=== PATIENT | female | born 1985 | race Caucasian/White ===

== ENCOUNTER 2020-02-20 11:34 | Emergency (ER) | payer MEDICAID, SELFPAY ==
[2020-02-20 11:45] VITALS: BP 140/62; PULSE 83; RESP 16; TEMP 36.7; O2SAT 99; BMI 41.3
--- NOTE | 2020-02-20 11:52 | PC.NURSE ---
DR LEMONS AT BEDSIDE FOR INITIAL EVALUATION
--- NOTE | 2020-02-20 11:52 | PC.NURSE ---
PT INFORMED OF THE PLAN OF CARE AND IS AGREEABLE
--- NOTE | 2020-02-20 12:16 | CT_ITS ---
EXAMINATION: CT ABDOMEN AND PELVIS WITHOUT CONTRAST CLINICAL INFORMATION: Right-sided abdominal pain COMPARISON: Report from CT of the abdomen and pelvis 10/18/2018. TECHNIQUE: Multidetector volumetric imaging was performed from the superior aspect of the liver through the pubic symphysis. Sagittal and coronal reformatted images were obtained on the technologist's workstation. This CT examination was performed using dose optimization techniques as appropriate, variously including the following: *Automated exposure control *Adjustment of mA and/or kV according to patient size (this includes techniques or standardized protocols for targeted exams where dose is matched to indication/reason for exam; i.e. extremities or head) *Use of iterative reconstruction technique DLP: 1079 mGy-cm FINDINGS: LUNG BASES: The visualized lung bases are unremarkable. LIVER, GALLBLADDER, AND BILIARY TREE: The liver is normal in size, shape, and attenuation. No focal hepatic lesion or biliary ductal dilatation is present. The gallbladder is surgically absent. PANCREAS: Unremarkable. SPLEEN: Unremarkable. ADRENAL GLANDS: Unremarkable. KIDNEYS AND URETERS: The kidneys are normal in size, shape, and attenuation. No hydronephrosis or hydroureter. There are smaller stones in the inferior pole of the left kidney. The larger measures up to 1.1 cm there are at least 2 additional adjacent smaller stones that measure up to 0.4 cm. No perinephric stranding. BLADDER: Unremarkable. GASTROINTESTINAL TRACT: No evidence of small or large bowel obstruction. The appendix is not clearly identified, but there are no pericecal inflammatory changes. Again demonstrated are scattered diverticula of the sigmoid colon without evidence of diverticulitis. ABDOMINAL WALL: Small, fat-containing supraumbilical hernia is stable since the prior study LYMPH NODES: Again demonstrated is mesenteric haziness and associated subcentimeter lymph nodes, stable since the prior study. VASCULAR: Normal caliber of the aorta. The IVC demonstrates a normal noncontrast appearance. PELVIC VISCERA: The uterus and adnexa are unremarkable. OSSEOUS STRUCTURES: No suspicious osseous lesion. IMPRESSION: No acute intra-abdominal pathology. Decreased degree of stone burden of the left kidney, now with smaller residual stones in the inferior pole measuring up to 1.1 cm. No hydronephrosis or hydroureter. No right-sided hydronephrosis, hydroureter, or nephrolithiasis. No evidence of bowel obstruction. Diverticulosis of the sigmoid colon without evidence of diverticulitis. Stable small fat-containing supraumbilical hernia.
--- NOTE | 2020-02-20 12:17 | ED.ABDPAIN ---
HPI - Abdominal Pain General Chief Complaint: Abdominal Pain Stated Complaint: abd pain Time Seen by Provider: 02/20/20 12:08 Source: patient Mode of arrival: ambulatory History of Present Illness HPI narrative: right-sided abdominal pain for a long time (couple months ) been worsening since yesterday. MD elicited complaint: abdominal pain Pertinent past history: none Onset (ago): month(s) (2) Pain Consistency: constant Location: RUQ Quality: aching Radiation: none Migration to: no migration Exacerbating factors: nothing Relieving factors: nothing Context: foreign travel Related Data Patient : No Previous Rx's Medication Instructions Recorded omeprazole magnesium [Prilosec OTC] 20 mg PO BID #60 tab 02/20/20 Allergies Allergy/AdvReac Type Severity Reaction Status Date / Time No Known Allergies Allergy Unverified 01/21/20 19:29 [No Known Allergies*] Review of Systems Review of Systems Yes all other systems are reviewed and are negative Constitutional: Reports no additional constitutional complaints Eyes: Reports no additional eye complaints Reports system reviewed and no additional complaints, except as documented Cardiovascular: Reports no additional cardiovascular complaints Respiratory: Reports no additional respiratory complaints Gastrointestinal: Denies nausea and Denies vomiting Genitourinary: Reports no additional female genitourinary complaints Musculoskeletal: Reports no additional musculoskeletal complaints Reports system reviewed and no additional complaints, except as documented Psychiatric: Reports no additional psychiatric complaints Physical Exam Vital Signs: Vital Signs: Vital Signs Temp Pulse Resp BP Pulse Ox 02/20/20 15:12 98.1 F 79 18 142/85 H 99 02/20/20 11:45 98.1 F 83 16 140/62 H 99 Body Mass Index 41.3 Const: General: cooperative Orientation/consciousness: oriented to person HENMT: Head: Yes normal to inspection Ears: hearing grossly normal bilaterally Eyes: General: appearance normal, both eyes and all related structures Neck: Neck: Yes normal visual inspection Chest: Chest palpation & inspection: normal inspection of the chest Resp: Effort & Inspection: normal respiratory effort Cardio: Jugular venous distension: no JVD Palpation: normal PMI GI: Inspection: Yes normal to inspection Palpation (GI): Soft to palpation and Tenderness to palpation present (GI) in the RLQ and in the RUQ Skin: General skin exam: no rashes or lesions noted Trauma: no lacerations or abrasions Neuro: General: oriented to person Cranial nerves: Yes CN's II-XII intact bilaterally Extrem: General: Yes normal to inspection and Yes full ROM Course Course Course Narrative: Acute on chronic abdominal pain, patient status post cholecystectomy, patient will have a CT abdomen pelvis, labs, UA. MDM - Abdominal Pain MDM Narrative Medical decision making narrative: Assessment and plan. Acute on chronic abdominal pain clinical presentation is more consistent with acute gastritis. Will start the patient on Prilosec and follow up with GI. Lab Data Result diagrams: 02/20/20 12:32 02/20/20 12:32 Labs: Lab Results 02/20/20 02/20/20 02/20/20 Range/Units 12:32 12:32 12:32 WBC 8.9 (4.8-10.8) X10*3/uL RBC 4.68 (4.20-5.50) X10*6/uL Hgb 14.3 (12.0-16.0) g/dl Hct 43.8 (37-47) % MCV 93.6 (80-98) fL MCH 30.6 (27.0-33.0) pg MCHC 32.6 (31.0-35.0) g/dl RDW 13.2 (11.0-16.0) % Plt Count 226 (160-400) X10*3/uL MPV 11.0 (9.4-12.3) fL Absolute Nucleated RBC 0.000 (0.0-0.012) X10*3/uL Nucleated RBC % (auto) 0.0 (0.0-0.2) /100WBC Sodium 139 (135-145) mmol/L Potassium 4.1 (3.3-5.1) mmol/l Chloride 105 (96-108) mmol/L Carbon Dioxide 28 (22-29) mmol/L Anion Gap 10 L (12-20) BUN 12 (9-16) mg/dL Creatinine 0.70 (0.5-1.4) mg/dL Estim Creat Clear Calc 146.7 Estimated GFR > 60 Random Glucose 106 (60-115) mg/dL Calcium 9.1 (8.4-10.2) mg/dL Total Bilirubin 0.4 (0.0-1.0) mg/dL Direct Bilirubin < 0.2 (0.0-0.5) mg/dL AST 18 (5-31) U/L ALT 36 H (0-31) U/L Alkaline Phosphatase 103 (39-117) U/L Total Protein 7.0 (6.5-8.0) g/dL Albumin 4.1 (3.5-5.0) g/dL Lipase 63 (8-78) U/L Urine Color Urine Appearance Urine pH (5.0-8.0) Ur Specific [place] (1.005-1.025) Urine Protein (NEG-TRACE) MG/DL Urine Glucose (UA) (NEG) MG/DL Urine Ketones (NEG) MG/DL Urine Blood (NEG) Urine Nitrite (NEG) Ur Leukocyte Esterase (NEG) Urine RBC (0) /HPF Urine WBC (0-4) /HPF Ur Squamous Epith Cells /LPF Amorphous Sediment /LPF Urine Bacteria /LPF Urine Test (NEGATIVE) 02/20/20 Range/Units 13:28 WBC (4.8-10.8) X10*3/uL RBC (4.20-5.50) X10*6/uL Hgb (12.0-16.0) g/dl Hct (37-47) % MCV (80-98) fL MCH (27.0-33.0) pg MCHC (31.0-35.0) g/dl RDW (11.0-16.0) % Plt Count (160-400) X10*3/uL MPV (9.4-12.3) fL Absolute Nucleated RBC (0.0-0.012) X10*3/uL Nucleated RBC % (auto) (0.0-0.2) /100WBC Sodium (135-145) mmol/L Potassium (3.3-5.1) mmol/l Chloride (96-108) mmol/L Carbon Dioxide (22-29) mmol/L Anion Gap (12-20) BUN (9-16) mg/dL Creatinine (0.5-1.4) mg/dL Estim Creat Clear Calc Estimated GFR Random Glucose (60-115) mg/dL Calcium (8.4-10.2) mg/dL Total Bilirubin (0.0-1.0) mg/dL Direct Bilirubin (0.0-0.5) mg/dL AST (5-31) U/L ALT (0-31) U/L Alkaline Phosphatase (39-117) U/L Total Protein (6.5-8.0) g/dL Albumin (3.5-5.0) g/dL Lipase (8-78) U/L Urine Color YELLOW Urine Appearance CLEAR Urine pH 6.0 (5.0-8.0) Ur Specific [place] 1.020 (1.005-1.025) Urine Protein NEG (NEG-TRACE) MG/DL Urine Glucose (UA) NEG (NEG) MG/DL Urine Ketones NEG (NEG) MG/DL Urine Blood TRACE (NEG) Urine Nitrite NEG (NEG) Ur Leukocyte Esterase NEG (NEG) Urine RBC 0-2 (0) /HPF Urine WBC 0-2 (0-4) /HPF Ur Squamous Epith Cells 3+ /LPF Amorphous Sediment 1+ /LPF Urine Bacteria NONE /LPF Urine Test NEGATIVE (NEGATIVE) Discharge Plan Discharge Clinical Impression: Gastritis, Abdominal pain in female Patient Disposition: Home, Self-Care Instructions: Gastritis (ED) Prescriptions: New omeprazole magnesium [Prilosec OTC] 20 mg tablet,delayed release (DR/EC) 20 mg PO BID Qty: 60 RF: 0 Referrals: Janny Patel MD [Physician] - 2 days PMF Past Medical History Medical History Kidney stones Social History Social History Advance Directives: No Advance Directives Information Provided: Yes
[2020-02-20] MEDS: 0.9 % Sodium Chloride 1,000 ML 999 ML IVCONT (12:34)
[2020-02-20 12:45] LABS: Hematocrit 43.8 % (37-47); Hemoglobin 14.3 g/dl (12.0-16.0); Mean Corpuscular HGB Conc 32.6 g/dl (31.0-35.0); Mean Corpuscular Hemoglobin 30.6 pg (27.0-33.0); Mean Corpuscular Volume 93.6 fL (80-98); Platelet Count 226 X10*3/uL (160-400); Red Blood Count 4.68 X10*6/uL (4.20-5.50); Red Cell Distribution Width 13.2 % (11.0-16.0); White Blood Count 8.9 X10*3/uL (4.8-10.8)
[2020-02-20 13:03] LABS: Anion Gap 10 (12-20); Blood Urea Nitrogen 12 mg/dL (9-16); Calcium 9.1 mg/dL (8.4-10.2); Carbon Dioxide 28 mmol/L (22-29); Chloride 105 mmol/L (96-108); Creatinine Clr Calc Pharmacy 146.7; Estimated Glomerular Filt Rate > 60; Glucose Random 106 mg/dL (60-115); Potassium 4.1 mmol/l (3.3-5.1); Sodium 139 mmol/L (135-145)
[2020-02-20 13:04] LABS: Alanine Aminotransferase 36 U/L (0-31); Albumin Level 4.1 g/dL (3.5-5.0); Alkaline Phosphatase 103 U/L (39-117); Aspartate Amino Transferase 18 U/L (5-31); Bilirubin Direct < 0.2 mg/dL (0.0-0.5); Bilirubin Total 0.4 mg/dL (0.0-1.0); Lipase 63 U/L (8-78)
[2020-02-20 13:40] LABS: Glucose Urine UA NEG (NEG); Leukocyte Esterase Urine NEG (NEG); Nitrite Urine NEG (NEG); Urine Blood TRACE (NEG); Urine Ketones NEG (NEG); Urine Protein NEG (NEG-TRACE)
[2020-02-20 13:42] LABS: Appearance Urine CLEAR; Color Urine YELLOW
[2020-02-20 13:43] LABS: UPreg QC Valid YES; Urine Pregnancy NEGATIVE (NEGATIVE)
[2020-02-20 13:50] LABS: Amorphous Sediment Urine 1+ /LPF; RBC Urine 0-2 /HPF (0); Squamous Epithelial Cell Urine 3+ /LPF
[2020-02-20 13:51] LABS: WBC Urine 0-2 /HPF (0-4)
[2020-02-20 15:12] VITALS: BP 142/85; PULSE 79; RESP 18; TEMP 36.7; O2SAT 99
== END 2020-02-20 16:28 | disposition home or self-care (01) ==
PROVIDERS: Emergency Provider Emergency Medicine
DX: K29.70 Gastritis, unspecified, without bleeding (principal)
CPT/HCPCS: 36415; 74176; 80048; 80076; 81001; 81025; 83690; 85027; 96360; 99283; 99284

== ENCOUNTER 2022-08-22 11:12 | Emergency (ER) | payer MEDICAID, SELFPAY ==
--- NOTE | ~2022-08-22 | CT_ITS ---
EXAMINATION: CT ABDOMEN AND PELVIS WITHOUT CONTRAST CLINICAL INFORMATION: Left-sided pain and diarrhea. COMPARISON: None available. TECHNIQUE: Multidetector volumetric imaging was performed from the superior aspect of the liver through the pubic symphysis. Sagittal and coronal reformatted images were obtained on the technologist's workstation. This CT examination was performed using dose optimization techniques as appropriate, variously including the following: *Automated exposure control *Adjustment of mA and/or kV according to patient size (this includes techniques or standardized protocols for targeted exams where dose is matched to indication/reason for exam; i.e. extremities or head) *Use of iterative reconstruction technique DLP: 854 mGy-cm FINDINGS: LUNG BASES: Normal. No pulmonary consolidation or pleural effusion. LIVER: Obese body habitus, hepatomegaly and diffuse hepatic steatosis. The liver parenchyma has attenuation of approximately 35 Hounsfield units on these noncontrast images. GALLBLADDER AND BILIARY TREE: Gallbladder is surgically absent. No dilated bile ducts. PANCREAS: Normal. No edema, pancreatic ductal dilatation or mass. SPLEEN: Normal. ADRENAL GLANDS: Normal. KIDNEYS AND URETERS: Kidneys are normal in size. A calyceal stone of the lower pole of the left kidney measures up to 0.7 cm maximum dimension and has density of approximately 800 Hounsfield units. The stone is slightly smaller compared to 02/20/2020. Is located approximately 15 cm deep from the skin surface at the posterior axillary line. No new calyceal stones. No ureteral stone, hydroureteronephrosis or perinephric edema. BLADDER: Normal. No calculi or wall thickening. BOWEL AND PERITONEUM: The gastrointestinal tract is not optimally evaluated on this noncontrast examination. No dilated bowel loops. The appendix is normal. There is chronic haziness of central mesenteric fat from mesenteric panniculitis. No abdominal free fluid or free air. ABDOMINAL WALL: Small fat-containing periumbilical hernia is unchanged. VASCULATURE: Unremarkable. LYMPH NODES: No pathologic sized lymph nodes in the abdomen or pelvis. No inguinal lymphadenopathy. PELVIC VISCERA: No evidence of uterine or adnexal mass. No pelvic free fluid. MUSCULOSKELETAL: Unremarkable. CT/CT abdomen pelvis wo IV con IMPRESSION: * No acute imaging abnormalities in the abdomen or pelvis compared to 02/20/2020. * A single stone is present in the lower pole of the left kidney. No ureteral stones, hydroureteronephrosis or perinephric edema. * Mesenteric panniculitis. * Obese body habitus, hepatomegaly and diffuse hepatic steatosis. * Small fat-containing periumbilical hernia.
--- NOTE | ~2022-08-22 | XR_ITS ---
EXAMINATION: XR CHEST CLINICAL INFORMATION: Chest pain COMPARISON: Previous chest x-ray May 2019 TECHNIQUE: 2 views of the chest were obtained. FINDINGS: No significant abnormality is noted involving the heart, lungs, mediastinum, bony thorax or soft tissues. XR/XR chest 2V IMPRESSION: Unremarkable examination.
--- NOTE | 2022-08-22 11:15 | ECG_ITS ---
Test Reason : CHEST PAIN Blood Pressure : / mmHG Vent. Rate : 093 BPM Atrial Rate : 093 BPM P-R Int : 164 ms QRS Dur : 078 ms QT Int : 366 ms P-R-T Axes : 046 021 004 degrees QTc Int : 455 ms Normal sinus rhythm Possible Left atrial enlargement Borderline ECG When compared with ECG of 15-JAN-2018 12:08, No significant change was found Referred By: Yanna Daley Electronically Signed By:VENTURA SINGER
[2022-08-22 11:16] VITALS: BP 131/69; PULSE 92; RESP 18; TEMP 36.3; O2SAT 98; BMI 41.2
--- NOTE | 2022-08-22 11:17 | ED.CHESTPAIN ---
HPI - Chest Pain General Chief Complaint: Chest Pain <Yanna Daley NP - Last Filed: 08/22/22 11:25> Stated Complaint: chest pain/ abd pain <Yanna Daley NP - Last Filed: 08/22/22 11:25> Time Seen by Provider: 08/22/22 12:06 <Yanna Daley NP - Last Filed: 08/22/22 11:25> Source: patient and medical interpreter <JORGE Reilly Last Filed: 08/22/22 15:00> Mode of arrival: ambulatory <JORGE Reilly Last Filed: 08/22/22 15:00> Limitations: no limitations <JORGE Reilly Last Filed: 08/22/22 15:00> History of Present Illness HPI narrative: 36-year-old female presents to the ER for evaluation of 4 days of left-sided abdominal pain and diarrhea as well as nonradiating left sided chest pain and headaches. Patient states she has had pain in her left upper quadrant for the last 4 days, she also has loose stools which is acute on chronic. She is status post cholecystectomy. She denies any nausea or vomiting. She states she also has had a pounding headache and had chest pains. She reports a history of kidney stones but states this pain in the abdomen is different. She reports some difficulty emptying her bladder completely. She denies any dysuria or hematuria. No fever or chills. No shortness of breath or cough. No URI symptoms. <JORGE Reilly Last Filed: 08/22/22 15:00> MD complaint: chest pain and other (Headache, abdominal pain, diarrhea) <JORGE Reilly Last Filed: 08/22/22 15:00> Onset (ago): day(s) (4) <JORGE Reilly Last Filed: 08/22/22 15:00> Timing of current episode: constant <JORGE Reilly Last Filed: 08/22/22 15:00> Prior episodes: Yes <JORGE Reilly Last Filed: 08/22/22 15:00> Onset: during rest <JORGE Reilly Last Filed: 08/22/22 15:00> Pain location: left chest and other (Left upper abdomen) <JORGE Reilly - Last Filed: 08/22/22 15:00> Pain radiation: abdomen <JORGE Reilly - Last Filed: 08/22/22 15:00> Severity: moderate <JORGE Reilly - Last Filed: 08/22/22 15:00> Quality: aching <JORGE Reilly - Last Filed: 08/22/22 15:00> Relieving factors: nothing <JORGE Reilly - Last Filed: 08/22/22 15:00> Exacerbating factors: nothing <JORGE Reilly - Last Filed: 08/22/22 15:00> Associated symptoms: other (Headache and abdominal pain) <JORGE Reilly - Last Filed: 08/22/22 15:00> Risk Factors Pulmonary embolism risk factors: morbid obesity <JORGE Reilly - Last Filed: 08/22/22 15:00> Related Data Home Medications: Previous Rx's Medication Instructions Recorded omeprazole magnesium 20 mg 20 mg PO BID #60 tabs 02/20/20 tablet,delayed release (Prilosec OTC) loperamide 2 mg capsule (Imodium 2 mg PO Q6H PRN loose stool #14 08/22/22 A-D) caps naproxen 500 mg tablet 500 mg PO BID PRN pain #20 tabs 08/22/22 <Yanna Daley NP - Last Filed: 08/22/22 11:25> Allergies/Adverse Reactions: Allergies Allergy/AdvReac Type Severity Reaction Status Date / Time No Known Allergies Allergy Verified 08/22/22 11:25 [No Known Allergies*] <Yanna Daley NP - Last Filed: 08/22/22 11:25> Review of Systems Review of Systems: Yes all other systems are reviewed and are negative <JORGE Reilly - Last Filed: 08/22/22 15:00> PMFSH Past Medical History Medical History: Medical History Kidney stones <Yanna Daley NP - Last Filed: 08/22/22 11:25> Social History Social History: Social History Alcohol intake: never Smoked in Last 30 Days: Yes Use of substances other than those prescribed or required for medical reasons: No Advance Directives: No Advance Directives Information Provided: No <Yanna Daley NP - Last Filed: 08/22/22 11:25> Physical Exam Vital Signs: Vital Signs: Last Vital Signs Temp 97.3 F 08/22/22 11:16 Pulse 81 08/22/22 14:14 Resp 21 H 08/22/22 14:14 BP 111/59 L 08/22/22 14:14 Pulse Ox 95 08/22/22 14:14 O2 Del Method Room Air 08/22/22 14:14 BMI result Body Mass Index 41.2 <Yanna Daley NP - Last Filed: 08/22/22 11:25> Vital Signs: Last Vital Signs Temp 97.3 F 08/22/22 11:16 Pulse 81 08/22/22 14:14 Resp 21 H 08/22/22 14:14 BP 111/59 L 08/22/22 14:14 Pulse Ox 95 08/22/22 14:14 O2 Del Method Room Air 08/22/22 14:14 BMI result Body Mass Index 41.2 <JORGE Reilly - Last Filed: 08/22/22 15:00> Course Course Course Narrative: This is a rapid medical exam. Deferred additional HPI, ROS, PE to primary provider. 36 yo female with no medical history here with 4 days of LUQ abdominal pain/left lower chest wall pain, headache, dizziness. No nausea, vomiting, diarrhea, fever, cough, urinary symptoms. WIll obtain labs, EKG, CXR, UA, viral testing. VSS <Yanna Daley NP - Last Filed: 08/22/22 11:25> Medical Decision Making Medical Decision Making MDM Narrative: 36-year-old female presents to the ER for evaluation of 4 days of left upper quadrant pain, chest pain, headaches. Her physical exam is benign. She does have a history of kidney stones and states the pain kind of felt similar to his and his own. Urine does not show any evidence of blood, infection or . CT scan did not show any evidence of kidney stones. 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 Patient most likely has a viral syndrome. Her EKG was negative for any ischemic changes. Troponin was negative. Chest x-ray was clear. At this time she is stable for d/c home with NSAIDS for pain control. medical staff services manager used to discuss results and plan. all questions were answered <JORGE Reilly - Last Filed: 08/22/22 15:00> Differential Diagnosis Differential Diagnoses: The differential diagnosis associated with the presentation includes <JORGE Reilly - Last Filed: 08/22/22 15:00> Gastroenteritis, kidney stone, pyelonephritis, UTI, pneumonia, acute viral syndrome, most likely PE or ACS. Perc negative. <JORGE Reilly - Last Filed: 08/22/22 15:00> Lab Data MDM Lab Attestation statement: I reviewed the patient's lab results. <JORGE Reilly - Last Filed: 08/22/22 15:00> Result Diagrams: 08/22/22 11:56 08/22/22 11:56 <Yanna Daley NP - Last Filed: 08/22/22 11:25> Labs: Lab Results 08/22/22 08/22/22 08/22/22 Range/Units 11:56 11:56 12:29 WBC 10.9 H (4.8-10.8) X10*3/uL RBC 4.85 (4.20-5.50) X10*6/uL Hgb 14.6 (12.0-16.0) g/dl Hct 44.2 (37.0-47.0) % MCV 91.1 (80.0-98.0) fL MCH 30.1 (27.0-33.0) pg MCHC 33.0 (31.0-35.0) g/dl RDW 12.4 (11.0-16.0) % Plt Count 222 (160-400) X10*3/uL MPV 10.6 (9.4-12.3) fL Immature Gran % (Auto) 0.6 H (0.0-0.4) % Neut % (Auto) 67.1 (45-73) % Lymph % (Auto) 26.2 (20-40) % [place] % (Auto) 5.0 (2-11) % Eos % (Auto) 0.8 (0-4) % Baso % (Auto) 0.3 (0-2) % Lymph # (Auto) 2.8 (1.2-4.9) X10*3/uL [place] # (Auto) 0.5 (0.1-1.2) X10*3/uL Eos # (Auto) 0.1 (0.0-0.4) X10*3/uL Baso # (Auto) 0.0 (0.0-0.2) X10*3/uL Abs Immat Gran (auto) 0.06 H (0.00-0.03) X10*3/uL Absolute Neuts (auto) 7.3 (2.0-8.3) x10*3/uL Absolute Nucleated RBC 0.000 (0.0-0.012) X10*3/uL Nucleated RBC % (auto) 0.0 (0.0-0.2) /100WBC Sodium (135-145) mmol/L Potassium (3.3-5.1) mmol/L Chloride (96-108) mmol/L Carbon Dioxide (22-29) mmol/L Anion Gap (12-20) BUN (9-16) mg/dL Creatinine (0.5-1.4) mg/dL Estim Creat Clear Calc Estimated GFR Random Glucose (60-115) mg/dL Calcium (8.4-10.2) mg/dL Total Bilirubin (0.0-1.0) mg/dL Direct Bilirubin (0.0-0.5) mg/dL AST (5-31) U/L ALT (0-31) U/L Alkaline Phosphatase (39-117) U/L Troponin I High Sens < 2.7 (<3.5-17.0) ng/L Total Protein (6.5-8.0) g/dL Albumin (3.5-5.0) g/dL Lipase (8-78) U/L Urine Color Urine Appearance Urine pH (5.0-9.0) Ur Specific [place] (1.005-1.025) Urine Protein (Neg-Trace) mg/dL Urine Glucose (UA) (Negative) mg/dL Urine Ketones (Negative) mg/dL Urine Blood (Negative) Urine Nitrite (Negative) Ur Leukocyte Esterase (Negative) Urine RBC (0-2) /HPF Urine WBC (0-5) /HPF Ur Squamous Epith Cells (0-2) /HPF Urine Bacteria (None Seen) Hyaline Casts (0-2) /LPF Urine Test (NEGATIVE) Influenza Type A (PCR) NEGATIVE (Negative) Influenza Type B (PCR) NEGATIVE (Negative) RSV RNA Qual (PCR) NEGATIVE (Negative) SARS-CoV-2 RNA (RT-PCR) NEGATIVE (Negative) 08/22/22 08/22/22 08/22/22 Range/Units 12:33 13:13 13:13 WBC (4.8-10.8) X10*3/uL RBC (4.20-5.50) X10*6/uL Hgb (12.0-16.0) g/dl Hct (37.0-47.0) % MCV (80.0-98.0) fL MCH (27.0-33.0) pg MCHC (31.0-35.0) g/dl RDW (11.0-16.0) % Plt Count (160-400) X10*3/uL MPV (9.4-12.3) fL Immature Gran % (Auto) (0.0-0.4) % Neut % (Auto) (45-73) % Lymph % (Auto) (20-40) % [place] % (Auto) (2-11) % Eos % (Auto) (0-4) % Baso % (Auto) (0-2) % Lymph # (Auto) (1.2-4.9) X10*3/uL [place] # (Auto) (0.1-1.2) X10*3/uL Eos # (Auto) (0.0-0.4) X10*3/uL Baso # (Auto) (0.0-0.2) X10*3/uL Abs Immat Gran (auto) (0.00-0.03) X10*3/uL Absolute Neuts (auto) (2.0-8.3) x10*3/uL Absolute Nucleated RBC (0.0-0.012) X10*3/uL Nucleated RBC % (auto) (0.0-0.2) /100WBC Sodium 138 (135-145) mmol/L Potassium 4.0 (3.3-5.1) mmol/L Chloride 104 (96-108) mmol/L Carbon Dioxide 28 (22-29) mmol/L Anion Gap 10 L (12-20) BUN 8 L (9-16) mg/dL Creatinine 0.75 (0.5-1.4) mg/dL Estim Creat Clear Calc 129.5 Estimated GFR > 60 Random Glucose 239 H (60-115) mg/dL Calcium 8.9 (8.4-10.2) mg/dL Total Bilirubin 0.5 (0.0-1.0) mg/dL Direct Bilirubin 0.1 (0.0-0.5) mg/dL AST 19 (5-31) U/L ALT 28 (0-31) U/L Alkaline Phosphatase 119 H (39-117) U/L Troponin I High Sens (<3.5-17.0) ng/L Total Protein 6.5 (6.5-8.0) g/dL Albumin 3.8 (3.5-5.0) g/dL Lipase 17 (8-78) U/L Urine Color Yellow Urine Appearance Clear Urine pH 5.5 (5.0-9.0) Ur Specific [place] 1.025 (1.005-1.025) Urine Protein 30 (1+) H (Neg-Trace) mg/dL Urine Glucose (UA) Negative (Negative) mg/dL Urine Ketones Negative (Negative) mg/dL Urine Blood Negative (Negative) Urine Nitrite Negative (Negative) Ur Leukocyte Esterase Negative (Negative) Urine RBC 0-2 (0-2) /HPF Urine WBC 0-5 (0-5) /HPF Ur Squamous Epith Cells 3-5 (0-2) /HPF Urine Bacteria None Seen (None Seen) Hyaline Casts 0-2 (0-2) /LPF Urine Test NEGATIVE (NEGATIVE) Influenza Type A (PCR) (Negative) Influenza Type B (PCR) (Negative) RSV RNA Qual (PCR) (Negative) SARS-CoV-2 RNA (RT-PCR) (Negative) <Yanna Daley, NUMERICAL CONTROL TOOL PROGRAMMER - Last Filed: 08/22/22 11:25> Lab Results 08/22/22 08/22/22 08/22/22 Range/Units 11:56 11:56 12:29 WBC 10.9 H (4.8-10.8) X10*3/uL RBC 4.85 (4.20-5.50) X10*6/uL Hgb 14.6 (12.0-16.0) g/dl Hct 44.2 (37.0-47.0) % MCV 91.1 (80.0-98.0) fL MCH 30.1 (27.0-33.0) pg MCHC 33.0 (31.0-35.0) g/dl RDW 12.4 (11.0-16.0) % Plt Count 222 (160-400) X10*3/uL MPV 10.6 (9.4-12.3) fL Immature Gran % (Auto) 0.6 H (0.0-0.4) % Neut % (Auto) 67.1 (45-73) % Lymph % (Auto) 26.2 (20-40) % [place] % (Auto) 5.0 (2-11) % Eos % (Auto) 0.8 (0-4) % Baso % (Auto) 0.3 (0-2) % Lymph # (Auto) 2.8 (1.2-4.9) X10*3/uL [place] # (Auto) 0.5 (0.1-1.2) X10*3/uL Eos # (Auto) 0.1 (0.0-0.4) X10*3/uL Baso # (Auto) 0.0 (0.0-0.2) X10*3/uL Abs Immat Gran (auto) 0.06 H (0.00-0.03) X10*3/uL Absolute Neuts (auto) 7.3 (2.0-8.3) x10*3/uL Absolute Nucleated RBC 0.000 (0.0-0.012) X10*3/uL Nucleated RBC % (auto) 0.0 (0.0-0.2) /100WBC Sodium (135-145) mmol/L Potassium (3.3-5.1) mmol/L Chloride (96-108) mmol/L Carbon Dioxide (22-29) mmol/L Anion Gap (12-20) BUN (9-16) mg/dL Creatinine (0.5-1.4) mg/dL Estim Creat Clear Calc Estimated GFR Random Glucose (60-115) mg/dL Calcium (8.4-10.2) mg/dL Total Bilirubin (0.0-1.0) mg/dL Direct Bilirubin (0.0-0.5) mg/dL AST (5-31) U/L ALT (0-31) U/L Alkaline Phosphatase (39-117) U/L Troponin I High Sens < 2.7 (<3.5-17.0) ng/L Total Protein (6.5-8.0) g/dL Albumin (3.5-5.0) g/dL Lipase (8-78) U/L Urine Color Urine Appearance Urine pH (5.0-9.0) Ur Specific [place] (1.005-1.025) Urine Protein (Neg-Trace) mg/dL Urine Glucose (UA) (Negative) mg/dL Urine Ketones (Negative) mg/dL Urine Blood (Negative) Urine Nitrite (Negative) Ur Leukocyte Esterase (Negative) Urine RBC (0-2) /HPF Urine WBC (0-5) /HPF Ur Squamous Epith Cells (0-2) /HPF Urine Bacteria (None Seen) Hyaline Casts (0-2) /LPF Urine Test (NEGATIVE) Influenza Type A (PCR) NEGATIVE (Negative) Influenza Type B (PCR) NEGATIVE (Negative) RSV RNA Qual (PCR) NEGATIVE (Negative) SARS-CoV-2 RNA (RT-PCR) NEGATIVE (Negative) 08/22/22 08/22/22 08/22/22 Range/Units 12:33 13:13 13:13 WBC (4.8-10.8) X10*3/uL RBC (4.20-5.50) X10*6/uL Hgb (12.0-16.0) g/dl Hct (37.0-47.0) % MCV (80.0-98.0) fL MCH (27.0-33.0) pg MCHC (31.0-35.0) g/dl RDW (11.0-16.0) % Plt Count (160-400) X10*3/uL MPV (9.4-12.3) fL Immature Gran % (Auto) (0.0-0.4) % Neut % (Auto) (45-73) % Lymph % (Auto) (20-40) % [place] % (Auto) (2-11) % Eos % (Auto) (0-4) % Baso % (Auto) (0-2) % Lymph # (Auto) (1.2-4.9) X10*3/uL [place] # (Auto) (0.1-1.2) X10*3/uL Eos # (Auto) (0.0-0.4) X10*3/uL Baso # (Auto) (0.0-0.2) X10*3/uL Abs Immat Gran (auto) (0.00-0.03) X10*3/uL Absolute Neuts (auto) (2.0-8.3) x10*3/uL Absolute Nucleated RBC (0.0-0.012) X10*3/uL Nucleated RBC % (auto) (0.0-0.2) /100WBC Sodium 138 (135-145) mmol/L Potassium 4.0 (3.3-5.1) mmol/L Chloride 104 (96-108) mmol/L Carbon Dioxide 28 (22-29) mmol/L Anion Gap 10 L (12-20) BUN 8 L (9-16) mg/dL Creatinine 0.75 (0.5-1.4) mg/dL Estim Creat Clear Calc 129.5 Estimated GFR > 60 Random Glucose 239 H (60-115) mg/dL Calcium 8.9 (8.4-10.2) mg/dL Total Bilirubin 0.5 (0.0-1.0) mg/dL Direct Bilirubin 0.1 (0.0-0.5) mg/dL AST 19 (5-31) U/L ALT 28 (0-31) U/L Alkaline Phosphatase 119 H (39-117) U/L Troponin I High Sens (<3.5-17.0) ng/L Total Protein 6.5 (6.5-8.0) g/dL Albumin 3.8 (3.5-5.0) g/dL Lipase 17 (8-78) U/L Urine Color Yellow Urine Appearance Clear Urine pH 5.5 (5.0-9.0) Ur Specific [place] 1.025 (1.005-1.025) Urine Protein 30 (1+) H (Neg-Trace) mg/dL Urine Glucose (UA) Negative (Negative) mg/dL Urine Ketones Negative (Negative) mg/dL Urine Blood Negative (Negative) Urine Nitrite Negative (Negative) Ur Leukocyte Esterase Negative (Negative) Urine RBC 0-2 (0-2) /HPF Urine WBC 0-5 (0-5) /HPF Ur Squamous Epith Cells 3-5 (0-2) /HPF Urine Bacteria None Seen (None Seen) Hyaline Casts 0-2 (0-2) /LPF Urine Test NEGATIVE (NEGATIVE) Influenza Type A (PCR) (Negative) Influenza Type B (PCR) (Negative) RSV RNA Qual (PCR) (Negative) SARS-CoV-2 RNA (RT-PCR) (Negative) <JORGE Reilly - Last Filed: 08/22/22 15:00> Independent Interpretation I performed an independent interpretation of an: EKG, Plain X-Ray and CT Scan <JORGE Reilly - Last Filed: 08/22/22 15:00> Interpretation: Chest x-ray without pneumonia. CT scan without any acute abnormalities. Agree with radiologist's read. EKG with normal sinus rhythm, ventricular rate 93 beats per minute, normal UT interval, normal QTC, no ST segment elevation depressions. No change from prior 01/2018 <JORGE Reilly - Last Filed: 08/22/22 15:00> Radiology Impression Discussion of test interpretation with radiology: I have reviewed the radiologist's reading. <JORGE Reilly - Last Filed: 08/22/22 15:00> Radiologist Impression: XR/XR chest 2V IMPRESSION: Unremarkable examination. ?CT/CT abdomen pelvis wo IV con IMPRESSION: *? No acute imaging abnormalities in the abdomen or pelvis compared to 02/20/2020. *? A single stone is present in the lower pole of the left kidney. No ureteral stones, hydroureteronephrosis or perinephric edema. *? Mesenteric panniculitis. *? Obese body habitus, hepatomegaly and diffuse hepatic steatosis. *? Small fat-containing periumbilical hernia. ? <JORGE Reilly Last Filed: 08/22/22 15:00> External Record Review External record reviewed: Outpatient record, Prior outpatient labs and Prior outpatient radiology <JORGE Reilly Last Filed: 08/22/22 15:00> Prescription Management I considered prescription management with: Pain Medication and Antibiotic <JORGE Reilly - Last Filed: 08/22/22 15:00> Critical Care Time Critical Care Time Critical Care Time: No <JORGE Reilly - Last Filed: 08/22/22 15:00> Discharge Plan Discharge Clinical Impression: Acute viral syndrome <Yanna Daley NP - Last Filed: 08/22/22 11:25> Patient Disposition: Home, Self-Care <Yanna Daley NP - Last Filed: 08/22/22 11:25> Instructions: Viral Syndrome (ED) <Yanna Daley NP - Last Filed: 08/22/22 11:25> Additional Instructions: Your lab workup today was unremarkable. Your urine test was negative for infection and . Your chest pain does not appear to be cardiac. Your CT scan did not show any evidence of kidney stones or acute causes of your pain. It did show some swollen lymph nodes which can be seen with a viral illness. Recommend taking the prescribed medication as directed. Rest and stay hydrated. Follow-up with your doctor. If you develop new or worsening symptoms call 911 or come back to the ER for further evaluation. Tu an?lisis de laboratorio de hoy no tuvo nada especial. Sims an?lisis de orina kathy negativo para infecci?n y embarazo. Sims dolor de pecho no parece ser card?aco. Sims tomograf?a computarizada no mostr? ninguna evidencia de c?lculos renales o causas agudas de sims dolor. Mostr? algunos ganglios linf?ticos inflamados que se pueden ibrahima con nicole enfermedad viral. Recomendar raulito la medicaci?n prescrita seg?n las indicaciones. Descansa y mantente hidratado. Seguimiento con sims m?dico. Si desarrolla s?ntomas nuevos o que empeoran, llame al 911 o regrese a la hansa de emergencias para nicole evaluaci?n adicional. <Yanna Daley NP - Last Filed: 08/22/22 11:25> Prescriptions: New loperamide [Imodium A-D] 2 mg capsule 2 mg PO Q6H PRN (Reason: loose stool) Qty: 14 0RF naproxen 500 mg tablet 500 mg PO BID PRN (Reason: pain) Qty: 20 0RF No Action omeprazole magnesium [Prilosec OTC] 20 mg tablet,delayed release (DR/EC) 20 mg PO BID Qty: 60 0RF <Yanna Daley NP - Last Filed: 08/22/22 11:25> Referrals: [facility] [Primary Care Provider] - <Yanna Daley NP - Last Filed: 08/22/22 11:25> Print Language: Amharic <Yanna Daley NP - Last Filed: 08/22/22 11:25>
[2022-08-22 12:04] LABS: MANUAL DIFF FLAG NO
[2022-08-22 12:05] LABS: Basophils Percent Auto 0.3 % (0-2); Eosinophils Absolute Auto 0.1 X10*3/uL (0.0-0.4); Eosinophils Percent Auto 0.8 % (0-4); Hematocrit 44.2 % (37.0-47.0); Hemoglobin 14.6 g/dl (12.0-16.0); Imm Gran Abs Auto 0.06 X10*3/uL (0.00-0.03); Imm Gran Pct Auto 0.6 % (0.0-0.4); Lymphocytes Absolute Auto 2.8 X10*3/uL (1.2-4.9); Lymphocytes Percent Auto 26.2 % (20-40); Mean Corpuscular Hemoglobin 30.1 pg (27.0-33.0); Mean Corpuscular Volume 91.1 fL (80.0-98.0); Mean Platelet Volume 10.6 fL (9.4-12.3); Monocytes Absolute Auto 0.5 X10*3/uL (0.1-1.2); Neutrophils Absolute Auto 7.3 x10*3/uL (2.0-8.3); Neutrophils Percent Auto 67.1 % (45-73); Platelet Count 222 X10*3/uL (160-400); Red Blood Count 4.85 X10*6/uL (4.20-5.50); Red Cell Distribution Width 12.4 % (11.0-16.0); White Blood Count 10.9 X10*3/uL (4.8-10.8)
[2022-08-22 12:28] LABS: Troponin-I High Sensitivity < 2.7 ng/L (<3.5-17.0)
--- OUTSIDE RECORDS SUMMARY | 2022-08-22 12:47 | XMS_ITS | Continuity of Care Document ---
Author Name Unknown Organization [facility] Address Adult Weight Managem ent [address] [place] [address]- Care Team Providers Care Slot Machine Mechanic Name Role Phone Not on Staff, PCP Primary Care Physician Unavail able Encounter [facility] Date(s): 04/21/19 - 05/01/19 [facility] Adult Weight Management [address] [place] [address]- [facility] Attending Physician: Rupal Abarca Admitting Physician: Rupal Abarca Referring Physician: Rupal Abarca
--- OUTSIDE RECORDS SUMMARY | 2022-08-22 12:47 | XMS_ITS | Continuity of Care Document ---
Author Name Unknown Organization [facility] Address Adult Weight Managem ent [address] [place] [address]- Care Team Providers Care Cobol Application Developer Name Role Phone Not on Staff, PCP Primary Care Physician Unavail able Encounter [facility] Date(s): 04/21/19 - 04/28/19 [facility] Adult Weight Management [address] [place] [address]- [facility] Attending Physician: Not on Staff, Attending
[2022-08-22 13:01] LABS: Alanine Aminotransferase 28 U/L (0-31); Albumin Level 3.8 g/dL (3.5-5.0); Alkaline Phosphatase 119 U/L (39-117); Anion Gap 10 (12-20); Aspartate Amino Transferase 19 U/L (5-31); Bilirubin Direct 0.1 mg/dL (0.0-0.5); Bilirubin Total 0.5 mg/dL (0.0-1.0); Blood Urea Nitrogen 8 mg/dL (9-16); Calcium 8.9 mg/dL (8.4-10.2); Carbon Dioxide 28 mmol/L (22-29); Chloride 104 mmol/L (96-108); Creatinine Clr Calc Pharmacy 129.5; Estimated Glomerular Filt Rate > 60; Glucose Random 239 mg/dL (60-115); Lipase 17 U/L (8-78); Sodium 138 mmol/L (135-145); Total Protein 6.5 g/dL (6.5-8.0)
[2022-08-22 13:17] VITALS: PULSE 70
[2022-08-22 13:20] LABS: Appearance Urine Clear; Color Urine Yellow; Glucose Urine UA Negative (Negative); Leukocyte Esterase Urine Negative (Negative); Nitrite Urine Negative (Negative); PH 5.5 (5.0-9.0); Specific Gravity - Urine 1.025 (1.005-1.025); UMIC TRIGGER UACC YES; Urine Blood Negative (Negative); Urine Ketones Negative (Negative); Urine Protein 30 (1+) mg/dL (Neg-Trace)
--- NOTE | 2022-08-22 13:21 | PC.NURSE ---
Patient complaining of chest and upper abdominal pain. Patient generally well appearing, sinus rhythm on monitor. Patient LS clear and is breathing independently without issue.
[2022-08-22 13:22] LABS: Influenza A PCR NEGATIVE (Negative); Influenza B PCR NEGATIVE (Negative); Resp Syncy Virus RNA Qual PCR NEGATIVE (Negative); SARS COV2 PCR INHOUSE NEGATIVE (Negative)
[2022-08-22 13:24] LABS: UPreg QC Valid YES; Urine Pregnancy NEGATIVE (NEGATIVE)
[2022-08-22 13:25] LABS: Bacteria Urine None Seen (None Seen); Hyaline Casts Urine 0-2 /LPF (0-2); RBC Urine 0-2 /HPF (0-2); WBC Urine 0-5 /HPF (0-5)
[2022-08-22 14:14] VITALS: BP 111/59; PULSE 81; RESP 21; O2SAT 95
[2022-08-22] MEDS: Ketorolac Tromethamine 30 MG/ML VIAL IVPUSH (14:55)
== END 2022-08-22 15:14 | disposition home or self-care (01) ==
PROVIDERS: Nurse Practitioner Family; Emergency Provider Emergency Medicine Emergency Medical Services
DX: B34.9 Viral infection, unspecified (principal); R07.89 Other chest pain; R19.7 Diarrhea, unspecified; R51.9 Headache, unspecified; Z20.822 Contact with and (suspected) exposure to COVID-19; Z20.828 Contact with and (suspected) exposure to other viral communicable diseases; Z79.899 Other long term (current) drug therapy
CPT/HCPCS: 0241U; 71046; 74176; 80048; 80076; 81001; 81025; 83690; 84484; 85025; 93005; 96374; 99284; 99285; J1885

== ENCOUNTER 2022-10-08 15:06 | Emergency (ER) | payer MEDICAID, SELFPAY ==
--- NOTE | ~2022-10-08 | XR_ITS ---
EXAMINATION: XR CHEST 2 VIEWS CLINICAL INFORMATION: Cough. COMPARISON: Chest radiograph dated 08/22/2022. TECHNIQUE: Frontal and lateral views of the chest were obtained. FINDINGS: The heart, great vessels, pulmonary vasculature and mediastinum are normal. The lungs show no focal infiltrate, effusion or pneumothorax. There is no acute osseous abnormality. XR/XR chest 2V IMPRESSION: No active cardiopulmonary disease.
[2022-10-08 15:30] VITALS: BP 115/64; PULSE 96; RESP 17; TEMP 36.2; O2SAT 96; BMI 41.7
--- NOTE | 2022-10-08 15:38 | ED_ITS ---
HPI - Asthma General Chief Complaint: Asthma Stated Complaint: asthma Related Data Previous Rx's Medication Instructions Recorded omeprazole magnesium 20 mg 20 mg PO BID #60 tabs 02/20/20 tablet,delayed release (Prilosec OTC) loperamide 2 mg capsule (Imodium 2 mg PO Q6H PRN loose stool #14 08/22/22 A-D) caps naproxen 500 mg tablet 500 mg PO BID PRN pain #20 tabs 08/22/22 Allergies Allergy/AdvReac Type Severity Reaction Status Date / Time No Known Allergies Allergy Verified 08/22/22 11:25 [No Known Allergies*] [facility] Past Medical History Medical History Kidney stones Social History Social History Alcohol intake: never Physical Exam Vital Signs: Vital Signs: Last Vital Signs Temp 97.2 F 10/08/22 15:30 Pulse 96 10/08/22 15:30 Resp 17 10/08/22 15:30 BP 115/64 10/08/22 15:30 Pulse Ox 96 10/08/22 15:30 O2 Del Method Room Air 10/08/22 15:30 BMI result Body Mass Index 41.7 Course Course Course Narrative: Patient complains of chest tightness back pain and cough,the back pain started after frequent coughing spells over the last week Chest was tight so treatment is ordered, chest x-ray and COVID/flu testing is ordered This is rapid medical exam in triage prior to full evaluation in the department for full evaluation and dispo Discharge Plan Discharge Prescriptions: No Action omeprazole magnesium [Prilosec OTC] 20 mg tablet,delayed release (DR/EC) 20 mg PO BID Qty: 60 0RF loperamide [Imodium A-D] 2 mg capsule 2 mg PO Q6H PRN (Reason: loose stool) Qty: 14 0RF naproxen 500 mg tablet 500 mg PO BID PRN (Reason: pain) Qty: 20 0RF
--- NOTE | 2022-10-08 15:38 | PC.NURSE ---
LUNGS - TIGHT WITH INSP WHEEZING.
[2022-10-08] MEDS: Albuterol Sulfate 90 MCG 8 GM INHALER 4 PUFF INHALE (16:29)
[2022-10-08 16:30] VITALS: PULSE 77; RESP 20; O2SAT 98
[2022-10-08 18:35] VITALS: BP 115/54; PULSE 110; RESP 15; TEMP 38; O2SAT 97
[2022-10-08 18:37] VITALS: BP 117/54; PULSE 112; RESP 15; TEMP 38; O2SAT 97
--- NOTE | 2022-10-08 18:38 | MHC.EDTECH ---
PT RSV /COVID SWAB COLLECTED AND SENT TO LAB ,[facility] IS AWARE OF PT HIGH HR .
[2022-10-08 19:25] LABS: Influenza A PCR NEGATIVE (Negative); Influenza B PCR NEGATIVE (Negative); Resp Syncy Virus RNA Qual PCR NEGATIVE (Negative); SARS COV2 PCR INHOUSE NEGATIVE (Negative)
== END 2022-10-08 23:05 | disposition left against medical advice (07) ==
PROVIDERS: Physician Assistant Medical; Emergency Provider Emergency Medicine
DX: J45.909 Unspecified asthma, uncomplicated (principal); Z20.822 Contact with and (suspected) exposure to COVID-19; Z20.828 Contact with and (suspected) exposure to other viral communicable diseases
CPT/HCPCS: 0241U; 71046; 94640; 99283; 99284

== ENCOUNTER 2023-04-11 13:53 | Outpatient (REF) | payer MEDICAID, SELFPAY ==
[2023-04-12 15:42] LABS: Influenza A PCR NEGATIVE (Negative); Influenza B PCR NEGATIVE (Negative); Resp Syncy Virus RNA Qual PCR NEGATIVE (Negative); SARS COV2 PCR INHOUSE NEGATIVE (Negative)
== END 2023-04-11 13:54 | disposition home or self-care (01) ==
LOC: HO.HHCLNP 13:53
PROVIDERS: Visit Provider Emergency Medicine
DX: J06.9 Acute upper respiratory infection, unspecified (principal); Z11.52 Encounter for screening for COVID-19
CPT/HCPCS: 0241U

== ENCOUNTER 2023-08-15 09:14 | Emergency (ER) | payer MEDICAID, SELFPAY ==
--- NOTE | ~2023-08-15 | XR_ITS ---
EXAMINATION: XR CHEST CLINICAL INFORMATION: Chest pain COMPARISON: 10/08/2022 TECHNIQUE: 2 views of the chest were obtained. FINDINGS: No significant abnormality is noted involving the heart, lungs, mediastinum, bony thorax or soft tissues. XR/XR chest 2V IMPRESSION: Unremarkable examination.
[2023-08-15 09:48] VITALS: BP 131/69; PULSE 90; RESP 19; TEMP 36.6; O2SAT 99; BMI 40.6
--- NOTE | 2023-08-15 09:52 | ECG_ITS ---
Test Reason : cheat pain Blood Pressure : / mmHG Vent. Rate : 076 BPM Atrial Rate : 076 BPM P-R Int : 172 ms QRS Dur : 078 ms QT Int : 378 ms P-R-T Axes : 052 028 005 degrees QTc Int : 425 ms Normal sinus rhythm Normal ECG When compared with ECG of 22-AUG-2022 11:28, No significant change was found Referred By: Generic ED Physician Electronically Signed By:Anthony Montejo
[2023-08-15 10:39] LABS: MANUAL DIFF FLAG NO
[2023-08-15 10:42] LABS: Appearance Urine Clear; Color Urine Yellow; Glucose Urine UA Negative (Negative); Leukocyte Esterase Urine Negative (Negative); Nitrite Urine Negative (Negative); PH 5.5 (5.0-9.0); Specific Gravity - Urine >= 1.030 (1.005-1.025); UMIC TRIGGER UACC YES; Urine Blood Negative (Negative); Urine Ketones Negative (Negative); Urine Protein 30 (1+) mg/dL (Neg-Trace)
[2023-08-15 10:42] LABS: Basophils Percent Auto 0.4 % (0-2); Eosinophils Absolute Auto 0.1 X10*3/uL (0.0-0.4); Eosinophils Percent Auto 0.7 % (0-4); Hematocrit 44.3 % (37.0-47.0); Hemoglobin 14.9 g/dl (12.0-16.0); Imm Gran Abs Auto 0.05 X10*3/uL (0.00-0.03); Imm Gran Pct Auto 0.5 % (0.0-0.4); Lymphocytes Percent Auto 28.6 % (20-40); Mean Corpuscular HGB Conc 33.6 g/dl (31.0-35.0); Mean Corpuscular Hemoglobin 30.7 pg (27.0-33.0); Mean Corpuscular Volume 91.2 fL (80.0-98.0); Mean Platelet Volume 10.5 fL (9.4-12.3); Monocytes Absolute Auto 0.5 X10*3/uL (0.1-1.2); Monocytes Percent Auto 5.1 % (2-11); Neutrophils Absolute Auto 6.9 x10*3/uL (2.0-8.3); Neutrophils Percent Auto 64.7 % (45-73); Platelet Count 234 X10*3/uL (160-400); Red Blood Count 4.86 X10*6/uL (4.20-5.50); Red Cell Distribution Width 11.9 % (11.0-16.0); White Blood Count 10.6 X10*3/uL (4.8-10.8)
[2023-08-15 10:44] LABS: UPreg QC Valid YES; Urine Pregnancy NEGATIVE (NEGATIVE)
[2023-08-15 10:45] LABS: Bacteria Urine None Seen (None Seen); Hyaline Casts Urine 0-2 /LPF (0-2); RBC Urine 0-2 /HPF (0-2); WBC Urine 0-5 /HPF (0-5)
[2023-08-15 10:58] LABS: Anion Gap 11 (12-20); Blood Urea Nitrogen 9 mg/dL (9-16); Calcium 9.3 mg/dL (8.4-10.2); Carbon Dioxide 26 mmol/L (22-29); Chloride 103 mmol/L (96-108); Creatinine Clr Calc Pharmacy 138.2; Estimated Glomerular Filt Rate > 60; Glucose Random 264 mg/dL (60-115); Sodium 136 mmol/L (135-145)
[2023-08-15 11:08] LABS: Troponin-I High Sensitivity < 2.7 ng/L (<3.5-17.0)
[2023-08-15 11:16] LABS: Influenza A PCR NEGATIVE (Negative); Influenza B PCR NEGATIVE (Negative); Resp Syncy Virus RNA Qual PCR NEGATIVE (Negative); SARS COV2 PCR INHOUSE NEGATIVE (Negative)
--- NOTE | 2023-08-15 11:49 | ED.GENADULT ---
HPI - General Adult General Chief complaint: General Medical Stated complaint: Not feeling well Time Seen by Provider: 08/15/23 11:48 Source: patient and RN notes reviewed Mode of arrival: ambulatory Limitations: no limitations History of Present Illness HPI narrative: This is a 37-year-old Kyrgyz-speaking female, with no known medical problems, who presents emergency department multiple complaints. Patient states that over the last 2 months she has had intermittent dizziness, headaches, abdominal pain, and diarrhea. Patient states that she has had diarrhea for the last 2 months. Denies any bloody or black stool. She also endorses a burning sensation in her chest. Patient denies any fevers, chills, chest pain, shortness breath, palpitations, congestion. She denies any urinary symptoms. Denies any abnormal vaginal bleeding or discharge. She states that she was seen at [facility] yesterday however left prior to being fully evaluated. No recent abx use, recent travel or surgeries. Pt had a cholescystectomy, no other abdominal surgeries. No other complaints or concerns at this time. MD complaint: Multiple complaints Onset (ago): day(s) Radiation: non-radiation Quality: aching Pain Consistency: constant Relieving factors: none Exacerbating factors: none Associated symptoms: denies other symptoms Treatments prior to arrival: none Related Data Previous Rx's ?Medication ?Instructions ?Recorded omeprazole magnesium 20 mg 20 mg PO BID #60 tabs 02/20/20 tablet,delayed release (Prilosec OTC) loperamide 2 mg capsule (Imodium 2 mg PO Q6H PRN loose stool #14 08/22/22 A-D) caps naproxen 500 mg tablet 500 mg PO BID PRN pain #20 tabs 08/22/22 Allergies Allergy/AdvReac Type Severity Reaction Status Date / Time No Known Allergies Allergy Verified 08/15/23 09:51 [No Known Allergies*] Review of Systems Review of Systems: Yes all other systems are reviewed and are negative Constitutional: Constitutional: Reports as per [facility] Past Medical History Attestation statement: The following information was validated with the patient. Medical History Kidney stones Social History Social History Alcohol intake: never Smoked in Last 30 Days: No Advance Directives: No Physical Exam ED Vital Signs: Vital Signs - 24 hr 08/15/23 09:48 08/15/23 12:17 08/15/23 12:17 Temperature 98 F Pulse Rate 90 85 85 Respiratory Rate 19 16 Blood Pressure 131/69 109/58 L 109/58 L Pulse Oximetry 99 99 Oxygen Delivery Method Room Air Room Air 08/15/23 14:09 08/15/23 14:10 08/15/23 14:32 Temperature 98.2 F Pulse Rate 88 98 85 Respiratory Rate 18 Blood Pressure 117/61 115/56 L 121/56 L Pulse Oximetry 96 Oxygen Delivery Method Room Air 08/15/23 15:39 Temperature 98.2 F Pulse Rate 85 Respiratory Rate 18 Blood Pressure 121/56 L Pulse Oximetry 96 Oxygen Delivery Method Room Air BMI result Body Mass Index 40.6 Const General: cooperative, comfortable and no acute distress Orientation/consciousness: patient oriented x3 Limitations: no limitations HENMT Head: Yes normal to inspection, Yes normocephalic and Yes atraumatic Ears: hearing grossly normal bilaterally General nose exam: Normal external nose present Face and sinus: Yes normal facial exam Mouth: Normal oral and palatal mucosa present, oropharynx normal and moist mucous membranes Throat: Yes posterior oropharynx normal Eyes General: appearance normal, both eyes and all related structures Eyelids: Yes eyelids normal Conjunctivae: conjunctivae normal Sclerae: sclerae normal Pupils: Equal, round and reactive pupils present EOM: EOMs intact bilaterally Neck Neck: Yes normal visual inspection, Yes full ROM and Yes no lymphadenopathy Lymphatic: no lymphadenopathy noted Chest Chest palpation & inspection: normal inspection of the chest Resp Effort & Inspection: normal respiratory effort and able to speak in complete sentences Auscultation: clear to auscultation bilaterally, no crackles, no rales, no rhonchi and no wheezes Cardio Rate: regular rate Rhythm: regular rhythm Heart sounds: S1 normal heart sound present and S2 normal heart sound present GI Other: Abdomen is soft, with tenderness palpation in the epigastrium, no rebound or guarding. Inspection: Yes normal to inspection Skin General skin exam: no rashes or lesions noted Trauma: no lacerations or abrasions Wounds: no wounds Neuro General: patient oriented x3 and moves all extremities Cranial nerves: Yes CN's II-XII intact bilaterally and Yes Equal, round and reactive pupils present Cognition (Neuro): normal cognition Gait exam (Neuro): Normal gait present Motor exam (neuro): 5/5 motor strength present throughout Extrem General: Yes normal to inspection Right upper extremity: normal to inspection Left upper extremity: normal to inspection Right lower extremity: normal to inspection Left lower extremity: normal to inspection Course Reevaluation(s) Reevaluation #1: Pt not orthostatic. Labs reassuring. Hyperglycemic at 264. Pt has no hx of diabetes. I discussed this finding with pt. Discussed that we do not have a hemoglobin a1c, and she has follow up with PCP in september. Discussed that she may be pre-diabetic and counseled on lifestyle modifications she can make in order to reverse diabetic progression. No glucosuria. Negative viral swabs. Discussed that given pt has had change in stool, the importance of following up with GI. She understands and agrees with plan. Pt feeling better after GI cocktail. Given return precautions. Stable for d/c. Medications Administered Discontinued Medications Generic Name Dose Route Start Last Admin Trade Name Freq PRN Reason Stop Dose Admin Al Hydroxide/Mg Hydroxide 30 ml 08/15/23 12:38 08/15/23 12:54 Magnesium Hydrox/Alum Hydrox 30 Ml Oral.Susp PO 08/15/23 12:39 30 ml ONCE ONE Administration Belladonna Alkaloids/Phenobarbital 10 ml 08/15/23 12:38 08/15/23 12:54 Phenobarb/Hyoscy/Atropine/Scop 10 Ml Elixir PO 08/15/23 12:39 10 ml ONCE ONE Administration Lidocaine HCl 15 ml 08/15/23 12:38 08/15/23 12:54 Lidocaine Hcl Viscous 2 % 15 Ml Solution MUCOUS MEM 08/15/23 12:39 15 ml ONCE ONE Administration Medical Decision Making Medical Decision Making [facility] Narrative: This is a 37-year-old female, with no known medical problems, who presents emergency department with multiple complaints. Patient endorsing intermittent dizziness, headaches, abdominal pain, and diarrhea last 2 months. She also endorses burning sensation into her chest. As well as epigastric pain. She had a cholecystectomy multiple years ago. Her triage note, patient describe pleuritic chest pain which patient reports that she is only having pain in her abdomen. Patient is not hypoxic, not tachycardic, she is PERC negative therefore unlikely PE, D-dimer or CT not indicated at this time. Plan: Labs, EKG, orthostatics, UA, chest x-ray Differential Diagnosis Differential Diagnoses: The differential diagnosis associated with the presentation includes ACS-unlikely, viral syndrome, electrolyte derangement, gastritis, gastroenteritis, acute kidney injury Admission/Observation Consideration of admission/observation: Escalation of care including admission/observation considered Escalation of care including admission/observation considered however given workup today not warranted at this time. Lab Data MDM Lab Attestation statement: I reviewed the patient's lab results. No leukocytosis, stable H&H, chemistry revealing hyperglycemia to 64, troponin less than 2.7. Require repeat as patient has had chest pain/burning ongoing for several months. 08/15/23 10:34 08/15/23 10:34 Labs: Lab Results 08/15/23 08/15/23 08/15/23 Range/Units 10:27 10:28 10:34 WBC 10.6 (4.8-10.8) X10*3/uL RBC 4.86 (4.20-5.50) X10*6/uL Hgb 14.9 (12.0-16.0) g/dl Hct 44.3 (37.0-47.0) % MCV 91.2 (80.0-98.0) fL MCH 30.7 (27.0-33.0) pg MCHC 33.6 (31.0-35.0) g/dl RDW 11.9 (11.0-16.0) % Plt Count 234 (160-400) X10*3/uL MPV 10.5 (9.4-12.3) fL Immature Gran % (Auto) 0.5 H (0.0-0.4) % Neut % (Auto) 64.7 (45-73) % Lymph % (Auto) 28.6 (20-40) % [place] % (Auto) 5.1 (2-11) % Eos % (Auto) 0.7 (0-4) % Baso % (Auto) 0.4 (0-2) % Lymph # (Auto) 3.0 (1.2-4.9) X10*3/uL [place] # (Auto) 0.5 (0.1-1.2) X10*3/uL Eos # (Auto) 0.1 (0.0-0.4) X10*3/uL Baso # (Auto) 0.0 (0.0-0.2) X10*3/uL Abs Immat Gran (auto) 0.05 H (0.00-0.03) X10*3/uL Absolute Neuts (auto) 6.9 (2.0-8.3) x10*3/uL Absolute Nucleated RBC 0.000 (0.0-0.012) X10*3/uL Nucleated RBC % (auto) 0.0 (0.0-0.2) /100WBC Sodium 136 (135-145) mmol/L Potassium 4.0 (3.3-5.1) mmol/L Chloride 103 (96-108) mmol/L Carbon Dioxide 26 (22-29) mmol/L Anion Gap 11 L (12-20) BUN 9 (9-16) mg/dL Creatinine 0.69 (0.5-1.4) mg/dL Estim Creat Clear Calc 138.2 Estimated GFR > 60 Random Glucose 264 H (60-115) mg/dL Calcium 9.3 (8.4-10.2) mg/dL Troponin I High Sens < 2.7 (<3.5-17.0) ng/L Urine Color Yellow Urine Appearance Clear Urine pH 5.5 (5.0-9.0) Ur Specific [place] >= 1.030 H (1.005-1.025) Urine Protein 30 (1+) H (Neg-Trace) mg/dL Urine Glucose (UA) Negative (Negative) mg/dL Urine Ketones Negative (Negative) mg/dL Urine Blood Negative (Negative) Urine Nitrite Negative (Negative) Ur Leukocyte Esterase Negative (Negative) Urine RBC 0-2 (0-2) /HPF Urine WBC 0-5 (0-5) /HPF Ur Squamous Epith Cells 6-10 (0-2) /HPF Urine Bacteria None Seen (None Seen) Hyaline Casts 0-2 (0-2) /LPF Urine Test NEGATIVE (NEGATIVE) Influenza Type A (PCR) NEGATIVE (Negative) Influenza Type B (PCR) NEGATIVE (Negative) RSV RNA Qual (PCR) NEGATIVE (Negative) SARS-CoV-2 RNA (RT-PCR) NEGATIVE (Negative) Independent Interpretation I performed an independent interpretation of an: EKG Interpretation: Normal sinus rhythm at a ventricular rate of 76 beats per minute, KS interval 172, QRS 78, QT QTC 378/425; no ST elevation or depression. Radiology Impression Discussion of test interpretation with radiology: I have reviewed the radiologist's reading. Radiologist Impression: EXAMINATION: XR CHEST CLINICAL INFORMATION: Chest pain COMPARISON: 10/08/2022 TECHNIQUE: 2 views of the chest were obtained. FINDINGS: No significant abnormality is noted involving the heart, lungs, mediastinum, bony thorax or soft tissues. XR/XR chest 2V IMPRESSION: Unremarkable examination. Dictated By: Lon Pineda MD Discharge Plan Discharge Clinical Impression: Viral illness, Diarrhea, Hyperglycemia Patient Disposition: Home, Self-Care Instructions: Viral Syndrome (ED), Diabetes and Nutrition (ED), Diabetes and Exercise (ED) Additional Instructions: You were seen in the emergency department for dizziness and diarrhea for the last several months. Please drink plenty of fluids and get plenty of rest. Your lab workup today was reassuring. Please follow-up with the GI specialist, call tomorrow to make an appointment. You do have evidence of prediabetes. You follow-up with your primary care physician for further testing, we are unable to diagnose you formally with diabetes today. Making dietary and lifestyle modifications can be very critical for you to prevent progression into diabetes. Please follow-up with your primary care physician regarding this visit. If any new or worsening symptoms occur including but not limited to chest pain, shortness of breath please return for re-evaluation. Prescriptions: No Action omeprazole magnesium [Prilosec OTC] 20 mg tablet,delayed release (DR/EC) 20 mg PO BID Qty: 60 0RF loperamide [Imodium A-D] 2 mg capsule 2 mg PO Q6H PRN (Reason: loose stool) Qty: 14 0RF naproxen 500 mg tablet 500 mg PO BID PRN (Reason: pain) Qty: 20 0RF Referrals: [facility] [Provider Group] Interventions: ED Discharge Assessment Last Done: 08/15/23 15:39 Discharge Date/Time: 08/15/23 15:48 Print Language: Kyrgyz
[2023-08-15 12:17] VITALS: BP 109/58; PULSE 85; RESP 16; O2SAT 99
[2023-08-15] MEDS: PHENobarb/Hyoscy/Atropine/Scop 10 ML ELIXIR PO (12:54)
[2023-08-15] MEDS: Magnesium Hydrox/Alum Hydrox 30 ML ORAL.SUSP PO (12:54)
[2023-08-15] MEDS: Lidocaine HCl Viscous 2 % 15 ML SOLUTION MUCOUS MEM (12:54)
[2023-08-15 14:09] VITALS: BP 117/61; PULSE 88
[2023-08-15 14:10] VITALS: BP 115/56; PULSE 98
[2023-08-15 14:32] VITALS: BP 121/56; PULSE 85; RESP 18; TEMP 36.8; O2SAT 96
[2023-08-15 15:39] VITALS: BP 121/56; PULSE 85; RESP 18; TEMP 36.8; O2SAT 96
== END 2023-08-15 15:48 | disposition home or self-care (01) ==
PROVIDERS: Emergency Provider Emergency Medicine
DX: R42 Dizziness and giddiness (principal); R07.89 Other chest pain; R51.9 Headache, unspecified; Z11.52 Encounter for screening for COVID-19; Z20.822 Contact with and (suspected) exposure to COVID-19; Z79.899 Other long term (current) drug therapy
CPT/HCPCS: 0241U; 36415; 71046; 80048; 81001; 81025; 84484; 85025; 93005; 99283; 99285

== ENCOUNTER → 2023-08-15 09:52 | Outpatient (BNV) | payer MEDICAID, SELFPAY | PROVIDERS: Visit Provider Internal Medicine Cardiovascular Disease | DX: R07.9 Chest pain, unspecified (principal) | CPT/HCPCS: 93010 ==

== ENCOUNTER 2023-09-30 10:32 | Emergency (ER) | payer MEDICAID, SELFPAY ==
[2023-09-30 10:43] VITALS: BP 117/61; PULSE 97; RESP 18; TEMP 36.2; O2SAT 93; BMI 40.6
[2023-09-30 11:42] LABS: MANUAL DIFF FLAG NO
[2023-09-30 11:44] LABS: Appearance Urine Clear; Color Urine Yellow; Glucose Urine UA Negative (Negative); Leukocyte Esterase Urine Negative (Negative); Nitrite Urine Negative (Negative); Specific Gravity - Urine >= 1.030 (1.005-1.025); UMIC TRIGGER UACC YES; Urine Blood Moderate (2+) (Negative); Urine Ketones 15 mg/dL (Negative); Urine Protein 100 (2+) mg/dL (Neg-Trace)
[2023-09-30 11:48] LABS: Basophils Percent Auto 0.2 % (0-2); Eosinophils Absolute Auto 0.1 X10*3/uL (0.0-0.4); Eosinophils Percent Auto 1.1 % (0-4); Hematocrit 42.7 % (37.0-47.0); Hemoglobin 14.4 g/dl (12.0-16.0); Imm Gran Abs Auto 0.01 X10*3/uL (0.00-0.03); Imm Gran Pct Auto 0.2 % (0.0-0.4); Lymphocytes Absolute Auto 1.3 X10*3/uL (1.2-4.9); Lymphocytes Percent Auto 27.2 % (20-40); Mean Corpuscular HGB Conc 33.7 g/dl (31.0-35.0); Mean Corpuscular Hemoglobin 30.7 pg (27.0-33.0); Monocytes Absolute Auto 0.6 X10*3/uL (0.1-1.2); Monocytes Percent Auto 13.5 % (2-11); Neutrophils Absolute Auto 2.8 x10*3/uL (2.0-8.3); Neutrophils Percent Auto 57.8 % (45-73); Platelet Count 170 X10*3/uL (160-400); Red Blood Count 4.69 X10*6/uL (4.20-5.50); Red Cell Distribution Width 12.3 % (11.0-16.0); White Blood Count 4.8 X10*3/uL (4.8-10.8)
[2023-09-30 11:56] LABS: Bacteria Urine None Seen (None Seen); Hyaline Casts Urine 0-2 /LPF (0-2); WBC Urine 0-5 /HPF (0-5)
--- NOTE | 2023-09-30 12:01 | PC.NURSE ---
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
[2023-09-30 12:06] LABS: Anion Gap 11 (12-20); Blood Urea Nitrogen 11 mg/dL (9-16); Calcium 8.6 mg/dL (8.4-10.2); Carbon Dioxide 25 mmol/L (22-29); Chloride 106 mmol/L (96-108); Creatinine Clr Calc Pharmacy 142.4; Estimated Glomerular Filt Rate > 60; Glucose Random 130 mg/dL (60-115); Potassium 3.6 mmol/L (3.3-5.1); Sodium 138 mmol/L (135-145)
--- NOTE | 2023-09-30 12:15 | ED.ABDPAIN ---
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 Patient reports being status post cholecystectomy. Related Data Previous Rx's ?Medication ?Instructions ?Recorded omeprazole magnesium 20 mg 20 mg PO BID #60 tabs 02/20/20 tablet,delayed release (Prilosec OTC) loperamide 2 mg capsule (Imodium 2 mg PO Q6H PRN loose stool #14 08/22/22 A-D) caps naproxen 500 mg tablet 500 mg PO BID PRN pain #20 tabs 08/22/22 Allergies Allergy/AdvReac Type Severity Reaction Status Date / Time No Known Allergies Allergy Verified 09/30/23 10:43 [No Known Allergies*] Review of Systems Review of Systems Pertinent positives and negatives as stated in HPI PMFSH Past Medical History Source: nursing notes reviewed Medical History Type 2 diabetes mellitus Kidney stones Social History Social History Alcohol intake: never Smoked in Last 30 Days: Yes Use of substances other than those prescribed or required for medical reasons: Yes Advance Directives: No Advance Directives Information Provided: No Do you have a plan to hurt others: No Plan Patient : No Physical Exam ED Vital Signs: Vital Signs - 24 hr 09/30/23 10:43 Temperature 97.1 F Pulse Rate 97 Respiratory Rate 18 Blood Pressure 117/61 Pulse Oximetry 93 Oxygen Delivery Method Room Air BMI result Body Mass Index 40.6 VITAL SIGNS: Reviewed. GENERAL: Elevated BMI, Well developed, well nourished, in no acute distress. HEAD: Normocephalic/atraumatic EYES: PERRLA, EOMI EARS: Ext canals without abnormality NOSE: Nares patent bilateral OROPHARYNX: no oral lesions noted, posterior pharynx clear NECK: Supple, no adenopathy LUNGS: Normal breath sounds. No adventitious sounds or accessory muscle use. SpO2<93> CARDIOVASCULAR: Regular rate and rhythm without noted murmurs ABDOMEN: Soft, mild epigastric tenderness to palpation without rebound, no right upper quadrant pain, non-distended with bowel sounds. MUSCULOSKELETAL: No tenderness, deformities, or effusions noted on gross inspection. EXTREMITIES: No cyanosis, clubbing or edema. SKIN: Inspection of the skin reveals no rashes NEUROLOGIC: Alert and oriented x 4. Strength and sensation to light touch were grossly intact x 4. Medical Decision Making Medical Decision Making [facility] Narrative: 37-year-old female with history and clinical presentation, DDX: Suspect medication related diarrhea and GI upset as patient is on metformin as well as 3 different antibiotics, likely gastritis, patient is status post cholecystectomy and no clinical suspicion for pancreatitis/obstruction, possible UTI. I reviewed all investigations and hematologic indices are negative for leukocytosis/anemia/thrombocytopenia. Chemistry indices negative for DIMITRI/electrolyte derangements. Patient urine noted to be positive for blood and she reports currently menstruating. My interpretation is that patient is likely experiencing a combination of gastritis and side effects related to current medications, all results and findings discussed with the patient at bedside. Differential Diagnosis Differential Diagnoses: The differential diagnosis associated with the presentation includes Please see the discussion Admission/Observation Consideration of admission/observation: Escalation of care including admission/observation considered Please see the discussion above Lab Data [facility] Lab Attestation statement: I reviewed the patient's lab results. Please see the discussion above 09/30/23 11:37 09/30/23 11:37 Labs: Lab Results 09/30/23 Range/Units 11:37 WBC 4.8 (4.8-10.8) X10*3/uL RBC 4.69 (4.20-5.50) X10*6/uL Hgb 14.4 (12.0-16.0) g/dl Hct 42.7 (37.0-47.0) % MCV 91.0 (80.0-98.0) fL MCH 30.7 (27.0-33.0) pg MCHC 33.7 (31.0-35.0) g/dl RDW 12.3 (11.0-16.0) % Plt Count 170 D (160-400) X10*3/uL MPV 10.0 (9.4-12.3) fL Immature Gran % (Auto) 0.2 (0.0-0.4) % Neut % (Auto) 57.8 (45-73) % Lymph % (Auto) 27.2 (20-40) % [place] % (Auto) 13.5 H (2-11) % Eos % (Auto) 1.1 (0-4) % Baso % (Auto) 0.2 (0-2) % Lymph # (Auto) 1.3 (1.2-4.9) X10*3/uL [place] # (Auto) 0.6 (0.1-1.2) X10*3/uL Eos # (Auto) 0.1 (0.0-0.4) X10*3/uL Baso # (Auto) 0.0 (0.0-0.2) X10*3/uL Abs Immat Gran (auto) 0.01 (0.00-0.03) X10*3/uL Absolute Neuts (auto) 2.8 (2.0-8.3) x10*3/uL Absolute Nucleated RBC 0.000 (0.0-0.012) X10*3/uL Nucleated RBC % (auto) 0.0 (0.0-0.2) /100WBC Sodium 138 (135-145) mmol/L Potassium 3.6 (3.3-5.1) mmol/L Chloride 106 (96-108) mmol/L Carbon Dioxide 25 (22-29) mmol/L Anion Gap 11 L (12-20) BUN 11 (9-16) mg/dL Creatinine 0.67 (0.5-1.4) mg/dL Estim Creat Clear Calc 142.4 Estimated GFR > 60 Random Glucose 130 H (60-115) mg/dL Calcium 8.6 D (8.4-10.2) mg/dL Urine Color Yellow Urine Appearance Clear Urine pH 6.0 (5.0-9.0) Ur Specific [place] >= 1.030 H (1.005-1.025) Urine Protein 100 (2+) H (Neg-Trace) mg/dL Urine Glucose (UA) Negative (Negative) mg/dL Urine Ketones 15 (Negative) mg/dL Urine Blood Moderate (2+) H (Negative) Urine Nitrite Negative (Negative) Ur Leukocyte Esterase Negative (Negative) Urine RBC 3-5 H (0-2) /HPF Urine WBC 0-5 (0-5) /HPF Ur Squamous Epith Cells 3-5 (0-2) /HPF Urine Bacteria None Seen (None Seen) Hyaline Casts 0-2 (0-2) /LPF External Record Review External record reviewed: Outpatient record, Prior outpatient labs and Prior outpatient radiology Chronic Conditions Patient?s care impacted by: Diabetes Critical Care Time Critical Care Time Critical Care Time: Yes Total Critical Care Time: 45 Attestation: I personally attest to this time spent taking care of the patient. Discharge Plan Discharge Clinical Impression: Gastritis, Medication side effect Patient Disposition: Home, Self-Care Instructions: Gastritis (ED), Diet for Stomach Ulcers and Gastritis (ED) Additional Instructions: 1. Recommend the use of [id number] Mylanta as well as beginning a probiotic as this will help significantly with the antibiotic related GI symptoms that you are experiencing. Your workup today was negative. Return to the ER for any worsening symptoms. Prescriptions: No Action omeprazole magnesium [Prilosec OTC] 20 mg tablet,delayed release (DR/EC) 20 mg PO BID Qty: 60 0RF loperamide [Imodium A-D] 2 mg capsule 2 mg PO Q6H PRN (Reason: loose stool) Qty: 14 0RF naproxen 500 mg tablet 500 mg PO BID PRN (Reason: pain) Qty: 20 0RF Print Language: Portuguese
--- NOTE | 2023-09-30 13:36 | PC.NURSE ---
called lab to add on urpreg to urine already collected and sent
[2023-09-30] MEDS: Acetaminophen 325 MG TABLET 975 MG PO (13:44)
[2023-09-30] MEDS: Magnesium Hydrox/Alum Hydrox 30 ML ORAL.SUSP PO (13:45)
[2023-09-30] MEDS: Lidocaine HCl Viscous 2 % 15 ML SOLUTION 10 ML MUCOUS MEM (13:45)
--- NOTE | 2023-09-30 13:47 | PC.NURSE ---
pt medicated per order
[2023-09-30 13:53] LABS: UPreg QC Valid YES; Urine Pregnancy NEGATIVE (NEGATIVE)
[2023-09-30 14:19] VITALS: BP 118/63; PULSE 89; RESP 18; TEMP 36.7; O2SAT 94
== END 2023-09-30 14:19 | disposition home or self-care (01) ==
PROVIDERS: Emergency Provider Student in an Organized Health Care Education/Training Program
DX: K29.70 Gastritis, unspecified, without bleeding (principal); T50.905A Adverse effect of unspecified drugs, medicaments and biological substances, initial encounter; Y92.9 Unspecified place or not applicable; E11.9 Type 2 diabetes mellitus without complications; Z79.84 Long term (current) use of oral hypoglycemic drugs; Z90.49 Acquired absence of other specified parts of digestive tract
CPT/HCPCS: 36415; 80048; 81001; 81025; 85025; 99283; 99284

== ENCOUNTER 2023-10-09 10:25 | Emergency (ER) | payer MEDICAID, SELFPAY ==
[2023-10-09 10:39] VITALS: BP 108/88; PULSE 102; RESP 18; TEMP 36.3; O2SAT 98; BMI 40.0
--- NOTE | 2023-10-09 11:16 | ED.ALLEREA ---
HPI - Allergic Reaction General Chief complaint: Allergic Reaction Stated complaint: allergic reaction ? Time Seen by Provider: 10/09/23 10:48 Source: patient Mode of arrival: ambulatory Limitations: no limitations History of Present Illness ED Provider: Lynsey ELLISON HPI narrative: This is a 37-year-old female that presents with rash to entire body for the past few days worsening, patient reports the rash is red, itchy, she states it is worst her lower extremities and her back. No new detergents, creams, lotions. She does however report that there are a few new pets at home she has 2 Guinea pigs and a cat she states they are her friends and she is watching them. She tells me that she has never really been around pets so she has not sure if she is reacting to the past. Has taken Benadryl which helps a little bit but then she becomes itchy again in the rash is not getting better going way. Denies shortness of breath changes in voice, drooling, chest pain, nausea, vomiting, abdominal pain, diarrhea Related Data Previous Rx's ?Medication ?Instructions ?Recorded omeprazole magnesium 20 mg 20 mg PO BID #60 tabs 02/20/20 tablet,delayed release (Prilosec OTC) loperamide 2 mg capsule (Imodium 2 mg PO Q6H PRN loose stool #14 08/22/22 A-D) caps naproxen 500 mg tablet 500 mg PO BID PRN pain #20 tabs 08/22/22 ciprofloxacin 0.3 %-dexamethasone 4 drp otic (ears) BID 7 days #7.5 10/09/23 0.1 % ear drops,suspension mL (Ciprodex) diphenhydramine HCl 25 mg capsule 25 mg PO TID PRN allergic reaction 10/09/23 (Benadryl) #20 caps epinephrine 0.3 mg/0.3 mL 0.3 mg (0.3 mL) IM Q4H PRN 10/09/23 injection, auto-injector (EpiPen anaphylaxis #2 ea 2-Daniele) prednisone 20 mg tablet 40 mg (2 x 20 mg) PO DAILY 5 days 10/09/23 #10 tabs Allergies Allergy/AdvReac Type Severity Reaction Status Date / Time No Known Allergies Allergy Verified 10/09/23 10:48 [No Known Allergies*] Review of Systems Review of Systems: Yes all other systems are reviewed and are negative [facility] Past Medical History Attestation statement: The following information was validated with the patient. Source: old records reviewed and nursing notes reviewed Medical History Type 2 diabetes mellitus Kidney stones Social History Social History Alcohol intake: never Advance Directives: No Advance Directives Information Provided: No Physical Exam ED Vital Signs: Vital Signs - 24 hr 10/09/23 10:39 Temperature 97.3 F Pulse Rate 102 H Respiratory Rate 18 Blood Pressure 108/88 Pulse Oximetry 98 Oxygen Delivery Method Room Air BMI result Body Mass Index 40.0 vss Appearance: Alert.? Oriented X3.? No acute distress.? Head: Normocephalic, atraumatic, no step-offs or deformities Eyes: Pupils equal, round and reactive to light.? ENT: Pharynx normal.??External ears normal, TMs normal bilaterally and EAC's normal. + pain w/ manipulation of left ear. No pain w/ manipulation of R ear. No mastoid tenderness. Neck: Normal inspection.? Neck supple.? CVS: Normal heart rate and rhythm.? Pulses normal.? Respiratory: No respiratory distress.? Breath sounds normal.? Abdomen: Soft and nontender.? Skin: Skin warm and dry.? Normal skin color.? Normal skin turgor.? + urticaria & rash flat, pink w/overlying excorations to UE, LE, trunk, chest, back spares palms and soles and mucus membranes. Extremities: No lower extremity edema.? No calf ttp. 5/5 strength to bilateral upper and lower extremities Back: No midline tenderness, no C-spine tenderness, full range of motion, no CVA tenderness bilaterally Neuro: Oriented X 3.? No motor deficit.? No sensory deficit. CN 2-12 intact Course Reevaluation(s) Reevaluation #1: also reports she started metformin two weeks ago but hasnt had issues since then and atorvastatin 4 days ago but also seemed to have no issue with this medication. Time: 11:21 Reevaluation #2: Nurse note patient reported L ear pain but no signs of infection to left ear normal EC, TM and mastoids b/l. + pain w/ manipulation of left ear. Educated patient on diagnosis and treatment plan, answered all question, patient verbalizes understanding. At this time patient will be discharged home, advised to return with new or worsening symptoms. Educated on worrisome signs and symptoms and when to return. At this time I feel comfortable discharge home. Time: 11:22 Medical Decision Making Medical Decision Making MDM Narrative: 37 yo f presents w/ itchy rash +new pets at home PE urticaria & rash flat, pink w/overlying excorations to UE, LE, trunk, chest, back spares palms and soles and mucus membranes. Hx and pe concerning for allergic reaction vs contact dermatitis. Unlikley TEN, SJS, necrotizing infection, cellulitis. Plan- dc w/ po meds Differential Diagnosis Differential Diagnoses: The differential diagnosis associated with the presentation includes Hx and pe concerning for allergic reaction vs contact dermatitis. Unlikley TEN, SJS, necrotizing infection, cellulitis. Admission/Observation Consideration of admission/observation: Escalation of care including admission/observation considered External Record Review External record reviewed: Office record, Outpatient record and Prior outpatient labs Prescription Management I considered prescription management with: Other (benadryl, epipen, prednisione ) educated on epipen use Chronic Conditions Patient?s care impacted by: Other obesity Critical Care Time Critical Care Time Critical Care Time: No Discharge Plan Discharge Clinical Impression: Allergic reaction, Pain in left ear, Otitis externa Patient Disposition: Home, Self-Care Instructions: Allergies (ED), Allergy Testing (ED) Additional Instructions: Take your medications as prescribed. If you were prescribed antibiotics today, it is important that you take your medication to their entirety, do not skip any doses, do not finish them early. Follow-up with your primary care provider this week. Return to the emergency department with new or worsening symptoms. Such as fevers, chills, chest pain, shortness of breath, nausea, vomiting, dizziness, headache, vision changes, lethargy In case of emergency call 911 How to use an EpiPen: ? Place the orange tip against the middle of the outer thigh. ? Swing and push the auto-injector firmly into the thigh until it ?clicks? ? Hold firmly in place for three seconds?count slowly, ?1, 2, 3? An EpiPen has been sent to your pharmacy this should only be used in severe emergency such as inability to breathe trouble speaking, shortness breath or any signs of anaphylaxis as discussed. If he use an EpiPen it is crucial you come in to an emergency department to be evaluated as you can have a rebound effect. Please follow-up with an allergy doctor. Prescriptions: New prednisone 20 mg tablet 40 mg PO DAILY 5 Days Qty: 10 0RF diphenhydramine HCl [Benadryl] 25 mg capsule 25 mg PO TID PRN (Reason: allergic reaction) Qty: 20 0RF epinephrine [EpiPen 2-Daniele] 0.3 mg/0.3 mL auto-injector 0.3 mg IM Q4H PRN (Reason: anaphylaxis) Qty: 2 0RF ciprofloxacin-dexamethasone [Ciprodex] 0.3-0.1 % drops,suspension 4 drp otic (ears) BID 7 Days Qty: 7.5 0RF No Action omeprazole magnesium [Prilosec OTC] 20 mg tablet,delayed release (DR/EC) 20 mg PO BID Qty: 60 0RF loperamide [Imodium A-D] 2 mg capsule 2 mg PO Q6H PRN (Reason: loose stool) Qty: 14 0RF naproxen 500 mg tablet 500 mg PO BID PRN (Reason: pain) Qty: 20 0RF Referrals: [facility]] - 1 week Stand Alone Forms: Work/School Release Print Language: Moroccan
[2023-10-09 11:39] VITALS: BP 108/88; PULSE 102; RESP 18; TEMP 36.3; O2SAT 98
== END 2023-10-09 11:40 | disposition home or self-care (01) ==
PROVIDERS: Emergency Provider Emergency Medicine
DX: L50.9 Urticaria, unspecified (principal); T78.40XA Allergy, unspecified, initial encounter; X58.XXXA Exposure to other specified factors, initial encounter; H60.92 Unspecified otitis externa, left ear; H92.02 Otalgia, left ear; E11.9 Type 2 diabetes mellitus without complications
CPT/HCPCS: 99283

== ENCOUNTER 2023-11-23 13:10 | Emergency (ER) | payer MEDICAID, SELFPAY ==
--- NOTE | ~2023-11-23 | XR_ITS ---
EXAMINATION: XR CHEST CLINICAL INFORMATION: Left-sided chest pain. COMPARISON: Chest radiograph 08/15/2023. TECHNIQUE: 2 views of the chest were obtained. FINDINGS: Normal appearance of the cardiomediastinal silhouette. No focal airspace opacities, pleural effusion or pneumothorax. No acute osseous findings. Right upper quadrant surgical clips. XR/XR chest 2V IMPRESSION: No acute cardiopulmonary findings.
--- NOTE | 2023-11-23 13:12 | ECG_ITS ---
Test Reason : CHEST PAIN Blood Pressure : / mmHG Vent. Rate : 097 BPM Atrial Rate : 097 BPM P-R Int : 156 ms QRS Dur : 076 ms QT Int : 364 ms P-R-T Axes : 048 027 -04 degrees QTc Int : 462 ms Normal sinus rhythm Nonspecific T wave abnormality Prolonged QT Abnormal ECG When compared with ECG of 15-AUG-2023 10:18, Nonspecific T wave abnormality now evident in Anterior leads Referred By: Generic ED Physician Electronically Signed By:MANUELA CURRY MD
[2023-11-23 13:25] VITALS: BP 137/49; PULSE 116; RESP 16; TEMP 36.8; O2SAT 97; BMI 39.5
--- NOTE | 2023-11-23 13:27 | ED_ITS ---
HPI - General Adult General Chief complaint: Abdominal Pain Stated complaint: Chest & Stomach Pain Time Seen by Provider: 11/23/23 13:46 Source: patient Mode of arrival: ambulatory Limitations: no limitations History of Present Illness ED Provider: Roxanna Blake PA-C HPI narrative: 38 yo female with history of gallbladder removal in the past, history of kidney stones who presents to the ER for evaluation of 2 days of bilateral chest pain and upper abdominal pain below her ribs for the last 2 days. She states it is worse with coughing, movement and palpation. She has been sick for the last 2 days and not feeling well. She reports feeling full and having reflux. No nausea or vomiting. She has felt dizzy with decreased p.o. intake. She has chronic yellow diarrhea for the last several months for which she was seen here in the past. She was also see GI but never got a referral. She reports a history of H pylori in the past as well. She states she was on antibiotics but did not get a follow-up test to confirm eradication. She is here with her 9-year-old son who also has a cough and is not feeling well. MD complaint: Chest pain, abdominal pain Onset (ago): day(s) (2) Location: chest and abdomen Radiation: non-radiation Severity: moderate Quality: stabbing Pain Consistency: constant Relieving factors: rest Exacerbating factors: movement Associated symptoms: chest pain, cough and other (dizzy) Treatments prior to arrival: none Related Data Previous Rx's ?Medication ?Instructions ?Recorded omeprazole magnesium 20 mg 20 mg PO BID #60 tabs 02/20/20 tablet,delayed release (Prilosec OTC) loperamide 2 mg capsule (Imodium 2 mg PO Q6H PRN loose stool #14 08/22/22 A-D) caps naproxen 500 mg tablet 500 mg PO BID PRN pain #20 tabs 08/22/22 ciprofloxacin 0.3 %-dexamethasone 4 drp otic (ears) BID 7 days #7.5 10/09/23 0.1 % ear drops,suspension mL (Ciprodex) diphenhydramine HCl 25 mg capsule 25 mg PO TID PRN allergic reaction 10/09/23 (Benadryl) #20 caps epinephrine 0.3 mg/0.3 mL 0.3 mg (0.3 mL) IM Q4H PRN 10/09/23 injection, auto-injector (EpiPen anaphylaxis #2 ea 2-Daniele) prednisone 20 mg tablet 40 mg (2 x 20 mg) PO DAILY 5 days 10/09/23 #10 tabs Allergies Allergy/AdvReac Type Severity Reaction Status Date / Time No Known Allergies Allergy Verified 11/23/23 13:27 [No Known Allergies*] Review of Systems 2 Review of Systems: Yes all other systems are reviewed and are negative [facility] Past Medical History Medical History Type 2 diabetes mellitus Kidney stones Social History Social History Alcohol intake: never Advance Directives: No Advance Directives Information Provided: No Physical Exam ED Vital Signs: Vital Signs - 24 hr 11/23/23 13:25 11/23/23 16:03 11/23/23 16:10 Temperature 98.3 F 98.3 F 98.3 F Pulse Rate 116 H 94 94 Respiratory Rate 16 16 16 Blood Pressure 137/49 L 120/68 120/68 Pulse Oximetry 97 97 97 Oxygen Delivery Method Room Air Room Air Room Air BMI result Body Mass Index 39.5 Appearance: Alert. Oriented X3. No acute distress. Head: normocephalic, atraumatic. Eyes: Pupils equal, round and reactive to light. ENT: Pharynx normal. No tonsillar swelling or exudate. Neck: Normal inspection. Neck supple. CVS: Normal heart rate and rhythm. Pulses normal. Respiratory: No respiratory distress. Breath sounds normal. Abdomen: Obese, well-healed surgical scar in the epigastric area, Soft and nontender. +BS x4 Skin: Skin warm and dry. Normal skin color. Normal skin turgor. No rashes. Extremities: No lower extremity edema. No joint swelling. Neuro/psych: Oriented X 3. No motor deficit. No sensory deficit. CN II-XII intact. Normal speech and cognition. Course Course Course Narrative: RME performed by Chyna Ham PA-C. Patient is a 38 year old assigned female at presenting to the emergency department with left under breast pain, dizziness, and concerns her sugars are too high. Detailed physical exam and review of systems are deferred to the engineering model maker. EKG, labs, imaging, and swabs ordered. Patient placed back in the waiting room pending room availability and results. Medical Decision Making Medical Decision Making [facility] Narrative: 30-year-old female with history of gallbladder removal, kidney stones, possible H pylori in the past who presents to the ER for evaluation of stabbing chest pains, upper abdominal pains and pain under her bilateral ribs. It is worse with coughing, movement and palpation. She has no pain at rest. EKG without any ischemic changes. Lab workup was unremarkable including a negative troponin. Chest x-ray was normal. Viral studies are negative. Lab workup is also unremarkable including normal LFTs. She is slightly hyperglycemic with a glucose of 200s.. Beta quant is negative. Given patient's presentation with URI symptoms and coughing for the last 2 days her pain is most likely due to costochondritis and is muscular in nature. Her physical exam is reassuring. She has no cardiac risk factors. Doubt PE. We discussed the most likely diagnosis and treatment for this, supportive care, return precautions. language interpreter used to discuss diagnosis and plan. All questions were answered. Stable for discharge home. Differential Diagnosis Differential Diagnoses: The differential diagnosis associated with the presentation includes ACS, PE, costochondritis, pancreatitis, retained bile duct stone, acute viral syndrome, dehydration, orthostatic hypotension, GERD Admission/Observation Consideration of admission/observation: Escalation of care including admission/observation considered Lab Data [facility] Lab Attestation statement: I reviewed the patient's lab results. No leukocytosis, no anemia, hyperglycemia without anion gap 11/23/23 14:20 11/23/23 14:20 Labs: Lab Results 11/23/23 11/23/23 Range/Units 14:20 16:06 WBC 9.7 (4.8-10.8) X10*3/uL RBC 4.78 (4.20-5.50) X10*6/uL Hgb 14.5 (12.0-16.0) g/dl Hct 43.5 (37.0-47.0) % MCV 91.0 (80.0-98.0) fL MCH 30.3 (27.0-33.0) pg MCHC 33.3 (31.0-35.0) g/dl RDW 12.6 (11.0-16.0) % Plt Count 234 D (160-400) X10*3/uL MPV 10.5 (9.4-12.3) fL Immature Gran % (Auto) 0.7 H (0.0-0.4) % Neut % (Auto) 62.7 (45-73) % Lymph % (Auto) 29.4 (20-40) % Blanco % (Auto) 5.7 (2-11) % Eos % (Auto) 1.1 (0-4) % Baso % (Auto) 0.4 (0-2) % Lymph # (Auto) 2.9 (1.2-4.9) X10*3/uL Blanco # (Auto) 0.6 (0.1-1.2) X10*3/uL Eos # (Auto) 0.1 (0.0-0.4) X10*3/uL Baso # (Auto) 0.0 (0.0-0.2) X10*3/uL Abs Immat Gran (auto) 0.07 H (0.00-0.03) X10*3/uL Absolute Neuts (auto) 6.1 (2.0-8.3) x10*3/uL Absolute Nucleated RBC 0.000 (0.0-0.012) X10*3/uL Nucleated RBC % (auto) 0.0 (0.0-0.2) /100WBC Sodium 137 (135-145) mmol/L Potassium 4.4 D (3.3-5.1) mmol/L Chloride 104 (96-108) mmol/L Carbon Dioxide 23 (22-29) mmol/L Anion Gap 14 (12-20) BUN 18 H (9-16) mg/dL Creatinine 0.79 (0.5-1.4) mg/dL Estim Creat Clear Calc 117.7 Estimated GFR > 60 Random Glucose 223 H (60-115) mg/dL Calcium 9.7 D (8.4-10.2) mg/dL Magnesium 1.6 (1.6-2.6) mg/dL Total Bilirubin 0.5 (0.0-1.0) mg/dL AST 20 (5-31) U/L ALT 28 (0-31) U/L Alkaline Phosphatase 103 (39-117) U/L Troponin I High Sens < 2.7 (<3.5-17.0) ng/L Total Protein 7.5 (6.5-8.0) g/dL Albumin 4.0 (3.5-5.0) g/dL Beta HCG, Quant < 2 mIU/mL Urine Color Yellow Urine Appearance Clear Urine pH 5.5 (5.0-9.0) Ur Specific Nancy >= 1.030 H (1.005-1.025) Urine Protein 30 (1+) H (Neg-Trace) mg/dL Urine Glucose (UA) Negative (Negative) mg/dL Urine Ketones Negative (Negative) mg/dL Urine Blood Negative (Negative) Urine Nitrite Negative (Negative) Ur Leukocyte Esterase Negative (Negative) Influenza Type A (PCR) NEGATIVE (Negative) Influenza Type B (PCR) NEGATIVE (Negative) RSV RNA Qual (PCR) NEGATIVE (Negative) SARS-CoV-2 RNA (RT-PCR) NEGATIVE (Negative) Independent Interpretation I performed an independent interpretation of an: EKG and Plain X-Ray Interpretation: Chest x-ray without focal infiltrate, effusion or pneumothorax. Agree with radiology read EKG with Normal sinus rhythm ventricular rate 97 beats per minute, no significant ST depressions, no ST elevations. Normal MO interval Radiology Impression Discussion of test interpretation with radiology: I have reviewed the radiologist's reading. Radiologist Impression: EXAMINATION: XR CHEST CLINICAL INFORMATION: Left-sided chest pain. COMPARISON: Chest radiograph 08/15/2023. TECHNIQUE: 2 views of the chest were obtained. FINDINGS: Normal appearance of the cardiomediastinal silhouette. No focal airspace opacities, pleural effusion or pneumothorax. No acute osseous findings. Right upper quadrant surgical clips. XR/XR chest 2V IMPRESSION: No acute cardiopulmonary findings. External Record Review External record reviewed: Outpatient record, Prior outpatient labs and Prior outpatient radiology Tests considered The following testing was considered but not selected: CTA considered. Prescription Management I considered prescription management with: Pain Medication, Antiviral and Antibiotic Critical Care Time Critical Care Time Critical Care Time: No Discharge Plan Discharge Clinical Impression: Acute costochondritis, Viral upper respiratory infection Patient Disposition: Home, Self-Care Instructions: Costochondritis (ED), Viral Syndrome (ED) Additional Instructions: You tested negative for COVID, flu, RSV. Your chest x-ray today was normal. Your lab workup today was unremarkable. Your symptoms most likely due to costochondritis which is muscle pain in the chest wall. Recommend rest, plenty of fluids, no strenuous activity. Take Tylenol and ibuprofen as needed for pain. Stick to a bland diet where not feeling well. Recommend following up with GI for further evaluation of your chronic diarrhea. If you develop new or worsening symptoms call 911 or come back to the ER for further evaluation. Prescriptions: No Action omeprazole magnesium [Prilosec OTC] 20 mg tablet,delayed release (DR/EC) 20 mg PO BID Qty: 60 0RF loperamide [Imodium A-D] 2 mg capsule 2 mg PO Q6H PRN (Reason: loose stool) Qty: 14 0RF naproxen 500 mg tablet 500 mg PO BID PRN (Reason: pain) Qty: 20 0RF prednisone 20 mg tablet 40 mg PO DAILY 5 Days Qty: 10 0RF diphenhydramine HCl [Benadryl] 25 mg capsule 25 mg PO TID PRN (Reason: allergic reaction) Qty: 20 0RF epinephrine [EpiPen 2-Daniele] 0.3 mg/0.3 mL auto-injector 0.3 mg IM Q4H PRN (Reason: anaphylaxis) Qty: 2 0RF ciprofloxacin-dexamethasone [Ciprodex] 0.3-0.1 % drops,suspension 4 drp otic (ears) BID 7 Days Qty: 7.5 0RF Referrals: [facility] [Provider Group] (chronic yellow diarrhea, ?hx h pylori in the past) [facility] [Primary Care Provider] - Interventions: ED Discharge Assessment Last Done: 11/23/23 16:10 Discharge Date/Time: 11/23/23 16:10 Print Language: Malay
[2023-11-23 14:24] LABS: MANUAL DIFF FLAG NO
[2023-11-23 14:27] LABS: Basophils Percent Auto 0.4 % (0-2); Eosinophils Absolute Auto 0.1 X10*3/uL (0.0-0.4); Eosinophils Percent Auto 1.1 % (0-4); Hematocrit 43.5 % (37.0-47.0); Hemoglobin 14.5 g/dl (12.0-16.0); Imm Gran Abs Auto 0.07 X10*3/uL (0.00-0.03); Imm Gran Pct Auto 0.7 % (0.0-0.4); Lymphocytes Absolute Auto 2.9 X10*3/uL (1.2-4.9); Lymphocytes Percent Auto 29.4 % (20-40); Mean Corpuscular HGB Conc 33.3 g/dl (31.0-35.0); Mean Corpuscular Hemoglobin 30.3 pg (27.0-33.0); Mean Platelet Volume 10.5 fL (9.4-12.3); Monocytes Absolute Auto 0.6 X10*3/uL (0.1-1.2); Monocytes Percent Auto 5.7 % (2-11); Neutrophils Absolute Auto 6.1 x10*3/uL (2.0-8.3); Neutrophils Percent Auto 62.7 % (45-73); Platelet Count 234 X10*3/uL (160-400); Red Blood Count 4.78 X10*6/uL (4.20-5.50); Red Cell Distribution Width 12.6 % (11.0-16.0); White Blood Count 9.7 X10*3/uL (4.8-10.8)
[2023-11-23 14:54] LABS: Alanine Aminotransferase 28 U/L (0-31); Alkaline Phosphatase 103 U/L (39-117); Anion Gap 14 (12-20); Aspartate Amino Transferase 20 U/L (5-31); Bilirubin Total 0.5 mg/dL (0.0-1.0); Blood Urea Nitrogen 18 mg/dL (9-16); Calcium 9.7 mg/dL (8.4-10.2); Carbon Dioxide 23 mmol/L (22-29); Chloride 104 mmol/L (96-108); Creatinine Clr Calc Pharmacy 117.7; Estimated Glomerular Filt Rate > 60; Glucose Random 223 mg/dL (60-115); Magnesium 1.6 mg/dL (1.6-2.6); Potassium 4.4 mmol/L (3.3-5.1); Sodium 137 mmol/L (135-145); Total Protein 7.5 g/dL (6.5-8.0)
[2023-11-23 15:01] LABS: HCG Quantitative < 2 mIU/mL
[2023-11-23 15:02] LABS: Troponin-I High Sensitivity < 2.7 ng/L (<3.5-17.0)
[2023-11-23 15:35] LABS: Influenza A PCR NEGATIVE (Negative); Influenza B PCR NEGATIVE (Negative); Resp Syncy Virus RNA Qual PCR NEGATIVE (Negative); SARS COV2 PCR INHOUSE NEGATIVE (Negative)
[2023-11-23 16:03] VITALS: BP 120/68; PULSE 94; RESP 16; TEMP 36.8; O2SAT 97
[2023-11-23 16:10] VITALS: BP 120/68; PULSE 94; RESP 16; TEMP 36.8; O2SAT 97
[2023-11-23 16:15] LABS: Appearance Urine Clear; Color Urine Yellow; Glucose Urine UA Negative (Negative); Leukocyte Esterase Urine Negative (Negative); Nitrite Urine Negative (Negative); PH 5.5 (5.0-9.0); Specific Gravity - Urine >= 1.030 (1.005-1.025); UMIC TRIGGER UACC YES; Urine Blood Negative (Negative); Urine Ketones Negative (Negative); Urine Protein 30 (1+) mg/dL (Neg-Trace)
[2023-11-23 16:20] LABS: Bacteria Urine Trace (None Seen); Hyaline Casts Urine 0-2 /LPF (0-2); RBC Urine 0-2 /HPF (0-2); WBC Urine 0-5 /HPF (0-5)
== END 2023-11-23 16:10 | disposition home or self-care (01) ==
PROVIDERS: Physician Assistant Medical; Emergency Provider Emergency Medicine
DX: M94.0 Chondrocostal junction syndrome [Tietze] (principal); B34.9 Viral infection, unspecified; R05.9 Cough, unspecified; Z03.818 Encounter for observation for suspected exposure to other biological agents ruled out; R10.10 Upper abdominal pain, unspecified; E11.9 Type 2 diabetes mellitus without complications; Z87.442 Personal history of urinary calculi; Z79.899 Other long term (current) drug therapy
CPT/HCPCS: 0241U; 71046; 80053; 81001; 83735; 84484; 84702; 85025; 93005; 99283; 99284

== ENCOUNTER → 2023-11-23 13:12 | Outpatient (BNV) | payer MEDICAID, SELFPAY | PROVIDERS: Emergency Provider Emergency Medicine; Visit Provider Internal Medicine Cardiovascular Disease | DX: R94.31 Abnormal electrocardiogram [ECG] [EKG] (principal) | CPT/HCPCS: 93010 ==

== ENCOUNTER 2023-12-05 09:54 | Emergency (ER) | payer MEDICAID, SELFPAY ==
--- NOTE | ~2023-12-05 | CT_ITS ---
EXAMINATION: CT ABDOMEN AND PELVIS WITHOUT CONTRAST CLINICAL INFORMATION: Right-sided abdominal pain. COMPARISON: 08/22/2022 TECHNIQUE: Multidetector volumetric imaging was performed from the superior aspect of the liver through the pubic symphysis. Sagittal and coronal reformatted images were obtained on the technologist's workstation. This CT examination was performed using dose optimization techniques as appropriate, variously including the following: *Automated exposure control *Adjustment of mA and/or kV according to patient size (this includes techniques or standardized protocols for targeted exams where dose is matched to indication/reason for exam; i.e. extremities or head) *Use of iterative reconstruction technique DLP: 866 mGy-cm FINDINGS: LUNG BASES: The visualized lung bases are unremarkable. LIVER, GALLBLADDER, AND BILIARY TREE: The noncontrast liver is enlarged and decreased in attenuation. No biliary ductal dilatation is present. The gallbladder is surgically absent. PANCREAS: Unremarkable. SPLEEN: Unremarkable. ADRENAL GLANDS: Unremarkable. KIDNEYS AND URETERS: The kidneys are symmetric in size. 8 mm nonobstructing calculus lower pole left kidney. There is a punctate nonobstructing lower pole left renal calculus. No hydronephrosis or perinephric fluid collection. BLADDER: Decompressed therefore limiting evaluation. GASTROINTESTINAL TRACT: Small and large bowel loops are of normal caliber. No small bowel obstruction. ABDOMINAL WALL: Fat-containing supraumbilical hernia. LYMPH NODES: Stranding at the root of the mesentery with numerous subcentimeter mesenteric and retroperitoneal lymph nodes. VASCULAR: Normal caliber abdominal aorta. PELVIC VISCERA: Unremarkable. OSSEOUS STRUCTURES: No destructive bone lesions. CT/CT abdomen pelvis wo IV con IMPRESSION: Mesenteric panniculitis. 8 mm nonobstructing lower pole left renal calculus. No hydronephrosis. Hepatomegaly and hepatic steatosis.
[2023-12-05 09:59] VITALS: BP 136/73; PULSE 95; RESP 18; TEMP 36.7; O2SAT 98; BMI 39.4
--- NOTE | 2023-12-05 10:11 | ECG_ITS ---
Test Reason : CP Blood Pressure : / mmHG Vent. Rate : 088 BPM Atrial Rate : 088 BPM P-R Int : 188 ms QRS Dur : 082 ms QT Int : 364 ms P-R-T Axes : 054 029 010 degrees QTc Int : 440 ms Normal sinus rhythm Normal ECG When compared with ECG of 23-NOV-2023 13:10, No significant change was found Referred By: Tammy Corado Electronically Signed By:Anthony Montejo
--- NOTE | 2023-12-05 10:13 | ED_ITS ---
HPI - Abdominal Pain General Chief Complaint: Abdominal Pain Stated Complaint: Abd pain Time Seen by Provider: 12/05/23 10:01 Source: patient and foreign language interpreter Mode of arrival: ambulatory Limitations: no limitations History of Present Illness ED Provider: DR. Corado HPI narrative: 38-year-old female came in for evaluation of abdominal pain, nonbloody watery diarrhea for few months, dysuria with frequency urination for several months. For the past 4 days patient been having right upper quadrant and right flank pain that has been constant for the past 4 days, no associated nausea or vomiting. Last bowel movement was last night as patient described nonbloody watery diarrhea greenish color, , passing flatus. No fever, chills. Intra-abdominal surgery is significant for cholecystectomy few years ago. Patient also is complaining of intermittent sharp pain into her chest for the past few weeks. Related Data Previous Rx's ?Medication ?Instructions ?Recorded omeprazole magnesium 20 mg 20 mg PO BID #60 tabs 02/20/20 tablet,delayed release (Prilosec OTC) loperamide 2 mg capsule (Imodium 2 mg PO Q6H PRN loose stool #14 08/22/22 A-D) caps naproxen 500 mg tablet 500 mg PO BID PRN pain #20 tabs 08/22/22 ciprofloxacin 0.3 %-dexamethasone 4 drp otic (ears) BID 7 days #7.5 10/09/23 0.1 % ear drops,suspension mL (Ciprodex) diphenhydramine HCl 25 mg capsule 25 mg PO TID PRN allergic reaction 10/09/23 (Benadryl) #20 caps epinephrine 0.3 mg/0.3 mL 0.3 mg (0.3 mL) IM Q4H PRN 10/09/23 injection, auto-injector (EpiPen anaphylaxis #2 ea 2-Daniele) prednisone 20 mg tablet 40 mg (2 x 20 mg) PO DAILY 5 days 10/09/23 #10 tabs Allergies Allergy/AdvReac Type Severity Reaction Status Date / Time No Known Allergies Allergy Verified 12/05/23 10:02 [No Known Allergies*] Review of Systems Review of Systems All other systems are reviewed and are negative Constitutional: Reports as per HPI and Reports no additional constitutional complaints Eyes: Reports as per HPI and Reports no additional eye complaints Reports system reviewed and no additional complaints, except as documented Cardiovascular: Reports as per HPI and Reports no additional cardiovascular complaints Respiratory: Reports as per HPI and Reports no additional respiratory complaints Gastrointestinal: Reports as per HPI and Reports no additional gastrointestinal complaints Genitourinary: Reports no additional female genitourinary complaints Musculoskeletal: Reports no additional musculoskeletal complaints Skin/Breast: Reports system reviewed and no additional complaints, except as docu Psychiatric: Reports no additional psychiatric complaints Endocrine: Reports no additional endocrine complaints Hematologic/Lymphatic: Reports no additional hematologic/lymphatic complaints Allergic/Immunologic: Reports no additional allergic/immunologic complaints Reports system reviewed and no additional complaints, except as documented and Reports Abnormal speech present [facility] Past Medical History Medical History Type 2 diabetes mellitus Kidney stones Social History Social History Alcohol intake: never Advance Directives: No Advance Directives Information Provided: Yes Do you have a plan to hurt others: No Plan Physical Exam ED Vital Signs: Vital Signs - 24 hr 12/05/23 09:59 Temperature 98.1 F Pulse Rate 95 Respiratory Rate 18 Blood Pressure 136/73 Pulse Oximetry 98 Oxygen Delivery Method Room Air BMI result Body Mass Index 39.4 Vital signs have been reviewed and appear to be correct. Blood pressure elevated. Heart rate normal. Respiratory rate normal. Temperature normal. Oxygen saturation normal. Appearance: Alert. Oriented X3. No acute distress. Head: Normal external exam. Normocephalic. Atraumatic. No Rose signs noted. No raccoon eyes noted Eyes: PERRLA. EOMI. Conjunctiva and sclera normal. Eyelids normal. ENT: TM's Normal. Pharynx normal. Uvula midline. Moist mucous membranes. No trismus noted. No drooling noted. No muffled voice noted. Neck: Normal inspection. Neck supple. FROM. No adenopathy. Thyroid Normal. No meningeal signs. No neck mass noted. CVS: Normal heart rate and rhythm. Heart sound normal. No murmurs noted. Pulses normal throughout. Respiratory: No respiratory distress. Painless inspiration. Breath sounds normal. No wheezes/rales/rhonchi noted. Chest nontender. No accessory muscle usage noted or decreased air movement noted. Abdomen: Right upper quadrant tenderness, no guarding, no rebound tenderness. Bowel sounds normal in all 4 quadrants. No distention noted. No organomegaly noted. No visible injury noted. Back: No CVA tenderness. Full range of motion noted. Skin: Skin warm and dry. Normal skin color. Normal skin turgor. No rashes/lesions/lacerations noted. Extremities: No lower extremity edema. Extremities exhibit normal range of motion. Extremities nontender. Neuro: Oriented X 3. Cranial nerve exam: II-XII are grossly intact No motor deficit. No sensory deficit. Reflexes normal. Course Reevaluation(s) Reevaluation #1: Chronic abdominal pain, chronic urinary symptoms, diarrhea for few months, stool sample was obtained for further testing for C diff/blood, CT of the abdomen and pelvis reveals mesenteric adenitis, labs are unremarkable to explain patient's symptoms. Patient was instructed to follow-up with GI for further evaluation Time: 12:14 Medical Decision Making Differential Diagnosis Differential Diagnoses: The differential diagnosis associated with the presentation includes (Colitis, diverticulitis, pancreatitis, acute appendicitis, UTI, , ACS.) Admission/Observation Consideration of admission/observation: Escalation of care including admission/observation considered Lab Data MDM Lab Attestation statement: I reviewed the patient's lab results. 12/05/23 11:08 12/05/23 11:08 Labs: Lab Results 12/05/23 12/05/23 Range/Units 11:08 11:18 WBC 9.4 (4.8-10.8) X10*3/uL RBC 4.51 (4.20-5.50) X10*6/uL Hgb 13.9 (12.0-16.0) g/dl Hct 41.7 (37.0-47.0) % MCV 92.5 (80.0-98.0) fL MCH 30.8 (27.0-33.0) pg MCHC 33.3 (31.0-35.0) g/dl RDW 12.7 (11.0-16.0) % Plt Count 245 (160-400) X10*3/uL MPV 10.6 (9.4-12.3) fL Immature Gran % (Auto) 0.4 (0.0-0.4) % Neut % (Auto) 64.1 (45-73) % Lymph % (Auto) 27.8 (20-40) % [place] % (Auto) 6.8 (2-11) % Eos % (Auto) 0.7 (0-4) % Baso % (Auto) 0.2 (0-2) % Lymph # (Auto) 2.6 (1.2-4.9) X10*3/uL [place] # (Auto) 0.6 (0.1-1.2) X10*3/uL Eos # (Auto) 0.1 (0.0-0.4) X10*3/uL Baso # (Auto) 0.0 (0.0-0.2) X10*3/uL Abs Immat Gran (auto) 0.04 H (0.00-0.03) X10*3/uL Absolute Neuts (auto) 6.0 (2.0-8.3) x10*3/uL Absolute Nucleated RBC 0.000 (0.0-0.012) X10*3/uL Nucleated RBC % (auto) 0.0 (0.0-0.2) /100WBC Sodium 138 (135-145) mmol/L Potassium 3.9 (3.3-5.1) mmol/L Chloride 104 (96-108) mmol/L Carbon Dioxide 28 (22-29) mmol/L Anion Gap 10 L (12-20) BUN 10 (9-16) mg/dL Creatinine 0.73 (0.5-1.4) mg/dL Estim Creat Clear Calc 127.3 Estimated GFR > 60 Random Glucose 170 H (60-115) mg/dL Calcium 9.0 D (8.4-10.2) mg/dL Total Bilirubin 0.3 (0.0-1.0) mg/dL Direct Bilirubin 0.1 (0.0-0.5) mg/dL AST 23 (5-31) U/L ALT 22 (0-31) U/L Alkaline Phosphatase 101 (39-117) U/L Troponin I High Sens < 2.7 (<3.5-17.0) ng/L Total Protein 7.4 (6.5-8.0) g/dL Albumin 4.0 (3.5-5.0) g/dL Lipase 42 (8-78) U/L Urine Color Yellow Urine Appearance Clear Urine pH 5.5 (5.0-9.0) Ur Specific [place] >= 1.030 H (1.005-1.025) Urine Protein 100 (2+) H (Neg-Trace) mg/dL Urine Glucose (UA) Negative (Negative) mg/dL Urine Ketones Trace (Negative) mg/dL Urine Blood Negative (Negative) Urine Nitrite Negative (Negative) Ur Leukocyte Esterase Negative (Negative) Urine RBC 0-2 (0-2) /HPF Urine WBC 0-5 (0-5) /HPF Ur Squamous Epith Cells 6-10 (0-2) /HPF Urine Bacteria None Seen (None Seen) Hyaline Casts 0-2 (0-2) /LPF Independent Interpretation I performed an independent interpretation of an: EKG (Normal sinus rhythm at 88 beats per minutes, normal intervals, normal axis deviation, no ST-T changes.) and CT Scan (Abdomen pelvis: Mesenteric panniculitis. 8 mm nonobstructing lower pole left renal calculus. No hydronephrosis. ) Radiology Impression Discussion of test interpretation with radiology: I have reviewed the radiologist's reading. Discharge Plan Discharge Clinical Impression: Abdominal pain, Mesenteric adenitis Patient Disposition: Home, Self-Care Instructions: Abdominal Pain (ED) Prescriptions: No Action omeprazole magnesium [Prilosec OTC] 20 mg tablet,delayed release (DR/EC) 20 mg PO BID Qty: 60 0RF loperamide [Imodium A-D] 2 mg capsule 2 mg PO Q6H PRN (Reason: loose stool) Qty: 14 0RF naproxen 500 mg tablet 500 mg PO BID PRN (Reason: pain) Qty: 20 0RF prednisone 20 mg tablet 40 mg PO DAILY 5 Days Qty: 10 0RF diphenhydramine HCl [Benadryl] 25 mg capsule 25 mg PO TID PRN (Reason: allergic reaction) Qty: 20 0RF epinephrine [EpiPen 2-Daniele] 0.3 mg/0.3 mL auto-injector 0.3 mg IM Q4H PRN (Reason: anaphylaxis) Qty: 2 0RF ciprofloxacin-dexamethasone [Ciprodex] 0.3-0.1 % drops,suspension 4 drp otic (ears) BID 7 Days Qty: 7.5 0RF Referrals: Janny Patel MD [Physician] - Print Language: Estonian
[2023-12-05 11:46] LABS: MANUAL DIFF FLAG NO
[2023-12-05 11:49] LABS: Appearance Urine Clear; Color Urine Yellow; Glucose Urine UA Negative (Negative); Leukocyte Esterase Urine Negative (Negative); Nitrite Urine Negative (Negative); PH 5.5 (5.0-9.0); Specific Gravity - Urine >= 1.030 (1.005-1.025); UMIC TRIGGER UACC YES; Urine Blood Negative (Negative); Urine Ketones Trace mg/dL (Negative); Urine Protein 100 (2+) mg/dL (Neg-Trace)
[2023-12-05 11:50] LABS: Basophils Percent Auto 0.2 % (0-2); Eosinophils Absolute Auto 0.1 X10*3/uL (0.0-0.4); Eosinophils Percent Auto 0.7 % (0-4); Hematocrit 41.7 % (37.0-47.0); Hemoglobin 13.9 g/dl (12.0-16.0); Imm Gran Abs Auto 0.04 X10*3/uL (0.00-0.03); Imm Gran Pct Auto 0.4 % (0.0-0.4); Lymphocytes Absolute Auto 2.6 X10*3/uL (1.2-4.9); Lymphocytes Percent Auto 27.8 % (20-40); Mean Corpuscular HGB Conc 33.3 g/dl (31.0-35.0); Mean Corpuscular Hemoglobin 30.8 pg (27.0-33.0); Mean Corpuscular Volume 92.5 fL (80.0-98.0); Mean Platelet Volume 10.6 fL (9.4-12.3); Monocytes Absolute Auto 0.6 X10*3/uL (0.1-1.2); Monocytes Percent Auto 6.8 % (2-11); Neutrophils Percent Auto 64.1 % (45-73); Platelet Count 245 X10*3/uL (160-400); Red Blood Count 4.51 X10*6/uL (4.20-5.50); Red Cell Distribution Width 12.7 % (11.0-16.0); White Blood Count 9.4 X10*3/uL (4.8-10.8)
[2023-12-05 11:54] LABS: Bacteria Urine None Seen (None Seen); Hyaline Casts Urine 0-2 /LPF (0-2); RBC Urine 0-2 /HPF (0-2); WBC Urine 0-5 /HPF (0-5)
[2023-12-05 12:03] LABS: Alanine Aminotransferase 22 U/L (0-31); Alkaline Phosphatase 101 U/L (39-117); Anion Gap 10 (12-20); Aspartate Amino Transferase 23 U/L (5-31); Bilirubin Direct 0.1 mg/dL (0.0-0.5); Bilirubin Total 0.3 mg/dL (0.0-1.0); Blood Urea Nitrogen 10 mg/dL (9-16); Carbon Dioxide 28 mmol/L (22-29); Chloride 104 mmol/L (96-108); Creatinine Clr Calc Pharmacy 127.3; Estimated Glomerular Filt Rate > 60; Glucose Random 170 mg/dL (60-115); Lipase 42 U/L (8-78); Potassium 3.9 mmol/L (3.3-5.1); Sodium 138 mmol/L (135-145); Total Protein 7.4 g/dL (6.5-8.0)
[2023-12-05 12:08] LABS: Troponin-I High Sensitivity < 2.7 ng/L (<3.5-17.0)
[2023-12-05 14:29] VITALS: BP 111/60; PULSE 81; RESP 16; TEMP 36.6; O2SAT 96
== END 2023-12-05 14:31 | disposition home or self-care (01) ==
PROVIDERS: Emergency Provider Emergency Medicine
DX: R10.9 Unspecified abdominal pain (principal); R59.0 Localized enlarged lymph nodes; R07.9 Chest pain, unspecified; E11.9 Type 2 diabetes mellitus without complications; Z87.442 Personal history of urinary calculi; Z79.899 Other long term (current) drug therapy
CPT/HCPCS: 36415; 74176; 80048; 80076; 81001; 83690; 84484; 85025; 93005; 99283; 99284

== ENCOUNTER → 2023-12-05 10:11 | Outpatient (BNV) | payer MEDICAID, SELFPAY | PROVIDERS: Emergency Provider Emergency Medicine; Visit Provider Internal Medicine Cardiovascular Disease | DX: R07.9 Chest pain, unspecified (principal) | CPT/HCPCS: 93010 ==

== ENCOUNTER 2024-01-20 23:46 | Emergency (ER) | payer MEDICAID, SELFPAY ==
--- NOTE | ~2024-01-20 | XR_ITS ---
EXAMINATION: XR CHEST CLINICAL INFORMATION: Palpitations. Dyspnea. COMPARISON: November 23, 2023 TECHNIQUE: 2 views of the chest were obtained. FINDINGS: No significant abnormality is noted involving the heart, lungs, mediastinum, bony thorax or soft tissues. XR/XR chest 2V IMPRESSION: Unremarkable examination. Electronically signed by: Wayne Bains MD 01/21/2024 12:33 AM EDT
[2024-01-20 23:54] VITALS: BP 121/77; PULSE 98; RESP 20; TEMP 36; O2SAT 98; BMI 39.4
--- NOTE | 2024-01-21 | ECG_ITS ---
Test Reason : SOB Blood Pressure : / mmHG Vent. Rate : 096 BPM Atrial Rate : 096 BPM P-R Int : 272 ms QRS Dur : 076 ms QT Int : 340 ms P-R-T Axes : 023 027 -29 degrees QTc Int : 429 ms Sinus rhythm with 1st degree A-V block Low voltage QRS Nonspecific T wave abnormality Abnormal ECG When compared with ECG of 05-DEC-2023 11:31, [place] interval has increased Referred By: Generic ED Physician Electronically Signed By:LJ FLOWERS
[2024-01-21 00:27] LABS: MANUAL DIFF FLAG NO
[2024-01-21 00:30] LABS: Basophils Percent Auto 0.3 % (0-2); Eosinophils Absolute Auto 0.2 X10*3/uL (0.0-0.4); Eosinophils Percent Auto 1.9 % (0-4); Hematocrit 41.2 % (37.0-47.0); Hemoglobin 13.9 g/dl (12.0-16.0); Imm Gran Abs Auto 0.03 X10*3/uL (0.00-0.03); Imm Gran Pct Auto 0.3 % (0.0-0.4); Lymphocytes Absolute Auto 3.5 X10*3/uL (1.2-4.9); Lymphocytes Percent Auto 37.7 % (20-40); Mean Corpuscular HGB Conc 33.7 g/dl (31.0-35.0); Mean Corpuscular Hemoglobin 30.9 pg (27.0-33.0); Mean Corpuscular Volume 91.6 fL (80.0-98.0); Mean Platelet Volume 9.9 fL (9.4-12.3); Monocytes Absolute Auto 0.6 X10*3/uL (0.1-1.2); Monocytes Percent Auto 6.5 % (2-11); Neutrophils Absolute Auto 4.9 x10*3/uL (2.0-8.3); Neutrophils Percent Auto 53.3 % (45-73); Platelet Count 251 X10*3/uL (160-400); Red Cell Distribution Width 12.7 % (11.0-16.0); White Blood Count 9.2 X10*3/uL (4.8-10.8)
[2024-01-21 00:36] LABS: INTERNATIONAL NORM RATIO 0.9 (0.9-1.1); Prothrombin Time 11.1 SEC (11.1-13.3)
[2024-01-21 00:46] LABS: Alanine Aminotransferase 35 U/L (0-31); Albumin Level 4.1 g/dL (3.5-5.0); Alkaline Phosphatase 93 U/L (39-117); Anion Gap 12 (12-20); Aspartate Amino Transferase 24 U/L (5-31); Bilirubin Direct 0.1 mg/dL (0.0-0.5); Bilirubin Total 0.3 mg/dL (0.0-1.0); Blood Urea Nitrogen 14 mg/dL (9-16); Calcium 9.7 mg/dL (8.4-10.2); Carbon Dioxide 28 mmol/L (22-29); Chloride 105 mmol/L (96-108); Creatinine Clr Calc Pharmacy 110.5; Estimated Glomerular Filt Rate > 60; Glucose Random 97 mg/dL (60-115); Lipase 34 U/L (8-78); Potassium 3.8 mmol/L (3.3-5.1); Sodium 141 mmol/L (135-145); Total Protein 7.4 g/dL (6.5-8.0)
--- NOTE | 2024-01-21 00:49 | ED_ITS ---
HPI - General Adult General Chief complaint: General Medical Stated complaint: low blood sugar, dizziness Time Seen by Provider: 01/21/24 00:20 Source: patient and family Mode of arrival: ambulatory Limitations: language barrier History of Present Illness ED Provider: Dr. Richey HPI narrative: Patient has been on ozempic for the past 7 weeks. Today she took her metformin and ozempic at the same time and did not check her sugar. In fact she is not checking her sugar at home. After taking her medication she felt weak, lightheaded and racing heart beat. She did not check her pulse or take he glucose. Onset (ago): hour(s) Related Data Previous Rx's ?Medication ?Instructions ?Recorded omeprazole magnesium 20 mg 20 mg PO BID #60 tabs 02/20/20 tablet,delayed release (Prilosec OTC) loperamide 2 mg capsule (Imodium 2 mg PO Q6H PRN loose stool #14 08/22/22 A-D) caps naproxen 500 mg tablet 500 mg PO BID PRN pain #20 tabs 08/22/22 ciprofloxacin 0.3 %-dexamethasone 4 drp otic (ears) BID 7 days #7.5 10/09/23 0.1 % ear drops,suspension mL (Ciprodex) diphenhydramine HCl 25 mg capsule 25 mg PO TID PRN allergic reaction 10/09/23 (Benadryl) #20 caps epinephrine 0.3 mg/0.3 mL 0.3 mg (0.3 mL) IM Q4H PRN 10/09/23 injection, auto-injector (EpiPen anaphylaxis #2 ea 2-Daniele) prednisone 20 mg tablet 40 mg (2 x 20 mg) PO DAILY 5 days 10/09/23 #10 tabs Allergies Allergy/AdvReac Type Severity Reaction Status Date / Time No Known Allergies Allergy Verified 01/20/24 23:57 [No Known Allergies*] Review of Systems 2 Review of Systems: Yes all other systems are reviewed and are negative Neurologic: Denies Sensory deficit (Neuro) [facility] Past Medical History Medical History Type 2 diabetes mellitus Kidney stones Social History Social History Alcohol intake: never Advance Directives: No Advance Directives Information Provided: Yes Physical Exam ED Vital Signs: Vital Signs - 24 hr 01/20/24 23:54 01/21/24 01:04 Temperature 96.8 F 98.0 F Pulse Rate 98 96 Respiratory Rate 20 16 Blood Pressure 121/77 104/65 Pulse Oximetry 98 95 Oxygen Delivery Method Room Air Room Air BMI result Body Mass Index 39.4 Const General: healthy appearing Nutritional Appearance: average body habitus Orientation/consciousness: oriented to person and patient oriented x3 Limitations: no limitations HENMT Head: Yes normal to inspection Ears: external ears normal General nose exam: Normal external nose present Mouth: Normal oral and palatal mucosa present and oropharynx normal Throat: Yes posterior oropharynx normal Eyes General: appearance normal, both eyes and all related structures Neck Neck: Yes normal visual inspection Chest Chest palpation & inspection: normal inspection of the chest Resp Auscultation: clear to auscultation bilaterally Cardio Jugular venous distension: no JVD Rate: regular rate Rhythm: regular rhythm Heart sounds: S1 normal heart sound present and S2 normal heart sound present GI Inspection: Yes normal to inspection Palpation (GI): Soft to palpation, nontender and No hepatosplenomegaly present Auscultation: normal bowel sounds General: Yes no CVA tenderness Back/Spine/Pelvis Back: no CVA tenderness Skin General skin exam: no rashes or lesions noted Neuro General: oriented to person and patient oriented x3 Cranial nerves: Yes CN's II-XII intact bilaterally Motor exam (neuro): 5/5 motor strength present throughout Sensory Exam: No Sensory deficit (Neuro) Extrem General: Yes normal to inspection Psych Appearance: grossly normal Course Reevaluation(s) Reevaluation #1: no evidence of arrhythmia, no hypoglycemia or electrolyte abnormalities. Abdominal discomfort could be secondary to ozempic. Time: 02:11 Medical Decision Making Differential Diagnosis Differential Diagnoses: The differential diagnosis associated with the presentation includes (arrhythmia, medication side effect, hypoglycemia) Admission/Observation Consideration of admission/observation: Escalation of care including admission/observation considered (upon arrival admission was considered) Lab Data 01/21/24 00:20 01/21/24 00:20 Labs: Lab Results 01/20/24 01/21/24 01/21/24 Range/Units 23:59 00:20 01:12 WBC 9.2 (4.8-10.8) X10*3/uL RBC 4.50 (4.20-5.50) X10*6/uL Hgb 13.9 (12.0-16.0) g/dl Hct 41.2 (37.0-47.0) % MCV 91.6 (80.0-98.0) fL MCH 30.9 (27.0-33.0) pg MCHC 33.7 (31.0-35.0) g/dl RDW 12.7 (11.0-16.0) % Plt Count 251 (160-400) X10*3/uL MPV 9.9 (9.4-12.3) fL Immature Gran % (Auto) 0.3 (0.0-0.4) % Neut % (Auto) 53.3 (45-73) % Lymph % (Auto) 37.7 (20-40) % [place] % (Auto) 6.5 (2-11) % Eos % (Auto) 1.9 (0-4) % Baso % (Auto) 0.3 (0-2) % Lymph # (Auto) 3.5 (1.2-4.9) X10*3/uL [place] # (Auto) 0.6 (0.1-1.2) X10*3/uL Eos # (Auto) 0.2 (0.0-0.4) X10*3/uL Baso # (Auto) 0.0 (0.0-0.2) X10*3/uL Abs Immat Gran (auto) 0.03 (0.00-0.03) X10*3/uL Absolute Neuts (auto) 4.9 (2.0-8.3) x10*3/uL Absolute Nucleated RBC 0.000 (0.0-0.012) X10*3/uL Nucleated RBC % (auto) 0.0 (0.0-0.2) /100WBC PT 11.1 (11.1-13.3) SEC INR 0.9 (0.9-1.1) Sodium 141 (135-145) mmol/L Potassium 3.8 (3.3-5.1) mmol/L Chloride 105 (96-108) mmol/L Carbon Dioxide 28 (22-29) mmol/L Anion Gap 12 (12-20) BUN 14 (9-16) mg/dL Creatinine 0.84 (0.5-1.4) mg/dL Estim Creat Clear Calc 110.5 Estimated GFR > 60 POC Glucose 104 (60-115) mg/dL Random Glucose 97 (60-115) mg/dL Calcium 9.7 D (8.4-10.2) mg/dL Total Bilirubin 0.3 (0.0-1.0) mg/dL Direct Bilirubin 0.1 (0.0-0.5) mg/dL AST 24 (5-31) U/L ALT 35 H (0-31) U/L Alkaline Phosphatase 93 (39-117) U/L Troponin I High Sens < 2.7 (<3.5-17.0) ng/L Total Protein 7.4 (6.5-8.0) g/dL Albumin 4.1 (3.5-5.0) g/dL Lipase 34 (8-78) U/L Urine Color Urine Appearance Urine pH (5.0-9.0) Ur Specific [place] (1.005-1.025) Urine Protein (Neg-Trace) mg/dL Urine Glucose (UA) (Negative) mg/dL Urine Ketones (Negative) mg/dL Urine Blood (Negative) Urine Nitrite (Negative) Ur Leukocyte Esterase (Negative) Urine Test (NEGATIVE) COVID-19 (LIZETTE) Negative (Negative) COVID-19 Clin Com See Note 01/21/24 Range/Units 01:14 WBC (4.8-10.8) X10*3/uL RBC (4.20-5.50) X10*6/uL Hgb (12.0-16.0) g/dl Hct (37.0-47.0) % MCV (80.0-98.0) fL MCH (27.0-33.0) pg MCHC (31.0-35.0) g/dl RDW (11.0-16.0) % Plt Count (160-400) X10*3/uL MPV (9.4-12.3) fL Immature Gran % (Auto) (0.0-0.4) % Neut % (Auto) (45-73) % Lymph % (Auto) (20-40) % [place] % (Auto) (2-11) % Eos % (Auto) (0-4) % Baso % (Auto) (0-2) % Lymph # (Auto) (1.2-4.9) X10*3/uL [place] # (Auto) (0.1-1.2) X10*3/uL Eos # (Auto) (0.0-0.4) X10*3/uL Baso # (Auto) (0.0-0.2) X10*3/uL Abs Immat Gran (auto) (0.00-0.03) X10*3/uL Absolute Neuts (auto) (2.0-8.3) x10*3/uL Absolute Nucleated RBC (0.0-0.012) X10*3/uL Nucleated RBC % (auto) (0.0-0.2) /100WBC PT (11.1-13.3) SEC INR (0.9-1.1) Sodium (135-145) mmol/L Potassium (3.3-5.1) mmol/L Chloride (96-108) mmol/L Carbon Dioxide (22-29) mmol/L Anion Gap (12-20) BUN (9-16) mg/dL Creatinine (0.5-1.4) mg/dL Estim Creat Clear Calc Estimated GFR POC Glucose (60-115) mg/dL Random Glucose (60-115) mg/dL Calcium (8.4-10.2) mg/dL Total Bilirubin (0.0-1.0) mg/dL Direct Bilirubin (0.0-0.5) mg/dL AST (5-31) U/L ALT (0-31) U/L Alkaline Phosphatase (39-117) U/L Troponin I High Sens (<3.5-17.0) ng/L Total Protein (6.5-8.0) g/dL Albumin (3.5-5.0) g/dL Lipase (8-78) U/L Urine Color Yellow Urine Appearance Clear Urine pH 8.0 (5.0-9.0) Ur Specific [place] 1.020 (1.005-1.025) Urine Protein Trace (Neg-Trace) mg/dL Urine Glucose (UA) Negative (Negative) mg/dL Urine Ketones Negative (Negative) mg/dL Urine Blood Negative (Negative) Urine Nitrite Negative (Negative) Ur Leukocyte Esterase Negative (Negative) Urine Test NEGATIVE (NEGATIVE) COVID-19 (LIZETTE) (Negative) COVID-19 Clin Com Independent Interpretation I performed an independent interpretation of an: EKG (sinus 96, first degree AV block, no st or twave changes) and Plain X-Ray (CXR: no infiltrate) Independent Historian Clinical information obtained from an independent historian. History obtained from or confirmed by: Spouse Prescription Management I considered prescription management with: Antibiotic (no evidence of bacterial infection or UTI) Chronic Conditions Patient?s care impacted by: Diabetes and Hypertension Discharge Plan Discharge Clinical Impression: Heart palpitations, Abdominal pain Patient Disposition: Home, Self-Care Instructions: Heart Palpitations (ED), Abdominal Pain (ED) Prescriptions: No Action omeprazole magnesium [Prilosec OTC] 20 mg tablet,delayed release (DR/EC) 20 mg PO BID Qty: 60 0RF loperamide [Imodium A-D] 2 mg capsule 2 mg PO Q6H PRN (Reason: loose stool) Qty: 14 0RF naproxen 500 mg tablet 500 mg PO BID PRN (Reason: pain) Qty: 20 0RF prednisone 20 mg tablet 40 mg PO DAILY 5 Days Qty: 10 0RF diphenhydramine HCl [Benadryl] 25 mg capsule 25 mg PO TID PRN (Reason: allergic reaction) Qty: 20 0RF epinephrine [EpiPen 2-Daniele] 0.3 mg/0.3 mL auto-injector 0.3 mg IM Q4H PRN (Reason: anaphylaxis) Qty: 2 0RF ciprofloxacin-dexamethasone [Ciprodex] 0.3-0.1 % drops,suspension 4 drp otic (ears) BID 7 Days Qty: 7.5 0RF Referrals: Physician,Unknown J [Primary Care Provider] - 3 days Print Language: Turkmen
[2024-01-21 00:54] LABS: Troponin-I High Sensitivity < 2.7 ng/L (<3.5-17.0)
[2024-01-21 01:02] LABS: COVID-19 Test Negative (Negative); IDNOW Serial# 152EDE1D
[2024-01-21 01:04] VITALS: BP 104/65; PULSE 96; RESP 16; TEMP 36.7; O2SAT 95
--- NOTE | 2024-01-21 01:16 | MHC.EDTECH ---
This pct assumed care of Patient around 0015,Vitals taken ,blood sugar check and urine sample collected and sent to lab ,Patient watching television ,call duncan within Pt reach .
[2024-01-21 01:25] LABS: Glucose, Whole Blood 104 mg/dL (60-115)
[2024-01-21 01:43] LABS: Appearance Urine Clear; Color Urine Yellow; Glucose Urine UA Negative (Negative); Leukocyte Esterase Urine Negative (Negative); Nitrite Urine Negative (Negative); Urine Blood Negative (Negative); Urine Ketones Negative (Negative); Urine Protein Trace mg/dL (Neg-Trace)
[2024-01-21 01:44] LABS: UPreg QC Valid YES; Urine Pregnancy NEGATIVE (NEGATIVE)
--- NOTE | 2024-01-21 02:10 | PC.NURSE ---
Pt is a 38 y/o female who presents from home for evaluation of mulitple concerns including tachycardia, dizziness, and nausea. Pt also reports significant fluctuation in blood sugar levels. Symptoms all started yesterday at approximately 2100 hrs with no similar occurrences in the past. Pt reports not doing anything specific or strenuous at onset. Denies any trauma, recent travel, and any recent illness/fever. Has been experienced ongoing abd pain X 2-3 days and ongoing diarrhea X 4-5 months. Pt reports being compliant with all home medications, and food/fluid intake has been WNL. Is on ozempic for diabetes and wt loss.
[2024-01-21 02:35] VITALS: BP 104/65; PULSE 90; RESP 16; TEMP 37.1; O2SAT 98
== END 2024-01-21 02:40 | disposition home or self-care (01) ==
PROVIDERS: Emergency Provider Emergency Medicine
DX: R00.2 Palpitations (principal); R42 Dizziness and giddiness; R06.02 Shortness of breath; R94.31 Abnormal electrocardiogram [ECG] [EKG]; E11.9 Type 2 diabetes mellitus without complications; Z11.52 Encounter for screening for COVID-19; Z79.899 Other long term (current) drug therapy; Z79.84 Long term (current) use of oral hypoglycemic drugs; Z79.85 Long-term (current) use of injectable non-insulin antidiabetic drugs
CPT/HCPCS: 36415; 71046; 80053; 81003; 81025; 82248; 82947; 83690; 84484; 85025; 85610; 87635; 93005; 99283; 99284

== ENCOUNTER 2024-06-25 10:39 | Emergency (ER) | payer MEDICAID, SELFPAY ==
--- NOTE | ~2024-06-25 | XR_ITS ---
EXAMINATION: XR CHEST CLINICAL INFORMATION: CP COMPARISON: 01/21/2024. TECHNIQUE: 2 views of the chest were obtained. FINDINGS: The cardiac, hilar, and mediastinal contours are normal. The lungs are clear bilaterally. There is no pneumothorax or pleural effusion. There is no focal osseous or soft tissue abnormality. Cholecystectomy clips noted. XR/XR chest 2V IMPRESSION: Normal chest. Electronically signed by: Jelani Sanchez MD 06/25/2024 02:03 PM REBEK[facility]
--- NOTE | 2024-06-25 10:49 | ECG_ITS ---
Test Reason : CHEST PAIN Blood Pressure : */* mmHG Vent. Rate : 97 BPM Atrial Rate : 97 BPM P-R Int : 178 ms QRS Dur : 76 ms QT Int : 356 ms P-R-T Axes : 47 20 -14 degrees QTcB Int : 452 ms Normal sinus rhythm Nonspecific T wave abnormality Abnormal ECG When compared with ECG of 21-Jan-2024 00:05, [place] interval has decreased Referred By: Tammy Corado Electronically Signed By: VENTURA SINGER
[2024-06-25 10:52] VITALS: BP 129/60; PULSE 101; RESP 16; TEMP 37; O2SAT 98; BMI 38.2
[2024-06-25 12:09] VITALS: BP 113/54; PULSE 96; RESP 18; TEMP 36.6; O2SAT 97
[2024-06-25 14:12] LABS: MANUAL DIFF FLAG NO
[2024-06-25 14:15] LABS: Basophils Percent Auto 0.4 % (0-2); Eosinophils Absolute Auto 0.1 X10*3/uL (0.0-0.4); Eosinophils Percent Auto 1.1 % (0-4); Hematocrit 44.4 % (37.0-47.0); Hemoglobin 14.6 g/dl (12.0-16.0); Imm Gran Abs Auto 0.05 X10*3/uL (0.00-0.03); Imm Gran Pct Auto 0.5 % (0.0-0.4); Mean Corpuscular HGB Conc 32.9 g/dl (31.0-35.0); Mean Corpuscular Hemoglobin 30.4 pg (27.0-33.0); Mean Corpuscular Volume 92.3 fL (80.0-98.0); Monocytes Absolute Auto 0.6 X10*3/uL (0.1-1.2); Neutrophils Absolute Auto 5.7 x10*3/uL (2.0-8.3); Platelet Count 242 X10*3/uL (160-400); Red Blood Count 4.81 X10*6/uL (4.20-5.50); Red Cell Distribution Width 12.9 % (11.0-16.0); White Blood Count 10.5 X10*3/uL (4.8-10.8)
[2024-06-25 14:29] LABS: Alanine Aminotransferase 24 U/L (0-31); Alkaline Phosphatase 80 U/L (39-117); Anion Gap 9 (12-20); Aspartate Amino Transferase 21 U/L (5-31); Bilirubin Direct 0.2 mg/dL (0.0-0.5); Bilirubin Total 0.3 mg/dL (0.0-1.0); Blood Urea Nitrogen 11 mg/dL (9-16); Calcium 9.3 mg/dL (8.4-10.2); Carbon Dioxide 29 mmol/L (22-29); Chloride 106 mmol/L (96-108); Creatinine Clr Calc Pharmacy 146.4; Estimated Glomerular Filt Rate > 60; Glucose Random 105 mg/dL (60-115); Magnesium 1.7 mg/dL (1.6-2.6); Potassium 3.7 mmol/L (3.3-5.1); Sodium 140 mmol/L (135-145)
[2024-06-25 14:37] LABS: Troponin-I High Sensitivity < 2.7 ng/L (<3.5-17.0)
[2024-06-25 15:20] LABS: Influenza A PCR NEGATIVE (Negative); Influenza B PCR NEGATIVE (Negative); Resp Syncy Virus RNA Qual PCR NEGATIVE (Negative); SARS COV2 PCR INHOUSE NEGATIVE (Negative)
--- OUTSIDE RECORDS SUMMARY | 2024-06-25 20:24 | XMS_ITS | Clinical Summary ---
Author Organization [facility] Address [address] [place] [address] [address] [place] [address] Care Team Providers Care Street Light Servicer Supervisor Name Role Phone Unavailable Primary Care Provider Unavailabl e Allergies No known active allergies Medications sodium chloride (Marshall Nasal Nerstrand) 0.65 % nasal sprayIndications :Viral URI 1-2 sprays on each nostril every 2-3 hours as needed for nasal congestion 30 mL 1 3 Active famotidine (Pepcid) 20 MG tabletIndication s:Heartburn Take 1 tablet twice daily for 1 week, then as needed for acid reflux 40 tablet 3 Active nicotine (Nicoderm CQ) 7 MG/24HR patch Place 1 patch on the skin 1 (one) time each day at the same time. 14 patch 3 Active ibuprofen 400 MG tablet Take 1 tablet (400 mg) by mouth every 6 (six) hours if needed for moderate pain or fever for up to 30 doses. 30 tablet 3 Active acetaminophen (Tylenol) 500 MG tablet Take 2 tablets (1,000 mg) by mouth every 6 (six) hours if needed for moderate pain, fever or headaches for up to 25 doses. 30 tablet 4 Active Ventolin HFA 108 (90 Base) MCG/ACT inhalerIndicatio ns:Mild persistent asthma with acute exacerbation,Mil d intermittent reactive airway disease without complication INHALE 2 PUFFS BY MOUTH EVERY 6 HOURS NEEDED FOR WHEEZING 18 g 1 4 Active nicotine polacrilex (Nicorette) 4 MG gumIndications:T obacco dependence CHEW 1 PIECE OF GUM NEEDED FOR SMOKING CESSATION, DO NOT EXCEED 24 / DAY 100 each 4 Active albuterol (2.5 MG/3ML) 0.083% nebulizer solutionIndicati ons:Mild persistent asthma with acute exacerbation,Mil d intermittent reactive airway disease without complication INHALE 1 AMPULE USING A NEBULIZER EVERY 6 HOURS NEEDED FOR WHEEZING 90 mL 1 4 Active nicotine (Nicoderm, Step 2) 14 MG/24HR patchIndications :Tobacco dependence APPLY 1 PATCH TOPICALLY TO THE SKIN IN THE MORNING. DO NOT SMOKE WHILE USING PATCH 42 patch 4 Active cromolyn (NasalCrom) 5.2 MG/ACT nasal sprayIndications :Influenza A Administer 1 spray into each nostril if needed in the morning, at noon, and at bedtime for rhinitis for up to 5 days. 26 mL 5 Active oseltamivir (Tamiflu) 75 MG capsuleIndicatio ns:Influenza A Infection Take 1 capsule (75 mg) by mouth 2 times daily for 5 days. 10 capsule 5 06/07/19 25 Active Problems Problem Noted Date Diagnosed Date Influenza A 06/02/2024 Assessment & Plan (06/02/2024 10:26 AM EST): -rapid influenza A positive -oseltamivir (Tamiflu) 75 MG, take 1 capsule (75 mg) by mouth 2 times daily for 5 days -cromolyn (NasalCrom) 5.2 MG/ACT, 1 spray into each nostril if needed in the morning, at noon, and at bedtime for up to 5 days -droplet precautions discussed -supportive care discussed Type 2 diabetes mellitus 06/02/2024 Tobacco dependence 04/11/2023 Mild persistent asthma without complication 02/05 Xanthelasma 03/04/2023 Overview (03/04/2023): f/u for new pt visit, new pt labs Morbid obesity 12/18/2017 Encounters Date Type Department Care Team Description 06/02/2024 10:00 AM EST Office Visit [facility] [address] [place] [phone] Addie Brar MD Influenza A from Last 3 Months Immunizations Name Administration Dates Next Due Influenza injectable quadrivalent preservative f ree 02/20/2022 Social History Tobacco Use Types Packs/Day Years Used Date Smoking Tobacco: Every Day Cigarettes Passive Smoke Exposure: Never Smokeless Tobacco: Never Tobacco Cessation:Ready to Q uit: Not Asked; Counseling Given: Not Answered Housing Stability Answer Date Recorded What is your housing situation today? I have major roman 09/12/[address] you li ve. Do you have problems with any of the following? Pests such as bugs, ants, or mice 09/12/2023 Food Insecurity Answer Date Recorded Within the past 12 months, y ou worried that your food would run out before you got money to buy more: Sometimes True 2023 Within the past 12 months,th e food you bought just didn't last and you didn't have enough money to get more: Sometimes True 09/12/2023 Transportation Answer Date Recorded In the past 12 months, has l ack of transportation kept you from medical appts, meetings, work or from getting things needed for daily living? No 09/12/2023 Utilities Answer Date Recorded In the past 12 months, has t he electric, gas, oil or water company threatened to shut off services in your home? Yes 09/12/2023 Comments Unknown Sex and Gender Information Value Date Recorded Sex Assigned at Female 03/05/2022 10:33 AM EDT Legal Sex Female 10:33 AM EDT Gender Identity Choose not to disclose 10:33 AM EDT Sexual Orientation Choose not to disclose 2021 10:33 AM EDT Last Filed Vital Signs Vital Sign Reading Time Taken Comments Blood Pressure 132/73 06/02/2024 10:07 AM EST Pulse 100 06/02/2024 10:07 AM EST Temperature 37.1 ??C (98.7 ??F) 06/02/2024 10:[address] Respiratory Rate 20 06/02/2024 10:07 AM EST Oxygen Saturation 96% 06/02/2024 10:07 AM EST Inhaled Oxygen Concentration - - Weight 100 kg (221 lb 3.2 oz) 06/02/2024 10:07 A M EST Height 160 cm (5' 3 ) 06/02/2024 10:07 AM EST Body Mass Index 39.18 06/02/2024 10:07 AM EST Plan of Treatment Health Maintenance Due Date Last Done Comments Depression Screening 1985 Diabetes: Hemoglobin A1C 1985 Lipid Panel 1985 Diabetes: Foot Exam 10/12/1995 Eye Exam 10/12/1995 Alcohol/Substance Use Screening 1997 Family Planning (PISQ) 2000 Hepatitis C Screening 10/12/2003 Diabetes: Urine Protein Screening 2004 Hepatitis A Vaccines (1 of 2 - Risk 2-dose series) 2004 Hepatitis B Vaccines (1 of 3 - 19+ 3-dose series) 2004 Pap Smear 2006 Cervical Cancer Screening 10/12/2015 HPV/Cotest 10/12/2015 COVID-19 Vaccine ( - 2023-2 5 season) 2024 HPV Vaccines (2 - 3-dose SCD M series) 02/25/2024 01/28/2024 SDOH Screening 09/11/2024 09/12/2023 Tobacco Screening 06/02/2025 06/02/2024 DTaP/Tdap/Td Vaccines (2 - T d or Tdap) 10/03/2033 10/04/2023 Zoster Vaccines (1 of 2) 10/12/2035 RSV Patients and Patients Aged 60 years or older (1 - 1-dose 75+ series) 2060 HIV Screening Completed 09/07/2023 Pneumococcal Vaccine: Pediatrics (0 to 5 Years) and At-Risk Patients (6 to 49) Years) Completed 10/04/2023 Influenza Vaccine Completed 01/28/2024, 02/20/2022 HIB Vaccines Aged Out No longer eligi ble based on patient's age to complete this topic IPV Vaccines Aged Out No longer eligi ble based on patient's age to complete this topic Meningococcal Vaccine Aged Out No marisol brittni eligible based on patient's age to complete this topic RSV under 20 months Aged Out No longe r eligible based on patient's age to complete this topic Rotavirus Vaccines Aged Out No longer eligible based on patient's age to complete this topic Procedures Procedure Name Priority Date/Time Associated Diagnosis Comments POCT INFLUENZA B (ID NOW RAPID MOLECULAR) Routine 06/02/2024 10:30 AM EST Influenza A POCT INFLUENZA A (ID NOW RAPID MOLECULAR) Routine 06/02/2024 10:29 AM EST Influenza A POCT RAPID COVID ANTIGEN Routine 06/02/2024 10:29 AM EST Influenza A from Last 3 Months Results * POCT Rapid Influenza B SANTACRUZ ID NOW (06/02/2024 10:30 AM EST) Influenza B Negative Negative, Indeterminate [facility] QC Media Lot # [id number] [facility] Lot# Expiration Date 86, [facility] Swab 06/02/2024 10:3 0 AM EST Addie Brar MD POINT OF CARE TEST ENTER/E DIT ORDERABLES Final Result Performing Organization Address City/[facility]/ZIP Co de Phone Number [facility] [address] [place] [phone] * (ABNORMAL) POCT Rapid Influenza A SANTACRUZ ID NOW (06/02/2024 10:29 AM EST) Influenza A Positive( A) Negative, Indeterminate [facility] QC Media Lot # [id number] [facility] Lot# Expiration Date , [facility] Swab 06/02/2024 10:2 9 AM EST Addie Brar MD POINT OF CARE TEST ENTER/E DIT ORDERABLES Final Result Performing Organization Address City/[facility]/ZIP Co de Phone Number [facility] [address] [place] [phone] * POCT Rapid Covid-19 BinaxNOW (06/02/2024 10:29 AM EST) Rapid COVID Ag Negative [facility] QC Media Lot # [id number] [facility] Lot# Expiration Date , [facility] Swab 06/02/2024 10:2 9 AM EST Addie Brar MD POINT OF CARE TEST ENTER/E DIT ORDERABLES Final Result [facility] [address] [place] [address] [phone] from Last [address] [place] [address] [place] [address] C3
--- OUTSIDE RECORDS SUMMARY | 2024-06-25 20:24 | XMS_ITS | Encounter Summary ---
Author Organization [facility] Address [address] [place] [address] [address] [place] [address] Care Team Providers Care Case Packer And Sealer Name Role Phone Unavailable Primary Care Provider Unavailabl e Reason for Visit * Reason Comments Med Refill Encounter Details Date Type Department Care Team (Late st Contact Info) Description 11/13/2023 Refill [facility] [address], [place] [phone] Addie Brar MD [address] [place], [place] [phone] Mild persistent asthma with acute exacerbation; Mild intermittent reactive airway disease without complication Social History Tobacco Use Types Packs/Day Years Used Date Smoking Tobacco: Every Day Cigarettes Passive Smoke Exposure: Never Smokeless Tobacco: Never Housing Stability Answer Date Recorded What is [...] not to disclose 2021 10:33 AM EDT documented as of this encounter Plan of Treatment Not on file documented as of this encounter Visit Diagnoses Diagnosis Mild persistent asthma with acute exacerbation Mild intermittent reactive airway disease without complication documented in this encounter
--- OUTSIDE RECORDS SUMMARY | 2024-06-25 20:24 | XMS_ITS | Encounter Summary ---
Author Organization [facility] Address [address] [place] [address] [address] [place] [address] Care Team Providers Care Perfume And Toilet Water Maker Name Role Phone Unavailable Primary Care Provider Unavailabl e Reason for Visit * Reason Comments Med Refill Encounter Details Date Type Department Care Team (Late st Contact Info) Description 11/13/2023 Refill [facility] [address] [place] [address] [phone] Henrik Le MD [address] [place], [place] [phone] Social History Tobacco Use Types Packs/Day Years [...] EDT Gender Identity Choose not to disclose 2 10:33 AM EDT Sexual Orientation Choose not to disclose 2021 10:33 AM EDT documented as of this encounter Plan of Treatment Not on file documented as of this encounter Visit Diagnoses Not on filedocumented in this encounter
--- OUTSIDE RECORDS SUMMARY | 2024-06-25 20:24 | XMS_ITS | Encounter Summary ---
Author Organization [facility] Address [address] [place] [address] Care Team Providers Care Manager Telemarketing Name Role Phone Minor Laird MD Primary Care Provider Reason for Visit * Reason Comments Diabetes Mellitus Encounter Details Date Type Department Care Team (Late st Contact Info) Description 05/27/2024 1:40 PM EST Office Visit [facility] [address] [place] [phone] Mary Summers RN [address] [place] [address] Erica Melchor [address] [place] [phone] Type 2 diabetes mellitus without complication, without long-term current use of insulin ([facility]) (Primary Dx) Social History Tobacco Use Types Packs/Day Years Used Date Smoking Tobacco: Every Day Cigarettes Passive Smoke Exposure: Never Smokeless Tobacco: Never Alcohol Use Standard Drinks/Week Comments Never 0 (1 standard drink = 0.6 oz pur e alcohol) Social Connections Answer Date Recorded Connectedness 0 01/07/2024 Financial Resource Strain Answer Date R ecorded Financial Resource Strain 0 2023 Stress Answer Date Recorded Stress 0 06/28/2023 Physical Activity Answer Date Recorded Physical Activity 0 06/28/2023 Food Insecurity Answer Date Recorded Food 0 01/30/2024 Transportation Needs Answer Date Record ed Transportation 0 06/28/2023 Housing Stability Answer Date Recorded Housing 0 06/28/2023 Safety and Environment Answer Date Devin rded Safety 1 10/04/2023 Utilities Answer Date Recorded Utilities 0 06/28/2023 Employment Answer Date Recorded Stress 0 10/04/2023 Comments No Sex and Gender Information Value Date Recorded Sex Assigned at Female 05/17/2023 12:53 PM PST Legal Sex Female 12:52 PM PST Gender Identity Female 05/17/2023 12:53 PM PST Sexual Orientation Straight 05/17/2023 12 :53 PM PST COVID-19 Exposure Response Date Recorded In the last 10 days, have yo u been in contact with someone who was confirmed or suspected to have Coronavirus/COVID-19? No / Unsure 05/27/2024 1:49 PM EST documented as of this encounter Last Filed Vital Signs Vital Sign Reading Time Taken Comments Blood Pressure 102/70 05/27/2024 2:25 PM EST Pulse 100 05/27/2024 2:25 PM EST Temperature - - Respiratory Rate - - Oxygen Saturation - - Inhaled Oxygen Concentration - - Weight 101.4 kg (223 lb 9.6 oz) 05/27/2024 2:25 PM EST Height - - Body Mass Index 40.77 05/21/2024 1:27 PM EST documented in this encounter Progress Notes * Mary Summers RN - 05/27/2024 1:59 PM EST Visit START TIME: 1:50 pm END TIME: 2:20 pm Finger Lift Operator used during visit? Yes Erica Melchor Referred By: PCP Accompanied By: Alone Language: Malagasy Umair Radford is here for Diabetes care. She is taking Trulicity weekly and Metformin 1000 mg BID for diabetes. She is using Nicorette patches and gum for smoke cessation, she has reduce smoking to 1-2 cigarettes/day. She forgot her meter but reports monitoring BG 2 x day, fasting, range 80-90 and after evening meal, 140-160. Measurements: bust - 49 inches;waist- 45 inches;hips - 49.5 inches Screening Questions: Adherence with therapy? Yes SMBG 2 x/d BG Freestyle Signs/Sx Hypo / Hyperglycemia? Yes,dizzy Diet / Exercise, eating smaller portions, skips meals Objective Last 3 Vitals Flowsheet Row Office Visit from 05/27/2024 in [facility] Office Visit from 05/21/2024 in [facility] Office Visit from 03/25/2024 in [facility] Temp -- 98.7 ??F (37.1 ??C) -- Pulse 100 94 84 BP 102/70 120/70 116/72 Resp -- 16 -- Weight 223 lb 9.6 oz (101.4 kg) 219 lb (99.3 kg) -- Lab Results Component Value Date CREATININE 0.64 12/02/2023 EGFR 116 12/02/2023 Lab Results Component Value Date URCREATININE 212 10/04/2023 Lab Results Component Value Date HGBA1C 6.4 05/21/2024 HGBA1C 8.2 (A) 01/07/2024 HGBA1C 11.1 (H) 10/04/2023 Lab Results Component Value Date TRIGLYC 220 (H) 10/04/2023 CHOL 196 10/04/2023 HDL 35 (L) 10/04/2023 LDL 124 (H) 10/04/2023 CHOLHDL 5.6 (H) 10/04/2023 NONHDL 161 (H) 10/04/2023 Current Outpatient Medications on File Prior to Visit Medication Sig Dispense Refill dulaglutide (TRULICITY) 3 mg/0.5 mL pen injector Inject 3 mg into the skin once a week 2 mL 2 nicotine (NICODERM, STEP 2) 14 mg/[address] 1 Patch onto the skin once daily (every 24 hours) 28 Patch 1 nicotine, polacrilex, (NICORETTE) 4 mg gum Take 1 Each by mouth as needed for smoking cessation 100Each 0 cyclobenzaprine (FLEXERIL) 10 mg tablet TAKE ONE TABLET BY MOUTH THREE TIMES DAILY NEEDED FOR MUSCLE SPASM 30 Tablet 1 dicyclomine (BENTYL) 10 mg capsule TAKE ONE CAPSULE BY MOUTH FOUR TIMES DAILY NEEDED DOLOR ABDOMINAL / CALAMBRES 30 Capsule 1 VENTOLIN HFA 90 mcg/actuation inhaler Inhale 2 Puffs into the lungs every 6 (six) hours as needed for wheezing or shortness of breath INHALE 2 PUFFS BY MOUTH EVERY 6 HOURS NEEDED FOR WHEEZING Unitstrength: 90 mcgAuthorized by: BREANA LEMUS 18 g 1 traZODone (DESYREL) 100 mg tablet Take 1 Tablet by mouth nightly at bedtime for 21 days 21 Tablet 0 metFORMIN (GLUCOPHAGE) 1,000 mg tablet Take 1 Tablet by mouth 2 (two) times daily with a meal Indications: type 2 diabetes mellitus 180 Tablet 1 omeprazole (PRILOSEC) [address] capsule TAKE ONE CAPSULE BY MOUTH EVERY MORNING BEFORE BREAKFAST FOR14 DAYS 14 Capsule 1 atorvastatin (LIPITOR) 40 mg tablet Take 1 Tablet by mouth once daily Indications: high cholesteroland high triglycerides 90 Tablet 3 loperamide 2 mg tablet Take 1 Tablet by mouth 4 (four) times daily as needed for diarrhea 60 Tablet1 bismuth subsalicylate (PEPTO BISMOL) 262 mg/15 mL suspension Take 15 mL by mouth every 6 (six) hours as needed for indigestion 354 mL 0 Lactobac comb [id number] (PROBIOTIC AND ACIDOPHILUS) 300-250 million cell- mg capsule Take 1 Capsule by mouth once daily 90 Capsule 0 alcohol swabs Check blood sugar once daily. 100 Each 3 blood sugar diagnostic (FREESTYLE LITE STRIPS) strips Check blood sugar once daily. 100 Each 3 blood-glucose meter monitoring kit Check blood sugar once daily. Three days per week check blood sugar in the morning before eating. Four days per week check blood sugar 2 hours after eating. 1 Each 0 lancets 28 gauge Check blood sugar once daily. 100 Each 3 albuterol (PROVENTIL) 2.5 mg /3 mL (0.083 %) nebulizer solution INHALE 1 AMPULE USING A NEBULIZER EVERY 6 HOURS NEEDED FOR WHEEZING Unit strength: 2.5 mg/3 mL (0.083 %)Authorized by: RONY BENITEZ EPINEPHrine (EPIPEN) 0.3 mg/0.3 mL pen injector INJECT 0.3 MG (1 PEN) INTRAMUSCULARLY NEEDED FORANAPHYLAXIS Authorized by: AMAN MCNEILL acetaminophen (TYLENOL) 500 mg tablet Take 1 Tablet by mouth every 6 (six) hours as needed for pain90 Tablet 0 alum-mag hydroxide-simeth (MAALOX MAX) 400-400-40 mg/5 mL suspension Take 5 mL by mouth every 6 (six) hours as needed for indigestion 100 mL 0 No current facility-administered medications on file prior to visit. Assessment and Plan E11.9 Type 2 diabetes mellitus without complication, without long-term current use of insulin ([facility]) (primary encounter diagnosis) Counseled for lifestyle modifications for self-care behaviors for managing diabetes effectively. Encouraged 3 small, healthy balanced meals daily, alternate exercises, healthy snacks, between meals. Return in about 14 weeks (around 09/02/2024). documented in this encounter Miscellaneous Notes * Caden AVDayton - Mary Summers RN - 05/27/2024 2:27 PM EST Images from the original note were not included. Medicinas para la Diabetes y P??rdida de Peso - Video Con mohsen video aprender??s sobre las medicinas que ayudan a controlar el nivel de az??car y el peso. Para ibrahima el video ir a esta direccion web: [email or web address], escanear mohsen codigo QR con el telefono inteligente ?? [facility] * Patient Instructions - Mary Summers RN - 05/27/2024 2:25 PM EST If you are not able to keep your appointment please call 24-48 hours before your appointment to cancel or reschedule. documented in this encounter Plan of Treatment Upcoming Encounters Date Type Department Care Team (Late st Contact Info) Description 08/04/2024 10:00 AM EDT Office Visit [address] [phone] Ravin Rodriguez PharmD [address] [place] [address] Bernardino Miller [address] [place] [address] 09/02/2024 10:20 AM EDT Office Visit [address] [phone] Mary Summers RN [address] [place] [address] [place] [address] documented as of this encounter Visit Diagnoses Diagnosis Type 2 diabetes mellitus without complication, without long-term current use of insulin ([facility])- Primary documented in this encounter Additional Health Concerns Assessment Noted Time PHQ-9 Depression Total Score: 19 024 2:37 PM PDT documented as of this encounter Care Teams Manager Telemarketing Relationship Specialty Start Date End Date Minor Laird MD [address] [place] [address] PCP - General Family Medicine, Physician 06/28/23 documented as of this encounter
--- OUTSIDE RECORDS SUMMARY | 2024-06-25 20:24 | XMS_ITS | Encounter Summary ---
Author Organization [facility] Address [address] [place] [address] Care Team Providers Care High Voltage Electrician Name Role Phone Minor Laird MD Primary Care Provider [phone] Encounter Details Date Type Department Care Team (Latest Contact Info) Description 05/27/2024 Travel Social History Tobacco Use Types Packs/Day Years [...] PM EST documented as of this encounter Plan of Treatment Upcoming Encounters Date Type Department Care Team (Late st Contact Info) Description 08/04/2024 10:00 AM EDT Office Visit [address] [phone] Ravin Rodriguez PharmD [address] [place] [address] Bernardino Miller [address] [place] [address] 09/02/2024 10:20 AM EDT Office Visit [facility] [address] [place] [phone] Mary Summers RN [address] [place] [address] [place] [address] documented as of this encounter Visit Diagnoses Not on filedocumented in this encounter Additional Health Concerns Assessment Noted Time PHQ-9 Depression Total Score: 19 024 2:37 PM PDT documented as of this encounter Care Teams High Voltage Electrician Relationship Specialty Start Date End Date Minor Laird MD [address] [place] [phone] PCP - General Family Medicine, Physician 06/28/23 documented as of this encounter
--- OUTSIDE RECORDS SUMMARY | 2024-06-25 20:24 | XMS_ITS | Encounter Summary ---
Author Organization [employer] Address [address] [place] [address] 7t [place] [address] Care Team Providers Care Drapery Sewer Hand Name Role Phone Unavailable Primary Care Provider Unavailabl e Encounter Details Date Type Department Care Team (Late st Contact Info) Description 06/02/2024 10:00 AM EST Office Visit [facility] [address] [place], [place] [phone] Addie Brar MD [address] [place], [place] [phone] Influenza A Social History Tobacco Use Types Packs/Day Years [...] AM EDT documented as of this encounter Last Filed [...] Mass Index 39.18 06/02/2024 10:07 AM EST documented in this encounter Progress Notes * Jacy Stern - 06/02/2024 10:00 AM EST Subjective History was provided by the patient. Prabhakar Raza is a 38 y.o. choose not to disclose with past medical history of asthma, type 2 diabetes, and tobacco dependence who presents for evaluation of symptoms of a URI. Symptoms include cough, myalgia, congestion, ear pain, and sick contacts. Onset of symptoms was 3 days ago, gradually worsening since that time. Associated negative symptoms include nausea, vomiting, and diarrhea. Evaluation to date: none. Treatment to date: none. Pt reports all 3 of her kids tested positive for Flu B. Objective Vitals: 06/02/24 1007 BP: 132/73 BP Location: Left arm Patient Position: Sitting BP Cuff Size: Large adult Pulse: 100 Resp: 20 Temp: 98.7 ??F (37.1 ??C) TempSrc: Temporal SpO2: 96% Weight: 221 lb 3.2 oz (100 kg) Height: 5' 3 (1.6 m) Physical Exam Constitutional: Appearance: Normal appearance. HENT: Right Ear: Tympanic membrane normal. Left Ear: Tympanic membrane normal. There is impacted cerumen. Nose: Congestion and rhinorrhea present. Mouth/Throat: Mouth: Mucous membranes are moist. Pharynx: Oropharynx is clear. No oropharyngeal exudate or posterior oropharyngeal erythema. Eyes: Conjunctiva/sclera: Conjunctivae normal. Cardiovascular: Rate and Rhythm: Normal rate and regular rhythm. Heart sounds: Normal heart sounds. Pulmonary: Effort: Pulmonary effort is normal. No prolonged expiration. Breath sounds: Normal breath sounds. No decreased breath sounds or wheezing. Comments: Dry hacking cough Musculoskeletal: Cervical back: Normal range of motion. No rigidity or tenderness. Lymphadenopathy: Cervical: No cervical adenopathy. Skin: General: Skin is warm. Neurological: Mental Status: Prabhakar is alert. Psychiatric: Behavior: Behavior normal. No visits with results within 2 Day(s) from this visit. Latest known visit with results is: Orders Only on 11/23/2023 Component Date Value Ref Range Status White Blood Count 11/23/2023 9.7 4.8 - 10.8 X10*3/uL Final Red Blood Count 11/23/2023 4.78 4.20 - 5.50 X10*6/uL Final Hemoglobin 11/23/2023 14.5 12.0 - 16.0 g/dl Final Hematocrit 11/23/2023 43.5 37.0 - 47.0 % Final Mean Corpuscular Volume 11/23/2023 91.0 80.0 - 98.0 fL Final Mean Corpuscular Hemoglobin 11/23/2023 30.3 27.0 - 33.0 pg Final Mean Corpuscular HGB Conc 11/23/2023 33.3 31.0 - 35.0 g/dl Final Red Cell Distribution Width 11/23/2023 12.6 11.0 - 16.0 % Final Platelet Count 11/23/2023 234 160 - 400 X10*3/uL Final Mean Platelet Volume 11/23/2023 10.5 9.4 - 12.3 fL Final Neutrophils Percent Auto 11/23/2023 62.7 45 - 73 % Final Imm Gran Pct Auto 11/23/2023 0.7 (H) 0.0 - 0.4 % Final Lymphocytes Percent Auto 11/23/2023 29.4 20 - 40 % Final Monocytes Percent Auto 11/23/2023 5.7 2 - 11 % Final Eosinophils Percent Auto 11/23/2023 1.1 0 - 4 % Final Basophils Percent Auto 11/23/2023 0.4 0 - 2 % Final NRBC Pct Auto 11/23/2023 0.0 0.0 - 0.2 /100WBC Final Neutrophils Absolute Auto 11/23/2023 6.1 2.0 - 8.3 x10*3/uL Final Imm Gran Abs Auto 11/23/2023 0.07 (H) 0.00 - 0.03 X10*3/uL Final Lymphocytes Absolute Auto 11/23/2023 2.9 1.2 - 4.9 X10*3/uL Final Monocytes Absolute Auto 11/23/2023 0.6 0.1 - 1.2 X10*3/uL Final Eosinophils Absolute Auto 11/23/2023 0.1 0.0 - 0.4 X10*3/uL Final Basophils Absolute Auto 11/23/2023 0.0 0.0 - 0.2 X10*3/uL Final NRBC Abs Auto 11/23/2023 0.000 0.0 - 0.012 X10*3/uL Final Sodium 11/23/2023 137 135 - 145 mmol/L Final Potassium 11/23/2023 4.4 3.3 - 5.1 mmol/L Final Chloride 11/23/2023 104 96 - 108 mmol/L Final Carbon Dioxide 11/23/2023 23 22 - 29 mmol/L Final Anion Gap 11/23/2023 14 12 - 20 Final Urea Nitrogen (BUN) 11/23/2023 18 (H) 9 - 16 mg/dL Final Creatinine, Serum 11/23/2023 0.79 0.5 - 1.4 mg/dL Final Creatinine Clr Calc Pharmacy 11/23/2023 117.7 Final Provided height and weight: 165.1 cm,107.6 kg.eGFR (calculated from the MDRD study equation) and eCrCl(calculated from the Cockcroft-Gault equation) are based ondifferent parameters and may not yieldcomparable results.If eCrCl result is absurd, please check patient'sheight/weight. Estimated Glomerular Filt Rate 11/23/2023 >60 Final NOTE: For -Namibian individuals, multiply the result by 1.210.Chronic Kidney Disease: Estimated GFR < 60 mL/min/1.97k5Dkigmf Kidney Disease: Estimated GFR < 15 mL/min/1.73m2 Glucose 11/23/2023 223 (H) 60 - 115 mg/dL Final Calcium 11/23/2023 9.7 8.4 - 10.2 mg/dL Final Bilirubin, Total 11/23/2023 0.5 0.0 - 1.0 mg/dL Final Aspartate Amino Transferase 11/23/2023 20 5 - 31 U/L Final Alanine Aminotransferase 11/23/2023 28 0 - 31 U/L Final Total Protein 11/23/2023 7.5 6.5 - 8.0 g/dL Final Albumin Level 11/23/2023 4.0 3.5 - 5.0 g/dL Final Alkaline Phosphatase 11/23/2023 103 39 - 117 U/L Final Magnesium 11/23/2023 1.6 1.6 - 2.6 mg/dL Final HCG Quantitative 11/23/2023 <2 mIU/mL Final Weeks post LMP Approximate hCG(Last Menstrual Period) Range (mIU/ml)3 - 4 weeks 9 - 1304 - 5 weeks 75 - 2,6005 - 6 weeks 850 - 20,8006 - 7 weeks 4000 - 100,2007 - 12 weeks 11,500 - 289,53877 - 16 weeks 18,300 - 137,33668 - 29 weeks (2nd trimester) 1,400 - 53,53799 - 41 weeks (3rd trimester) 940 - 60,000The Santacruz B- hCG assay is used for the early detection ofpregnancy; it cannot be used to diagnose any conditionunrelated to . If a B-hCG level is not supportedby the clinical evidence, results should be confirmed by analternative method (qualitative urine hCG, for example). TROPONIN I HIGH SENSITIVITY 11/23/2023 <2.7 <3.5 - 17.0 ng/L Final The Santacruz high sensitivity Troponin-I results should beused in conjunction with other diagnostic information suchas ECG, clinical observations and information, and patientsymptoms to aid in the diagnosis of KS. Influenza A PCR 11/23/2023 NEGATIVE Negative Final Influenza B PCR 11/23/2023 NEGATIVE Negative Final Resp Syncy Virus RNA Qual PCR 11/23/2023 NEGATIVE Negative Final SARS COV2 PCR 11/23/2023 NEGATIVE Negative Final All test results must be correlated with clinical findings.Negative results do not preclude SARS-CoV2, influenza Avirus, influenza B virus and/or RSV infectionand should not be used as the sole basisfor treatment orother patient management decisions. Negative results must becombined with clinical o bservations, patient history, andepidemiological information.This test has not been evaluated for monitoring treatment ofinfection.This test has been authorized by the FDA under an EmergencyUse Authorization (EUA) for use by authorized laboratories.Testing performed on the [employer] GeneXpert utilizin greal-time RT-PCR.All SARS CoV2 and positive influenza A/B results arereported to [facility]. Color Urine 11/23/2023 Yellow Final Appearance Urine 11/23/2023 Clear Final PH 11/23/2023 5.5 5.0 - 9.0 Final Glucose Urine UA 11/23/2023 Negative Negative mg/dL Final Urine Blood 11/23/2023 Negative Negative Final Specific Dwight - Urine 11/23/2023 >=1.030 (H) 1.005 - 1.025 Final Urine Protein 11/23/2023 30 (1+) (A) Neg-Trace mg/dL Final Urine Ketones 11/23/2023 Negative Negative mg/dL Final Nitrite Urine 11/23/2023 Negative Negative Final Leukocyte Esterase Urine 11/23/2023 Negative Negative Final RBC Urine 11/23/2023 0-2 0 - 2 /HPF Final Urine WBC 11/23/2023 0-5 0 - 5 /HPF Final Urine Squamous Epithelial Cell 11/23/2023 3-5 0 - 2 /HPF Final Urine Bacteria 11/23/2023 Trace None Seen Final Hyaline Casts, Urine 11/23/2023 0-2 0 - 2 /LPF Final Problem List Items Addressed This Visit Influenza A -rapid influenza A positive -oseltamivir (Tamiflu) 75 MG, take 1 capsule (75 mg) by mouth 2 times daily for 5 days -cromolyn (NasalCrom) 5.2 MG/ACT, 1 spray into each nostril if needed in the morning, at noon, and at bedtime for up to 5 days -droplet precautions discussed -supportive care discussed Relevant Medications oseltamivir (Tamiflu) 75 MG capsule cromolyn (NasalCrom) 5.2 MG/ACT nasal spray Other Relevant Orders POCT Rapid Covid-19 BinaxNOW POCT Rapid Influenza A SANTACRUZ ID NOW POCT Rapid Influenza B SANTACRUZ ID NOW -No evidence of acute disease process. All pt's kids who live in her house was Flu B positive. Pt tested positive for flu A. Symptoms mild. -Will treat with Tamaflu and nasal spray. -ER precautions discussed. -Seek medical attention for worsening symptoms. I, Jacy Stern, am serving as a scribe to document services personally performed by Dr. Steinberg, based on the patient's response to questions by provider and providers statements to me. documented in this encounter Miscellaneous Notes * Assessment & Plan Note - Jacy Stern - 06/02/2024 10:15 AM ESTAssociated Problem(s): Influenza A -rapid influenza A positive -oseltamivir (Tamiflu) 75 MG, take 1 capsule (75 mg) by mouth 2 times daily for 5 days -cromolyn (NasalCrom) 5.2 MG/ACT, 1 spray into each nostril if needed in the morning, at noon, and at bedtime for up to 5 days -droplet precautions discussed -supportive care discussed documented in this encounter Plan of Treatment Not on file documented as of this encounter Procedures Procedure Name Priority Date/Time Associated Diagnosis Comments POCT INFLUENZA B (ID NOW RAPID MOLECULAR) Routine 06/02/2024 10:30 AM EST Influenza A POCT INFLUENZA A (ID NOW RAPID MOLECULAR) Routine 06/02/2024 10:29 AM EST Influenza A POCT RAPID COVID ANTIGEN Routine 06/02/2024 10:29 AM EST Influenza A documented in this encounter Results * POCT Rapid Influenza B SANTACRUZ ID NOW (06/02/2024 10:30 AM EST) Pathologist [facility] Influenza B Negative Negative, Indeterminate [facility] QC Media Lot # [id number] [facility] Lot# Expiration Date 86, [facility] Swab 06/02/2024 10:3 0 AM EST Addie Brar MD POINT OF CARE TEST ENTER/E DIT ORDERABLES Final Result Performing Organization Address City/[facility]/ZIP Co de Phone Number [facility] [address] [place] [phone] * (ABNORMAL) POCT Rapid Influenza A SANTACRUZ ID NOW (06/02/2024 10:29 AM EST) Pathologist [facility] Influenza A Positive( A) Negative, Indeterminate [facility] QC Media Lot # [id number] [facility] Lot# Expiration Date , [facility] Swab 06/02/2024 10:2 9 AM EST Addie Brar MD POINT OF CARE TEST ENTER/E DIT ORDERABLES Final Result Performing Organization Address [facility] Co de Phone Number [facility] [address] [place] [phone] * POCT Rapid Covid-19 BinaxNOW (06/02/2024 10:29 AM EST) Pathologist [facility] Rapid COVID Ag Negative [facility] QC Media Lot # [id number] [facility] Lot# Expiration Date , [facility] Swab 06/02/2024 10:2 9 AM EST Addie Brar MD POINT OF CARE TEST ENTER/E DIT ORDERABLES Final Result Performing Organization Address [facility]/ZIP Co de Phone Number [facility] [address] [place] [phone] documented in this encounter Visit Diagnoses Diagnosis Influenza A Influenza with other respiratory manifestations documented in this encounter
--- OUTSIDE RECORDS SUMMARY | 2024-06-25 20:24 | XMS_ITS | Clinical Summary ---
Author Organization [address] [facility] Address [address] [place] [address] Phone Care Team Providers Care Computer Aide Name Role Phone Andrea Lorenzana MD Primary Care Provider [phone] Allergies No known active allergies Medications albuterol HFA (PROAIR HFA ; PROVENTIL HFA ; VENTOLIN HFA) 90 mcg/actuation inhaler Inhale 2 Puffs into the lungs every 4 hours as needed. Active albuterol-budeson sly (Airsupra) 90-80 mcg/actuation HFA aerosol inhaler Inhale into the lungs. Active calcium carbonate/simethi cone (MAALOX ADVANCED ORAL) Take by mouth. Active bismuth subsalicylate (PEPTO-BISMOL ORAL) Take by mouth. Activ e ciprofloxacin-dex AMETHasone (CIPRODEX) otic suspension 4 Drops 2 times daily. Tilt head so ear to be treated points towards the ceiling. Active dicyclomine (BENTYL) 10 mg capsule Take 1 Capsule by mouth 4 times daily (before meals and nightly). Active dulaglutide (Trulicity) 0.75 mg/0.5 mL pen injector injection Inject into the skin. Active EPINEPHrine (EpiPen 2-Daniele) 0.3 mg/0.3 mL injection Inject as directed. Active UNABLE TO FIND LACTOBACILLUS OR Sig - Route: Take ??by mouth. - Oral Active freestyle 28 gauge lancets Active loperamide (IMODIUM A-D) 2 mg tablet Take 1 Tablet by mouth 4 times daily as needed. Active metFORMIN (GLUCOPHAGE) 1,000 mg tablet Take 1 Tablet by mouth 2 times daily (with meals). Active nicotine polacrilex (NICORETTE) 4 mg gum Take 4 mg by mouth as needed. Active pantoprazole (PROTONIX) 40 mg EC tablet Take 1 tablet (40 mg total) by mouth 1 (one) time each day before breakfast. Do not crush, chew, or split. 90 each 03/31/20 24 025 Active cholestyramine (QUESTRAN) 4 gram powder Take 1 packet (4 g total) by mouth 1 (one) time each day. Dissolve in 8 oz of liquid and drink before a meal 90 packet 03/31/20 24 025 Active sucralfate (CARAFATE) 1 gram tablet TAKE 1 TABLET(1 GRAM) BY MOUTH FOUR TIMES DAILY BEFORE MEALS AND AT NIGHT. TAKE 1 HOUR BEFORE MEALS AND AT BEDTIME 120 tablet 05/13/19 25 Active Encounters Date Type Department Care Team Description 03/31/2024 9:40 AM EST Consult Gastroenterology - [place] [address] [place] [phone] Sherin Barahona NP Gastroesophageal reflux disease without esophagitis (Primary Dx); Epigastric discomfort; Bile salt-induced diarrhea from Last 3 Months Social History Tobacco Use Types Packs/Day Years Used Date Smoking Tobacco: Never Assessed Comments Unknown Sex and Gender Information Value Date Recorded Sex Assigned at Not on file Legal Sex Female 8:50 PM EST Gender Identity Not on file Sexual Orientation Not on file Last Filed Vital Signs Vital Sign Reading Time Taken Comments Blood Pressure 98/80 03/31/2024 9:47 AM EST Pulse 90 03/31/2024 9:47 AM EST Temperature - - Respiratory Rate - - Oxygen Saturation 99% 03/31/2024 9:47 AM EST Inhaled Oxygen Concentration - - Weight 102 kg (224 lb) 03/31/2024 9:47 AM EST Height 162.6 cm (5' 4 ) 03/31/2024 9:47 AM EST Body Mass Index 38.45 03/31/2024 9:47 AM EST Plan of Treatment Upcoming Encounters Date Type Department Care Team (Late st Contact Info) Description 07/02/2024 10:40 AM EST Office Visit Gastroenterology - [place] [address] [place] [phone] Sherin Barahona NP [address] [place] [address] Health Maintenance Due Date Last Done Comments Diabetes: Annual Foot Exam 10/12/1995 Diabetes: Annual Retina Eye Exam 10/12/1995 Hepatitis A Vaccines (1 of 2 - Risk 2-dose series) 2004 Hepatitis B Vaccines (1 of 3 - 19+ 3-dose series) 2004 Cervical Cancer Screening: P ap Smear 2006 HIV Screening 05/31/2023 Social Influencers of Health Screening 05/31/2023 COVID-19 Vaccine (1 - 2023-2 5 season) 2024 HPV Vaccines (2 - 3-dose SCD M series) 02/25/2024 01/28/2024 Diabetes: Blood Sugar Contro l Test (HGBA1C) 03/31/2024 Depression Screening 10/03/2024 10/04/2023 Diabetes: Annual Urine Albumin-Creatinine Ratio (uACR) 10/03/2024 10/04/2023 Diabetes: Annual GFR (Glomerular Filtration Rate) 12/01/2024 12/02/2023, 11/23/2023 Cholesterol Screening (Lipid Panel) 10/03/2028 10/04/2023, 10/04/2023 DTaP,Tdap,and Td Vaccines (2 - Td or Tdap) 10/03/2033 10/04/2023 Hepatitis C Screening Completed 09/07/2023 Pneumococcal Vaccine: Pediatrics (0 to 5 Years) and At-Risk Patients (6 to 64 Years) Completed 10/04/2023 Influenza Vaccine Completed 01/28/2024, 02/20/2022 HIB Vaccines Aged Out No longer eligi ble based on patient's age to complete this topic IPV Vaccines Aged Out No longer eligi ble based on patient's age to complete this topic MMR Vaccines Aged Out No longer eligi ble based on patient's age to complete this topic Meningococcal ACWY Vaccine Aged Out N o longer eligible based on patient's age to complete this topic Meningococcal B Vacine Aged Out No lo nger eligible based on patient's age to complete this topic RSV Immunization Patients Under 20 months Aged Out No longer eligible b ased on patient's age to complete this topic Varicella Vaccines Aged Out No longer eligible based on patient's age to complete this topic Insurance MEDICAID - [place] Care Teams Computer Aide Relationship Specialty Start Date End Date Andrea Lorenzana MD [address] [place] [address] PCP - General 12/23/23
--- OUTSIDE RECORDS SUMMARY | 2024-06-25 20:24 | XMS_ITS | Encounter Summary ---
Author Organization [facility] Address [address] [place] [address] 7 [place] [address] Care Team Providers Care Android Architect Name Role Phone Unavailable Primary Care Provider Unavailabl e Reason for Visit * Reason Comments Med Refill Encounter Details Date Type Department Care Team (Late st Contact Info) Description 08/26/2023 Refill [facility] [address] [place] [address] [phone] Henrik Le MD [address] [place], [place] [phone] Social History Tobacco Use Types Packs/Day Years Used Date Smoking Tobacco: Every Day Cigarettes Passive Smoke Exposure: Never Smokeless Tobacco: Never Comments Unknown Sex and Gender Information Value [...]
--- OUTSIDE RECORDS SUMMARY | 2024-06-25 20:24 | XMS_ITS | Encounter Summary ---
Author Organization [employer] [facility] Address [address] [place] [address] [address] [place] [address] Care Team Providers Care Ribbon Tier Name Role Phone Unavailable Primary Care Provider Unavailabl e Reason for Visit * Reason Comments Med Refill Encounter Details Date Type Department Care Team ([facility] st Contact Info) Description 11/13/2023 Refill [facility] [address] [place] [address] [phone] Name, MD [facility] [address] [place], [place] [phone] Mild persistent asthma with acute exacerbation; Mild [...]
--- OUTSIDE RECORDS SUMMARY | 2024-06-25 20:24 | XMS_ITS | Encounter Summary ---
Author Organization [employer] [facility] Address [address] [place] [address] [address] [place] [address] Care Team Providers Care Medical Scientist Name Role Phone Unavailable Primary Care Provider Unavailabl e Reason for Visit * Reason Comments Med Refill Encounter Details Date Type Department Care Team ([facility] st Contact Info) Description 10/23/2023 Refill [facility] [address] [place] [address] [phone] Name, MD [facility] [address] [place], [place] [phone] Mild persistent asthma with acute exacerbation; Mild [...]
--- OUTSIDE RECORDS SUMMARY | 2024-06-25 20:24 | XMS_ITS | Encounter Summary ---
Author Organization [facility] [facility] Address [address] [place] [address] 7t [place] [address] Care Team Providers Care Courtesy Car Driver Name Role Phone Unavailable Primary Care Provider Unavailabl e Reason for Visit * Reason Comments Med Refill Encounter Details Date Type Department Care Team (Late st Contact Info) Description 10/05/2023 Refill [facility] [address] [place], [place] [phone] Addie Brar MD [address] [place], [place] [phone] Mild persistent asthma with acute exacerbation; Mild [...]
--- OUTSIDE RECORDS SUMMARY | 2024-06-25 20:24 | XMS_ITS | Clinical Summary ---
Author Organization [facility] Address [address] [place] [address] Care Team Providers Care Web Production Manager Name Role Phone Minor Laird MD Primary Care Provider [phone] Source Comments PLEASE NOTE, if this patient is a minor, it may be UNLAWFUL to discuss sensitive information that is contained in these records (such as FAMILY PLANNING, MENTAL HEALTH or SUBSTANCE ABUSE) with the minor patient's parent or other person without the patient's specific authorization.[facility] Allergies No known active allergies Medications alum-mag hydroxide-simeth (MAALOX MAX) 400-400-40 mg/5 mL suspensionIndica tions:Gastroesop hageal reflux disease without esophagitis Take 5 mL by mouth every 6 (six) hours as needed for indigestion 100 mL 024 Active acetaminophen (TYLENOL) 500 mg tabletIndication s:Body aches,Arthralgia , unspecified joint Take 1 Tablet by mouth every 6 (six) hours as needed for pain 90 Tablet Active albuterol (PROVENTIL) 2.5 mg /3 mL (0.083 %) nebulizer solution INHALE 1 AMPULE USING A NEBULIZER EVERY 6 HOURS NEEDED FOR WHEEZING Unit strength: 2.5 mg/3 mL (0.083 %)Authorized by: RONY BENITEZ Active EPINEPHrine (EPIPEN) 0.3 mg/0.3 mL pen injector INJECT 0.3 MG (1 PEN) INTRAMUSCULARLY NEEDED FOR ANAPHYLAXIS Authorized by: AMAN MCNEILL Active blood-glucose meter monitoring kitIndications:T ype 2 diabetes mellitus without complication, without long-term current use of insulin ([facility]) Check blood sugar once daily. Three days per week check blood sugar in the morning before eating. Four days per week check blood sugar 2 hours after eating. 1 Each 024 Active blood sugar diagnostic (FREESTYLE LITE STRIPS) stripsIndication s:Type 2 diabetes mellitus without complication, without long-term current use of insulin ([facility]) Check blood sugar once daily. 100 Each 3 024 Active lancets 28 gaugeIndications :Type 2 diabetes mellitus without complication, without long-term current use of insulin ([facility]) Check blood sugar once daily. 100 Each 024 Active alcohol swabsIndications :Type 2 diabetes mellitus without complication, without long-term current use of insulin ([facility]) Check blood sugar once daily. 100 Each 3 024 Active Lactobac comb 0-[id number]-[id number] (PROBIOTIC AND ACIDOPHILUS) 300-250 million cell-mg capsuleIndicatio ns:Diarrhea, unspecified type Take 1 Capsule by mouth once daily 90 Capsule 024 Active bismuth subsalicylate (PEPTO BISMOL) 262 mg/15 mL suspensionIndica tions:Diarrhea, unspecified type Take 15 mL by mouth every 6 (six) hours as needed for indigestion 354 mL 024 Active loperamide 2 mg tablet Take 1 Tablet by mouth 4 (four) times daily as needed for diarrhea 60 Tablet 1 024 Active atorvastatin (LIPITOR) 40 mg tabletIndication s:mixed hyperlipidemia Take 1 Tablet by mouth once daily Indications: high cholesterol and high triglycerides 90 Tablet 3 024 Active omeprazole (PRILOSEC) [address] capsule TAKE ONE CAPSULE BY MOUTH EVERY MORNING BEFORE BREAKFAST FOR 14 DAYS 14 Capsule 1 024 Active metFORMIN (GLUCOPHAGE) 1,000 mg tabletIndication s:type 2 diabetes mellitus Take 1 Tablet by mouth 2 (two) times daily with a meal Indications: type 2 diabetes mellitus 180 Tablet 1 024 Active traZODone (DESYREL) 100 mg tabletIndication s:Insomnia, unspecified type Take 1 Tablet by mouth nightly at bedtime for 21 days 21 Tablet 024 Active cyclobenzaprine (FLEXERIL) 10 mg tabletIndication s:Muscle spasm TAKE ONE TABLET BY MOUTH THREE TIMES DAILY NEEDED FOR MUSCLE SPASM 30 Tablet 1 024 Active dicyclomine (BENTYL) 10 mg capsule TAKE ONE CAPSULE BY MOUTH FOUR TIMES DAILY NEEDED DOLOR ABDOMINAL / CALAMBRES 30 Capsule 1 024 Active nicotine, polacrilex, (NICORETTE) 4 mg gum Take 1 Each by mouth as needed for smoking cessation 100 Each 025 Active nicotine (NICODERM, STEP 2) 14 mg/[address] 1 Patch onto the skin once daily (every 24 hours) 28 Patch 1 025 Active dulaglutide (TRULICITY) 3 mg/0.5 mL pen injectorIndicati ons:Type 2 diabetes mellitus without complication, without long-term current use of insulin ([facility]),Medica tion management,Class 2 severe obesity due to excess calories with serious comorbidity and body mass index (BMI) of 39.0 to 39.9 in adult ([facility]) Inject 3 mg into the skin once a week 2 mL 2 025 Active VENTOLIN HFA 90 mcg/actuation inhalerIndicatio ns:Mild intermittent asthma without complication INHALE TWO PUFFS into the lungs EVERY SIX HOURS NEEDED FOR WHEEZING OR SHORTNESS OF BREATH 18 g 1 025 Active VENTOLIN HFA 90 mcg/actuation inhalerIndicatio ns:Mild intermittent asthma without complication Inhale 2 Puffs into the lungs every 6 (six) hours as needed for wheezing or shortness of breath INHALE 2 PUFFS BY MOUTH EVERY 6 HOURS NEEDED FOR WHEEZING Unit strength: 90 mcgAuthorized by: CORA LEMUS 18 g 1 024 2024 Discontinued Active Problems Problem Noted Date Diagnosed Date Class 2 severe obesity due t o excess calories with serious comorbidity and body mass index (BMI) of 39.0 to 39.9 in adult ([facility]) 10/17/2023 Xanthelasma of eyelid, bilateral 10/04/2023 Mixed hyperlipidemia 09/17/2023 Type 2 diabetes mellitus wit hout complication, without long-term current use of insulin ([facility]) 09/17/2023 Overview (01/28/2024): Starting with DM clinic Pt had episode of hypoglycemia with BG on 01/21 that required an ER visit. Pt preferred Metformin discontinued and continued Trulicity 1.5mg subq Atorvastatin 40mg PCV 20 09/2023 Microalbum/Cr ratio elevated at 110 Eye exam: 10/24/23 no diabetic retinopathy Body aches 09/07/2023 Arthralgia 09/07/2023 Gastroesophageal reflux disease without esophagi tis 09/07/2023 Overview (04/07/2024): 03/2024: [facility], GERD/diarrhea possibly s/e of Trulicity or Metformin. Pt prescribed Pantoprazole and cholestyramine for hx of cholecystectomy. Kidney stone 09/07/2023 Tobacco use disorder 09/07/2023 Overview (10/04/2023): 1 ppd for 15 years Resolved Problems Problem Noted Date Diagnosed Date Resolved Date H. pylori infection 09/17/2023 01/28/20 24 Diarrhea 09/07/2023 10/07/2023 Encounters Date Type Department Care Team Description 05/27/2024 1:40 PM EST Office Visit [address] [address] Mary Summers RN Hernandez, Maria C Type 2 diabetes mellitus without complication, without long-term current use of insulin ([facility]) (Primary Dx) 05/27/2024 Travel 05/21/2024 1:20 PM EST Office Visit [address] [phone] Ravin Rodriguez, PharmD Erica Melchor Type 2 diabetes mellitus without complication, without long-term current use of insulin ([facility]) (Primary Dx); Medication management; Class 2 severe obesity due to excess calories with serious comorbidity and body mass index (BMI) of 39.0 to 39.9 in adult ([facility]) 05/21/2024 Travel 04/21/2024 2:00 PM EST Telemedicine Visit [address] [phone] Immanuel Nunes PA-C Martinez, Celestia Mild intermittent asthma without complication (Primary Dx); Acute cough; Non-Telugu speaking patient 04/21/2024 Travel 03/25/2024 1:40 PM EST Office Visit [facility] [address] [place] [address] Mary Summers, Aisha Adhikari Controlled type 2 diabetes mellitus without complication, with long-term current use of insulin (HCC-CMS) (Primary Dx) 03/25/2024 Travel from Last 3 Months Immunizations Name Administration Dates Next Due Flu, Preservative Free 02/20/2022 HPV 9 (Gardasil) 01/28/2024 Influenza (FLUBLOK),recombin ant,injectable,preservative Free 01/28/2024 PNEUMOCOCCAL CONJUGATE PCV 20 (Prevnar) 10/04/19 TDAP 10/04/2023 Social History Tobacco Use Types Packs/Day Years Used Date Smoking Tobacco: Every Day Cigarettes Passive Smoke Exposure: Never Smokeless Tobacco: Never Tobacco Cessation:Ready to Q uit: Not Asked; Counseling Given: Not Answered Alcohol Use Standard Drinks/Week Comments Never 0 [...] No / Unsure 05/27/2024 1:49 PM EST Last Filed Vital Signs Vital Sign Reading Time Taken Comments Blood Pressure 102/70 05/27/2024 2:25 PM EST Pulse 100 05/27/2024 2:25 PM EST Temperature 37.1 ??C (98.7 ??F) 05/21/2024 1:27 PM ES T Respiratory Rate 16 05/21/2024 1:27 PM EST Oxygen Saturation 100% 05/21/2024 1:27 PM EST Inhaled Oxygen Concentration - - Weight 101.4 kg (223 lb 9.6 oz) 05/27/2024 2:25 PM EST Height 157.7 cm (5' 2.1 ) 05/21/2024 1:27 PM EST Body Mass Index 40.77 05/21/2024 1:27 PM EST Plan of Treatment Upcoming Encounters Date Type Department Care Team (Late st Contact Info) Description 08/04/2024 10:00 AM EDT Office Visit [address] [phone] Ravin Rodriguez PharmD [address] [place] [address] Bernardino Miller [address] [place] [phone] 09/02/2024 10:20 AM EDT Office Visit [address] [phone] Mary Summers RN [phone] [place] [address] [place] [address] Health Maintenance Due Date Last Done Comments Dental Examination 1985 Diabetes Foot Exam 1985 HPV Screening 1985 Imm-Hepatitis B (1 of 3 - 19 + 3-dose series) 2004 Depression Monitoring 01/04/2024 10/04/2023 [id number] ( season) 2024 Diabetes Microalbumin (w/Creatinine) 10/03/2024 10/04/2023 Lipid Screening 10/03/2024 10/04/2023, 09/07/2023 Relationship Safety Screening/Counseling 10/03/2024 10/04/2023 Retinopathy Screening 10/23/2024 10/24/2023 Diabetes HbA1c 11/18/2024 05/21/2024, 09/0 07/2023, 10/04/2023, Additional history exists Serum Creatinine 12/01/2024 12/02/2023, , 10/04/2023, Additional history exists Annual Preventive Care Visit 01/27/2025 01/28/2024, 10/04/2023 Tobacco Cessation Counseling (#1) 05/22/2025 024, 10/04/2023 Hypertension Screening (#1) 05/27/2025 Pap Smear 01/27/2027 01/28/2024 Cervical Cancer Screening 01/27/2029 Pap + HPV 01/27/2029 01/28/2024 Imm-DTaP/Tdap/Td (2 - Td or Tdap) 10/03/2033 024 HIV Screening Completed 09/07/2023, 09/07/2023 Hepatitis C Screening Completed 09/07/2023 Imm-Pneumococcal Completed 10/04/2023 Imm-Influenza Completed 01/28/2024, 02/20/2022 Alcohol and Drug Screen Completed 05/21/2024, 10/03 Cervical Ablation/Cold-Knife Conization Discontinued Cervical Cryotherapy Discontinued Colposcopy Discontinued Endometrial Biopsy Discontinued Excision/Leep Discontinued HPV Genotyping Discontinued Vaginal Pap Discontinued Vulvoscopy Discontinued Procedures Procedure Name Priority Date/Time Associated Diagnosis Comments GLUCOSE, BLOOD BY GLUCOSE MONITORING DEVICE (CLIA WAIVED)POCT Routine 05/21/2024 1:58 PM EST Type 2 diabetes mellitus without complication, without long-term current use of insulin ([facility]) GLYCOSYLATED (A1C) DEVICE (CLIA WAIVED) POCT Routine 05/21/2024 1:58 PM EST Type 2 diabetes mellitus without complication, without long-term current use of insulin ([facility]) REFERRAL TO GASTROENTEROLOGY Routine 03/31/2024 3:00 AM EST RUQ abdominal pain THINPREP IMAGING PAP, HPV MRNA E6/E7 RFLEX HPV 16,18/45 CT/NG Routine 01/28/2024 2:19 PM EDT Encounter for Papanicolaou smear of vagina as part of routine gynecological examination Encounter for screening for human papillomavirus (HPV) COMPREHENSIVE METABOLIC PANEL Routine 12/02/2023 5:10 PM EDT Diarrhea, unspecified type REFERRAL TO DIABETIC RETINAL EXAM Routine 10/24/2023 3:00 AM EDT Type 2 diabetes mellitus without complication, without long-term current use of insulin ([facility]) LIPID PANEL Routine 10/04/2023 2:49 PM EDT MICROALBUMIN/CREATININE RATIO, URINE, RANDOM Routine 10/04/2023 2:49 PM EDT Type 2 diabetes mellitus without complication, without long-term current use of insulin ([facility]) HIV 1/2 AG & AB W/RFLX (4TH GEN) Routine 09/07/2023 9:32 AM EDT Body aches Arthralgia, unspecified joint ACUTE HEPATITIS PANEL W/RFLX Routine 09/07/2023 9:32 AM EDT Body aches Arthralgia, unspecified joint from Last 3 Months or Most Recently Relevant to Health Maintenance Results * GLUCOSE, BLOOD BY GLUCOSE MONITORING DEVICE (CLIA WAIVED)POCT (05/21/2024 1:58 PM EST) GLUCOSE 97 70 - 100 mg/dL [facility]- BACK OFFICE POCT Capillary Blood Blood / Unknown 1:58 PM EST us Ravin Rodriguez PharmD LAB - BLOOD DRAW Final Resu lt [facility] BACK OFFICE POCT * GLYCOSYLATED (A1C) DEVICE (CLIA WAIVED) POCT (05/21/2024 1:58 PM EST) HGB A1C 6.4 4.2 - 6.5 % [facility]- BACK OFFICE POCT Capillary Blood Blood / Unknown 1:58 PM EST Result [facility] Ravin Jennifer YeagerD LAB - BLOOD DRAW Final Resu lt [facility]- BACK OFFICE POCT * REFERRAL TO GASTROENTEROLOGY (03/31/2024 3:00 AM EST) 03/31/2024 3:00 AM EST Result [facility] Andrea Lorenzana MD REFERRAL Final Result * THINPREP IMAGING PAP, HPV MRNA E6/E7 RFLEX HPV 16,18/45 CT/NG (01/28/2024 2:19 PM EDT) CHLAMYDIA TRACHOMATIS RNA, TMA NOT DETECTED NOT DETECTED [facility] NEISSERIA GONORRHOEAE RNA, TMA NOT DETECTED NOT DETECTED [facility] COMMENT [facility] CLINICAL INFORMATION See Note [facility] Comment:None given LMP See Note [facility] Comment:11/28/23 PREV. PAP See Note [facility] Comment:NONE GIVEN PREV. BX See Note [facility] Comment:NONE GIVEN SOURCE See Note [facility] Comment:None given STATEMENT OF ADEQUACY See Note [facility] Comment: Satisfactory for evaluation. Endocervical/transformation zone component present. INTERPRETATION/RESU LT See Note [facility] Comment: Cytology Results: Negative for intraepithelial lesion or malignancy. INFECTION See Note [facility] Comment: Shift in vaginal maureen suggestive of bacterial vaginosis. COMMENT See Note [facility] Comment: This Pap test has been evaluated with computer assisted technology. SHOT DROPPER See Note [facility] Comment: MRC, CT(ASCP) CT screening location: [address] [address] REVIEW SHOT DROPPER See Note [facility] Comment: ALS, CT(ASCP) CT screening location: [address] ??[address] COMMENT [facility] HPV MRNA E6/E7 Not Detected Not Detected [facility] Comment: Methodology: It Analyst-Mediated Amplification This assay detects E6/E7 viral messenger RNA (mRNA) from 14 high-risk HPV types (16,18,31,33,35,39,45,51,52,56,58,59,66,68). Cervical sources are required for HPV testing. If a vaginal source from a patient who has had a total hysterectomy with removal of cervix was submitted, please contact the testing laboratory for alternative testing options. For additional information, please refer to http://Eco [employer].LendPro/faq/JQA991l0 (This link if provided for information/ educational purposes only.) Swab Cervix uteri structure / Unknown 01/28/2024 2:19 PM EDT 01/29/2024 7:24 AM EDT Narrative [facility] - 01/31/2024 4:24 PM EDT EXPLANATORY NOTE: The Pap is a screening test for cervical cancer. It is not a diagnostic test and is subject to false negative and false positive results. It is most reliable when a satisfactory sample, regularly obtained, is submitted with relevant clinical findings and history, and when the Pap result is evaluated along with historic and current clinical information. The analytical performance characteristics of this assay, when used to test SurePath(TM) specimens have been determined by [employer]. The modifications have not been cleared or approved by the FDA. This assay has been validated pursuant to the CLIA regulations and is used for clinical purposes. For additional information, please refer to https://Eco Market.LendPro/faq/YFD667 (This link is being provided for information/ educational purposes only.) Minor Laird MD LAB - NO BLOOD DRAW Final Result [facility] [address] [address], [facility] [address] [address] * (ABNORMAL) COMPREHENSIVE METABOLIC PANEL (12/02/2023 5:10 PM EDT) GLUCOSE 153(H) 65 - 99 mg/dL [facility] Comment: ?Fasting reference interval For someone without known diabetes, a glucose value >125 mg/dL indicates that they may have diabetes and this should be confirmed with a follow-up test. UREA NITROGEN (BUN) 11 7 - 25 mg/dL [facility] CREATININE (blood) 0.64 0.50 - 0.97 mg/dL [facility] EGFR 116 > OR = 60 mL/min/1. 73m2 [facility] BUN/CREATININE RATIO SEE NOTE: [facility] Comment: ?? Not Reported: BUN and Creatinine are within ?? reference range. ? SODIUM 136 135 - 146 mmol/L [facility] POTASSIUM 4.1 3.5 - 5.3 mmol/L [facility] CHLORIDE 100 98 - 110 mmol/L [facility] CARBON DIOXIDE 29 20 - 32 mmol/L [facility] CALCIUM 9.6 8.6 - 10.2 mg/dL [facility] PROTEIN, TOTAL 7.4 6.1 - 8.1 g/dL [facility] ALBUMIN 4.1 3.6 - 5.1 g/dL [facility] GLOBULIN 3.3 1.9 - 3.7 g/dL (calc) [facility] ALBUMIN/GLOBULI N RATIO 1.2 1.0 - 2.5 (calc) [facility] BILIRUBIN, TOTAL 0.4 0.2 - 1.2 mg/dL [facility] ALKALINE PHOSPHATASE 91 31 - 125 U/L [facility] AST 16 10 - 30 U/L [facility] ALT 21 6 - 29 U/L [facility] Blood Blood / Unknown 12/02/2023 5 :10 PM EDT 12/02/2023 5:11 PM EDT Immanuel Nunes PA-C LAB - BLOOD DRAW Edited Resul t - Final [facility] [address] [address], [facility] [address] [place] [address] * REFERRAL TO DIABETIC RETINAL EXAM (10/24/2023 3:00 AM EDT) 10/24/2023 3:00 AM EDT us Minor Laird MD REFERRAL Final Result * (ABNORMAL) MICROALBUMIN/CREATININE RATIO, URINE, RANDOM (10/04/2023 2:49 PM EDT) CREATININE, RANDOM URINE 212 20 - 275 mg/dL [facility] MICROALBUMIN 30.5 mg/dL [facility] Comment: Verified by repeat analysis. Reference Range Not established MICROALBUMIN/CREA TININE RATIO, RANDOM URINE 144(H) <30 mg/g creat [facility] Comment: The ADA defines abnormalities in albumin excretion as follows: Albuminuria Category ?Result (mg/g creatinine) Normal to Mildly increased ?? <30 Moderately increased ? 30-299 Severely increased ? > OR = 300 The ADA recommends that at least two of three specimens collected within a 3-6 month period be abnormal before considering a patient to be within a diagnostic category. Urine Urine specimen / Unknown 10/04/2023 2:49 PM EDT 10/04/2023 2:51 PM EDT us Minor Laird MD LAB - NO BLOOD DRAW Final Result [facility] [address] [place] [address], [facility] [address] [place] [phone] * (ABNORMAL) LIPID PANEL (10/04/2023 2:49 PM EDT) Pathologist [facility] CHOLESTEROL, TOTAL 196 <200 mg/dL [facility] HDL CHOLESTEROL 35(L) > OR = 50 mg/dL [facility] TRIGLYCERIDES 220(H) <150 mg/dL [facility] Comment: If a non-fasting specimen was collected, consider repeat triglyceride testing on a fasting specimen if clinically indicated. Alec et al. J. of Clin. Lipidol. 2015;9:129-169. LDL-CHOLESTEROL 124(H) 99 mg/dL (calc) [facility] Comment: Reference range: <100 Desirable range <100 mg/dL for primary prevention; ?? <70 mg/dL for patients with CHD or diabetic patients with > or = 2 CHD risk factors. LDL-C is now calculated using the Varsha calculation, which is a validated novel method providing better accuracy than the Friedewald equation in the estimation of LDL-C. Brock LIN et al. NORMAN. 2013;310(19): 5969-1483 (http://Eco Market.[employer]/faq/HVU970) CHOL/HDLC RATIO 5.6(H) <5.0 (calc) [facility] NON-HDL CHOLESTEROL 161(H) <130 mg/dL (calc) [facility] Comment: For patients with diabetes plus 1 major ASCVD risk factor, treating to a non-HDL-C goal of <100 mg/dL (LDL-C of <70 mg/dL) is considered a therapeutic option. 10/04/2023 2:49 PM EDT 10/04/2023 2:51 PM EDT Minor Laird MD LAB - BLOOD DRAW Final Result [facility] [address] [place] [address], [facility] [address] [place] [phone] * HIV 1/2 AG & AB W/RFLX (4TH GEN) (09/07/2023 9:32 AM EDT) Pathologist [facility] HIV AG/AB, 4TH GEN NON-REAC TIVE NON-REAC TIVE [facility] Comment: HIV-1 antigen and HIV-1/HIV-2 antibodies were not detected. There is no laboratory evidence of HIV infection. PLEASE NOTE: This information has been disclosed to you from records whose confidentiality may be protected by state law. ??If your state requires such protection, then the state law prohibits you from making any further disclosure of the information without the specific written consent of the person to whom it pertains, or as otherwise permitted by law. A general authorization for the release of medical or other information is NOT sufficient for this purpose. ?? For additional information please refer to http://Eco Market.LendPro/faq/TAH482 (This link is being provided for informational/ educational purposes only.) The performance of this assay has not been clinically validated in patients less than 2 years old. Blood Blood / Unknown 09/07/2023 9 :32 AM EDT 09/07/2023 9:34 AM EDT Narrative [facility] - 09/09/2023 3:39 PM EDT FASTING:YES Yanira Bennett PA-C LAB - BLOOD DRAW Final Resul t [facility] [address] [address], [facility] [address] [address] * ACUTE HEPATITIS PANEL W/RFLX (09/07/2023 9:32 AM EDT) HEPATITIS A IGM ANTIBODY NON-REACT TAMIR NON-REACT TAMIR [facility] COMMENT Fab [facility] HEPATITIS B SURFACE ANTIGEN NON-REACT TAMIR NON-REACT TAMIR [facility] COMMENT Fab [facility] HEPATITIS B CORE IGM ANTIBODY NON-REACT TAMIR NON-REACT TAMIR [facility] COMMENT Fab [facility] HEPATITIS C ANTIBODY NON-REACT TAMIR NON-REACT TAMIR [facility] Comment: HCV antibody was non-reactive. There is no laboratory evidence of HCV infection. In most cases, no further action is required. However, if recent HCV exposure is suspected, a test for HCV RNA (test code 56727) is suggested. For additional information please refer to http://[employer]/faq/SHF27m8 (This link is being provided for informational/ educational purposes only.) Blood Blood / Unknown 09/07/2023 9 :32 AM EDT 09/07/2023 9:34 AM EDT Narrative [email or web address] - 09/09/2023 3:39 PM EDT FASTING:YES For additional information, please refer to http://E[employer].LendPro/faq/GSD051 (This link is being provided for informational/ educational purposes only.) For additional information, please refer to http://Eco [employer].LendPro/faq/MGG653 (This link is being provided for informational/ educational purposes only.) For additional information, please refer to http://education.EffiCity.NewsFixed/faq/HTB136 (This link is being provided for informational/ educational purposes only.) Yanira Bennett PA-C LAB - BLOOD DRAW Final Resul t [facility] [address] [address], [facility] [address] [place] [address] from Last 3 Months or Most Recently Relevant to Health Maintenance Insurance [employer] Care Teams Web Production Manager Relationship Specialty Start Date End Date Minor Laird MD [address] [place] [address] PCP - General Family Medicine, Physician 06/28/23
--- OUTSIDE RECORDS SUMMARY | 2024-06-25 20:24 | XMS_ITS | Encounter Summary ---
Author Organization [employer] [facility] Address [address] [place] [address] [address] [place] [address] Care Team Providers Care Rn Hemo Dialysis Name Role Phone Unavailable Primary Care Provider Unavailabl e Reason for Visit * Reason Comments Med Refill Encounter Details Date Type Department Care Team (Late st Contact Info) Description 11/13/2023 Refill [facility] [address] [place], [place] [phone] [facility] [address] [place], [place] [phone] Right acute otitis media Social History Tobacco Use Types Packs/Day Years Used Date Smoking Tobacco: Every Day Cigarettes Passive Smoke Exposure: Never Smokeless Tobacco: Never Housing Stability Answer Date Recorded What is your housing situation today? I have majormary roman 09/12/[address] you [...] as of this encounter Visit Diagnoses Diagnosis Right acute otitis media Unspecified otitis media documented in this encounter
--- OUTSIDE RECORDS SUMMARY | 2024-06-25 20:24 | XMS_ITS | Encounter Summary ---
Author Organization [employer] [facility] Address [address] [place] [address] [address] [place] [address] Care Team Providers Care Laundry Bag Punch Operator Name Role Phone Unavailable Primary Care Provider Unavailabl e Reason for Visit * Reason Comments Med Refill Encounter Details Date Type Department Care Team (Late st Contact Info) Description 02/22/2023 Refill [facility] [address] [address] Kahlil Mondragon FNP Mild intermittent reactive airway disease without complication Social History Tobacco Use Types Packs/Day Years Used Date Smoking Tobacco: Never Passive Smoke Exposure: Never Smokeless Tobacco: Never Comments Unknown Sex and Gender Information Value Date Recorded Sex Assigned at Female 03/05/2022 10:33 AM EDT Legal Sex Female 10:33 AM EDT Gender Identity Choose not to disclose 10:33 AM EDT Sexual Orientation Choose not to disclose 2021 10:33 AM EDT documented as of this encounter Miscellaneous Notes * Telephone Encounter - JORGE Padilla - 02/22/2023 2:26 PM EDT Approving, but needs appt for additional refills. documented in this encounter Plan of Treatment Not on file documented as of this encounter Visit Diagnoses Diagnosis Mild intermittent reactive airway disease without complication documented in this encounter
== END 2024-06-25 20:29 | disposition left against medical advice (07) ==
LOC: HO.ED 20:22
PROVIDERS: Physician Assistant Medical; Emergency Provider Emergency Medicine
DX: R51.9 Headache, unspecified (principal); R07.89 Other chest pain; Z03.818 Encounter for observation for suspected exposure to other biological agents ruled out; Z79.899 Other long term (current) drug therapy
CPT/HCPCS: 0241U; 71046; 80048; 80076; 83735; 84484; 85025; 93005; 99281; 99283

== ENCOUNTER → 2024-06-25 10:49 | Outpatient (BNV) | payer MEDICAID, SELFPAY | PROVIDERS: Emergency Provider Emergency Medicine; Visit Provider Internal Medicine | DX: R94.31 Abnormal electrocardiogram [ECG] [EKG] (principal); R07.9 Chest pain, unspecified | CPT/HCPCS: 93010 ==

== ENCOUNTER → 2024-06-25 13:44 | Outpatient (BNV) | payer MEDICAID, SELFPAY | PROVIDERS: Visit Provider Radiology Diagnostic Radiology | DX: R07.9 Chest pain, unspecified (principal) | CPT/HCPCS: 71046 ==

== ENCOUNTER 2024-11-02 08:20 | Outpatient (AMB) | payer MEDICAID, SELFPAY ==
--- OUTSIDE RECORDS SUMMARY | 2024-11-02 08:26 | XMS_ITS | Encounter Summary ---
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 EFFECTIVE SINCE 12/25/2022 documented in this encounter Plan of Treatment Not on file documented as of this encounter Visit Diagnoses Not on filedocumented in this encounter
--- NOTE | 2024-11-02 10:02 | MHC.OFFVISWM ---
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 Payer Required: Yes Manager Payer Services: Manager Payer Present Information Interpreted: clinical only Allergies No Known Allergies (No Known Allergies*) Allergy (Verified 11/02/24 10:03) Medication List - Last Reconciled 11/02/24 by Melo Carrington MD albuterol sulfate 90 mcg/actuation (Ventolin HFA) 2 puffs inhalation Q6H PRN dulaglutide (Trulicity) 3 mg subcut QWEEK epinephrine (EpiPen 2-Daniele) 0.3 mg (0.3 mL) IM Q4H PRN metformin 500 mg PO BID omeprazole magnesium (Prilosec OTC) 20 mg PO BID prednisone 40 mg (2 x 20 mg) PO DAILY 5 days HPI 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*: Details: Start time: 10am, End time: 10.51am ?I spent 46 minutes speaking with the patient on the phone plus an additional 5 minutes reviewing and updating records for a total of 51 minutes HPI Comments Details: Previous weight loss efforts: Self diets and exercise Wakes up: 7am, Sleeps: 10pm Breakfast: skips Lunch: 2pm (rice, pasta, meat, fish) Dinner: 5pm (same as lunch) Snacks: none Exercise: has home treadmill and bike Beverages: Coffee: none, tea: none, soda: none, juice: Crystal light, ETOH: none PFSH Medical History (Updated 11/02/24 @ 10:30 by Melo Carrington MD) Non-insulin dependent type 2 diabetes mellitus DJD (degenerative joint disease) GERD (gastroesophageal reflux disease) Asthma Morbid obesity Type 2 diabetes mellitus Kidney stones Surgical History (Updated 11/02/24 @ 10:15 by Melo Carrington MD) History of lithotripsy History of laparoscopic cholecystectomy History of delivery Family History (Updated 10/08/24 @ 11:15 by Angeline Cline CMA) Mother Hypertension Father Hypertension Social History (Updated 10/08/24 @ 11:15 by Angeline Cline CMA) Alcohol intake: never Patient Tobacco Use Status: Never used Tobacco Telehealth Telehealth Telehealth Platform: Telephone Location of provider rendering services: practice address Location of patient: address on file Patient Identification confirmed using: Name, : Yes Telehealth method: voice only Patient verbally consented to treatment: Yes Patient verbally consented to billing insurance company: Yes Patient informed of any privacy concerns related to visit: Yes Minutes spent on Phone/Video with Pt.: 51 Assessment & Plan Assessment & Plan (1) Morbid obesity: Code(s): E66.01 - Morbid (severe) obesity due to excess calories Category: Medical Plan: 1.? Plan for lap sleeve gastrectomy. If diaphragmatic or ventral hernias are present at time of surgery, these will be repaired laparoscopically as well. I emphasized the importance of close follow-up, adherence to instructions and good communication. The surgery does not replace the need to change your lifestlyle which is the cause of the obesity problem. The surgery provides the motivation to try again to change your lifestyle, it reduces the appetite and make the transition to a better lifestyle easier and doubles the amount of weight you would lose compared to doing the lifestyle change without the surgery. You will need to be on a liquid diet with protein shakes for 2 weeks before surgery to maximize weight loss and boost your nutritional status to recover better from surgery and also for the first two weeks after surgery to let the stomach heal before we introduce other foods. After the first 2 weeks we will introduce protein bars and soft foods like scrambled eggs, cottage cheese and yogurt and after the 6th week will introduce meat, fish and cooked vegetables in small amounts. Over time you should be able to eat everything in small amounts. Side effects like nausea, vomiting, heartburn or abdominal pain are not common in the practice unless you are not following in the practice. This operation requires lifetime commitment to following in our practice and communication with me. You will much less weight and experience side effects if you don?t communicate or not following in the practice. Complications are rare and in our practice is about 1/10 of the national average. However, you can develop bleeding that may require transfusion (hasn?t happened for year in the practice), you may from complications (we did not have any deaths in the practice) and infections. Infections are usually a result of breakdown in communication or not understanding or following directions correctly. They are difficult to treat, they can happen during the first 6 weeks, they may require to be in the hospital for weeks or even months, not being able to eat by mouth and you may have drains and surgeries to try and correct the issue. Other risks and complications include possible conversion to an open procedure, leaks, small bowel obstruction, blood clots, cardiac, or pulmonary complications, as chcf complications such as ulcers, insufficient weight loss and vitamin deficiencies. 1.?Nutritional counseling. Start with one premade PREMIER protein (buy at [employer] or [employer]) shake (mix 4oz of Premier mixed with 4oz low fat unsweetened almond milk each) at 8am-10am, one protein bar (Fit Crunch protein bar, buy at [employer], or [employer]) at 11am-1pm, another premade PREMIER protein shake (mix 4oz of Premier mixed with 4oz low fat unsweetened almond milk each) at 2pm-4pm, dinner at 5pm (8 forks of protein and 8 forks of salad/vegetables) and another another [employer] protein bar at 7pm-9pm. So you do 2 protein shakes, 2 protein bars and one meal per day. Meal to include lean meat (beef, fish, pork, turkey, chicken), or swedish yogurt, or egg whites, or beans with a salad with olive oil and fruits (berries, pears, apples, kiwi). Avoid salt, breads, potatoes, rice, pasta, desserts. 3. Each shake would be drunk slowly, like coffee in a period of 2 hours. 4. Cut each bar in 4 pieces and eat each piece in 30min ?to make each bar last 2 hours. 5. I emphasized the importance of measuring accurately the food portion and measure it when serving the food in plate 6. The meal portions include 8 full-size forks of meat and 8 full-size forks of salad. You always eat the meat portion but you can replace up to 4 forks for salad/vegetables with rice, potatoes or pasta, or a fruit ?if you like. The less you do it the better weight loss will be. 7. One full-size fork is what it can be scooped on the fork without falling aside and not what can be bit with the fork. Use regular forks like those you find in a typical restaurant. 8.? Please buy the body composition scale we discussed and send me weight measurements as soon as possible and then once a week. Always include your diet and exercise plan. Alternatively come weekly at the office for weight checks and send me the measurements. 9. Start treadmill with an incline of 2.0 and speed of 3.0. Increase incline by 1 every 3 min to a max incline of 8.0, stay 3min at 8.0 and then return to 2.0 and repeat same steps until calorie goal is met. Goal is to burn 2000 calories per week on exercise, which means either 300 calories daily 10. Alternatively start stationary bike at a resistance level of 4.0 Increase level by 1.0 every 3 min to a max level of 10.0. Stay at this level for 3 min and then return to level 4.0 and repeat same steps until 300 calories are burned. Goal is to burn 2000 calories per week on exercise 11.?It is important of avoiding and for at least 18 months postoperatively and has been discussed at the infosession. 12. Goal is to lose at least 1.5-2lbs per week 13. Goal to lose 10% of your weight before surgery, which is about 25lbs. Ultimate weight goal: 200lbs before surgery 14. Please follow the diet plan exactly without any change. If you don't like something about the plan or you feel hungry you need to communicate with me so I can help you revise the plan. You should not change the plan yourself 15. To be scheduled for EGD to assess the stomach's anatomy. The possibility of biopsies was discussed. Patient needs to avoid use of NSAIDs and aspirin for 1 week prior to EGD. You must be on liquids only the day before your endoscopy. Risks of perforation and bleeding was discussed with the patient. This will be an outpatient procedure with IV sedation. 16. I ordered a medication to help you with the weight loss which is called Mounjaro. My office will try to authorize it. Please let me know when you receive it so I can give you a meal and exercise plan. Common side effects include nausea, vomiting, constipation, diarrhea, abdominal pain. Please let me know if you develop any of these symptoms. You can start it one week after the last injection of Trulicity. Once you start the Mounjaro, please stop the Trulicity. You can use both together. Orders: Orders Hemoglobin A1c Today E11.9 - Type 2 diabetes mellitus without complications, E66.01 - Morbid (severe) obesity due to excess calories, J45.909 - Unspecified asthma, uncomplicated, K21.9 - Gastro-esophageal reflux disease without esophagitis Lipid Panel Today E11.9 - Type 2 diabetes mellitus without complications, E66.01 - Morbid (severe) obesity due to excess calories, J45.909 - Unspecified asthma, uncomplicated, K21.9 - Gastro-esophageal reflux disease without esophagitis IRON PROFILE Today E11.9 - Type 2 diabetes mellitus without complications, E66.01 - Morbid (severe) obesity due to excess calories, J45.909 - Unspecified asthma, uncomplicated, K21.9 - Gastro-esophageal reflux disease without esophagitis Zinc Today E11.9 - Type 2 diabetes mellitus without complications, E66.01 - Morbid (severe) obesity due to excess calories, J45.909 - Unspecified asthma, uncomplicated, K21.9 - Gastro-esophageal reflux disease without esophagitis C Reactive Protein Today E11.9 - Type 2 diabetes mellitus without complications, E66.01 - Morbid (severe) obesity due to excess calories, J45.909 - Unspecified asthma, uncomplicated, K21.9 - Gastro-esophageal reflux disease without esophagitis Vitamin B1 Today E11.9 - Type 2 diabetes mellitus without complications, E66.01 - Morbid (severe) obesity due to excess calories, J45.909 - Unspecified asthma, uncomplicated, K21.9 - Gastro-esophageal reflux disease without esophagitis TSH reflex Free T4 Today E11.9 - Type 2 diabetes mellitus without complications, E66.01 - Morbid (severe) obesity due to excess calories, J45.909 - Unspecified asthma, uncomplicated, K21.9 - Gastro-esophageal reflux disease without esophagitis Ferritin Today E11.9 - Type 2 diabetes mellitus without complications, E66.01 - Morbid (severe) obesity due to excess calories, J45.909 - Unspecified asthma, uncomplicated, K21.9 - Gastro-esophageal reflux disease without esophagitis XR chest 2V Today E11.9 - Type 2 diabetes mellitus without complications, E66.01 - Morbid (severe) obesity due to excess calories, J45.909 - Unspecified asthma, uncomplicated, K21.9 - Gastro-esophageal reflux disease without esophagitis FL upper GI w air Today E11.9 - Type 2 diabetes mellitus without complications, E66.01 - Morbid (severe) obesity due to excess calories, J45.909 - Unspecified asthma, uncomplicated, K21.9 - Gastro-esophageal reflux disease without esophagitis Insulin Today E11.9 - Type 2 diabetes mellitus without complications, E66.01 - Morbid (severe) obesity due to excess calories, J45.909 - Unspecified asthma, uncomplicated, K21.9 - Gastro-esophageal reflux disease without esophagitis H Pylori Breath Test Today E11.9 - Type 2 diabetes mellitus without complications, E66.01 - Morbid (severe) obesity due to excess calories, J45.909 - Unspecified asthma, uncomplicated, K21.9 - Gastro-esophageal reflux disease without esophagitis Complete Blood Count Auto Diff Today E11.9 - Type 2 diabetes mellitus without complications, E66.01 - Morbid (severe) obesity due to excess calories, J45.909 - Unspecified asthma, uncomplicated, K21.9 - Gastro-esophageal reflux disease without esophagitis Comprehensive Met. Panel Today E11.9 - Type 2 diabetes mellitus without complications, E66.01 - Morbid (severe) obesity due to excess calories, J45.909 - Unspecified asthma, uncomplicated, K21.9 - Gastro-esophageal reflux disease without esophagitis Vitamin B12 and Folate Today E11.9 - Type 2 diabetes mellitus without complications, E66.01 - Morbid (severe) obesity due to excess calories, J45.909 - Unspecified asthma, uncomplicated, K21.9 - Gastro-esophageal reflux disease without esophagitis Vitamin A Today E11.9 - Type 2 diabetes mellitus without complications, E66.01 - Morbid (severe) obesity due to excess calories, J45.909 - Unspecified asthma, uncomplicated, K21.9 - Gastro-esophageal reflux disease without esophagitis Vitamin D 25-OH Total Today E11.9 - Type 2 diabetes mellitus without complications, E66.01 - Morbid (severe) obesity due to excess calories, J45.909 - Unspecified asthma, uncomplicated, K21.9 - Gastro-esophageal reflux disease without esophagitis US abdomen comp w elastography Today E11.9 - Type 2 diabetes mellitus without complications, E66.01 - Morbid (severe) obesity due to excess calories, J45.909 - Unspecified asthma, uncomplicated, K21.9 - Gastro-esophageal reflux disease without esophagitis ECG 12 lead EKG Today E11.9 - Type 2 diabetes mellitus without complications, E66.01 - Morbid (severe) obesity due to excess calories, J45.909 - Unspecified asthma, uncomplicated, K21.9 - Gastro-esophageal reflux disease without esophagitis Referrals Behavioral Health Referral E11.9 - Type 2 diabetes mellitus without complications, E66.01 - Morbid (severe) obesity due to excess calories, J45.909 - Unspecified asthma, uncomplicated, K21.9 - Gastro-esophageal reflux disease without esophagitis Nutrition/Dietitian Referral E11.9 - Type 2 diabetes mellitus without complications, E66.01 - Morbid (severe) obesity due to excess calories, J45.909 - Unspecified asthma, uncomplicated, K21.9 - Gastro-esophageal reflux disease without esophagitis Medications: New tirzepatide (Mounjaro) for 4 weeks 2.5 mg (0.5 mL) subcut QWEEK 2 mL 0RF E11.9 - Type 2 diabetes mellitus without complications, E66.01 - Morbid (severe) obesity due to excess calories Discontinued loperamide (Imodium A-D) Discontinued Reason: Patient Completed Course 2 mg PO Q6H PRN 14 caps 0RF loose stool naproxen Discontinued Reason: Doctor's Order 500 mg PO BID PRN 20 tabs 0RF pain diphenhydramine HCl (Benadryl) Discontinued Reason: Patient Completed Course 25 mg PO TID PRN 20 caps 0RF allergic reaction ciprofloxacin-dexamethasone 0.3-0.1 % (Ciprodex) Discontinued Reason: Patient Completed Course 4 drps otic (ears) BID 7 days 7.5 mL 0RF
== END 2024-11-02 10:52 | disposition home or self-care (01) ==
LOC: HO.HBS 08:20
PROVIDERS: PCP Internal Medicine; Visit Provider Surgery
DX: E66.01 Morbid (severe) obesity due to excess calories (principal)
CPT/HCPCS: 99204

== ENCOUNTER 2024-11-12 09:32 | Outpatient (REF) | payer MEDICAID, SELFPAY ==
--- NOTE | ~2024-11-12 | XR_ITS ---
EXAMINATION: XR CHEST CLINICAL INFORMATION: E11.9 - Type 2 diabetes mellitus without complications COMPARISON: June 25, 2024. TECHNIQUE: 2 views of the chest were obtained. FINDINGS: No hyperinflation. No consolidation pleural effusion or pneumothorax. Cardiomediastinal silhouette size is normal. Osseous structures are intact. Vascular clips right upper quadrant abdomen. Patient's large body habitus/obesity. XR/XR chest 2V IMPRESSION: No acute airspace disease. Stable chest. Electronically signed by: Daryl De La Paz MD 11/12/2024 10:40 AM EDT
--- NOTE | 2024-11-12 09:36 | ECG_ITS ---
Test Reason : E11.9 - Type 2 diabetes mellitus without complications Blood Pressure : */* mmHG Vent. Rate : 86 BPM Atrial Rate : 86 BPM P-R Int : 172 ms QRS Dur : 74 ms QT Int : 370 ms P-R-T Axes : 56 32 0 degrees QTcB Int : 442 ms Normal sinus rhythm Normal ECG When compared with ECG of 25-Jun-2024 10:52, Nonspecific T wave abnormality no longer evident in Anterolateral leads Referred By: Melo Carrington Electronically Signed By: Anthony Montejo
[2024-11-12 10:01] LABS: MANUAL DIFF FLAG NO
--- OUTSIDE RECORDS SUMMARY | 2024-11-12 10:02 | XMS_ITS | Clinical Summary ---
Author Organization [facility] Address [address] [place] [address] Phone Care Team Providers Care Testing Consultant Name Role Phone Andrea Lorenzana MD Primary Care Provider [phone] Allergies No known active allergies Medications albuterol HFA (PROAIR HFA ; PROVENTIL HFA ; VENTOLIN HFA) 90 mcg/actuation inhaler Inhale 2 Puffs into the lungs every 4 hours as needed. Active albuterol-budesoni de (Airsupra) 90-80 mcg/actuation HFA aerosol inhaler Inhale into the lungs. Active calcium carbonate/simethic one (MAALOX ADVANCED ORAL) Take by mouth. Active bismuth subsalicylate (PEPTO-BISMOL ORAL) Take by mouth. Active ciprofloxacin-dexA METHasone (CIPRODEX) otic suspension 4 Drops 2 times daily. Tilt head so ear to be treated points towards the ceiling. Active dicyclomine (BENTYL) 10 mg capsule Take 1 Capsule by mouth 4 times daily (before meals and nightly). Active dulaglutide (Trulicity) 0.75 mg/0.5 mL pen injector injection Inject into the skin. Active EPINEPHrine (EpiPen 2-Daniele) 0.3 mg/0.3 mL injection Inject as directed. Active freestyle 28 gauge lancets Active loperamide (IMODIUM A-D) 2 mg tablet Take 1 Tablet by mouth 4 times daily as needed. Active metFORMIN (GLUCOPHAGE) 1,000 mg tablet Take 1 Tablet by mouth 2 times daily (with meals). Active nicotine polacrilex (NICORETTE) 4 mg gum Take 4 mg by mouth as needed. Active cholestyramine (QUESTRAN) 4 gram powder Take 1 packet (4 g total) by mouth 1 (one) time each day. Dissolve in 8 oz of liquid and drink before a meal 90 packet 3 5 07/02/19 Active pantoprazole (PROTONIX) 40 mg EC tablet Take 1 tablet (40 mg total) by mouth 1 (one) time each day before breakfast. Do not crush, chew, or split. 90 each 3 5 07/02/19 26 Active Surgical History Surgery Date Site/Laterality Comments CHOLECYSTECTOMY Medical History Medical History Date Comments Kidney stones Migraine Asthma Diabetes mellitus ([facility] V24, [facility] V28) GERD (gastroesophageal reflux disease) Social History Tobacco Use Types Packs/Day Years Used Date Smoking Tobacco: Every Day Cigarettes Smokeless Tobacco: Never Tobacco Cessation:Ready to Q uit: Not Asked; Counseling Given: Not Answered Alcohol Use Standard Drinks/Week Comments Not Currently 0 (1 standard drink = 0.6 oz pur e alcohol) Interpersonal Safety Answer Date Record ed Physical Abuse 07/24/2024 Verbal Abuse 07/24/2024 Comments No Sex and Gender Information Value Date Recorded Sex Assigned at Female 07/23/2024 9:13 AM EDT Legal Sex Female 8:50 PM EST Gender Identity Female 07/23/2024 9:13 AM EDT Sexual Orientation Straight 07/23/2024 9: 13 AM EDT Obstetrics History Last Filed Vital Signs Vital Sign Reading Time Taken Comments Blood Pressure 105/76 07/24/2024 12:44 PM EDT Pulse 88 07/24/2024 12:44 PM EDT Temperature 36.8 C (98.3 F) 07/24/2024 12:37 PM EDT Respiratory Rate 18 07/24/2024 12:44 PM EDT Oxygen Saturation 96% 07/24/2024 12:44 PM EDT Inhaled Oxygen Concentration - - Weight 101 kg (223 lb) 07/24/2024 11:39 AM EDT Height 165.1 cm (5' 5 ) 07/24/2024 11:39 AM EDT Body Mass Index 37.11 07/24/2024 11:39 AM EDT Plan of Treatment Health Maintenance Due Date Last Done Comments Diabetes: Annual Foot Exam 10/12/1995 Diabetes: Annual Retina Eye Exam 10/12/1995 Hepatitis B Vaccines (1 of 3 - [...] GFR (Glomerular Filtration Rate) 12/01/2024 12/02/2023, 11/23/2023 Influenza Vaccine (#1) 2025 , 02/20/2022 Cholesterol Screening (Lipid Panel) 10/03/2028 10/04/2023, 10/04/2023 DTaP,Tdap,and Td Vaccines (2 - Td or Tdap) 10/03/2033 10/04/2023 Hepatitis C Screening Completed 09/07/2023 Pneumococcal Vaccine: Pediatrics (0 to 5 Years) and At-Risk Patients (6 to 49 Years) Completed 10/04/2023 HIB Vaccines Aged Out No longer eligi ble based on patient's age to complete this topic Hepatitis A Vaccines Aged Out No long er eligible based on patient's age to complete this topic IPV Vaccines Aged Out No longer eligi ble based on patient's age to complete this topic MMR Vaccines Aged Out No longer eligi ble based on patient's age to complete this topic Meningococcal ACWY Vaccine Aged Out N o longer eligible based on patient's age to complete this topic Meningococcal B Vaccine Aged Out No l onger eligible based on patient's age to complete this topic RSV Immunization Patients Under 20 months Aged Out No longer eligible b ased on patient's age to complete this topic Varicella Vaccines Aged Out No longer eligible based on patient's age to complete this topic Insurance MEDICAID - [place] Care Teams Testing Consultant Relationship Specialty Start Date End Date Andrea Lorenzana MD [address] [place] [address] PCP - General 12/23/23
--- OUTSIDE RECORDS SUMMARY | 2024-11-12 10:02 | XMS_ITS | Clinical Summary ---
Author Organization [facility] Address [address] [place] [address] Care Team Providers Care Tissue Technician Name Role Phone Minor Laird MD Primary Care Provider [phone] Source Comments PLEASE NOTE, if this patient is a minor, it may be UNLAWFUL to discuss sensitive information that is contained in these records (such as FAMILY PLANNING, MENTAL HEALTH or SUBSTANCE ABUSE) with the minor patient's parent or other person without the patient's specific authorization.[facility] Allergies No known active allergies Medications albuterol (PROVENTIL) 2.5 mg /3 mL (0.083 %) nebulizer solution INHALE 1 AMPULE USING A NEBULIZER EVERY 6 HOURS NEEDED FOR WHEEZING Unit strength: 2.5 mg/3 mL (0.083 %)Authorized by: RONY BENITEZ 024 Active EPINEPHrine (EPIPEN) 0.3 mg/0.3 mL pen injector INJECT 0.3 MG (1 PEN) INTRAMUSCULARLY NEEDED FOR ANAPHYLAXIS Authorized by: AMAN MCNEILL 024 Active blood-glucose meter monitoring kitIndications:T ype 2 diabetes mellitus without complication, without long-term current use of insulin ([facility]) Check blood sugar once daily. Three days per week check blood sugar in the morning before eating. Four days per week check blood sugar 2 hours after eating. 1 Each 024 Active loperamide 2 mg tablet Take 1 Tablet by mouth 4 (four) times daily as needed for diarrhea 60 Tablet 1 024 Active atorvastatin (LIPITOR) 40 mg tabletIndication s:mixed hyperlipidemia Take 1 Tablet by mouth once daily Indications: high cholesterol and high triglycerides 90 Tablet 3 024 Active dicyclomine (BENTYL) 10 mg capsule TAKE ONE CAPSULE BY MOUTH FOUR TIMES DAILY NEEDED DOLOR ABDOMINAL / CALAMBRES 30 Capsule 1 024 Active nicotine, polacrilex, (NICORETTE) 4 mg gum Take 1 Each by mouth as needed for smoking cessation 100 Each 025 Active SUMAtriptan succinate (IMITREX) 100 mg tabletIndication s:Other migraine without status migrainosus, intractable Take 1 Tablet by mouth once daily as needed for migraine If symptoms persist or return, may repeat dose (usually same as first dose) after 2 hours. Maximum dose: 100 mg/dose; 200 mg per 24 hours. 15 Tablet 2 025 Active acetaminophen (TYLENOL) 500 mg tabletIndication s:Body aches,Arthralgia , unspecified joint [place] 1 tableta por via oral cada 6 (seis) horas navneet necesario para el dolor 90 Tablet 025 Active traZODone (DESYREL) 100 mg tabletIndication s:Insomnia, unspecified type TAKE ONE TABLET BY MOUTH NIGHTLY AT BEDTIME FOR 21 DAYS 21 Tablet 025 Active dulaglutide (TRULICITY) 4.5 mg/0.5 mL pen injectorIndicati ons:Type 2 diabetes mellitus without complication, without long-term current use of insulin ([facility]),Class 3 severe obesity due to excess calories with serious comorbidity and body mass index (BMI) of 40.0 to 44.9 in adult ([facility]) Inject 4.5 mg into the skin once a week 2 mL 2 025 Active VENTOLIN HFA 90 mcg/actuation inhalerIndicatio ns:Mild intermittent asthma without complication ([facility]) INHALE TWO PUFFS into the lungs EVERY SIX HOURS NEEDED FOR WHEEZING OR SHORTNESS OF BREATH 18 g 1 025 Active cyclobenzaprine (FLEXERIL) 10 mg tabletIndication s:Muscle spasm TAKE ONE TABLET BY MOUTH THREE TIMES DAILY NEEDED FOR MUSCLE SPASM 30 Tablet 1 025 Active omeprazole (PRILOSEC) [address] capsule TAKE ONE CAPSULE BY MOUTH EVERY MORNING BEFORE BREAKFAST FOR 14 DAYS 14 Capsule 1 025 Active metFORMIN (GLUCOPHAGE) 1,000 mg tabletIndication s:Type 2 diabetes mellitus without complication, without long-term current use of insulin ([facility]) TAKE ONE TABLET BY MOUTH TWICE DAILY WITH A MEAL FOR type TWO diabetes 180 Tablet 1 Active nicotine (NICODERM, STEP 2) 14 mg/[address] ONE PATCH onto THE SKIN ONCE DAILY EVERY 24 horas 28 Patch 1 Active alcohol swabs (EASY TOUCH ALCOHOL PREP PADS)Indications :Type 2 diabetes mellitus without complication, without long-term current use of insulin ([facility]) Check blood sugar once daily. 100 Each Active blood sugar diagnostic (FREESTYLE LITE STRIPS) stripsIndication s:Type 2 diabetes mellitus without complication, without long-term current use of insulin ([facility]) Check blood sugar ONCE daily 100 Each Active lancets (FREESTYLE LANCETS) 28 gaugeIndications :Type 2 diabetes mellitus without complication, without long-term current use of insulin ([facility]) Check blood sugar once daily. 100 Each 025 Active blood sugar diagnostic (FREESTYLE LITE STRIPS) stripsIndication s:Type 2 diabetes mellitus without complication, without long-term current use of insulin ([facility]) Check blood sugar once daily. 100 Each 024 2024 Discontinued lancets 28 gaugeIndications :Type 2 diabetes mellitus without complication, without long-term current use of insulin ([facility]) Check blood sugar once daily. 100 Each 024 2024 Discontinued alcohol swabsIndications :Type 2 diabetes mellitus without complication, without long-term current use of insulin ([facility]) Check blood sugar once daily. 100 Each 024 2024 Discontinued nicotine (NICODERM, STEP 2) 14 mg/[address] ONE PATCH onto THE SKIN ONCE DAILY EVERY 24 horas 28 Patch 1 2024 Discontinued Active Problems Problem Noted Date Diagnosed Date Class 3 severe obesity due t o excess calories with serious comorbidity and body mass index (BMI) of 40.0 to 44.9 in adult ([facility]) 10/17/2023 Xanthelasma of eyelid, bilateral 10/04/2023 Mixed hyperlipidemia 09/17/2023 Type 2 diabetes mellitus wit hout complication, without long-term current use of insulin ([facility]) 09/17/2023 Overview (01/28/2024): Starting with DM clinic Pt had episode of hypoglycemia with BG on 01/21 that required an ER visit. Pt preferred Metformin discontinued and continued Trulicity 1.5mg subq Atorvastatin 40mg PCV 20 09/2023 Microalbum/Cr ratio elevated at 110 Eye exam: 10/24/23 no diabetic retinopathy Body aches 09/07/2023 Arthralgia 09/07/2023 Gastroesophageal reflux disease without esophagi tis 09/07/2023 Overview (07/29/2024): 07/2024: Endoscopy with small hiatal hernia 03/2024: [facility], GERD/diarrhea possibly s/e of Trulicity or Metformin. Pt prescribed Pantoprazole and cholestyramine for hx of cholecystectomy. Kidney stone 09/07/2023 Tobacco use disorder 09/07/2023 Overview (10/04/2023): 1 ppd for 15 years Resolved Problems Problem Noted Date Diagnosed Date Resolved Date H. pylori infection 09/17/2023 01/28/20 Diarrhea 09/07/2023 10/07/2023 Encounters Date Type Department Care Team Description 10/05/2024 Results Follow-Up [address] [phone] Erika Beckett NP 10/03/2024 2:20 PM EDT Office Visit [address] [phone] Erika Beckett NP 09/10/2024 Results Follow-Up [address] [phone] Ravin Rodriguez PharmD 09/09/2024 9:40 AM EDT Office Visit [address] [phone] Mary Summers RN Zayas, Juan from Last 3 Months Immunizations Immunization Administration Dates Next Due Flu, Preservative Free 02/20/2022 HPV 9 (Gardasil) 01/28/2024 Influenza (FLUBLOK),recombin ant,injectable,preservative Free 01/28/2024 PNEUMOCOCCAL CONJUGATE PCV 20 (Prevnar 20) 10/03 TDAP 10/04/2023 Social History Tobacco Use Types [...] Orientation Straight 05/17/2023 12 :53 PM PST Last Filed Vital Signs Vital Sign Reading Time Taken Comments Blood Pressure 120/64 10/03/2024 11:19 AM EDT Pulse 82 10/03/2024 11:19 AM EDT Temperature 37 C (98.6 F) 08/04/2024 9:54 AM EDT Respiratory Rate 20 10/03/2024 11:19 AM EDT Oxygen Saturation 98% 10/03/2024 11:19 AM EDT Inhaled Oxygen Concentration - - Weight 104.3 kg (230 lb) 10/03/2024 11:19 AM EDT Height 157 cm (5' 1.81 ) 08/04/2024 9:54 AM EDT Body Mass Index 42.33 08/04/2024 9:54 AM EDT Plan of Treatment Health Maintenance Due Date Last Done Comments Anxiety Screening 1985 Dental Examination 1985 Diabetes Foot Exam 1985 HPV Screening 1985 Imm-Hepatitis B (1 of 3 - 19 + 3-dose series) 2004 Bct-OWVBD-14 ( - 2023- season) 2024 Depression Annual Screen 05/06/2024 10/04/2023 Lipid Screening 10/03/2024 10/04/2023, 09/07/2023 Relationship Safety Screening/Counseling 10/03/2024 10/04/2023 Urine Albumin Creatinine Rat io Screening 10/03/2024 10/04/2023 Retinopathy Screening 10/23/2024 10/24/2023 Imm-Influenza (#1) 2025 01/28/2024, 02/20/2022 Annual Wellness (Adult): Indicated (All Coverage) 01/27/2025 01/28/2024, 10/04/2023 Hemoglobin A1c 03/12/2025 09/09/2024, 05/06, 01/07/2024, Additional history exists Hypertension Screening (#1) 10/03/2025 Serum Creatinine 10/03/2025 10/03/2024, , 11/23/2023, Additional history exists Tobacco Cessation Counseling (#1) 10/22/2025 024, 10/04/2023 Pap Smear 01/27/2027 01/28/2024 Cervical Cancer Screening 01/27/2029 Pap + HPV 01/27/2029 01/28/2024 Imm-DTaP/Tdap/Td (2 - Td or Tdap) 10/03/2033 024 HIV Screening Completed 09/07/2023, 09/07/2023 Hepatitis C Screening Completed 09/07/2023 Imm-Pneumococcal Completed 10/04/2023 Alcohol and Drug Screen Completed 05/21/2024, 10/03 Cervical Ablation/Cold-Knife Conization Discontinued Cervical Cryotherapy Discontinued Colposcopy Discontinued Endometrial Biopsy Discontinued Excision/Leep Discontinued HPV Genotyping Discontinued Vaginal Pap Discontinued Vulvoscopy Discontinued Procedures Procedure Name Priority Date/Time Associated Diagnosis Comments COMPREHENSIVE METABOLIC PANEL Routine 10/03/2024 11:35 AM EDT Other fatigue Palpitation Dizziness IRON, TIBC, FERRITIN PANEL Routine 10/03/2024 11:35 AM EDT Other fatigue Palpitation Dizziness TSH W/RFLX FREE T4 Routine 10/03/2024 11 :35 AM EDT Other fatigue Palpitation Dizziness BLOOD COUNT COMPLETE AUTOMATED Routine 10/03/2024 11:35 AM EDT Other fatigue Palpitation Dizziness HGBA1C W/MPG Routine 09/09/2024 10:50 AM EDT Type 2 diabetes mellitus without complication, without long-term current use of insulin ([facility]) THINPREP IMAGING PAP, HPV MRNA E6/E7 RFLEX HPV 16,18/45 CT/NG Routine 01/28/2024 2:19 PM EDT Encounter for Papanicolaou smear of vagina as part of routine gynecological examination Encounter for screening for human papillomavirus (HPV) REFERRAL TO DIABETIC RETINAL EXAM Routine 10/24/2023 3:00 AM EDT Type 2 diabetes mellitus without complication, without long-term current use of insulin ([facility]) LIPID PANEL Routine 10/04/2023 2:49 PM EDT MICROALBUMIN/CREATINI NE RATIO, URINE, RANDOM Routine 10/04/2023 2:49 PM EDT Type 2 diabetes mellitus without complication, without long-term current use of insulin ([facility]) HIV 1/2 AG & AB W/RFLX (4TH GEN) Routine 09/07/2023 9:32 AM EDT Body aches Arthralgia, unspecified joint ACUTE HEPATITIS PANEL W/RFLX Routine 09/07/2023 9:32 AM EDT Body aches Arthralgia, unspecified joint from Last 3 Months or Most Recently Relevant to Health Maintenance Results * IRON, TIBC, FERRITIN PANEL Routine (10/03/2024 11:35 AM EDT) [facility] FERRITIN 144 16 - 154 ng/mL [facility] IRON, TOTAL 100 40 - 190 mcg/dL [facility] IRON BINDING CAPACITY 301 250 - 450 mcg/dL (calc) [facility] % SATURATION 33 16 - 45 % (calc) [facility] Blood Blood / Unknown 10/03/2024 1 1:35 AM EDT 10/03/2024 11:36 AM EDT Narrative [facility] - 10/04/2024 4:28 AM EDT FASTING:NO Erika Beckett NP LAB - BLOOD DRAW Final Resul t Performing Organization Address [facility] Co de Phone Number [facility] [address] [address], [employer] [address] [address] * TSH W/RFLX FREE T4 Routine (10/03/2024 11:35 AM EDT) [facility] TSH W/REFLEX TO FT4 1.59 0.40 - 4.50 mIU/L [facility] Comment: Reference Range > or = 20 Years 0.40-4.50 Ranges First trimester 0.26-2.66 Second trimester 0.55-2.73 Third trimester 0.43-2.91 Blood Blood / Unknown 10/03/2024 1 1:35 AM EDT 10/03/2024 11:36 AM EDT Narrative [facility] - 10/04/2024 4:28 AM EDT FASTING:NO Erika Beckett [employer]NEL HEADING SUPERVISOR LAB - BLOOD DRAW Edited Resu lt - Final Performing Organization Address City/[facility]/ZIP Co de Phone Number [facility] [address] [address], [employer] [address] [address] * BLOOD COUNT COMPLETE AUTOMATED Routine (10/03/2024 11:35 AM EDT) [facility] WHITE BLOOD CELL COUNT 9.7 3.8 - 10.8 Thousand/ uL [facility] RED BLOOD CELL COUNT 4.71 3.80 - 5.10 Million/u L [facility] HEMOGLOBIN 14.6 11.7 - 15.5 g/dL [facility] HEMATOCRIT 44.8 35.0 - 45.0 % [facility] MCV 95.1 80.0 - 100.0 fL [facility] MCH 31.0 27.0 - 33.0 pg [facility] MCHC 32.6 32.0 - 36.0 g/dL [facility] Comment: For adults, a slight decrease in the calculated MCHC value (in the range of 30 to 32 g/dL) is most likely not clinically significant; however, it should be interpreted with caution in correlation with other red cell parameters and the patient's clinical condition. RDW 12.7 11.0 - 15.0 % [facility] PLATELET COUNT 274 140 - 400 Thousand/ uL [facility] MPV 10.9 7.5 - 12.5 fL [facility] Blood Blood / Unknown 10/03/2024 1 1:35 AM EDT 10/03/2024 11:36 AM EDT Narrative [facility] - 10/04/2024 4:28 AM EDT FASTING:NO us Erika Beckett NP LAB - BLOOD DRAW Edited Resu lt - Final [facility] [address] [place] [address], [employer] [address] [phone] * (ABNORMAL) COMPREHENSIVE METABOLIC PANEL Routine (10/03/2024 11:35 AM EDT) GLUCOSE 111(H) 65 - 99 mg/dL [facility] Comment: Fasting reference interval For someone without known diabetes, a glucose value between 100 and 125 mg/dL is consistent with prediabetes and should be confirmed with a follow-up test. UREA NITROGEN (BUN) 12 7 - 25 mg/dL [facility] CREATININE (blood) 0.55 0.50 - 0.97 mg/dL [facility] EGFR 120 > OR = 60 mL/min/1. 73m2 [facility] BUN/CREATININE RATIO SEE NOTE: [facility] Comment: Not Reported: BUN and Creatinine are within reference range. SODIUM 139 135 - 146 mmol/L [facility] POTASSIUM 4.3 3.5 - 5.3 mmol/L [facility] CHLORIDE 106 98 - 110 mmol/L [facility] CARBON DIOXIDE 28 20 - 32 mmol/L [facility] CALCIUM 8.9 8.6 - 10.2 mg/dL [facility] PROTEIN, TOTAL 7.2 6.1 - 8.1 g/dL [facility] ALBUMIN 4.0 3.6 - 5.1 g/dL [facility] GLOBULIN 3.2 1.9 - 3.7 g/dL (calc) [facility] ALBUMIN/GLOBULI N RATIO 1.3 1.0 - 2.5 (calc) [facility] BILIRUBIN, TOTAL 0.4 0.2 - 1.2 mg/dL [facility] ALKALINE PHOSPHATASE 94 31 - 125 U/L [facility] AST 33(H) 10 - 30 U/L [facility] ALT 61(H) 6 - 29 U/L [facility] Blood Blood / Unknown 10/03/2024 1 1:35 AM EDT 10/03/2024 11:36 AM EDT Narrative [facility] - 10/04/2024 4:28 AM EDT FASTING:NO Erika Beckett NP LAB - BLOOD DRAW Final Resul t [facility] [address] [address], [employer] [address] [address] * (ABNORMAL) HGBA1C W/MPG (09/09/2024 10:50 AM EDT) HEMOGLOBIN A1C 6.2(H) <5.7 % [facility] Comment: For someone without known diabetes, a hemoglobin A1c value between 5.7% and 6.4% is consistent with prediabetes and should be confirmed with a follow-up test. For someone with known diabetes, a value <7% indicates that their diabetes is well controlled. A1c targets should be individualized based on duration of diabetes, age, comorbid conditions, and other considerations. This assay result is consistent with an increased risk of diabetes. Currently, no consensus exists regarding use of hemoglobin A1c for diagnosis of diabetes for children. MEAN PLASMA GLUCOSE 143 mg/dL (calc) [facility] Blood Blood / Unknown 09/09/2024 1 0:50 AM EDT 09/09/2024 10:50 AM EDT Narrative [facility] - 09/10/2024 1:52 PM EDT FASTING:NO us Andrea Lorenzana MD LAB - BLOOD DRAW Final Resul t [facility] [address] [place] [address], [facility] [address] [place] [phone] * THINPREP IMAGING PAP, HPV MRNA E6/E7 RFLEX HPV 16,18/45 CT/NG (01/28/2024 2:19 PM EDT) CHLAMYDIA TRACHOMATIS RNA, TMA NOT DETECTED NOT DETECTED [facility] NEISSERIA GONORRHOEAE RNA, TMA NOT DETECTED NOT DETECTED [facility] COMMENT [facility] CLINICAL INFORMATION See Note [facility] Comment:None given LMP See Note [facility] Comment:11/28/23 PREV. PAP See Note [facility] Comment:NONE GIVEN PREV. BX See Note [facility] Comment:NONE GIVEN SOURCE See Note [facility] Comment:None given STATEMENT OF ADEQUACY See Note [facility] Comment: Satisfactory for evaluation. Endocervical/transformation zone component present. INTERPRETATION/RESU LT See Note [facility] Comment: Cytology Results: Negative for intraepithelial lesion or malignancy. INFECTION See Note [facility] Comment: Shift in vaginal maureen suggestive of bacterial vaginosis. COMMENT See Note [facility] Comment: This Pap test has been evaluated with computer assisted technology. SPECIAL TRACKWORK BLACKSMITH See Note [facility] Comment: MRC, CT(ASCP) CT screening location: [place] [address] REVIEW [employer]SMITH See Note [facility] Comment: ALS, CT(ASCP) CT screening location: [place] [address] COMMENT [facility] HPV MRNA E6/E7 Not Detected Not Detected [facility] Comment: Methodology: Acid Adjuster-Mediated Amplification This assay detects E6/E7 viral messenger RNA (mRNA) from 14 high-risk HPV types (16,18,31,33,35,39,45,51,52,56,58,59,66,68). Cervical sources are required for HPV testing. If a vaginal source from a patient who has had a total hysterectomy with removal of cervix was submitted, please contact the testing laboratory for alternative testing options. For additional information, please refer to http://P[employer]/faq/KZO059w2 (This link if provided for information/ educational purposes only.) Swab Cervix uteri structure / Unknown 01/28/2024 2:19 PM EDT 01/29/2024 7:24 AM EDT Narrative [facility] - 01/31/2024 4:24 PM EDT EXPLANATORY NOTE: [...] test SurePath(TM) specimens have been determined by [facility]. The modifications have not been cleared or approved by the FDA. This assay has been validated pursuant to the CLIA regulations and is used for clinical purposes. For additional information, please refer to https://Pict[employer] App.[employer]/faq/NFF897 (This link is being provided for information/ educational purposes only.) Minor Laird MD LAB - PATHOLOGY AND CYTOLOGY AMB ULATORY Final Result [facility] [address] [address], [facility] [address] [address] * REFERRAL TO DIABETIC RETINAL EXAM (10/24/2023 3:00 AM EDT) 10/24/2023 3:00 AM EDT us Minor Laird MD REFERRAL Final Result * (ABNORMAL) MICROALBUMIN/CREATININE RATIO, URINE, RANDOM (10/04/2023 2:49 PM EDT) CREATININE, RANDOM URINE 212 20 - 275 mg/dL [facility] MICROALBUMIN 30.5 mg/dL [facility] Comment: Verified by repeat analysis. Reference Range Not established MICROALBUMIN/CREA TININE RATIO, RANDOM URINE 144(H) <30 mg/g creat [facility] Comment: The ADA defines abnormalities in albumin excretion as follows: Albuminuria Category Result (mg/g creatinine) Normal to Mildly increased <30 Moderately increased 30-299 Severely increased > OR = 300 The ADA recommends that at least two of three specimens collected within a 3-6 month period be abnormal before considering a patient to be within a diagnostic category. Urine Urine specimen / Unknown 10/04/2023 2:49 PM EDT 10/04/2023 2:51 PM EDT us Minor Laird MD LAB URINE AMBULATORY Final Resul t [facility] [address] [place] [address], [facility] [address] [place] [phone] * (ABNORMAL) LIPID PANEL (10/04/2023 2:49 PM EDT) CHOLESTEROL, TOTAL 196 <200 mg/dL [facility] HDL CHOLESTEROL 35(L) > OR = 50 mg/dL [facility] TRIGLYCERIDES 220(H) <150 mg/dL [facility] Comment: If a non-fasting specimen was collected, consider repeat triglyceride testing on a fasting specimen if clinically indicated. Alec et al. J. of Clin. Lipidol. 2015;9:129-169. LDL-CHOLESTEROL 124(H) 99 mg/dL (calc) [facility] Comment: Reference range: <100 Desirable range <100 mg/dL for primary prevention; <70 mg/dL for patients with CHD or diabetic patients with > or = 2 CHD risk factors. LDL-C is now calculated using the Brock-Le calculation, which is a validated novel method providing better accuracy than the Friedewald equation in the estimation of LDL-C. Brock LIN et al. NORMAN. 2013;310(19): 3930-6481 (http://[employer]/faq/WET177) CHOL/HDLC RATIO 5.6(H) <5.0 (calc) [facility] NON-HDL CHOLESTEROL 161(H) <130 mg/dL (calc) [facility] Comment: For patients with diabetes plus 1 major ASCVD risk factor, treating to a non-HDL-C goal of <100 mg/dL (LDL-C of <70 mg/dL) is considered a therapeutic option. 10/04/2023 2:49 PM EDT 10/04/2023 2:51 PM EDT Minor Laird MD LAB - BLOOD DRAW Final Result [facility] [address] [address], [facility] [address] [place] [address] * HIV 1/2 AG & AB W/RFLX (4TH GEN) (09/07/2023 9:32 AM EDT) HIV AG/AB, 4TH GEN NON-REAC TIVE NON-REAC TIVE [facility] Comment: HIV-1 antigen and HIV-1/HIV-2 antibodies were not detected. There is no laboratory evidence of HIV infection. PLEASE NOTE: This information has been disclosed to you from records whose confidentiality may be protected by state law. If your state requires such protection, then the state law prohibits you from making any further disclosure of the information without the specific written consent of the person to whom it pertains, or as otherwise permitted by law. A general authorization for the release of medical or other information is NOT sufficient for this purpose. For additional information please refer to http://education.[employer]/faq/KAJ605 (This link is being provided for informational/ educational purposes only.) The performance of this assay has not been clinically validated in patients less than 2 years old. Blood Blood / Unknown 09/07/2023 9 :32 AM EDT 09/07/2023 9:34 AM EDT Narrative [facility] - 09/09/2023 3:39 PM EDT FASTING:YES us Yanira Bennett PA-C LAB - BLOOD DRAW Final Resul t [facility] [address] [address], [facility] [address] [address] * HEPATITIS PANEL W/RFLX (09/07/2023 9:32 AM EDT) HEPATITIS A IGM ANTIBODY NON-REACT TAMIR NON-REACT TAMIR [facility] COMMENT [facility] HEPATITIS B SURFACE ANTIGEN NON-REACT TAMIR NON-REACT TAMIR [facility] COMMENT [facility] HEPATITIS B CORE IGM ANTIBODY NON-REACT TAMIR NON-REACT TAMIR [facility] COMMENT [facility] HEPATITIS C ANTIBODY NON-REACT TAMIR NON-REACT TAMIR [facility] Comment: HCV antibody was non-reactive. There is no laboratory evidence of HCV infection. In most cases, no further action is required. However, if recent HCV exposure is suspected, a test for HCV RNA (test code 54429) is suggested. For additional information please refer to http://my[employer]arrister/faq/OAC70y0 (This link is being provided for informational/ educational purposes only.) Blood Blood / Unknown 09/07/2023 9 :32 AM EDT 09/07/2023 9:34 AM EDT Narrative [facility] - 09/09/2023 3:39 PM EDT FASTING:YES For additional information, please refer to http://Pictrition App.Plato Networks/faq/LLT314 (This link is being provided for informational/ educational purposes only.) For additional information, please refer to http://myBarrister/faq/NQL706 (This link is being provided for informational/ educational purposes only.) For additional information, please refer to http://Pictrition App.Nano Pet Products.Toma Biosciences/faq/DHZ431 (This link is being provided for informational/ educational purposes only.) Yanira Bennett PA-C LAB - BLOOD DRAW Final Resul t [facility] [employer] [address] [address], [facility] [address] [place] [address] from Last 3 Months or Most Recently Relevant to Health Maintenance Insurance [facility] [employer] Care Teams Tissue Technician Relationship Specialty Start Date End Date Minor Laird MD [address] [place] [address] PCP - General Family Medicine, Physician 06/28/23
--- OUTSIDE RECORDS SUMMARY | 2024-11-12 10:02 | XMS_ITS | Encounter Summary ---
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
[2024-11-12 10:40] LABS: Hematocrit 42.7 % (37.0-47.0); Hemoglobin 14.1 g/dl (12.0-16.0); Imm Gran Abs Auto 0.08 X10*3/uL (0.00-0.03); Imm Gran Pct Auto 0.7 % (0.0-0.4); Lymphocytes Absolute Auto 3.0 X10*3/uL (1.2-4.9); Mean Corpuscular HGB Conc 33.0 g/dl (31.0-35.0); Mean Corpuscular Hemoglobin 30.1 pg (27.0-33.0); Mean Corpuscular Volume 91.2 fL (80.0-98.0); NRBC Abs Auto 0.000 X10*3/uL (0.0-0.012); NRBC Pct Auto 0.0 /100WBC (0.0-0.2); Platelet Count 262 X10*3/uL (160-400); Red Blood Count 4.68 X10*6/uL (4.20-5.50); White Blood Count 12.1 X10*3/uL (4.8-10.8)
[2024-11-12 10:51] LABS: Hemoglobin A1C 182.7985 umol/L; Total Hemoglobin (HGBA1C) 3834.9407 umol/L
[2024-11-12 11:12] LABS: Alanine Aminotransferase 44 U/L (0-31); Albumin Level 4.1 g/dL (3.5-5.0); Alkaline Phosphatase 92 U/L (39-117); Anion Gap 9 (12-20); Aspartate Amino Transferase 36 U/L (5-31); Blood Urea Nitrogen 16 mg/dL (9-16); Calcium 9.0 mg/dL (8.4-10.2); Carbon Dioxide 26 mmol/L (22-29); Chloride 106 mmol/L (96-108); Cholesterol 228 mg/dL (<200); Estimated Glomerular Filt Rate > 60; HDL Cholesterol 44 mg/dL (>40); Iron 53 mcg/dL (30-160); Percent Iron Saturation 21 % (15-50); Potassium 4.4 mmol/L (3.3-5.1); Sodium 137 mmol/L (135-145); Total Iron Binding Capacity 255 mcg/dL (228-428); Total Protein 7.5 g/dL (6.5-8.0); Triglycerides 135 mg/dL (<150); Unsaturated Iron Binding 202 ug/dL
[2024-11-12 11:38] LABS: Folate 9.7 ng/mL (> or = 4.0); Vitamin B12 707 pg/mL (200-900)
[2024-11-12 11:43] LABS: Ferritin 180 ng/mL (10-122)
== END 2024-11-12 09:33 | disposition home or self-care (01) ==
LOC: HO.XRAY 09:32
PROVIDERS: Visit Provider Surgery
DX: E11.9 Type 2 diabetes mellitus without complications (principal); J45.909 Unspecified asthma, uncomplicated; K21.9 Gastro-esophageal reflux disease without esophagitis; E66.01 Morbid (severe) obesity due to excess calories
CPT/HCPCS: 36415; 71046; 80053; 80061; 82306; 82607; 82728; 82746; 83036; 83525; 83540; 84425; 84443; 84590; 84630; 85025; 86140; 93005

== ENCOUNTER → 2024-11-12 09:36 | Outpatient (BNV) | payer MEDICAID, SELFPAY | PROVIDERS: Visit Provider Internal Medicine Cardiovascular Disease | DX: E11.9 Type 2 diabetes mellitus without complications (principal) | CPT/HCPCS: 93010 ==

== ENCOUNTER → 2024-11-12 10:01 | Outpatient (BNV) | payer MEDICAID, SELFPAY | PROVIDERS: Visit Provider Radiology Diagnostic Radiology | DX: E11.9 Type 2 diabetes mellitus without complications (principal); J45.909 Unspecified asthma, uncomplicated; E66.01 Morbid (severe) obesity due to excess calories; K21.9 Gastro-esophageal reflux disease without esophagitis | CPT/HCPCS: 71046 ==

== ENCOUNTER 2024-12-11 12:51 | Outpatient (AMB) | payer OTHER, SELFPAY ==
--- OUTSIDE RECORDS SUMMARY | 2024-12-11 12:54 | XMS_ITS | Clinical Summary ---
Author Organization [facility] Address [address] [place] [address] Phone Care Team Providers Care Attending Radiologist Name Role Phone Andrea Lorenzana MD Primary Care Provider [phone] Allergies No known active allergies Medications albuterol [...] Comments Kidney stones Migraine Asthma Diabetes mellitus ([facility] V24, [facility] V28) GERD (gastroesophageal reflux disease) Social History [...] Contro l Test (HGBA1C) 03/31/2024 Depression Screening 05/06/2024 Diabetes: Annual Urine Albumin-Creatinine Ratio (uACR) 10/03/2024 [...] topic Insurance MEDICA[place] - [place] Care Teams Attending Radiologist Relationship Specialty Start Date End Date Andrea Lorenzana MD [address] [place] [address] PCP - General 12/23/23
--- OUTSIDE RECORDS SUMMARY | 2024-12-11 12:54 | XMS_ITS | Clinical Summary ---
Author Organization [facility] Address [address] [place] [address] Care Team Providers Care Hop Strainer Name Role Phone Minor Laird MD Primary Care Provider [phone] Source Comments PLEASE NOTE, if this patient [...] complication, without long-term current use of insulin ([facility]) Check blood sugar once daily. Three [...] mg tabletIndication s:Body aches,Arthralgia , unspecified joint [place] 1 tableta por via oral cada 6 (seis) horas navneet necesario para el dolor 90 Tablet 025 Active VENTOLIN HFA 90 mcg/actuation inhalerIndicatio ns:Mild intermittent asthma without complication ([facility]) INHALE TWO PUFFS into the lungs EVERY SIX HOURS NEEDED FOR WHEEZING OR SHORTNESS OF BREATH 18 g 1 025 Active cyclobenzaprine (FLEXERIL) 10 mg tabletIndication s:Muscle spasm TAKE ONE TABLET BY MOUTH THREE TIMES DAILY NEEDED FOR MUSCLE SPASM 30 Tablet 1 025 Active metFORMIN (GLUCOPHAGE) 1,000 mg tabletIndication s:Type 2 diabetes mellitus without complication, without long-term current use of insulin ([facility]) TAKE ONE TABLET BY MOUTH TWICE DAILY WITH A MEAL FOR type TWO diabetes 180 Tablet 1 025 Active nicotine (NICODERM, STEP 2) 14 mg/[address] ONE PATCH onto THE SKIN ONCE DAILY EVERY 24 horas 28 Patch 1 025 Active alcohol swabs (EASY TOUCH ALCOHOL PREP PADS)Indications :Type 2 diabetes mellitus without complication, without long-term current use of insulin ([facility]) Check blood sugar once daily. 100 Each 3 025 Active blood sugar diagnostic (FREESTYLE LITE STRIPS) stripsIndication s:Type 2 diabetes mellitus without complication, without long-term current use of insulin ([facility]) Check blood sugar ONCE daily 100 Each 3 025 Active lancets (FREESTYLE LANCETS) 28 gaugeIndications :Type 2 diabetes mellitus without complication, without long-term current use of insulin ([facility]) Check blood sugar once daily. 100 Each 3 025 Active omeprazole (PRILOSEC) [address] capsule Take 1 Capsule by mouth every morning before breakfast. 90 Capsule 025 Active traZODone (DESYREL) 100 mg tabletIndication s:Insomnia, unspecified type TAKE ONE TABLET BY MOUTH NIGHTLY AT BEDTIME FOR 21 DAYS 21 Tablet 025 Active TRULICITY 4.5 mg/0.5 mL pen injectorIndicati ons:Type 2 diabetes mellitus without complication, without long-term current use of insulin ([facility]),Class 3 severe obesity due to excess calories with serious comorbidity and body mass index (BMI) of 40.0 to 44.9 in adult ([facility]) INJECT 4.5mg into THE SKIN ONCE a WEEK 2 mL 2 025 Active traZODone (DESYREL) 100 mg tabletIndication s:Insomnia, unspecified type TAKE ONE TABLET BY MOUTH NIGHTLY AT BEDTIME FOR 21 DAYS 21 Tablet 025 2024 Discontinued dulaglutide (TRULICITY) 4.5 mg/0.5 mL pen injectorIndicati ons:Type 2 diabetes mellitus without complication, without long-term current use of insulin ([facility]),Class 3 severe obesity due to excess calories with serious comorbidity and body mass index (BMI) of 40.0 to 44.9 in adult ([facility]) Inject 4.5 mg into the skin once a week 2 mL 2 025 2024 Discontinued omeprazole (PRILOSEC) [address] capsule TAKE ONE CAPSULE BY MOUTH EVERY MORNING BEFORE BREAKFAST FOR 14 DAYS 14 Capsule 1 025 2024 Discontinued Active Problems Problem Noted Date Diagnosed Date Class 3 severe obesity due t o excess calories with serious comorbidity and body mass index (BMI) of 40.0 to 44.9 in adult ([facility]) 10/17/2023 Xanthelasma of eyelid, bilateral 10/04/2023 Mixed hyperlipidemia 09/17/2023 Type 2 diabetes mellitus wit hout complication, without long-term current use of insulin ([facility]) 09/17/2023 Overview (01/28/2024): Starting with DM clinic [...] Department Care Team Description 10/05/2024 Results Follow-Up [address] [phone] Erika Beckett NP 10/03/2024 2:20 PM EDT Office Visit [address] [phone] Erika Beckett NP 09/10/2024 Results Follow-Up [address] [phone] Ravin Rodriguez, ToyD from Last 3 Months Immunizations Immunization Administration [...] 3 - 19 + 3-dose series) 2004 [id number] ( season) 2024 Depression Annual Screen 05/06/2024 10/04/2023 [...] complication, without long-term current use of insulin ([facility]) THINPREP IMAGING PAP, HPV MRNA E6/E7 RFLEX HPV 16,18/45 CT/NG Routine 01/28/2024 2:19 PM EDT Encounter for Papanicolaou smear of vagina as part of routine gynecological examination Encounter for screening for human papillomavirus (HPV) REFERRAL TO DIABETIC RETINAL EXAM Routine 10/24/2023 3:00 AM EDT Type 2 diabetes mellitus without complication, without long-term current use of insulin ([facility]) LIPID PANEL Routine 10/04/2023 2:49 PM EDT MICROALBUMIN/CREATINI NE RATIO, URINE, RANDOM Routine 10/04/2023 2:49 PM EDT Type 2 diabetes mellitus without complication, without long-term current use of insulin ([facility]) HIV 1/2 AG & AB W/RFLX (4TH GEN) Routine 09/07/2023 9:32 AM EDT Body aches Arthralgia, unspecified joint ACUTE HEPATITIS PANEL W/RFLX Routine 09/07/2023 9:32 AM EDT Body aches Arthralgia, unspecified joint from Last 3 Months or Most Recently Relevant to Health Maintenance Results * IRON, TIBC, FERRITIN PANEL Routine (10/03/2024 11:35 AM EDT) FERRITIN 144 16 - 154 ng/mL [facility] IRON, TOTAL 100 40 - 190 mcg/dL [facility] IRON BINDING CAPACITY 301 250 - 450 mcg/dL (calc) [facility] % SATURATION 33 16 - 45 % (calc) [facility] Blood Blood / Unknown 10/03/2024 1 1:35 AM EDT 10/03/2024 11:36 AM EDT Narrative [employer] [facility] - 10/04/2024 4:28 AM EDT FASTING:NO Erika Beckett LOG TUMBLER LAB - BLOOD DRAW Final Resul t Performing Organization Address City/[facility] Co de Phone Number [facility] [address] [address], [facility] [address] [address] * TSH W/RFLX FREE T4 Routine (10/03/2024 11:35 AM EDT) TSH W/REFLEX TO FT4 1.59 0.40 - 4.50 mIU/L [facility] Comment: Reference Range > or = 20 Years 0.40-4.50 Ranges First trimester 0.26-2.66 Second trimester 0.55-2.73 Third trimester 0.43-2.91 Blood Blood / Unknown 10/03/2024 1 1:35 AM EDT 10/03/2024 11:36 AM EDT Narrative [employer] [facility] - 10/04/2024 4:28 AM EDT FASTING:NO Erika Beckett NP LAB - BLOOD DRAW Edited Resu lt - Final Performing Organization Address City/[facility] Co de Phone Number [facility] [address] [address], [facility] [address] [address] * BLOOD COUNT COMPLETE AUTOMATED Routine (10/03/2024 11:35 AM EDT) WHITE BLOOD CELL COUNT 9.7 3.8 - 10.8 Thousand/ uL [facility] RED BLOOD CELL COUNT 4.71 3.80 - 5.10 Million/u L [facility] HEMOGLOBIN 14.6 11.7 - 15.5 g/dL [facility] HEMATOCRIT 44.8 35.0 - 45.0 % [facility] MCV 95.1 80.0 - 100.0 fL [facility] MCH 31.0 27.0 - 33.0 pg [facility] MCHC 32.6 32.0 - 36.0 g/dL [facility] Comment: For adults, a slight decrease in the calculated MCHC value (in the range of 30 to 32 g/dL) is most likely not clinically significant; however, it should be interpreted with caution in correlation with other red cell parameters and the patient's clinical condition. RDW 12.7 11.0 - 15.0 % [facility] PLATELET COUNT 274 140 - 400 Thousand/ uL [facility] MPV 10.9 7.5 - 12.5 fL [facility] Blood Blood / Unknown 10/03/2024 1 1:35 AM EDT 10/03/2024 11:36 AM EDT Narrative [facility] - 10/04/2024 4:28 AM EDT FASTING:NO Erika Beckett NP LAB - BLOOD DRAW Edited Resu lt - Final [facility] [address] [address], [facility] [address] [place] [address] * (ABNORMAL) COMPREHENSIVE METABOLIC PANEL Routine (10/03/2024 11:35 AM EDT) [facility] GLUCOSE 111(H) 65 - 99 mg/dL [facility] Comment: Fasting reference interval For someone without known diabetes, a glucose value between 100 and 125 mg/dL is consistent with prediabetes and should be confirmed with a follow-up test. UREA NITROGEN (BUN) 12 7 - 25 mg/dL [facility] CREATININE (blood) 0.55 0.50 - 0.97 mg/dL [facility] EGFR 120 > OR = 60 mL/min/1. 73m2 [facility] BUN/CREATININE RATIO SEE NOTE: [facility] Comment: Not Reported: BUN and Creatinine are within reference range. SODIUM 139 135 - 146 mmol/L [facility] POTASSIUM 4.3 3.5 - 5.3 mmol/L [facility] CHLORIDE 106 98 - 110 mmol/L [facility] CARBON DIOXIDE 28 20 - 32 mmol/L [facility] CALCIUM 8.9 8.6 - 10.2 mg/dL [facility] [place] [employer] PROTEIN, TOTAL 7.2 6.1 - 8.1 g/dL [facility] [place] [employer] ALBUMIN 4.0 3.6 - 5.1 g/dL [facility] [place] [employer] GLOBULIN 3.2 1.9 - 3.7 g/dL (calc) [facility] ALBUMIN/GLOBULI N RATIO 1.3 1.0 - 2.5 (calc) [facility] [place] [employer] BILIRUBIN, TOTAL 0.4 0.2 - 1.2 mg/dL [facility] ALKALINE PHOSPHATASE 94 31 - 125 U/L [facility] AST 33(H) 10 - 30 U/L [facility] ALT 61(H) 6 - 29 U/L [facility] [place] [employer] Blood Blood / Unknown 10/03/2024 1 1:35 AM EDT 10/03/2024 11:36 AM EDT Narrative [employer] [facility] - 10/04/2024 4:28 AM EDT FASTING:NO Erika Beckett NP LAB - BLOOD DRAW Final Resul t [employer] [address] [address], [facility] [address] [address] * (ABNORMAL) HGBA1C W/MPG (09/09/2024 10:50 AM EDT) HEMOGLOBIN A1C 6.2(H) <5.7 % [facility] Comment: For someone without known diabetes, [...] children. MEAN PLASMA GLUCOSE 143 mg/dL (calc) [facility] Blood Blood / Unknown 09/09/2024 1 0:50 AM EDT 09/09/2024 10:50 AM EDT Narrative [facility] - 09/10/2024 1:52 PM EDT FASTING:NO Andrea Lorenzana MD LAB - BLOOD DRAW Final Resul t [facility] [address] [address], [facility] [address] [place] [address] * THINPREP IMAGING PAP, HPV MRNA E6/E7 RFLEX HPV 16,18/45 CT/NG (01/28/2024 2:19 PM EDT) CHLAMYDIA TRACHOMATIS RNA, TMA NOT DETECTED NOT DETECTED [facility] NEISSERIA GONORRHOEAE RNA, TMA NOT DETECTED NOT DETECTED [facility] COMMENT [facility] CLINICAL INFORMATION See Note [facility] Comment:None given LMP See Note [facility] Comment:11/28/23 PREV. PAP See Note [facility] Comment:NONE GIVEN PREV. BX See Note [facility] Comment:NONE GIVEN SOURCE See Note [facility] Comment:None given STATEMENT OF ADEQUACY See Note [facility] Comment: Satisfactory for evaluation. Endocervical/transformation zone component present. INTERPRETATION/RESU LT See Note [facility] Comment: Cytology Results: Negative for intraepithelial lesion or malignancy. INFECTION See Note [facility] Comment: Shift in vaginal maureen suggestive of bacterial vaginosis. COMMENT See Note [facility] Comment: This Pap test has been evaluated with computer assisted technology. BIOMASS PLANT MANAGER See Note [facility] [employer] Comment: MRC, CT(ASCP) CT screening location: [place] [address] REVIEW [employer] MANAGER See Note [facility] Comment: ALS, CT(ASCP) CT screening location: [place] [address] COMMENT [facility] HPV MRNA E6/E7 Not Detected Not Detected [facility] Comment: Methodology: Rooming House Keeper-Mediated Amplification This assay detects E6/E7 viral messenger RNA (mRNA) from 14 high-risk HPV types (16,18,31,33,35,39,45,51,52,56,58,59,66,68). Cervical sources are required for HPV testing. If a vaginal source from a patient who has had a total hysterectomy with removal of cervix was submitted, please contact the testing laboratory for alternative testing options. For additional information, please refer to http://IVFXPERT.[employer] [place]/faq/VFK416z4 (This link if provided for information/ educational purposes only.) Swab Cervix uteri structure / Unknown 01/28/2024 2:19 PM EDT 01/29/2024 7:24 AM EDT Narrative [facility] - 01/31/2024 4:24 PM EDT EXPLANATORY NOTE: [...] test SurePath(TM) specimens have been determined by [employer]. The modifications have not been cleared or approved by the FDA. This assay has been validated pursuant to the CLIA regulations and is used for clinical purposes. For additional information, please refer to https://IVFXPERT.[employer] [place]/faq/VGX930 (This link is being provided for information/ educational purposes only.) us Minor Laird MD LAB - PATHOLOGY AND CYTOLOGY AMB ULATORY Final Result [facility] [address] [address], [facility] [address] [address] * REFERRAL TO DIABETIC RETINAL EXAM (10/24/2023 3:00 AM EDT) 10/24/2023 3:00 AM EDT us Minor Laird MD REFERRAL Final Result * (ABNORMAL) MICROALBUMIN/CREATININE RATIO, URINE, RANDOM (10/04/2023 2:49 PM EDT) CREATININE, RANDOM URINE 212 20 - 275 mg/dL [facility] MICROALBUMIN 30.5 mg/dL [facility] Comment: Verified by repeat analysis. Reference Range Not established MICROALBUMIN/CREA TININE RATIO, RANDOM URINE 144(H) <30 mg/g creat [facility] Comment: The ADA defines abnormalities in albumin [...] MD LAB URINE AMBULATORY Final Resul t [facility] [address] [address], [facility] [address] [address] * (ABNORMAL) LIPID PANEL (10/04/2023 2:49 PM EDT) Pathologist [facility] CHOLESTEROL, TOTAL 196 <200 mg/dL [facility] HDL CHOLESTEROL 35(L) > OR = 50 mg/dL [facility] TRIGLYCERIDES 220(H) <150 mg/dL [facility] Comment: If a non-fasting specimen was collected, consider repeat triglyceride testing on a fasting specimen if clinically indicated. Alec et al. J. of Clin. Lipidol. 2015;9:129-169. LDL-CHOLESTEROL 124(H) 99 mg/dL (calc) [facility] Comment: Reference range: <100 Desirable range <100 mg/dL for primary prevention; <70 mg/dL for patients with CHD or diabetic patients with > or = 2 CHD risk factors. LDL-C is now calculated using the Varsha calculation, which is a validated novel method providing better accuracy than the Friedewald equation in the estimation of LDL-C. Brock LIN et al. NORMAN. 2013;310(19): 4566-1504 (http://education.[employer]/faq/IXL023) CHOL/HDLC RATIO 5.6(H) <5.0 (calc) [facility] NON-HDL CHOLESTEROL 161(H) <130 mg/dL (calc) [facility] Comment: For patients with diabetes plus 1 major ASCVD risk factor, treating to a non-HDL-C goal of <100 mg/dL (LDL-C of <70 mg/dL) is considered a therapeutic option. 10/04/2023 2:49 PM EDT 10/04/2023 2:51 PM EDT Minor Laird MD LAB - BLOOD DRAW Final Result [facility] [address] [place] [address], [facility] [address] [place] [phone] * HIV 1/2 AG & AB W/RFLX (4TH GEN) (09/07/2023 9:32 AM EDT) Pathologist [facility] HIV AG/AB, 4TH GEN NON-REAC TIVE NON-REAC TIVE [facility] Comment: HIV-1 antigen and HIV-1/HIV-2 antibodies were [...] purpose. For additional information please refer to http://education.mediaBunker.[employer]o/faq/IQO040 (This link is being provided for informational/ educational purposes only.) The performance of this assay has not been clinically validated in patients less than 2 years old. Blood Blood / Unknown 09/07/2023 9 :32 AM EDT 09/07/2023 9:34 AM EDT Narrative [facility] - 09/09/2023 3:39 PM EDT FASTING:YES Yanira Bennett PA-C LAB - BLOOD DRAW Final Resul t Performing Organization Address City/[facility]/ZIP Co de Phone Number [facility] [address] [address], [facility] [address] [address] * HEPATITIS PANEL W/RFLX (09/07/2023 9:32 AM EDT) HEPATITIS A IGM ANTIBODY NON-REACT TAMIR NON-REACT TAMIR [facility] COMMENT [facility] HEPATITIS B SURFACE ANTIGEN NON-REACT TAMIR NON-REACT TAMIR [facility] COMMENT [facility] HEPATITIS B CORE IGM ANTIBODY NON-REACT TAMIR NON-REACT TAMIR [facility] COMMENT [facility] HEPATITIS C ANTIBODY NON-REACT TAMIR NON-REACT TAMIR [facility] Comment: HCV antibody was non-reactive. There is no laboratory evidence of HCV infection. In most cases, no further action is required. However, if recent HCV exposure is suspected, a test for HCV RNA (test code 04496) is suggested. For additional information please refer to http://IVFXPERT.[employer] [place]/faq/YLJ95d1 (This link is being provided for informational/ educational purposes only.) Blood Blood / Unknown 09/07/2023 9 :32 AM EDT 09/07/2023 9:34 AM EDT Narrative [facility] - 09/09/2023 3:39 PM EDT FASTING:YES For additional information, please refer to http://IVFXPERT.[employer] [place]/faq/ATR190 (This link is being provided for informational/ educational purposes only.) For additional information, please refer to http://IVFXPERT.[employer] [place]/faq/TUD609 (This link is being provided for informational/ educational purposes only.) For additional information, please refer to http://IVFXPERT.[employer] [place]/faq/GYE359 (This link is being provided for informational/ educational purposes only.) Yanira Bennett PA-C LAB - BLOOD DRAW Final Resul t Performing Organization Address City/[facility]/ZIP Co de Phone Number [facility] [address] [address], [facility] [address] [place] [address] from Last 3 Months or Most Recently Relevant to Health Maintenance Insurance [employer] Care Teams Hop Strainer Relationship Specialty Start Date End Date Minor Laird MD [address] [place] [address] PCP - General Family Medicine, Physician 06/28/23
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
== END 2024-12-11 14:08 | disposition home or self-care (01) ==
LOC: HO.HBST 12:52
PROVIDERS: PCP Internal Medicine; Visit Provider Counselor Mental Health
DX: F43.22 Adjustment disorder with anxiety (principal); Z71.89 Other specified counseling
CPT/HCPCS: 90837

== ENCOUNTER 2024-12-18 09:57 | Day surgery (SDC) | payer MEDICAID, SELFPAY ==
--- OUTSIDE RECORDS SUMMARY | 2024-12-16 10:47 | XMS_ITS | Encounter Summary ---
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 EFFECTIVE SINCE 12/25/2022 documented in this encounter Plan of Treatment Not on file documented as of this encounter Visit Diagnoses Not on filedocumented in this encounter
--- OUTSIDE RECORDS SUMMARY | 2024-12-16 10:47 | XMS_ITS | Clinical Summary ---
Author Organization [facility] Address [address] [place] [address] Care Team Providers Care Yarder Name Role Phone Minor Laird MD Primary Care Provider [phone] Source Comments PLEASE NOTE, if this patient [...] complication, without long-term current use of insulin ([facility]) Check blood sugar once daily. Three days [...] mg tabletIndication s:Body aches,Arthralgia , unspecified joint [place] 1 tableta por via oral cada 6 (seis) horas navneet necesario para el dolor 90 Tablet 025 Active VENTOLIN HFA 90 mcg/actuation inhalerIndicatio ns:Mild intermittent asthma without complication ([facility]) INHALE TWO PUFFS into the lungs EVERY SIX HOURS NEEDED FOR WHEEZING OR SHORTNESS OF BREATH 18 g 1 025 Active cyclobenzaprine (FLEXERIL) 10 mg tabletIndication s:Muscle spasm TAKE ONE TABLET BY MOUTH THREE TIMES DAILY NEEDED FOR MUSCLE SPASM 30 Tablet 1 025 Active metFORMIN (GLUCOPHAGE) 1,000 mg tabletIndication s:Type 2 diabetes mellitus without complication, without long-term current use of insulin ([facility]) TAKE ONE TABLET BY MOUTH TWICE DAILY WITH A MEAL FOR type TWO diabetes 180 Tablet 1 025 Active nicotine (NICODERM, STEP 2) 14 mg/[address] ONE PATCH onto THE SKIN ONCE DAILY EVERY 24 horas 28 Patch 1 025 Active alcohol swabs (EASY TOUCH ALCOHOL PREP PADS)Indications :Type 2 diabetes mellitus without complication, without long-term current use of insulin ([facility]) Check blood sugar once daily. 100 Each 3 025 Active blood sugar diagnostic (FREESTYLE LITE STRIPS) stripsIndication s:Type 2 diabetes mellitus without complication, without long-term current use of insulin ([facility]) Check blood sugar ONCE daily 100 Each 3 025 Active lancets (FREESTYLE LANCETS) 28 gaugeIndications :Type 2 diabetes mellitus without complication, without long-term current use of insulin ([facility]) Check blood sugar once daily. 100 Each [...] complication, without long-term current use of insulin ([facility]),Class 3 severe obesity due to excess calories with serious comorbidity and body mass index (BMI) of 40.0 to 44.9 in adult ([facility]) INJECT 4.5mg into THE SKIN ONCE a WEEK 2 mL 2 025 Active traZODone (DESYREL) 100 mg tabletIndication s:Insomnia, unspecified type TAKE ONE TABLET BY MOUTH NIGHTLY AT BEDTIME FOR 21 DAYS 21 Tablet 025 2024 Discontinued dulaglutide (TRULICITY) 4.5 mg/0.5 mL pen injectorIndicati ons:Type 2 diabetes mellitus without complication, without long-term current use of insulin ([facility]),Class 3 severe obesity due to excess calories with serious comorbidity and body mass index (BMI) of 40.0 to 44.9 in adult ([facility]) Inject 4.5 mg into the skin once [...] (BMI) of 40.0 to 44.9 in adult ([facility]) 10/17/2023 Xanthelasma of eyelid, bilateral 10/04/2023 Mixed hyperlipidemia 09/17/2023 Type 2 diabetes mellitus wit hout complication, without long-term current use of insulin ([facility]) 09/17/2023 Overview (01/28/2024): Starting with DM [...] Department Care Team Description 10/05/2024 Results Follow-Up [address] [address] Erika Beckett NP 10/03/2024 2:20 PM EDT Office Visit [address] [address] Erika Beckett NP from Last 3 Months Immunizations Immunization Administration [...] 3 - 19 + 3-dose series) 2004 [id number] ( season) 2024 Depression Annual Screen 05/06/2024 [...] complication, without long-term current use of insulin ([facility]) THINPREP IMAGING PAP, HPV MRNA E6/E7 RFLEX HPV 16,18/45 CT/NG Routine 01/28/2024 2:19 PM EDT Encounter for Papanicolaou smear of vagina as part of routine gynecological examination Encounter for screening for human papillomavirus (HPV) REFERRAL TO DIABETIC RETINAL EXAM Routine 10/24/2023 3:00 AM EDT Type 2 diabetes mellitus without complication, without long-term current use of insulin ([facility]) LIPID PANEL Routine 10/04/2023 2:49 PM EDT MICROALBUMIN/CREATINI NE RATIO, URINE, RANDOM Routine 10/04/2023 2:49 PM EDT Type 2 diabetes mellitus without complication, without long-term current use of insulin ([facility]) HIV 1/2 AG & AB W/RFLX (4TH GEN) Routine 09/07/2023 9:32 AM EDT Body aches Arthralgia, unspecified joint ACUTE HEPATITIS PANEL W/RFLX Routine 09/07/2023 9:32 AM EDT Body aches Arthralgia, unspecified joint from Last 3 Months or Most Recently Relevant to Health Maintenance Results * IRON, TIBC, FERRITIN PANEL Routine (10/03/2024 11:35 AM EDT) FERRITIN 144 16 - 154 ng/mL [employer] [facility] IRON, TOTAL 100 40 - 190 mcg/dL [employer] [facility] IRON BINDING CAPACITY 301 250 - 450 mcg/dL (calc) [employer] [facility] % SATURATION 33 16 - 45 % (calc) [employer] [facility] Blood Blood / Unknown 10/03/2024 1 1:35 AM EDT 10/03/2024 11:36 AM EDT Narrative Hall [facility] - 10/04/2024 4:28 AM EDT FASTING:NO us Erika Beckett NP LAB - BLOOD DRAW Final Resul t Performing Organization Address City/[facility]/ZIP Co de Phone Number [employer] [address] [address], [employer] [address] [address] * TSH W/RFLX FREE T4 Routine (10/03/2024 11:35 AM EDT) Pathologist [facility] TSH W/REFLEX TO FT4 1.59 0.40 - 4.50 mIU/L [employer] [facility] Comment: Reference Range > or = 20 Years 0.40-4.50 Ranges First trimester 0.26-2.66 Second trimester 0.55-2.73 Third trimester 0.43-2.91 Blood Blood / Unknown 10/03/2024 1 1:35 AM EDT 10/03/2024 11:36 AM EDT Narrative Hall [facility] - 10/04/2024 4:28 AM EDT FASTING:NO us Erika Beckett NP LAB - BLOOD DRAW Edited Resu lt - Final Performing Organization Address City/[facility]/ZIP Co de Phone Number [employer] [address] [address], [employer] [address] [address] * BLOOD COUNT COMPLETE AUTOMATED Routine (10/03/2024 11:35 AM EDT) Pathologist [facility] WHITE BLOOD CELL COUNT 9.7 3.8 - 10.8 Thousand/ uL [employer] [facility] RED BLOOD CELL COUNT 4.71 3.80 - 5.10 Million/u L [employer] [facility] HEMOGLOBIN 14.6 11.7 - 15.5 g/dL [employer] [facility] HEMATOCRIT 44.8 35.0 - 45.0 % [employer] [facility] MCV 95.1 80.0 - 100.0 fL [employer] [facility] MCH 31.0 27.0 - 33.0 pg [employer] [facility] MCHC 32.6 32.0 - 36.0 g/dL [facility] Comment: For adults, a slight decrease in the calculated MCHC value (in the range of 30 to 32 g/dL) is most likely not clinically significant; however, it should be interpreted with caution in correlation with other red cell parameters and the patient's clinical condition. RDW 12.7 11.0 - 15.0 % [facility] PLATELET COUNT 274 140 - 400 Thousand/ uL [employer] MPV 10.9 7.5 - 12.5 fL [facility] Blood Blood / Unknown 10/03/2024 1 1:35 AM EDT 10/03/2024 11:36 AM EDT Narrative [facility] - 10/04/2024 4:28 AM EDT FASTING:NO us Erika Beckett NP LAB - BLOOD DRAW Edited Resu lt - Final [facility] [address] [place] [address], [employer] [address] [address] * (ABNORMAL) COMPREHENSIVE METABOLIC PANEL Routine (10/03/2024 11:35 AM EDT) GLUCOSE 111(H) 65 - 99 mg/dL [facility] Comment: Fasting reference interval For someone without known diabetes, a glucose value between 100 and 125 mg/dL is consistent with prediabetes and should be confirmed with a follow-up test. UREA NITROGEN (BUN) 12 7 - 25 mg/dL [facility] CREATININE (blood) 0.55 0.50 - 0.97 mg/dL [facility] EGFR 120 > OR = 60 mL/min/1. 73m2 [facility] BUN/CREATININE RATIO SEE NOTE: 6 [facility] Comment: Not Reported: BUN and Creatinine are within reference range. SODIUM 139 135 - 146 mmol/L [facility] POTASSIUM 4.3 3.5 - 5.3 mmol/L [facility] CHLORIDE 106 98 - 110 mmol/L [facility] CARBON DIOXIDE 28 20 - 32 mmol/L [facility] CALCIUM 8.9 8.6 - 10.2 mg/dL [facility] PROTEIN, TOTAL 7.2 6.1 - 8.1 g/dL [facility] ALBUMIN 4.0 3.6 - 5.1 g/dL [facility] GLOBULIN 3.2 1.9 - 3.7 g/dL (calc) [facility] ALBUMIN/GLOBULI N RATIO 1.3 1.0 - 2.5 (calc) [facility] BILIRUBIN, TOTAL 0.4 0.2 - 1.2 mg/dL [facility] ALKALINE PHOSPHATASE 94 31 - 125 U/L [facility] AST 33(H) 10 - 30 U/L [facility] ALT 61(H) 6 - 29 U/L [facility] Blood Blood / Unknown 10/03/2024 1 1:35 AM EDT 10/03/2024 11:36 AM EDT [facility] - 10/04/2024 4:28 AM EDT FASTING:NO Erika Beckett NP LAB - BLOOD DRAW Final Resul t [facility] [address] [place] [address], [facility] [address] [place] [address] * (ABNORMAL) HGBA1C W/MPG (09/09/2024 10:50 AM EDT) HEMOGLOBIN A1C 6.2(H) <5.7 % [facility] Comment: For someone without known diabetes, a [...] children. MEAN PLASMA GLUCOSE 143 mg/dL (calc) [facility] Blood Blood / Unknown 09/09/2024 1 0:50 AM EDT 09/09/2024 10:50 AM EDT Narrative [facility] - 09/10/2024 1:52 PM EDT FASTING:NO us Andrea Lorenzana MD LAB - BLOOD DRAW Final Resul t [facility] [address] [address], [employer] [place] [employer] [address] [place] [address] * THINPREP IMAGING PAP, HPV MRNA E6/E7 RFLEX HPV 16,18/45 CT/NG (01/28/2024 2:19 PM EDT) CHLAMYDIA TRACHOMATIS RNA, TMA NOT DETECTED NOT DETECTED [facility] NEISSERIA GONORRHOEAE RNA, TMA NOT DETECTED NOT DETECTED [facility] COMMENT [facility] CLINICAL INFORMATION See Note [facility] Comment:None given LMP See Note [facility] Comment:11/28/23 PREV. PAP See Note [facility] Comment:NONE GIVEN PREV. BX See Note [facility] Comment:NONE GIVEN SOURCE See Note [facility] Comment:None given STATEMENT OF ADEQUACY See Note [facility] Comment: Satisfactory for evaluation. Endocervical/transformation zone component present. INTERPRETATION/RESU LT See Note [facility] Comment: Cytology Results: Negative for intraepithelial lesion or malignancy. INFECTION See Note [facility] Comment: Shift in vaginal maureen suggestive of bacterial vaginosis. COMMENT See Note [facility] Comment: This Pap test has been evaluated with computer assisted technology. NAMED ACCOUNT EXECUTIVE See Note [facility] Comment: MRC, CT(ASCP) CT screening location: [place] [address] REVIEW NAMED ACCOUNT EXECUTIVE See Note [facility] Comment: ALS, CT(ASCP) CT screening location: [place] [address] COMMENT [facility] HPV MRNA E6/E7 Not Detected Not Detected [facility] Comment: Methodology: Director Of Education-Mediated Amplification This assay detects E6/E7 viral messenger RNA (mRNA) from 14 high-risk HPV types (16,18,31,33,35,39,45,51,52,56,58,59,66,68). Cervical sources are required for HPV testing. If a vaginal source from a patient who has had a total hysterectomy with removal of cervix was submitted, please contact the testing laboratory for alternative testing options. For additional information, please refer to http://[employer]/faq/AMR634d1 (This link if provided for information/ educational purposes only.) Swab Cervix uteri structure / Unknown 01/28/2024 2:19 PM EDT 01/29/2024 7:24 AM EDT Narrative [facility] [employer] - 01/31/2024 4:24 PM EDT EXPLANATORY [...] test SurePath(TM) specimens have been determined by [employer]. The modifications have not been cleared or approved by the FDA. This assay has been validated pursuant to the CLIA regulations and is used for clinical purposes. For additional information, please refer to https://[employer].Imaxio/faq/VLU590 (This link is being provided for information/ educational purposes only.) us Minor Laird MD LAB - PATHOLOGY AND CYTOLOGY AMB ULATORY Final Result [employer] [address] [address], [employer] [address] [address] * REFERRAL TO DIABETIC RETINAL EXAM (10/24/2023 3:00 AM EDT) 10/24/2023 3:00 AM EDT us Minor Laird MD REFERRAL Final Result * (ABNORMAL) MICROALBUMIN/CREATININE RATIO, URINE, RANDOM (10/04/2023 2:49 PM EDT) CREATININE, RANDOM URINE 212 20 - 275 mg/dL [employer] [facility] MICROALBUMIN 30.5 mg/dL [employer] [facility] Comment: Verified by repeat analysis. Reference Range Not established MICROALBUMIN/CREA TININE RATIO, RANDOM URINE 144(H) <30 mg/g creat [facility] Comment: The ADA defines abnormalities in albumin [...] MD LAB URINE AMBULATORY Final Resul t [facility] [address] [place] [address], [facility] [address] [place] [phone] * (ABNORMAL) LIPID PANEL (10/04/2023 2:49 PM EDT) CHOLESTEROL, TOTAL 196 <200 mg/dL [facility] HDL CHOLESTEROL 35(L) > OR = 50 mg/dL [facility] TRIGLYCERIDES 220(H) <150 mg/dL [facility] Comment: If a non-fasting specimen was collected, consider repeat triglyceride testing on a fasting specimen if clinically indicated. Alec et al. J. of Clin. Lipidol. 2015;9:129-169. LDL-CHOLESTEROL 124(H) 99 mg/dL (calc) [facility] Comment: Reference range: <100 Desirable range <100 mg/dL for primary prevention; <70 mg/dL for patients with CHD or diabetic patients with > or = 2 CHD risk factors. LDL-C is now calculated using the Varsha calculation, which is a validated novel method providing better accuracy than the Friedewald equation in the estimation of LDL-C. Brock LIN et al. NORMAN. 2013;310(19): 4983-3599 (http://education.[employer] Services/faq/UGV148) CHOL/HDLC RATIO 5.6(H) <5.0 (calc) [facility] NON-HDL CHOLESTEROL 161(H) <130 mg/dL (calc) [facility] Comment: For patients with diabetes plus 1 major ASCVD risk factor, treating to a non-HDL-C goal of <100 mg/dL (LDL-C of <70 mg/dL) is considered a therapeutic option. 10/04/2023 2:49 PM EDT 10/04/2023 2:51 PM EDT Minor Laird MD LAB - BLOOD DRAW Final Result Performing Organization Address [facility] de Phone Number Hall [address] [address], [employer] [address] [address] * HIV 1/2 AG & AB W/RFLX (4TH GEN) (09/07/2023 9:32 AM EDT) [facility] HIV AG/AB, 4TH GEN NON-REAC TIVE NON-REAC TIVE [facility] Comment: HIV-1 antigen and HIV-1/HIV-2 antibodies were [...] purpose. For additional information please refer to http://education.[employer] ([employer])/faq/HJI623 (This link is being provided for informational/ educational purposes only.) The performance of this assay has not been clinically validated in patients less than 2 years old. Blood Blood / Unknown 09/07/2023 9 :32 AM EDT 09/07/2023 9:34 AM EDT Narrative Hall [facility] - 09/09/2023 3:39 PM EDT FASTING:YES Yanira Bennett PA-C LAB - BLOOD DRAW Final Resul t Performing Organization Address [facility] Co de Phone Number [facility] [address] [address], [employer] [address] [address] * HEPATITIS PANEL W/RFLX (09/07/2023 9:32 AM EDT) HEPATITIS A IGM ANTIBODY NON-REACT TAMIR NON-REACT TAMIR [employer] [facility] COMMENT [employer] [facility] HEPATITIS B SURFACE ANTIGEN NON-REACT TAMIR NON-REACT TAMIR [employer] [facility] COMMENT [employer] [facility] HEPATITIS B CORE IGM ANTIBODY NON-REACT TAIMR NON-REACT TAMIR [employer] [facility] COMMENT [employer] [facility] HEPATITIS C ANTIBODY NON-REACT TAMIR NON-REACT TAMIR [employer] [facility] Comment: HCV antibody was non-reactive. There is no laboratory evidence of HCV infection. In most cases, no further action is required. However, if recent HCV exposure is suspected, a test for HCV RNA (test code 04179) is suggested. For additional information please refer to http://[employer]/faq/RRI15v4 (This link is being provided for informational/ educational purposes only.) Blood Blood / Unknown 09/07/2023 9 :32 AM EDT 09/07/2023 9:34 AM EDT Narrative Hall [facility] - 09/09/2023 3:39 PM EDT FASTING:YES For additional information, please refer to http://[employer]/faq/DRH085 (This link is being provided for informational/ educational purposes only.) For additional information, please refer to http://[employer]maxio/faq/IRH378 (This link is being provided for informational/ educational purposes only.) For additional information, please refer to http://[employer]/faq/UYQ714 (This link is being provided for informational/ educational purposes only.) us Yanira Bennett PA-C LAB - BLOOD DRAW Final Resul t Hall [facility] [address] [address], [employer] [address] [address] from Last 3 Months or Most Recently Relevant to Health Maintenance Insurance [address] [employer] Care Teams Yarder Relationship Specialty Start Date End Date Minor Laird MD [address] [place] [address] PCP - General Family Medicine, Physician 06/28/23
--- OUTSIDE RECORDS SUMMARY | 2024-12-16 10:47 | XMS_ITS | Clinical Summary ---
Author Organization [address] [facility] Address [address] [place] [address] Phone Care Team Providers Care Vice Provost Name Role Phone Andrea Lorenzana MD Primary Care Provider [phone] Allergies No known active allergies Medications albuterol [...] Comments Kidney stones Migraine Asthma Diabetes mellitus ([facility] V24, [facility] V28) GERD (gastroesophageal reflux disease) [...] topic Insurance MEDICAID - [place] Care Teams Vice Provost Relationship Specialty Start Date End Date Andrea Lorenzana MD [address] [place] [address] PCP - General 12/23/23
--- NOTE | 2024-12-16 15:29 | P.CONAN_ITS ---
Documented by User: Lashonda Mariscal NP 12/16/24 15:30 HPI - Anesthesia Eval Consult details Narrative: 39yo F for Upper Endoscopy Anesthesia Pre-Procedure Meds Is the patient on any of the following meds?: GLP1/DPP4 PMFSH Active Problems Active Problems: All Active Problems Non-insulin dependent type 2 diabetes mellitus (Acute) DJD (degenerative joint disease) (Acute) GERD (gastroesophageal reflux disease) (Acute) Asthma (Acute) Morbid obesity (Acute) Past Medical History Medical History Non-insulin dependent type 2 diabetes mellitus DJD (degenerative joint disease) GERD (gastroesophageal reflux disease) Asthma Morbid obesity Type 2 diabetes mellitus Kidney stones Family History Family History (Updated 10/08/24 @ 11:15 by Angeline Cline CMA) Mother Hypertension Father Hypertension Surgical History Surgical History (Updated 11/02/24 @ 10:15 by Melo Carrington MD) History of lithotripsy History of laparoscopic cholecystectomy History of delivery Social History Social History (Updated 10/08/24 @ 11:15 by Angeline Cline CMA) Are you a primary care professional to a significant other at home: No Do you presently have visiting nurse or other home services: No Alcohol intake: never Patient Tobacco Use Status: Current everyday Tobacco user Cigarettes Per Day: 5 Use of substances other than those prescribed or required for medical reasons: No Have you been hit, kicked, punched, or otherwise hurt by someone within the past year? If so, by whom?: No Are you DNR?: No Advance Directives: No Advance Directives Information Provided: Yes Patient : No FDLMP: 10/04/2024 Poor oral hygiene: Yes Meds Allergies Allergy/AdvReac Type Severity Reaction Status Date / Time No Known Allergies (No Known Allergy Verified 12/18/24 11:00 Allergies*) Home Medications ?Medication ?Instructions ?Recorded ?Confirmed ?Last Taken ?Type albuterol sulfate 90 mcg/actuation 2 puff inhalation Q 6H PRN 11/02/24 12/18/24 Unknown History aerosol inhaler (Ventolin HFA) Shortness Of Breath Or Wheezing metformin 500 mg tablet 500 mg PO BID 11/02/2412/18 Unknown History Assessment and Plan Assessment Anesthesia Assessment: Chart Reviewed Documented by User: Vanessa Borden MD 12/18/24 11:54 PMFSH Past Medical History Medical History Non-insulin dependent type 2 diabetes mellitus DJD (degenerative joint disease) GERD (gastroesophageal reflux disease) Asthma Morbid obesity Type 2 diabetes mellitus Kidney stones Family History Family History (Updated 10/08/24 @ 11:15 by Angeline Cline CMA) Mother Hypertension Father Hypertension Family history of problems with anesthesia: No Surgical History Surgical History (Updated 11/02/24 @ 10:15 by Melo Carrington MD) History of lithotripsy History of laparoscopic cholecystectomy History of delivery History of Problems with Anesthesia: No Social History Social History (Updated 10/08/24 @ 11:15 by Angeline Cline CMA) Are you a primary care professional to a significant other at home: No Do you presently have visiting nurse or other home services: No Alcohol intake: never Patient Tobacco Use Status: Current everyday Tobacco user Cigarettes Per Day: 5 Use of substances other than those prescribed or required for medical reasons: No Have you been hit, kicked, punched, or otherwise hurt by someone within the past year? If so, by whom?: No Are you DNR?: No Advance Directives: No Advance Directives Information Provided: Yes Patient : No FDLMP: 10/04/2024 Poor oral hygiene: Yes Meds Allergies Allergy/AdvReac Type Severity Reaction Status Date / Time No Known Allergies (No Known Allergy Verified 12/18/24 11:00 Allergies*) Home Medications ?Medication ?Instructions ?Recorded ?Confirmed ?Last Taken ?Type albuterol sulfate 90 mcg/actuation 2 puff inhalation Q 6H PRN 11/02/24 12/18/24 Unknown History aerosol inhaler (Ventolin HFA) Shortness Of Breath Or Wheezing metformin 500 mg tablet 500 mg PO BID 11/02/2412/18 Unknown History Exam Airway Mallampati Class: III TM Dist: >3cm Neck ROM: Full Assessment and Plan Assessment Anesthesia Assessment: Anesthesia Plan Discussed Final Anesthetic Review Family History of Problems with Anesthesia: No History of Problems with Anesthesia: No NPO: Yes ASA Class: III Final Preanesthetic Review: No Changes in Pt Med Stat, Meds/Allgs Chart Reviewed, Consent Obtained/Reviewed and Anes Risks/Benef Reviewed Patient Risk: Intermediate Procedure Risk: Low Anesthetic Plan Anesthetic Plan: TIVA Disposition: Standard PACU
[2024-12-18 11:05] VITALS: BP 109/67; PULSE 85; RESP 14; TEMP 36.1; O2SAT 98; BMI 38.2
[2024-12-18 11:06] LABS: UPreg QC Valid YES
--- NOTE | 2024-12-18 11:59 | MHC.SHP ---
Pre-Procedural Eval Section A - 24 Hr Update-Section A only Date of Service: 12/18/24 The patient is an INPATIENT: No The patient has been examined within 24 hours of the surgical procedure. The History & Physical has been completed within 30 days and I have reviewed it.: Yes Section B - Complete if H&P > 30 days Chief Complaint: Morbid (severe) obesity due to excess calories Details of Present Illness: GERD Relevant Family History (Specify if Yes): No Relevant Social History: None Present Medications: None Medical History: No relevant PMH History of Previous Operations: No relevant previous surgery Allergies: Allergies Allergy/AdvReac Type Severity Reaction Status Date / Time No Known Allergies (No Known Allergy Verified 12/18/24 11:00 Allergies*) Review of Systems Sugical H&P ROS: Negative: Constitution, Cardiovascular, Respiratory, Neurological, Psychiatric, Hem-Onc, Allergic/Immunologic, Gastrointestinal, Genitourinary, Musculoskeletal, Integumentary, Endocrine and Eyes/Ears/Nose/Throat Exam Surgical H&P Exam: Normal: HEENT, Normal: Heart, Normal: Lungs, Normal: Extremities, Normal: Abdomen, Normal: Skin and Normal: Neurological Plan Diagnosis/Plan: Unchanged (EGD to assess etiology of GERD. Risks of bleeding and perforation were discussed with the patient and she is in agreement with the plan.) I have reviewed the history and physical and performed a pertinent physical examination on my patient. No changes have occurred unless specified. Time Spent With Patient Time: Total time managing care of this patient today ____ minutes.
--- NOTE | 2024-12-18 12:00 | PM.OP ---
Brief Operative Note Date of Service: 12/18/24 Pre-op diagnosis: GERD Post-op diagnosis: same Procedure: PROCEDURE DATE: 12/18/2024 PREOPERATIVE DIAGNOSIS: GERD POSTOPERATIVE DIAGNOSIS: ?Same as above. PROCEDURE: [id number] with biopsy Surgeon: Michael Carrington M.D.. Ph.D. Bilingual Call Center Representative: None ? Anesthesia: IV sedation Estimated blood loss: ?Minimal FINDINGS AND PROCEDURE: ? OPERATIVE INDICATIONS: ?The patient is a 39 year old female known to me who is interested in bariatric surgery. The patient has GERD. Based on this information I recommended an upper endoscopy to evaluate the patient's symptoms. Risks and complications of the surgery were discussed with the patient in advance particularly the possibility of perforation or bleeding that may require surgical intervention. The patient understood the risks and was in agreement with the plan. ? PROCEDURE: After informed consent was obtained by the patient, the patient was ?transferred to the Operating Room and was placed in the supine position.? After successful induction of IV sedation, a mouth block was inserted and the patient was placed in the left lateral decubitus position. An upper endoscopy was performed next, the oropharynx and esophagus appeared within the normal limits. There was no obvious hiatal hernia. The z-line was smooth. The stomach was entered and it appeared to be of normal size. There was no gastritis. There was no stricture or ulcer. A biopsy was obtained from the distal antrum. No significant bleeding was noted from any of the biopsy site. Additional biopsies were not performed because the patient desaturated and the procedure had to be terminated. Retroflexion of the scope was not performed due to the desaturation. The scope was then advanced into the duodenum which appeared to be normal as well. At that point the duodenum ?and the stomach were decompressed and the scope was withdrawn from the patient's mouth. The patient extubated and was transferred in stable condition to the Recovery Room for further care. I was present and performed all steps of the procedure. There were no residents to assist with this case. Juan Carrington M.D., Ph.D. Surgeon: Melo Carrington MD Anesthesia: MAC Was an Bilingual Call Center Representative used for this Procedure?: No Estimated blood loss (mL): 0 IV fluids (mL): 400 Urine output (mL): 0 (No Balderas to record output) Pathology: other (1) antrum x1) Condition: stable Disposition: PACU
[2024-12-18 12:09] LABS: Glucose, Whole Blood 116 mg/dL (60-115)
[2024-12-18 12:41] VITALS: BP 101/50; PULSE 95; RESP 22; TEMP 36.1; O2SAT 99
[2024-12-18 12:56] VITALS: BP 102/52; PULSE 86; RESP 20; TEMP 36.2; O2SAT 98
== END 2024-12-18 13:23 | disposition home or self-care (01) ==
PROVIDERS: Nurse Practitioner; Visit Provider Surgery
PROC: 0DJ08ZZ Inspection of Upper Intestinal Tract, Via Natural or Artificial Opening Endoscopic (ICD-10-PCS; CPT 43235; principal; 2024-12-18 11:50)
DX: K21.9 Gastro-esophageal reflux disease without esophagitis (principal); E66.01 Morbid (severe) obesity due to excess calories; Z68.41 Body mass index [BMI] 40.0-44.9, adult; E11.9 Type 2 diabetes mellitus without complications; J45.909 Unspecified asthma, uncomplicated; M19.90 Unspecified osteoarthritis, unspecified site; Z87.442 Personal history of urinary calculi; Z79.84 Long term (current) use of oral hypoglycemic drugs; Z79.85 Long-term (current) use of injectable non-insulin antidiabetic drugs; Z79.899 Other long term (current) drug therapy; Z90.49 Acquired absence of other specified parts of digestive tract
CPT/HCPCS: 43239; 81025; 82947; 88305; 88342; J2003; J2704

== ENCOUNTER → 2024-12-18 09:57 | Outpatient (BNV) | payer MEDICAID, SELFPAY | PROVIDERS: Visit Provider Surgery | DX: K21.9 Gastro-esophageal reflux disease without esophagitis (principal) | CPT/HCPCS: 43239 ==

== ENCOUNTER 2025-02-21 11:16 | Emergency (ER) | payer MEDICAID, SELFPAY ==
--- NOTE | ~2025-02-21 | CT_ITS ---
CLINICAL HISTORY: Right upper quadrant abdominal pain --- Additional Notes or Special Instructions: No IV @ 12:45 CT abdomen and pelvis with contrast Comparison: CT - CT ABDOMEN PELVIS W IV CON - 02/21/25 15:[address]/AK/SR - CT ABDOMEN PELVIS WITHOUT IV CONTRAST - 12/05/23 10:[address]/SR - CT ABDOMEN PELVIS WITHOUT IV CONTRAST - 08/22/22 13:29 EDT Findings: No consolidation at the lung bases. Status post cholecystectomy. Unremarkable bladder. No hydronephrosis or nephrolithiasis. The kidneys enhance normally Mild left renal scarring. The other solid organs are unremarkable. No bowel wall thickening or dilation. A normal appendix is identified. No aneurysm. No calcified atherosclerotic disease. No lymphadenopathy. Infiltration of the mesentery in the midline upper abdomen with associated nonenlarged lymph nodes which was also present on the prior studies may indicate mesenteric panniculitis. No ascites. No acute osseous abnormality. Impression: No acute findings. Persistent mesenteric panniculitis. This document has been electronically signed by: Selena Dexter MD on 02/21/2025 16:37:31
--- NOTE | 2025-02-21 11:23 | ED.GENADULT ---
HPI - General Adult General Chief complaint: Abdominal Pain Stated complaint: dizziness, pain in abd Time Seen by Provider: 02/21/25 11:45 Source: patient, family () and electrical and radio aircraft mechanic Mode of arrival: ambulatory Limitations: no limitations History of Present Illness ED Provider: DR. Corado HPI narrative: This is a 39-year-old female came in for evaluation upper abdominal pain for few months that has been getting worse over the past 2 weeks, no clear aggravating factor, no clear relieving factor, s/p remote cholecystectomy, no alcohol use, no nausea, no vomiting, no blood in the stool, last bowel movement was this morning, +passing flatus. No CP, no frequency urination, no hematuria, no vaginal bleeding. Patient also is complaining of intermittent vertigo (room spinning) for the past 2 days it is intermittent comes when she change her position is specifically from laying to standing, no weakness, no numbness, no blurry vision. + good appetite, loss of weight, no sick contacts, no recent travel, no recent use of antibiotic. Related Data Home Medications ?Medication ?Instructions ?Recorded ?Confirmed albuterol sulfate 90 mcg/actuation 2 puff inhalation Q6H PRN 11/02/24 12/18/24 aerosol inhaler (Ventolin HFA) Shortness Of Breath Or Wheezing metformin 500 mg tablet 500 mg PO BID 11/02/24 12/18/24 Previous Rx's ?Medication ?Instructions ?Recorded omeprazole magnesium 20 mg 20 mg PO BID #60 tabs 02/20/20 tablet,delayed release (Prilosec OTC) epinephrine 0.3 mg/0.3 mL 0.3 mg (0.3 mL) IM Q4H PRN 10/09/23 injection, auto-injector (EpiPen anaphylaxis #2 ea 2-Daniele) tirzepatide 2.5 mg/0.5 mL 2.5 mg (0.5 mL) subcut QWEEK #2 mL 11/02/24 subcutaneous pen injector (Sunil) Allergies Allergy/AdvReac Type Severity Reaction Status Date / Time No Known Allergies (No Known Allergy Verified 02/21/25 11:28 Allergies*) Review of Systems Review of Systems: All other systems are reviewed and are negative Constitutional: Reports as per HPI and Reports no additional constitutional complaints Eyes: Reports as per HPI and Reports no additional eye complaints Reports system reviewed and no additional complaints, except as documented Cardiovascular: Reports as per HPI and Reports no additional cardiovascular complaints Respiratory: Reports as per HPI and Reports no additional respiratory complaints Gastrointestinal: Reports as per HPI and Reports no additional gastrointestinal complaints Genitourinary: Reports no additional female genitourinary complaints Musculoskeletal: Reports no additional musculoskeletal complaints Skin/Breast: Reports system reviewed and no additional complaints, except as docu Psychiatric: Reports no additional psychiatric complaints Endocrine: Reports no additional endocrine complaints Hematologic/Lymphatic: Reports no additional hematologic/lymphatic complaints Allergic/Immunologic: Reports no additional allergic/immunologic complaints Reports system reviewed and no additional complaints, except as documented and Reports Abnormal speech present [facility] Past Medical History Medical History Non-insulin dependent type 2 diabetes mellitus DJD (degenerative joint disease) GERD (gastroesophageal reflux disease) Asthma Morbid obesity Type 2 diabetes mellitus Kidney stones Surgical History History of lithotripsy History of laparoscopic cholecystectomy History of delivery Family History Family History Mother Hypertension Father Hypertension Social History Social History Are you a primary residential child care counselor to a significant other at home: No Do you presently have visiting nurse or other home services: No Alcohol intake: never Patient Tobacco Use Status: Current everyday Tobacco user Cigarettes Per Day: 5 Advance Directives: No Advance Directives Information Provided: Yes Do you have a plan to hurt others: No Plan Physical Exam ED Vital Signs: Vital Signs - 24 hr 02/21/25 11:25 02/21/25 13:48 02/21/25 13:49 Temperature 97.8 F Pulse Rate 87 82 80 Respiratory Rate 18 19 Blood Pressure 141/61 H 122/77 121/69 Pulse Oximetry 99 98 Oxygen Delivery Method Room Air Room Air 02/21/25 13:49 02/21/25 13:49 Temperature Pulse Rate 82 92 Respiratory Rate Blood Pressure 122/77 138/88 Pulse Oximetry Oxygen Delivery Method BMI result Body Mass Index 39.1 Vital signs have been reviewed and appear to be correct. Blood pressure elevated. Heart rate normal. Respiratory rate normal. Temperature normal. Oxygen saturation normal. Appearance: Alert. Oriented X3. No acute distress. Head: Normal external exam. Normocephalic. Atraumatic. No Rose signs noted. No raccoon eyes noted Eyes: PERRLA. EOMI. Conjunctiva and sclera normal. Eyelids normal. ENT: TM's Normal. Pharynx normal. Uvula midline. Moist mucous membranes. No trismus noted. No drooling noted. No muffled voice noted. Neck: Normal inspection. Neck supple. FROM. No adenopathy. Thyroid Normal. No meningeal signs. No neck mass noted. CVS: Normal heart rate and rhythm. Heart sound normal. No murmurs noted. Pulses normal throughout. Respiratory: No respiratory distress. Painless inspiration. Breath sounds normal. No wheezes/rales/rhonchi noted. Chest nontender. No accessory muscle usage noted or decreased air movement noted. Abdomen: Soft and nontender. Bowel sounds normal in all 4 quadrants. No distention noted. No organomegaly noted. No visible injury noted. Back: No CVA tenderness. Full range of motion noted. Skin: Skin warm and dry. Normal skin color. Normal skin turgor. No rashes/lesions/lacerations noted. Extremities: No lower extremity edema. Extremities exhibit normal range of motion. Extremities nontender. Neuro: Mental status: Normal attention, orientation, memory, and affect. Cranial nerves: Pupils are equal, round and reactive to light, EOMI, visual chicas are fall, face is symmetric, facial sensations are normal. Motor examination normal muscle tone, strength to 4 extremities. DTR are +2, planter's are flexor. Sensory exam; normal coordination, no ataxia, gait stable. Cerebellar exam: Aqmbil-mi-pbhl and fnge-bo-lrqa is normal. Extrapyramidal system: No tremors, no rigidity with normal facial expressions. Pronator drift not present NIH Stroke Scale Time: 12:09 Level of Consciousness: Alert Level of Consciousness Questions: Answers both questions correctly Level of Consciousness Commands: Performs both tasks correctly Best Gaze: Normal Visual: No visual loss Facial Palsy: Normal Motor Arm (Right): No drift Motor Arm (Left): No drift Motor Leg (Right): No drift Motor Leg (Left): No drift Limb Ataxia: Absent Sensory: Normal Best Language: No aphasia Dysarthia: Normal Extinction and Inattention: No abnormality Score: 0 Course Course Course Narrative: This is a rapid medical exam performed by Avani Rivera NP: Additional HPI, ROS, PE not included below will be deferred to primary provider. Patient is a 39y/o Colombian speaking F presenting to the ED with complaint of dizziness, weakness, and RUQ pain for the past 4 days. Reports pain all the time, but recently worse during the night. Nausea without vomiting. Plan: EKG, labs Reevaluation(s) Reevaluation #1: Patient feels better, able to tolerate p.o. intake, review labs and abdominal CTs unremarkable for acute pathology. Time: 17:57 Medications Administered Discontinued Medications Generic Name Dose Route Start Last Admin Trade Name Freq PRN Reason Stop Dose Admin Iohexol 100 ml 02/21/25 16:03 02/21/25 16:08 Iohexol 350 Mg/Ml 100 Ml Infus..Btl IV 02/21/25 16:04 85 ml ONCE ONE Administration Medical Decision Making Differential Diagnosis Differential Diagnoses: The differential diagnosis associated with the presentation includes (Gastritis, hepatitis, pancreatitis, colitis, diverticulitis, acute appendicitis, electrolyte derangement, severe anemia, pyelonephritis.) Admission/Observation Consideration of admission/observation: Escalation of care including admission/observation considered Lab Data MDM Lab Attestation statement: I reviewed the patient's lab results. 02/21/25 11:39 02/21/25 11:39 Labs: Lab Results 02/21/25 02/21/25 Range/Units 11:39 13:43 WBC 8.0 (4.8-10.8) X10*3/uL RBC 4.90 (4.20-5.50) X10*6/uL Hgb 14.6 (12.0-16.0) g/dl Hct 44.3 (37.0-47.0) % MCV 90.4 (80.0-98.0) fL MCH 29.8 (27.0-33.0) pg MCHC 33.0 (31.0-35.0) g/dl RDW 12.8 (11.0-16.0) % Plt Count 271 (160-400) X10*3/uL MPV 9.9 (9.4-12.3) fL Immature Gran % (Auto) 0.4 (0.0-0.4) % Neut % (Auto) 56.4 (45-73) % Lymph % (Auto) 34.7 (20-40) % Jennings % (Auto) 6.4 (2-11) % Eos % (Auto) 1.8 (0-4) % Baso % (Auto) 0.3 (0-2) % Lymph # (Auto) 2.8 (1.2-4.9) X10*3/uL Jennings # (Auto) 0.5 (0.1-1.2) X10*3/uL Eos # (Auto) 0.1 (0.0-0.4) X10*3/uL Baso # (Auto) 0.0 (0.0-0.2) X10*3/uL Abs Immat Gran (auto) 0.03 (0.00-0.03) X10*3/uL Absolute Neuts (auto) 4.5 (2.0-8.3) x10*3/uL Absolute Nucleated RBC 0.000 (0.0-0.012) X10*3/uL Nucleated RBC % (auto) 0.0 (0.0-0.2) /100WBC Sodium 136 (135-145) mmol/L Potassium 3.9 (3.3-5.1) mmol/L Chloride 106 (96-108) mmol/L Carbon Dioxide 24 (22-29) mmol/L Anion Gap 10 L (12-20) BUN 9 (9-16) mg/dL Creatinine 0.62 (0.5-1.4) mg/dL Estim Creat Clear Calc 142.5 Estimated GFR > 60 Random Glucose 103 (60-115) mg/dL Calcium 9.0 (8.4-10.2) mg/dL Total Bilirubin 0.4 (0.0-1.0) mg/dL AST 25 (5-31) U/L ALT 31 (0-31) U/L Alkaline Phosphatase 82 (39-117) U/L Total Protein 7.5 (6.5-8.0) g/dL Albumin 4.1 (3.5-5.0) g/dL Lipase 17 (8-78) U/L TSH 1.51 (0.32-4.0) uIU/mL Beta HCG, Quant < 2 mIU/mL Urine Color Yellow Urine Appearance Cloudy Urine pH 5.5 (5.0-9.0) Ur Specific [place] 1.025 (1.005-1.025) Urine Protein Trace (Neg-Trace) mg/dL Urine Glucose (UA) Negative (Negative) mg/dL Urine Ketones Negative (Negative) mg/dL Urine Blood Moderate (2+) H (Negative) Urine Nitrite Negative (Negative) Ur Leukocyte Esterase Negative (Negative) Urine RBC 0-2 (0-2) /HPF Urine WBC 0-5 (0-5) /HPF Ur Squamous Epith Cells 11-20 (0-2) /HPF Urine Bacteria Trace (None Seen) Hyaline Casts 0-2 (0-2) /LPF Independent Interpretation I performed an independent interpretation of an: EKG (Normal sinus rhythm at 79 beats per minutes, normal intervals, no ST-T changes, no change from prior EKG) and CT Scan (Abdomen pelvis:No acute findings. Persistent mesenteric panniculitis.) Radiology Impression Discussion of test interpretation with radiology: I have reviewed the radiologist's reading. Discharge Plan Discharge Clinical Impression: Abdominal pain Patient Disposition: Home, Self-Care Instructions: Abdominal Pain (ED) Prescriptions: No Action omeprazole magnesium [Prilosec OTC] 20 mg tablet,delayed release (DR/EC) 20 mg PO BID Qty: 60 0RF epinephrine [EpiPen 2-Daniele] 0.3 mg/0.3 mL auto-injector 0.3 mg IM Q4H PRN (Reason: anaphylaxis) Qty: 2 0RF albuterol sulfate [Ventolin HFA] 90 mcg/actuation HFA aerosol inhaler 2 puff inhalation Q6H PRN (Reason: Shortness Of Breath Or Wheezing) metformin 500 mg tablet 500 mg PO BID Mounjaro 2.5 mg/0.5 mL pen injector 2.5 mg subcut QWEEK Qty: 2 0RF Rx Instructions: for 4 weeks Print Language: Colombian
[2025-02-21 11:25] VITALS: BP 141/61; PULSE 87; RESP 18; TEMP 36.6; O2SAT 99; BMI 39.1
--- NOTE | 2025-02-21 11:28 | ECG_ITS ---
Test Reason : DIZZINESS Blood Pressure : */* mmHG Vent. Rate : 79 BPM Atrial Rate : 79 BPM P-R Int : 196 ms QRS Dur : 74 ms QT Int : 374 ms P-R-T Axes : 55 29 0 degrees QTcB Int : 428 ms Normal sinus rhythm Nonspecific T wave abnormality Abnormal ECG When compared with ECG of 12-Nov-2024 09:41, Nonspecific T wave abnormality now evident in Anterior leads Referred By: Abigail Rivera Electronically Signed By: MANUELA CURRY MD
[2025-02-21 11:46] LABS: MANUAL DIFF FLAG NO
[2025-02-21 11:47] LABS: Hematocrit 44.3 % (37.0-47.0); Hemoglobin 14.6 g/dl (12.0-16.0); Imm Gran Abs Auto 0.03 X10*3/uL (0.00-0.03); Imm Gran Pct Auto 0.4 % (0.0-0.4); Lymphocytes Absolute Auto 2.8 X10*3/uL (1.2-4.9); Mean Corpuscular HGB Conc 33.0 g/dl (31.0-35.0); Mean Corpuscular Hemoglobin 29.8 pg (27.0-33.0); Mean Corpuscular Volume 90.4 fL (80.0-98.0); NRBC Abs Auto 0.000 X10*3/uL (0.0-0.012); NRBC Pct Auto 0.0 /100WBC (0.0-0.2); Platelet Count 271 X10*3/uL (160-400); Red Blood Count 4.90 X10*6/uL (4.20-5.50); White Blood Count 8.0 X10*3/uL (4.8-10.8)
[2025-02-21 12:14] LABS: Alanine Aminotransferase 31 U/L (0-31); Albumin Level 4.1 g/dL (3.5-5.0); Alkaline Phosphatase 82 U/L (39-117); Anion Gap 10 (12-20); Aspartate Amino Transferase 25 U/L (5-31); Blood Urea Nitrogen 9 mg/dL (9-16); Calcium 9.0 mg/dL (8.4-10.2); Carbon Dioxide 24 mmol/L (22-29); Chloride 106 mmol/L (96-108); Creatinine Clr Calc Pharmacy 142.5; Estimated Glomerular Filt Rate > 60; Lipase 17 U/L (8-78); Potassium 3.9 mmol/L (3.3-5.1); Sodium 136 mmol/L (135-145); Total Protein 7.5 g/dL (6.5-8.0)
--- OUTSIDE RECORDS SUMMARY | 2025-02-21 12:22 | XMS_ITS | Encounter Summary ---
Author Organization [employer] Address [address] [facility] [address] [place] [address] Care Team Providers Care Back Closer Name Role Phone Unavailable Primary Care Provider Unavailabl e Reason for Visit * Reason Comments Med Refill Encounter Details Date Type Department Care Team ([facility] st Contact Info) Description 11/13/2023 Refill [facility] [address] [place], [place] [phone] [facility] [address] [place], [place] [phone] Right acute otitis media Social History Tobacco [...]
--- OUTSIDE RECORDS SUMMARY | 2025-02-21 12:22 | XMS_ITS | Encounter Summary ---
Author Organization [employer] Address [address] [facility] [address] [place] [address] Care Team Providers Care Senior Payroll Manager Name Role Phone Unavailable Primary Care Provider Unavailabl e Reason for Visit * Reason Comments Med Refill Encounter Details Date Type Department Care Team (Late st Contact Info) Description 11/13/2023 Refill [facility] [address] [place], [place] [phone] Henrik Le MD [address] [place] [address] Social History Tobacco Use Types Packs/Day Years [...]
--- OUTSIDE RECORDS SUMMARY | 2025-02-21 12:22 | XMS_ITS | Encounter Summary ---
Author Organization [employer] Address [address] [facility] 7 [place] [address] Care Team Providers Care Supervisor Refining Name Role Phone Unavailable Primary Care Provider Unavailabl e Reason for Visit * Reason Comments Med Refill Encounter Details Date Type Department Care Team (Late st Contact Info) Description 10/05/2023 Refill [facility] [address] [place], [place] [phone] Addie Brar MD [address] [place], [place] [phone] Mild persistent asthma with acute exacerbation; Mild [...]
--- OUTSIDE RECORDS SUMMARY | 2025-02-21 12:22 | XMS_ITS | Clinical Summary ---
Author Organization [address] [facility] Address [address] [place] [address] Phone Care Team Providers Care Salt Manager Name Role Phone Andrea Lorenzana MD Primary Care Provider [phone]- [phone] Allergies No known active allergies Medications albuterol [...] Comments Kidney stones Migraine Asthma Diabetes mellitus ([facility] V24, [facility] V28) GERD (gastroesophageal reflux disease) Social History Tobacco Use Types Packs/Day Years Used Date Smoking Tobacco: Every Day Cigarettes Smokeless Tobacco: Never Tobacco Cessation:Ready to Q uit: Not Asked; Counseling Given: Not Answered Alcohol Use Standard Drinks/Week Comments Not Currently 0 (1 standard drink = 0.6 oz pur e alcohol) Interpersonal Safety Answer Date Record ed Physical Abuse Unrecognized value 07/24/2024 Verbal Abuse Unrecognized value 07/24/2024 Comments No Sex and Gender Information [...] 05/31/2023 Social Influencers of Health Screening 05/31/2023 HPV Vaccines (2 - 3-dose SCD M series) 02/25/2024 01/28/2024 Diabetes: Blood Sugar Contro l Test (HGBA1C) 03/31/2024 Depression Screening 05/06/2024 Diabetes: Annual Urine Albumin-Creatinine Ratio (uACR) 10/03/2024 10/04/2023 Diabetes: Annual GFR (Glomerular Filtration Rate) 12/01/2024 12/02/2023, 11/23/2023 COVID-19 Vaccine (1 - 2023-2 5 season) 2025 Influenza Vaccine (#1) 2025 , 02/20/2022 Cholesterol Screening (Lipid Panel) 10/03/2028 10/04/2023, 10/04/2023 DTaP,Tdap,and Td Vaccines (2 - Td or Tdap) 10/03/2033 10/04/2023 RSV Immunization Adult Patients (1 - 1-dose 75+ series) 2060 Hepatitis C Screening Completed 09/07/2023 Pneumococcal Vaccine: [...] topic Insurance MEDICAID - [place] Care Teams Salt Manager Relationship Specialty Start Date End Date Andrea Lorenzana MD [address] [place] [address] PCP - General 12/23/23
--- OUTSIDE RECORDS SUMMARY | 2025-02-21 12:22 | XMS_ITS | Encounter Summary ---
Author Organization [employer] Address [address] [place] [address] Care Team Providers Care Floor Coverings Salesperson Name Role Phone Unavailable Primary Care Provider Unavailabl e Reason for Visit * Reason Onset Date Comments New patient 12/25/2022 Encounter Details Date Type Department Care Team (Late st Contact Info) Description 12/25/[address] [facility] [address] [place], [place] [phone] Shoaib Lujan MD [address] [place], [place] [phone] New patient Social History Tobacco Use Types [...] been transfer over to wait list for DIRECTOR SOFTWARE DEVELOPMENT. EFFECTIVE SINCE 12/25/2022 documented in this encounter Plan of Treatment Not on file documented as of this encounter Visit Diagnoses Not on filedocumented in this encounter
--- OUTSIDE RECORDS SUMMARY | 2025-02-21 12:22 | XMS_ITS | Clinical Summary ---
Author Organization [employer] Address [address] [place] [address] [address] [place] [address] Care Team Providers Care Fireworks Display Specialist Name Role Phone Unavailable Primary Care Provider Unavailabl e Allergies No known active allergies Medications sodium chloride ([place] Nasal [place]) 0.65 % nasal sprayIndications: Viral URI 1-2 sprays on each nostril every 2-3 hours as needed for nasal congestion 30 mL 1 3 Active famotidine (Pepcid) 20 MG tabletIndications :Heartburn Take 1 tablet twice daily for 1 week, then as needed for acid reflux 40 tablet 3 Active ibuprofen 400 MG tablet Take [...] Active Ventolin HFA 108 (90 Base) MCG/ACT inhalerIndication s:Mild persistent asthma with acute exacerbation,Mild intermittent reactive airway disease without complication INHALE 2 PUFFS BY MOUTH EVERY 6 HOURS NEEDED FOR WHEEZING 18 g 1 4 Active nicotine polacrilex (Nicorette) 4 MG gumIndications:To bacco dependence CHEW 1 PIECE OF GUM NEEDED FOR SMOKING CESSATION, DO NOT EXCEED 24 / DAY 100 each 4 Active albuterol (2.5 MG/3ML) 0.083% nebulizer solutionIndicatio ns:Mild persistent asthma with acute exacerbation,Mild intermittent reactive airway disease without complication INHALE 1 AMPULE USING A NEBULIZER EVERY 6 HOURS NEEDED FOR WHEEZING 90 mL 1 4 Active nicotine (Nicoderm, Step 2) 14 MG/24HR patchIndications: Tobacco dependence APPLY 1 PATCH TOPICALLY TO THE SKIN IN THE MORNING. DO NOT SMOKE WHILE USING PATCH 42 patch 4 Active cromolyn (NasalCrom) 5.2 MG/ACT nasal sprayIndications: Influenza A Administer 1 spray into each nostril if needed in the morning, at noon, and at bedtime for rhinitis for up to 5 days. 26 mL 5 Active Active Problems Problem Noted Date Diagnosed Date [...] pt visit, new pt labs Morbid obesity ([facility]) 12/18/2017 Immunizations Immunization Administration Dates Next Due Influenza injectable quadrivalent [...] 100 06/02/2024 10:07 AM EST Temperature 37.1 C (98.7 F) 06/02/2024 10:07 AM EST Respiratory Rate 20 06/02/2024 10:07 AM EST [...] Diabetes: Hemoglobin A1C 1985 Lipid Panel 1985 Disability Screening 1985 Diabetes: Foot Exam 10/12/1995 Eye Exam 10/12/1995 Alcohol/Substance Use Screening 1997 Family Planning (PISQ) 2000 Hepatitis C Screening 10/12/2003 Diabetes: Urine Protein Screening 2004 Hepatitis B Vaccines (1 of 3 - 19+ 3-dose series) 2004 Pap Smear 2006 Cervical Cancer Screening 10/12/2015 HPV/Cotest 10/12/2015 SDOH Screening 09/11/2024 09/12/2023 COVID-19 Vaccine ( - 2023-2 5 season) 2025 HPV Vaccines (3 - 3-dose series) 04/30/2025 02/05/2025, 01/28/2024 Tobacco Screening 06/02/2025 06/02/2024 DTaP/Tdap/Td Vaccines (2 - T d or Tdap) 10/03/2033 10/04/2023 Zoster Vaccines (1 of 2) 10/12/2035 RSV Patients and Patients Aged 60 years or older (1 - 1-dose 75+ series) 2060 HIV Screening Completed 09/07/2023, 09/07/2023 Pneumococcal Vaccine: Pediatrics (0 to 5 Years) and At-Risk Patients (6 to 49) Years Completed 10/04/2023 Influenza Vaccine Completed 02/05/2025, 01/28/2024, 02/20/2022 HIB Vaccines Aged Out No [...] patient's age to complete this topic [place] [address] [place] [address] C3
--- OUTSIDE RECORDS SUMMARY | 2025-02-21 12:22 | XMS_ITS | Encounter Summary ---
Author Organization [employer] Address [address] [place] [address] 7 [place] [address] Care Team Providers Care Strategy Consultant Name Role Phone Unavailable Primary Care Provider Unavailabl e Reason for Visit * Reason Comments Med Refill Encounter Details Date Type Department Care Team (Late st Contact Info) Description 08/26/2023 Refill [facility] [address] [place], [place] [phone] Henrik Le MD [address] [place] [address] Social History Tobacco Use Types Packs/Day Years [...]
--- OUTSIDE RECORDS SUMMARY | 2025-02-21 12:22 | XMS_ITS | Encounter Summary ---
Author Organization [employer] Address [address] [facility] 7 [place] [address] Care Team Providers Care Bevel Mill Operator Name Role Phone Unavailable Primary Care Provider Unavailabl e Reason for Visit * Reason Comments Med Refill Encounter Details Date Type Department Care Team (Late st Contact Info) Description 11/13/2023 Refill [facility] [address] [place], [place] [phone] Addie Brar MD [address] [place], [place] [phone] Mild persistent asthma with acute exacerbation; Mild [...]
--- OUTSIDE RECORDS SUMMARY | 2025-02-21 12:22 | XMS_ITS | Encounter Summary ---
Author Organization [employer] Address [address] [facility] [address]t [place] [address] Care Team Providers Care Human Resources Recruiter Name Role Phone Unavailable Primary Care Provider Unavailabl e Reason for Visit * Reason Comments Med Refill Encounter Details Date Type Department Care Team ([facility] st Contact Info) Description 10/23/2023 Refill [facility] [address] [place] [address] [phone] Name, MD Hima [address] [place] [address] Mild persistent asthma with acute exacerbation; Mild [...]
--- OUTSIDE RECORDS SUMMARY | 2025-02-21 12:22 | XMS_ITS | Encounter Summary ---
Author Organization [employer] Address [address] [place] [address] [address] [place] [address] Care Team Providers Care Home Help Aide Name Role Phone Unavailable Primary Care Provider Unavailabl e Reason for Visit * Reason Comments Med Refill Encounter Details Date Type Department Care Team (Late st Contact Info) Description 02/22/2023 Refill [facility] [address] [place] [phone] Kahlil Mondragon FNP Mild intermittent reactive airway [...]
--- OUTSIDE RECORDS SUMMARY | 2025-02-21 12:22 | XMS_ITS | Encounter Summary ---
Author Organization [email or web address] Address [address] [facility] 7t [place] [address] Care Team Providers Care Firer Portable Boiler Name Role Phone Unavailable Primary Care Provider Unavailabl e Reason for Visit * Reason Comments Med Refill Encounter Details Date Type Department Care Team ([facility] st Contact Info) Description 11/13/2023 Refill [facility] [address] [place] [address] [phone] Name, MD Hima [address] [place] [address] Mild persistent asthma with acute exacerbation; Mild [...]
--- OUTSIDE RECORDS SUMMARY | 2025-02-21 12:22 | XMS_ITS | Clinical Summary ---
Author Organization [facility] Address [address] [place] [address] Care Team Providers Care Loan Services Professional Name Role Phone Kimberly Martin JORGE Primary Care Provider [phone] Source Comments PLEASE NOTE, if this patient [...] complication, without long-term current use of insulin Check blood sugar once daily. Three days per week check blood sugar in the morning before eating. Four days per week check blood sugar 2 hours after eating. 1 Each Active loperamide 2 mg tablet Take 1 Tablet by mouth 4 (four) times daily as needed for diarrhea 60 Tablet 1 Active dicyclomine (BENTYL) 10 mg capsule TAKE ONE CAPSULE BY MOUTH FOUR TIMES DAILY NEEDED DOLOR ABDOMINAL / CALAMBRES 30 Capsule 1 Active nicotine, polacrilex, (NICORETTE) 4 mg gum [...] 24 hours. 15 Tablet 2 025 Active metFORMIN (GLUCOPHAGE) 1,000 mg tabletIndication s:Type 2 diabetes mellitus without complication, without long-term current use of insulin TAKE ONE TABLET BY MOUTH TWICE DAILY WITH A MEAL FOR type TWO diabetes 180 Tablet 1 Active nicotine (NICODERM, STEP 2) 14 mg/[address] ONE PATCH onto THE SKIN ONCE DAILY EVERY 24 horas 28 Patch 1 Active alcohol swabs (EASY TOUCH ALCOHOL PREP PADS)Indications :Type 2 diabetes mellitus without complication, without long-term current use of insulin Check blood sugar once daily. 100 Each 025 Active blood sugar diagnostic (FREESTYLE LITE STRIPS) stripsIndication s:Type 2 diabetes mellitus without complication, without long-term current use of insulin Check blood sugar ONCE daily 100 Each 025 Active lancets (FREESTYLE LANCETS) 28 gaugeIndications :Type 2 diabetes mellitus without complication, without long-term current use of insulin Check blood sugar once daily. 100 Each 025 Active omeprazole (PRILOSEC) [address] capsule Take 1 Capsule by mouth every morning before breakfast. 90 Capsule 025 Active TRULICITY 4.5 mg/0.5 mL pen injectorIndicati ons:Type 2 diabetes mellitus without complication, without long-term current use of insulin,Class 3 severe obesity due to excess calories with serious comorbidity and body mass index (BMI) of 40.0 to 44.9 in adult INJECT 4.5mg into THE SKIN ONCE a WEEK 2 mL 2 025 Active acetaminophen (TYLENOL) 500 mg tabletIndication s:Body aches,Arthralgia , unspecified joint TAKE ONE TABLET BY MOUTH EVERY 6 HOURS NEEDED FOR PAIN 90 Tablet 025 Active fluticasone (FLONASE) 50 mcg/actuation nasal sprayIndications :Nasal congestion Place 2 Sprays in both nostrils once daily. 16 g 1 025 Active varenicline tartrate (CHANTIX STARTING MONTH FILIPE) 0.5 mg (11)- 1 mg (42) tabletIndication s:Encounter for smoking cessation counseling Take 1 tablet (0.5 mg) by mouth daily every morning for 3 days, then take 1 tablet (0.5 mg) twice daily for days 4-7, then take 1 tablet (1 mg) twice daily thereafter. 1 Packet 025 Active VENTOLIN HFA 90 mcg/actuation inhalerIndicatio ns:Mild intermittent asthma without complication Inhale 2 Puffs into the lungs every 4 (four) hours as needed for wheezing or shortness of breath. 18 g 1 025 Active carbamide peroxide (DEBROX) 6.5 % otic solutionIndicati ons:Left ear impacted cerumen Place 10 Drops into the left ear 2 (two) times daily. 15 mL 025 Active traZODone (DESYREL) 100 mg tabletIndication s:Insomnia, unspecified type TAKE ONE TABLET BY MOUTH NIGHTLY NIGHTLY AT BEDTIME FOR 21 DAYS 21 Tablet 025 Active rosuvastatin (CRESTOR) 10 mg tabletIndication s:Mixed hyperlipidemia Take 1 Tablet by mouth nightly at bedtime. 90 Tablet 025 Active cyclobenzaprine (FLEXERIL) 10 mg tabletIndication s:Muscle spasm TAKE ONE TABLET BY MOUTH THREE TIMES DAILY NEEDED FOR MUSCLE SPASM 30 Tablet 1 025 Active atorvastatin (LIPITOR) 40 mg tabletIndication s:mixed hyperlipidemia Take 1 Tablet by mouth once daily Indications: high cholesterol and high triglycerides 90 Tablet 3 024 2024 Discontinued( Therapy completed/Not needed) VENTOLIN HFA 90 mcg/actuation inhalerIndicatio ns:Mild intermittent asthma without complication INHALE TWO PUFFS into the lungs EVERY SIX HOURS NEEDED FOR WHEEZING OR SHORTNESS OF BREATH 18 g 1 025 2024 Discontinued( Reorder (E-Cancel Not Sent)) cyclobenzaprine (FLEXERIL) 10 mg tabletIndication s:Muscle spasm TAKE ONE TABLET BY MOUTH THREE TIMES DAILY NEEDED FOR MUSCLE SPASM 30 Tablet 1 025 2024 Discontinued traZODone (DESYREL) 100 mg tabletIndication s:Insomnia, unspecified type TAKE ONE TABLET BY MOUTH NIGHTLY AT BEDTIME FOR 21 DAYS 21 Tablet 025 2024 Discontinued metroNIDAZOLE (FLAGYL) 500 mg tabletIndication s:BV (bacterial vaginosis) Take 1 Tablet by mouth 2 (two) times daily for 7 days. 14 Tablet 025 2024 Active Problems Problem Noted Date Diagnosed Date Class 3 severe obesity due t o excess calories with serious comorbidity and body mass index (BMI) of 40.0 to 44.9 in adult 10/17/2023 Xanthelasma of eyelid, bilateral 10/04/2023 Mixed hyperlipidemia 09/17/2023 Type 2 diabetes mellitus wit hout complication, without long-term current use of insulin 09/17/2023 Overview (01/28/2024): Starting with DM clinic [...] Encounters Date Type Department Care Team Description 02/07/2025 Results Follow-Up [address] [phone] Kimberly MartinJORGE 02/05/2025 1:00 PM EDT Office Visit [address] [phone] Kimberly MartinJORGE 01/13/2025 9:20 AM EDT Office Visit [address] [phone] Mary Summers RN Diaz, Wilma from Last 3 Months Immunizations Immunization Administration Dates Next Due Flu, Preservative Free 02/20/2022 HPV 9 (Gardasil) 02/05/2025,01/28/2024 Influenza (FLUBLOK),recombinant,injectable,preservative Free 02/05/2025,01/28/2024 PNEUMOCOCCAL CONJUGATE PCV 20 (Prevnar 20) 10/03 [...] Sign Reading Time Taken Comments Blood Pressure 120/70 02/05/2025 1:10 PM EDT Pulse 97 02/05/2025 1:10 PM EDT Temperature 36.8 C (98.3 F) 02/05/2025 1:10 PM EDT Respiratory Rate 16 02/05/2025 1:10 PM EDT Oxygen Saturation 96% 02/05/2025 1:10 PM EDT Inhaled Oxygen Concentration - - Weight 106.3 kg (234 lb 6.4 oz) 02/05/2025 1:10 PM EDT Height 154.9 cm (5' 1 ) 02/05/2025 1:10 PM EDT Body Mass Index 44.29 02/05/2025 1:10 PM EDT Plan of Treatment Upcoming Encounters Date Type Department Care Team (Late st Contact Info) Description 03/12/2025 10:20 AM EST Office Visit [facility] [address] [place] [id number] Ravin Rodriguez, PharmD [address] [place] [address] Health Maintenance Due Date Last Done Comments Dental Examination 1985 Diabetes Foot Exam 1985 HPV Screening (self-collect) 1985 HPV Screening 1985 Relationship Safety Screening/Counseling 10/03/2024 10/04/2023 Retinopathy Screening 10/23/2024 10/24/2023 Imm-HPV (3 - 3-dose SCDM series) 04/30/2025 02/05/2025, 01/28/2024 Depression Monitoring 05/08/2025 02/05/2025, 024 [id number] ( season) 2025 Postponed from 01/04/2025 (Patient postponement) Imm-Hepatitis B (1 of 3 - 19+ 3-dose series) 05/10/2025 Postponed from 2004 (Patient postponement) Hemoglobin A1c 08/06/2025 02/05/2025, 05/0 11/2024, 05/21/2024, Additional history exists Annual Wellness (Adult): Indicated (All Coverage) 02/05/2026 02/05/2025, 02/05/2025, 01/28/2024, Additional history exists Anxiety Screening 02/05/2026 02/05/2025 Hypertension Screening (#1) 02/05/2026 Lipid Screening 02/05/2026 02/05/2025, 0505/2023, 09/07/2023 Serum Creatinine 02/05/2026 02/05/2025, , 12/02/2023, Additional history exists Tobacco Cessation Counseling (#1) 02/05/2026 11/21/2023, 10/04/2023 Urine Albumin Creatinine Ratio Screening 02/05/2026 02/05/2025, 10/04/2023 Pap Smear 01/27/2027 01/28/2024 Cervical Cancer Screening 01/27/2029 Pap + HPV 01/27/2029 01/28/2024 Imm-DTaP/Tdap/Td (2 - Td or Tdap) 10/03/2033 10/04/2023 HIV Screening Completed 09/07/2023, 09/07/2023 Hepatitis C Screening Completed 09/07/2023 Imm-Pneumococcal Completed 10/04/2023 Alcohol and Drug Screen Completed 05/21/2024, 10/03 Imm-Influenza Completed 02/05/2025, 01/05, 02/20/2022 Cervical Ablation/Cold-Knife Conization Discontinued Cervical Cryotherapy Discontinued Colposcopy Discontinued Excision/Leep Discontinued HPV Genotyping Discontinued Vaginal Pap Discontinued Vulvoscopy Discontinued Procedures Procedure Name Priority Date/Time Associated Diagnosis Comments US SOFT TISSUE HEAD Routine 02/19/2025 6 :17 PM EDT Mass of head SURESWAB ADVANCED BACTERIAL VAGINOSIS (BV), CT/NG, TMA Routine 02/05/2025 2:59 PM EDT Vaginal discharge MICROALBUMIN/CREATINI NE RATIO, URINE, RANDOM Routine 02/05/2025 2:39 PM EDT Mixed hyperlipidemia Type 2 diabetes mellitus without complication, without long-term current use of insulin RFLX - REFLEXIVE URINE CULTURE Routine 02/05/2025 2:39 PM EDT Vaginal discharge URINALYSIS, COMPLETE W/REFLEX TO CULTURE Routine 02/05/2025 2:39 PM EDT Urinary frequency BLOOD COUNT COMPLETE AUTO&AUTO DIFRNTL WBC Routine 02/05/2025 2:04 PM EDT Routine general medical examination at a health care facility BMI 40.0-44.9, adult Mixed hyperlipidemia Type 2 diabetes mellitus without complication, without long-term current use of insulin COMPREHENSIVE METABOLIC PANEL Routine 02/05/2025 2:04 PM EDT Routine general medical examination at a health care facility BMI 40.0-44.9, adult Mixed hyperlipidemia Type 2 diabetes mellitus without complication, without long-term current use of insulin TSH W/RFLX FREE T4 Routine 02/05/2025 2: 04 PM EDT Routine general medical examination at a health care facility BMI 40.0-44.9, adult Mixed hyperlipidemia Type 2 diabetes mellitus without complication, without long-term current use of insulin HEMOGLOBIN GLYCOSYLATED A1C Routine 02/05/2025 2:04 PM EDT Routine general medical examination at a health care facility BMI 40.0-44.9, adult Mixed hyperlipidemia Type 2 diabetes mellitus without complication, without long-term current use of insulin LIPID PANEL Routine 02/05/2025 2:04 PM EDT Routine general medical examination at a health care facility BMI 40.0-44.9, adult Mixed hyperlipidemia Type 2 diabetes mellitus without complication, without long-term current use of insulin THINPREP IMAGING PAP, HPV MRNA E6/E7 RFLEX HPV 16,18/45 CT/NG Routine 01/28/2024 2:19 PM EDT Encounter for Papanicolaou smear of vagina as part of routine gynecological examination Encounter for screening for human papillomavirus (HPV) REFERRAL TO DIABETIC RETINAL EXAM Routine 10/24/2023 3:00 AM EDT Type 2 diabetes mellitus without complication, without long-term current use of insulin ([facility]) HIV 1/2 AG & AB W/RFLX (4TH GEN) Routine 09/07/2023 9:32 AM EDT Body aches Arthralgia, unspecified joint ACUTE HEPATITIS PANEL W/RFLX Routine 09/07/2023 9:32 AM EDT Body aches Arthralgia, unspecified joint from Last 3 Months or Most Recently Relevant to Health Maintenance Results * US SOFT TISSUE HEAD (02/19/2025 6:17 PM EDT) 02/19/2025 6:17 PM EDT Impressions [facility] - 02/20/2025 7:26 AM EDT IMPRESSION: Probable benign superficial soft tissue lipoma within the left forehead corresponding with mass. Danuta Santiago MD Signed by Danuta Santiago MD Read by: Dr. DANUTA SANTIAGO III, MD Reviewed and Electronically Signed by: Dr. DANUTA SANTIAGO III, MD [facility] - 02/20/2025 7:26 AM EDT Original Report PROCEDURE: US HEAD AND NECK SOFT TISSUE INDICATION: Mass of left forehead/temporal region x6 months; increasing in size. Intermittent headaches. TECHNIQUE: Ultrasound of the Soft Tissue. COMPARISON: None available. FINDINGS: There is an ovoid, hypoechoic lesion with benign sonographic features in the superficial soft tissues of the left forehead, area of mass. It is avascular and measures 2.4 x 0.5 x 2.2 cm. Leading differential consideration would be a benign superficial soft tissue lipoma. Procedure Note Default, [facility] Provider - 02/20/2025 Original Report PROCEDURE: US HEAD AND NECK SOFT TISSUE INDICATION: Mass of left forehead/temporal region x6 months; increasing in size. Intermittent headaches. TECHNIQUE: Ultrasound of the Soft Tissue. COMPARISON: None available. FINDINGS: There is an ovoid, hypoechoic lesion with benign sonographic features in the superficial soft tissues of the left forehead, area of mass. It is avascular and measures 2.4 x 0.5 x 2.2 cm. Leading differential consideration would be a benign superficial soft tissue lipoma. IMPRESSION: IMPRESSION: Probable benign superficial soft tissue lipoma within the left forehead corresponding with mass. Danuta Santiago MD Signed by Danuta Santiago MD Read by: Dr. DANUTA SANTIAGO III, MD Reviewed and Electronically Signed by: Dr. DANUTA SANTIAGO III, MD us Kimberly [facility] IM[facility] ULTRASOUND Final Result [facility] Corporate Office [address], [address] [place] [address], * (ABNORMAL) SURESWAB ADVANCED BACTERIAL VAGINOSIS (BV), CT/NG, TMA Vaginal Vaginal Routine (02/05/2025 2:59 PM EDT) SURESWAB(R) ADV BACTERIAL VAGINOSIS (BV), TMA POSITIVE(A) NEGATIVE 02/06/2025 12:53 PM EDT [employer] [facility] CHLAMYDIA TRACHOMATIS RNA, TMA NOT DETECTED NOT DETECTED 02/06/2025 7:14 PM EDT [employer] [facility] NEISSERIA GONORRHOEAE RNA, TMA NOT DETECTED NOT DETECTED 02/06/2025 7:14 PM EDT [employer] [facility] Vaginal Vaginal structure / Unknown 02/05/2025 2:59 PM EDT 02/06/2025 9:00 AM EDT Narrative [employer] [facility] - 02/06/2025 7:16 PM EDT SPLIT 02/05/2025 FROM [id number] For additional information, please refer to https://[email or web address]/faq/YFH534 (This link is being provided for information/ educational purposes only.) us Kimberly [facility] - MICROBIOLOGY AMBULATOR Y Final Result Performing Organization Address City/[facility]/ZIP Co de Phone Number [facility] [address] [address], [employer] [address] [address] * (ABNORMAL) URINALYSIS, COMPLETE W/REFLEX TO CULTURE Urine Routine (02/05/2025 2:39 PM EDT) COLOR YELLOW YELLOW 02/06/2025 11:29 AM [employer] [facility] APPEARANCE CLEAR CLEAR 02/06/2025 11:29 AM [employer] [place] [employer] SPECIFIC GRAVITY 1.029 1.001 - 1.035 02/06/2025 11:29 AM [employer] [facility] URINE PH 6.0 5.0 - 8.0 02/06/2025 11:29 AM [employer] [place] [employer] GLUCOSE NEGATIVE NEGATIVE 02/06/2025 11:29 AM [employer] [place] [employer] BILIRUBIN NEGATIVE NEGATIVE 02/06/2025 11:29 AM [employer] [place] [employer] KETONES NEGATIVE NEGATIVE 02/06/2025 11:29 AM [employer] [place] [employer] OCCULT BLOOD NEGATIVE NEGATIVE 02/06/2025 11:29 AM [employer] [facility] URINE PROTEIN 1+(A) NEGATIVE 02/06/2025 11:29 AM [employer] [place] [employer] NITRITE NEGATIVE NEGATIVE 02/06/2025 11:29 AM [employer] [place] [employer] LEUKOCYTE ESTERASE NEGATIVE NEGATIVE 02/06/2025 11:29 AM [employer] [facility] URINE LEUKOCYTES NONE SEEN 0 - 5 /HPF 02/06/2025 11:29 AM [employer] [facility] RBC NONE SEEN 0 - 2 /HPF 02/06/2025 11:29 AM [employer] [place] [employer] SQUAMOUS EPITHELIAL CELLS 0-5 < OR = 5 /HPF 02/06/2025 11:29 AM [employer] [place] [employer] BACTERIA NONE SEEN NONE SEEN /HPF 02/06/2025 11:29 AM [employer] [place] [employer] HYALINE CAST NONE SEEN NONE SEEN /LPF 02/06/2025 11:29 AM [employer] [facility] SEE NOTE SEE NOTE 02/06/2025 11:29 AM [employer] [place] [employer] Urine Urine specimen / Unknown 02/05/2025 2:39 PM EDT 02/06/2025 9:32 AM EDT [employer] [facility] - 02/06/2025 11:50 AM EDT SPECIMEN COLLECTED AT PROVIDER OFFICE. This urine was analyzed for the presence of WBC, RBC, bacteria, casts, and other formed elements. Only those elements seen were reported. . . Kimberly LeachMario [facility] URINE AMBULATORY Final R esult Performing Organization Address [facility]/[place] Co de Phone Number [employer] [address] [address], [employer] [address] [address] * RFLX - REFLEXIVE URINE CULTURE Routine (02/05/2025 2:39 PM EDT) REFLEXIVE URINE CULTURE SEE NOTE 02/06/2025 11:29 AM EDT [employer] 02/05/2025 2:39 PM EDT 02/06/2025 9:32 AM EDT [employer] - 02/06/2025 11:50 AM EDT SPECIMEN COLLECTED AT PROVIDER OFFICE. NO CULTURE INDICATED [facility] - MICROBIOLOGY AMBULATOR Y Final Result Performing Organization Address [facility] de Phone Number [employer] [address] [address], [employer] [address] [address] * (ABNORMAL) MICROALBUMIN/CREATININE RATIO, URINE, RANDOM Routine (02/05/2025 2:39 PM EDT) CREATININE, RANDOM URINE 181 20 - 275 mg/dL 02/07/2025 5:45 PM EDT [employer] MICROALBUMIN 12.6 mg/dL 02/07/2025 5:45 PM EDT [employer] [facility] MICROALBUMIN/CRE ATININE RATIO, RANDOM URINE 70(H) <30 mg/g creat 02/07/2025 5:45 PM EDT [employer] 02/05/2025 2:39 PM EDT 02/06/2025 2:49 PM EDT [employer] - 02/07/2025 5:47 PM EDT SPECIMEN COLLECTED AT PROVIDER OFFICE. Reference Range Not established . The ADA defines abnormalities in albumin excretion as follows: . Albuminuria Category Result (mg/g creatinine) . Normal to Mildly increased <30 Moderately increased 30-299 Severely increased > OR = 300 . The ADA recommends that at least two of three specimens collected within a 3-6 month period be abnormal before considering a patient to be within a diagnostic category. [place] Mario [facility] URINE AMBULATORY Final R esult Performing Organization Address [facility] Co de Phone Number [employer] [address] [address], [employer] [address] [address] * TSH W/RFLX FREE T4 Routine (02/05/2025 2:04 PM EDT) Pathologist [facility] [place] TSH W/REFLEX TO FT4 1.55 mIU/L 02/06/2025 4:03 PM EDT [employer] Blood Blood / Unknown 02/05/2025 2 :04 PM EDT 02/06/2025 2:29 PM EDT Narrative [employer] [facility] - 02/06/2025 4:26 PM EDT FASTING:UNKNOWN PATIENT UNABLE TO VOID; ADVISED TO RETURN FOR COLLECTION. Reference Range . > or = 20 Years 0.40-4.50 . Ranges First trimester 0.26-2.66 Second trimester 0.55-2.73 Third trimester 0.43-2.91 [place] Mario [facility] - BLOOD DRAW Final Resul t Performing Organization Address [facility] de Phone Number [employer] [address] [address], [employer] [address] [address] * BLOOD COUNT COMPLETE AUTO&AUTO DIFRNTL WBC Routine (02/05/2025 2:04 PM EDT) Pathologist [facility] [place] WHITE BLOOD CELL COUNT 10.2 3.8 - 10.8 Thousand/ uL 02/06/2025 8:37 AM EDT [employer] [facility] RED BLOOD CELL COUNT 4.74 3.80 - 5.10 Million/u L 02/06/2025 8:37 AM EDT [employer] [facility] HEMOGLOBIN 14.7 11.7 - 15.5 g/dL 02/06/2025 8:37 AM [employer] [facility] HEMATOCRIT 45.0 35.0 - 45.0 % 02/06/2025 8:37 AM [employer] [facility] MCV 94.9 80.0 - 100.0 fL 02/06/2025 8:37 AM [employer] [facility] MCH 31.0 27.0 - 33.0 pg 02/06/2025 8:37 AM [employer] [facility] MCHC 32.7 32.0 - 36.0 g/dL 02/06/2025 8:37 AM [employer] [facility] RDW 12.8 11.0 - 15.0 % 02/06/2025 8:37 AM [employer] [facility] PLATELET COUNT 264 140 - 400 Thousand/ uL 02/06/2025 8:37 AM [employer] [facility] MPV 10.5 7.5 - 12.5 fL 02/06/2025 8:37 AM [employer] [facility] ABSOLUTE NEUTROPHILS 7,018 1,500 - 7,800 cells/uL 02/06/2025 8:37 AM [employer] [facility] ABSOLUTE LYMPHOCYTES 2,346 850 - 3,900 cells/uL 02/06/2025 8:37 AM [employer] [facility] ABSOLUTE MONOCYTES 571 200 - 950 cells/uL 02/06/2025 8:37 AM [employer] [facility] ABSOLUTE EOSINOPHILS 235 15 - 500 cells/uL 02/06/2025 8:37 AM [employer] [facility] ABSOLUTE BASOPHILS 31 0 - 200 cells/uL 02/06/2025 8:37 AM [employer] [facility] NEUTROPHILS PCT 68.8 % 8:37 AM [employer] [facility] LYMPHOCYTES 23.0 % 02/06/2025 8:37 AM [employer] [facility] MONOCYTES 5.6 % 02/06/2025 8:37 AM [employer] [facility] EOSINOPHILS 2.3 % 02/06/2025 8:37 AM [employer] [facility] BASOPHILS 0.3 % 02/06/2025 8:37 AM [employer] [facility] Blood Blood / Unknown 02/05/2025 2 :04 PM EDT 02/06/2025 8:21 AM EDT [employer] - 02/06/2025 8:37 AM EDT FASTING:UNKNOWN PATIENT UNABLE TO VOID; ADVISED TO RETURN FOR COLLECTION. For adults, a slight decrease in the calculated MCHC value (in the range of 30 to 32 g/dL) is most likely not clinically significant; however, it should be interpreted with caution in correlation with other red cell parameters and the patient's clinical condition. Kimberlytyrone Martin [facility] - BLOOD DRAW Final Resul t Performing Organization Address [facility]/[place] Co de Phone Number [employer] [address] [address], [employer] [place] [employer] [address] [place] [phone] * (ABNORMAL) HEMOGLOBIN GLYCOSYLATED A1C Routine (02/05/2025 2:04 PM EDT) HEMOGLOBIN A1C 6.4(H) <5.7 % 02/06/2025 10:06 AM EDT [employer] Blood Blood / Unknown 02/05/2025 2 :04 PM EDT 02/06/2025 8:21 AM EDT [employer] - 02/06/2025 10:30 AM EDT FASTING:UNKNOWN PATIENT UNABLE TO VOID; ADVISED TO RETURN FOR COLLECTION. For someone without known diabetes, a hemoglobin A1c value between 5.7% and 6.4% is consistent with prediabetes and should be confirmed with a follow-up test. . For someone with known diabetes, a value <7% indicates that their diabetes is well controlled. A1c targets should be individualized based on duration of diabetes, age, comorbid conditions, and other considerations. . This assay result is consistent with an increased risk of diabetes. . Currently, no consensus exists regarding use of hemoglobin A1c for diagnosis of diabetes for children. . Kimberlytyrone Martin [facility] - BLOOD DRAW Final Resul t Performing Organization Address [facility]/ZIP Co de Phone Number [employer] [address] [address], [employer] [address] [place] [phone] * (ABNORMAL) LIPID PANEL Routine (02/05/2025 2:04 PM EDT) CHOLESTEROL, TOTAL 218(H) <200 mg/dL 02/06/2025 4:35 PM EDT [employer] [facility] HDL CHOLESTEROL 48(L) > OR = 50 mg/dL 02/06/2025 4:35 PM EDT [employer] [facility] TRIGLYCERIDES 235(H) <150 mg/dL 02/06/2025 4:35 PM EDT [employer] [facility] LDL-CHOLESTEROL 132(H) mg/dL (calc) 02/06/2025 4:35 PM EDT [employer] [facility] CHOL/HDLC RATIO 4.5 <5.0 (calc) 02/06/2025 4:35 PM EDT [employer] [facility] NON-HDL CHOLESTEROL 170(H) <130 mg/dL (calc) 02/06/2025 4:35 PM EDT [employer] [facility] Blood Blood / Unknown 02/05/2025 2 :04 PM EDT 02/06/2025 2:29 PM EDT Narrative [employer] [facility] - 02/06/2025 4:35 PM EDT FASTING:UNKNOWN PATIENT UNABLE TO VOID; ADVISED TO RETURN FOR COLLECTION. . If a non-fasting specimen was collected, consider repeat triglyceride testing on a fasting specimen if clinically indicated. Alec et al. J. of Clin. Lipidol. 2015;9:129-169. . Reference range: <100 . Desirable range <100 mg/dL for primary prevention; <70 mg/dL for patients with CHD or diabetic patients with > or = 2 CHD risk factors. . LDL-C is now calculated using the Brock-Le calculation, which is a validated novel method providing better accuracy than the Friedewald equation in the estimation of LDL-C. Brock SS et al. NORMAN. 2013;310(19): 3666-4584 (http://education.Nanofiber Solutions.Inventables/faq/SUX143) For patients with diabetes plus 1 major ASCVD risk factor, treating to a non-HDL-C goal of <100 mg/dL (LDL-C of <70 mg/dL) is considered a therapeutic option. Kimberly ROSENBER[facility] - BLOOD DRAW Final Resul t [facility] [address] [address], [facility] [address] [place] [address] * (ABNORMAL) COMPREHENSIVE METABOLIC PANEL Routine (02/05/2025 2:04 PM EDT) GLUCOSE 100(H) 65 - 99 mg/dL 02/06/2025 4:35 PM EDT [facility] UREA NITROGEN (BUN) 15 7 - 25 mg/dL 02/06/2025 4:35 PM EDT [facility] CREATININE (blood) 0.85 0.50 - 0.97 mg/dL 02/06/2025 4:35 PM EDT [facility] EGFR 89 > OR = 60 mL/min/1. 73m2 02/06/2025 4:35 PM EDT [facility] BUN/CREATININE RATIO SEE NOTE: 6 - 22 (calc) 02/06/2025 4:35 PM EDT [facility] SODIUM 136 135 - 146 mmol/L 02/06/2025 4:35 PM EDT [facility] POTASSIUM 3.9 3.5 - 5.3 mmol/L 02/06/2025 4:35 PM EDT [facility] CHLORIDE 103 98 - 110 mmol/L 02/06/2025 4:35 PM EDVehrity [facility] CARBON DIOXIDE 27 20 - 32 mmol/L 02/06/2025 4:35 PM EDT [facility] CALCIUM 9.2 8.6 - 10.2 mg/dL 02/06/2025 4:35 PM EDT [facility] PROTEIN, TOTAL 7.4 6.1 - 8.1 g/dL 02/06/2025 4:35 PM EDT [facility] ALBUMIN 4.2 3.6 - 5.1 g/dL 02/06/2025 4:35 PM EDT [facility] GLOBULIN 3.2 1.9 - 3.7 g/dL (calc) 02/06/2025 4:35 PM EDVehrity [facility] ALBUMIN/GLOBULI N RATIO 1.3 1.0 - 2.5 (calc) 02/06/2025 4:35 PM EDT [facility] BILIRUBIN, TOTAL 0.3 0.2 - 1.2 mg/dL 02/06/2025 4:35 PM EDT [facility] ALKALINE PHOSPHATASE 113 31 - 125 U/L 02/06/2025 4:35 PM EDT [facility] AST 30 10 - 30 U/L 02/06/2025 4:35 PM EDT [facility] ALT 58(H) 6 - 29 U/L 02/06/2025 4:35 PM EDT [facility] Blood Blood / Unknown 02/05/2025 2 :04 PM EDT 02/06/2025 2:29 PM EDT Narrative [facility] - 02/06/2025 4:35 PM EDT FASTING:UNKNOWN PATIENT UNABLE TO VOID; ADVISED TO RETURN FOR COLLECTION. . Fasting reference interval . For someone without known diabetes, a glucose value between 100 and 125 mg/dL is consistent with prediabetes and should be confirmed with a follow-up test. . Not Reported: BUN and Creatinine are within reference range. . Kimberly Martin [facility] - BLOOD DRAW Final Resul t [employer] [address] [place] [address], [facility] [address] [place] [phone] * [facility] PAP, HPV MRNA E6/E7 RFLEX HPV 16,18/45 CT/NG (01/28/2024 2:19 PM EDT) CHLAMYDIA TRACHOMATIS RNA, TMA NOT DETECTED NOT DETECTED [facility] NEISSERIA GONORRHOEAE RNA, TMA NOT DETECTED NOT DETECTED [facility] COMMENT [facility] CLINICAL INFORMATION See Note [facility] Comment:None given LMP See Note [facility] Comment:11/28/23 PREV. PAP See Note [facility] Comment:NONE GIVEN PREV. BX See Note [facility] Comment:NONE GIVEN SOURCE See Note [facility] Comment:None given STATEMENT OF ADEQUACY See Note [facility] Comment: Satisfactory for evaluation. Endocervical/transformation zone component present. INTERPRETATION/RESU LT See Note [facility] Comment: Cytology Results: Negative for intraepithelial lesion or malignancy. INFECTION See Note [facility] Comment: Shift in vaginal maureen suggestive of bacterial vaginosis. COMMENT See Note [facility] Comment: This Pap test has been evaluated with computer assisted technology. CONTROL OFFICER MANAGER See Note [facility] [employer] [facility] Comment: MRC, CT(ASCP) CT screening location: [address] [address] REVIEW CONTROL OFFICER MANAGER See Note [facility] Comment: ALS, CT(ASCP) CT screening location: [place] [address] COMMENT [facility] HPV MRNA E6/E7 Not Detected Not Detected [facility] Comment: Methodology: Fish Icer-Mediated Amplification This assay detects E6/E7 viral messenger RNA (mRNA) from 14 high-risk HPV types (16,18,31,33,35,39,45,51,52,56,58,59,66,68). Cervical sources are required for HPV testing. If a vaginal source from a patient who has had a total hysterectomy with removal of cervix was submitted, please contact the testing laboratory for alternative testing options. For additional information, please refer to http://Bufys.Curtume Erê/faq/GNV683e6 (This link if provided for information/ educational purposes only.) Swab Cervix uteri structure / Unknown 01/28/2024 2:19 PM EDT 01/29/2024 7:24 AM EDT Narrative [facility] - 01/31/2024 4:24 PM EDT EXPLANATORY NOTE: [...] test SurePath(TM) specimens have been determined by [employer]. The modifications have not been cleared or approved by the FDA. This assay has been validated pursuant to the CLIA regulations and is used for clinical purposes. For additional information, please refer to https://Bufys.Curtume Erê/faq/WEB569 (This link is being provided for information/ educational purposes only.) us Minor Laird MD LAB - PATHOLOGY AND CYTOLOGY AMB ULATORY Final Result [facility] [address] [address], [facility] [address] [address] * REFERRAL TO DIABETIC RETINAL EXAM (10/24/2023 3:00 AM EDT) 10/24/2023 3:00 AM EDT Minor Laird MD REFERRAL Final Result * HIV 1/2 AG & AB W/RFLX (4TH GEN) (09/07/2023 9:32 AM EDT) HIV AG/AB, 4TH GEN NON-REAC TIVE NON-REAC TIVE [facility] Comment: HIV-1 antigen and HIV-1/HIV-2 antibodies were [...] purpose. For additional information please refer to http://education.[employer] Breed [employer].Inventables/faq/FCU893 (This link is being provided for informational/ educational purposes only.) The performance of this assay has not been clinically validated in patients less than 2 years old. Blood Blood / Unknown 09/07/2023 9 :32 AM EDT 09/07/2023 9:34 AM EDT Narrative [facility] - 09/09/2023 3:39 PM EDT FASTING:YES Yanira Bennett PA-C LAB - BLOOD DRAW Final Resul t [facility] [address] [address], [facility] [address] [place] [address] * HEPATITIS PANEL W/RFLX (09/07/2023 9:32 AM EDT) HEPATITIS A IGM ANTIBODY NON-REACT TAMIR NON-REACT TAMIR [facility] COMMENT [facility] HEPATITIS B SURFACE ANTIGEN NON-REACT TAMIR NON-REACT TAMIR [facility] COMMENT [facility] HEPATITIS B CORE IGM ANTIBODY NON-REACT TAMIR NON-REACT TAMIR [facility] COMMENT [facility] HEPATITIS C ANTIBODY NON-REACT TAMIR NON-REACT TAMIR [facility] Comment: HCV antibody was non-reactive. There is no laboratory evidence of HCV infection. In most cases, no further action is required. However, if recent HCV exposure is suspected, a test for HCV RNA (test code 56729) is suggested. For additional information please refer to http://[employer] Therapy Solutions/faq/EBX92q2 (This link is being provided for informational/ educational purposes only.) Blood Blood / Unknown 09/07/2023 9 :32 AM EDT 09/07/2023 9:34 AM EDT Narrative [facility] - 09/09/2023 3:39 PM EDT FASTING:YES For additional information, please refer to http://Bufys.Curt[employer] Erê/faq/CFX588 (This link is being provided for informational/ educational purposes only.) For additional information, please refer to http://Bufys.[employer]urt[employer] Erê/faq/PPE159 (This link is being provided for informational/ educational purposes only.) For additional information, please refer to http://[employer]/faq/WWU438 (This link is being provided for informational/ educational purposes only.) us Yanira Bennett PA-C LAB - BLOOD DRAW Final Resul t [facility] [address] [place] [address], [facility] [address] [place] [address] from Last 3 Months or Most Recently Relevant to Health Maintenance Insurance [employer] Care Teams Loan Services Professional Relationship Specialty Start Date End Date Kimberly Martin FNP [address] [place] [address] PCP - General Family Medicine, LABEL PRESS OPERATOR 01/08/25
[2025-02-21 13:48] VITALS: BP 122/77; PULSE 82; RESP 19; O2SAT 98
[2025-02-21 13:49] VITALS: BP 121/69; BP 122/77; BP 138/88; PULSE 80; PULSE 82; PULSE 92
[2025-02-21 14:09] LABS: Appearance Urine Cloudy; Glucose Urine UA Negative (Negative); PH 5.5 (5.0-9.0); Specific Gravity - Urine 1.025 (1.005-1.025); UMIC TRIGGER UACC YES
[2025-02-21] MEDS: iohexoL 350 MG/ML 100 ML INFUS..BTL IV (16:08)
[2025-02-21 18:18] VITALS: BP 138/88; PULSE 92; RESP 16; TEMP -17.7; TEMP 0
== END 2025-02-21 18:18 | disposition home or self-care (01) ==
PROVIDERS: Registered Nurse Emergency; Emergency Provider Emergency Medicine
DX: R10.10 Upper abdominal pain, unspecified (principal); R42 Dizziness and giddiness; R94.31 Abnormal electrocardiogram [ECG] [EKG]; E11.9 Type 2 diabetes mellitus without complications; K21.9 Gastro-esophageal reflux disease without esophagitis
CPT/HCPCS: 36415; 74177; 80053; 81001; 83690; 84443; 84702; 85025; 93005; 99284; 99285; Q9967

== ENCOUNTER → 2025-02-21 11:28 | Outpatient (BNV) | payer MEDICAID, SELFPAY | PROVIDERS: Emergency Provider Emergency Medicine; Visit Provider Internal Medicine Cardiovascular Disease | DX: R94.31 Abnormal electrocardiogram [ECG] [EKG] (principal); R42 Dizziness and giddiness | CPT/HCPCS: 93010 ==

== ENCOUNTER → 2025-02-21 12:02 | Outpatient (BNV) | payer MEDICAID, SELFPAY | PROVIDERS: Emergency Provider Emergency Medicine; Visit Provider Radiology Diagnostic Radiology | DX: K65.4 Sclerosing mesenteritis (principal) | CPT/HCPCS: 74177 ==

== ENCOUNTER 2025-02-26 09:16 | Outpatient (REF) | payer MEDICAID, SELFPAY ==
--- NOTE | ~2025-02-26 | FL_ITS ---
EXAMINATION: XR FLUOROSCOPY UPPER GI WITH AIR CLINICAL INFORMATION: Abdominal pain. COMPARISON: CT abdomen and pelvis with IV contrast 02/21/2025 TECHNIQUE: Routine upper GI air contrast study was performed in upright and lying position. FINDINGS: Following oral administration of thick barium and effervescent granules there is normal propagation bolus from the oral cavity through the pharynx, esophagus into stomach without obstruction, narrowing or stricture. There is no extrinsic compression seen. The GE junction is widely patent. On supine and prone views the course, caliber and peristalsis in the stomach and duodenum is normal. There is moderate gastric secretions present. Moderate gastroesophageal reflux seen into the upper esophagus with small sliding hiatal hernia. The mucosal pattern of stomach and the duodenum is normal. FLUOROSCOPY TIME: 1.23 minutes DOSE AREA PRODUCT: 2167 uGy-m2 (microgray-meter squared) FL/FL upper GI w air IMPRESSION: Small sliding hiatal hernia with moderate gastroesophageal reflux. Electronically signed by: Angel Bettencourt MD 02/26/2025 12:29 PM EDT
--- OUTSIDE RECORDS SUMMARY | 2025-02-26 10:05 | XMS_ITS | Encounter Summary ---
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 EFFECTIVE SINCE 12/25/2022 documented in this encounter Plan of Treatment Not on file documented as of this encounter Visit Diagnoses Not on filedocumented in this encounter
--- OUTSIDE RECORDS SUMMARY | 2025-02-26 10:05 | XMS_ITS | Encounter Summary ---
Author Organization [employer] Address [address] [facility] 7 [place] [address] Care Team Providers Care Physician Recruiter Name Role Phone Unavailable Primary Care Provider Unavailabl e Reason for Visit * Reason Comments Med Refill Encounter Details Date Type Department Care Team (Late st Contact Info) Description 11/13/[address] [facility] [address] [place], [place] [phone] Henrik Le MD [address] [place] [address] Social History Tobacco Use Types Packs/Day Years [...]
--- OUTSIDE RECORDS SUMMARY | 2025-02-26 10:05 | XMS_ITS | Encounter Summary ---
Author Organization [employer] Address [address] [facility] 7 [place] [address] Care Team Providers Care Railroad Firer Name Role Phone Unavailable Primary Care Provider Unavailabl e Reason for Visit * Reason Comments Med Refill Encounter Details Date Type Department Care Team (Late st Contact Info) Description 11/13/2023 Refill [facility] [address] [place], [place] [phone] Addie Brar MD 230 [place], [place] [phone] Mild persistent asthma with acute exacerbation; Mild [...]
--- OUTSIDE RECORDS SUMMARY | 2025-02-26 10:05 | XMS_ITS | Encounter Summary ---
Author Organization [employer] Address [address] [place] [address] 7t [place] [address] Care Team Providers Care Converter Skimmer Name Role Phone Unavailable Primary Care Provider Unavailabl e Reason for Visit * Reason Comments Med Refill Encounter Details Date Type Department Care Team (Late st Contact Info) Description 02/22/2023 Refill [facility] [address] [place] [phone] Kahlil Mondragon FNP Mild intermittent reactive airway [...]
--- OUTSIDE RECORDS SUMMARY | 2025-02-26 10:05 | XMS_ITS | Encounter Summary ---
Author Organization [employer] Address [address] [place] [address] 7 [place] [address] Care Team Providers Care Salicylic Acid Blender Name Role Phone Unavailable Primary Care Provider Unavailabl e Reason for Visit * Reason Comments Med Refill Encounter Details Date Type Department Care Team (Late st Contact Info) Description 08/26/2023 Refill [facility] [address] [place], [place] [phone] Henrik Le MD [address] [place] [address] Social History Tobacco Use Types Packs/Day Years [...]
--- OUTSIDE RECORDS SUMMARY | 2025-02-26 10:06 | XMS_ITS | Encounter Summary ---
Author Organization [employer] Address [address] [facility] 7t [place] [address] Care Team Providers Care Assistant Import Manager Name Role Phone Unavailable Primary Care Provider Unavailabl e Reason for Visit * Reason Comments Med Refill Encounter Details Date Type Department Care Team ([facility] st Contact Info) Description 11/13/2023 Refill [facility] [address] [place], [place] [phone] [facility] [address] [place], [place] [phone] Right acute otitis media Social History Tobacco [...]
--- OUTSIDE RECORDS SUMMARY | 2025-02-26 10:06 | XMS_ITS | Encounter Summary ---
Author Organization [employer] Address [address] [facility] 7t [place] [address] Care Team Providers Care Explosive Ordnance Handler Name Role Phone Unavailable Primary Care Provider Unavailabl e Reason for Visit * Reason Comments Med Refill Encounter Details Date Type Department Care Team ([facility] st Contact Info) Description 10/23/2023 Refill [facility] [address] [place] [phone] Name, MD [facility] [address] [place] [address] Mild persistent asthma with acute exacerbation; Mild [...]
--- OUTSIDE RECORDS SUMMARY | 2025-02-26 10:06 | XMS_ITS | Encounter Summary ---
Author Organization [employer] Address [address] [facility] 7t [place] [address] Care Team Providers Care First Aid Nurse Name Role Phone Unavailable Primary Care Provider Unavailabl e Reason for Visit * Reason Comments Med Refill Encounter Details Date Type Department Care Team ([facility] st Contact Info) Description 11/13/2023 Refill [facility] [address] [place] [address] [phone] Name, MD [facility] [address] [place] [address] Mild persistent asthma with acute exacerbation; Mild [...]
--- OUTSIDE RECORDS SUMMARY | 2025-02-26 10:06 | XMS_ITS | Clinical Summary ---
Author Organization [address] [facility] Address [address] [place] [address] Phone Care Team Providers Care Turpentine Distiller Name Role Phone Andrea Lorenzana MD Primary Care Provider [phone] Allergies No known active allergies Medications albuterol [...] Comments Kidney stones Migraine Asthma Diabetes mellitus ([facility] V24, [facility] V28) GERD (gastroesophageal reflux disease) Social History [...] topic Insurance MEDICAID - [place] Care Teams Turpentine Distiller Relationship Specialty Start Date End Date Andrea Lorenzana MD [address] [place] [address] PCP - General 12/23/23
--- OUTSIDE RECORDS SUMMARY | 2025-02-26 10:06 | XMS_ITS | Clinical Summary ---
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 1 Packet 025 Active carbamide peroxide (DEBROX) 6.5 % [...] MUSCLE SPASM 30 Tablet 1 025 Active VENTOLIN HFA 90 mcg/actuation inhalerIndicatio ns:Mild intermittent asthma without complication INHALE TWO PUFFS INTO LUNGS EVERY FOUR HOURS NEEDED FOR WHEEZING OR SHORTNESS OF BREATH 18 g 1 025 Active atorvastatin (LIPITOR) 40 mg [...] 21 DAYS 21 Tablet 025 2024 Discontinued VENTOLIN HFA 90 mcg/actuation inhalerIndicatio ns:Mild intermittent asthma without complication Inhale 2 Puffs into the lungs every 4 (four) hours as needed for wheezing or shortness of breath. 18 g 1 025 2024 Discontinued metroNIDAZOLE (FLAGYL) 500 mg [...] Department Care Team Description 02/07/2025 Results Follow-Up [address] [address] Kimberly Martin FNP 02/05/2025 1:00 PM EDT Office Visit [address] [address] Kimberly Martin FNP 01/13/2025 9:20 AM EDT Office Visit [address] [phone] Mary Summers RN Diaz, Wilma from Last [...] Description 03/12/2025 10:20 AM EST Office Visit [facility] [address] [place] [address] Ravin Rodriguez, PharmD [address] [place] [address] Health Maintenance Due Date Last Done Comments Dental Examination 1985 Diabetes Foot Exam 1985 HPV Screening (self-collect) 1985 HPV Screening 1985 Relationship Safety Screening/Counseling 10/03/2024 10/04/2023 Retinopathy Screening 10/23/2024 10/24/2023 Imm-HPV (3 - 3-dose SCDM series) 04/30/2025 02/05/2025, 01/28/2024 Depression Monitoring 05/08/2025 02/05/2025, 024 [id number] ( season) 2025 Postponed from 01/04/2025 (Patient postponement) Imm-Hepatitis B (1 of 3 - 19+ 3-dose series) 05/10/2025 Postponed from 2004 (Patient postponement) Hemoglobin A1c 08/06/2025 02/05/2025, 0511/2024, 05/21/2024, Additional history exists Annual Wellness (Adult): Indicated (All Coverage) 02/05/2026 02/05/2025, 02/05/2025, 01/28/2024, Additional history exists Anxiety Screening 02/05/2026 02/05/2025 Hypertension Screening (#1) 02/05/2026 Lipid Screening 02/05/2026 02/05/2025, 09/05, 09/07/2023 Serum Creatinine 02/05/2026 02/05/2025, , 12/02/2023, [...] Procedure Name Priority Date/Time Associated Diagnosis Comments OTHER ORDERS SCANNED DOCUMENT 02/25/2025 3:00 AM EDT US SOFT TISSUE HEAD Routine 02/19/2025 3 :00 AM EDT Mass of head SURESWAB ADVANCED BACTERIAL [...] without long-term current use of insulin ([facility]) HIV 1/2 AG & AB W/RFLX (4TH GEN) Routine 09/07/2023 9:32 AM EDT Body aches Arthralgia, unspecified joint ACUTE HEPATITIS PANEL W/RFLX Routine 09/07/2023 9:32 AM EDT Body aches Arthralgia, unspecified joint from Last 3 Months or Most Recently Relevant to Health Maintenance Results * OTHER ORDERS SCANNED DOCUMENT (02/25/2025 3:00 AM EDT) 02/25/2025 3:00 AM EDT us Sondos Alnidorothyi SCAN OTHER ORDERS Final Result * US SOFT TISSUE HEAD (02/19/2025 3:00 AM EDT) 02/19/2025 3:00 AM EDT Impressions [facility] - 02/20/2025 7:26 AM EDT IMPRESSION: Probable benign superficial soft tissue lipoma within the left forehead corresponding with mass. Danuta Santiago MD Signed by Danuta Santiago MD Read by: Dr. DANUTA SANTIAGO III, MD Reviewed and Electronically Signed by: Dr. DANUTA SANTIAGO III, MD Narrative [facility] - 02/20/2025 7:26 AM [...] superficial soft tissue lipoma. Procedure Note Default, [facility] Provider - 02/20/2025 Original Report PROCEDURE: US [...] Signed by: Dr. DANUTA SANTIAGO III, MD Kimberly Martin [facility] IM ULTRASOUND Edited Resul t - Final [facility] Corporate Office [address], [address] [place] [address], * (ABNORMAL) SURESWAB ADVANCED BACTERIAL VAGINOSIS (BV), CT/NG, TMA Vaginal Vaginal Routine (02/05/2025 2:59 PM EDT) SURESWAB(R) ADV BACTERIAL VAGINOSIS (BV), TMA POSITIVE(A) NEGATIVE 02/06/2025 12:53 PM EDT [facility] CHLAMYDIA TRACHOMATIS RNA, TMA NOT DETECTED NOT DETECTED 02/06/2025 7:14 PM EDT [facility] NEISSERIA GONORRHOEAE RNA, TMA NOT DETECTED NOT DETECTED 02/06/2025 7:14 PM EDT [facility] Vaginal Vaginal structure / Unknown 02/05/2025 2:59 PM EDT 02/06/2025 9:00 AM EDT Narrative [facility] - 02/06/2025 7:16 PM EDT SPLIT 02/05/2025 FROM [id number] For additional information, please refer to https://education.Ingenico/faq/XID355 (This link is being provided for information/ educational purposes only.) Kimberly Martin [facility] - MICROBIOLOGY AMBULATOR Y Final Result [facility] [address] [address], [employer] [address] [place] [address] * (ABNORMAL) URINALYSIS, COMPLETE W/REFLEX TO CULTURE Urine Routine (02/05/2025 2:39 PM EDT) COLOR YELLOW YELLOW 02/06/2025 11:29 AM EDWally World [employer] [facility] APPEARANCE CLEAR CLEAR 02/06/2025 11:29 AM [employer] [place] [employer] SPECIFIC GRAVITY 1.029 1.001 - 1.035 02/06/2025 11:29 AM [employer] [facility] URINE PH 6.0 5.0 - 8.0 02/06/2025 11:29 AM [employer] [facility] GLUCOSE NEGATIVE NEGATIVE 02/06/2025 11:29 AM [employer] [facility] BILIRUBIN NEGATIVE NEGATIVE 02/06/2025 11:29 AM [employer] [facility] KETONES NEGATIVE NEGATIVE 02/06/2025 11:29 AM EDWally World Media[employer] Inc[employer] [facility] OCCULT BLOOD NEGATIVE NEGATIVE 02/06/2025 11:29 AM [employer]Wally [employer] [facility] URINE PROTEIN 1+(A) NEGATIVE 02/06/2025 11:29 AM [employer] [facility] NITRITE NEGATIVE NEGATIVE 02/06/2025 11:29 AM [employer] [facility] LEUKOCYTE ESTERASE NEGATIVE NEGATIVE 02/06/2025 11:29 AM [employer] [facility] URINE LEUKOCYTES NONE SEEN 0 - 5 /HPF 02/06/2025 11:29 AM EDWally [employer] [facility] RBC NONE SEEN 0 - 2 /HPF 02/06/2025 11:29 AM [employer]Wally [employer] [facility] SQUAMOUS EPITHELIAL CELLS 0-5 < OR = 5 /HPF 02/06/2025 11:29 AM EDT [employer] [facility] BACTERIA NONE SEEN NONE SEEN /HPF 02/06/2025 11:29 AM EDT [employer] HYALINE CAST NONE SEEN NONE SEEN /LPF 02/06/2025 11:29 AM EDT [employer] [facility] SEE NOTE SEE NOTE 02/06/2025 11:29 AM EDT [employer] [facility] Urine Urine specimen / Unknown 02/05/2025 2:39 PM EDT 02/06/2025 9:32 AM EDT [employer] - 02/06/2025 11:50 AM EDT SPECIMEN COLLECTED AT PROVIDER OFFICE. This urine was analyzed for the presence of WBC, RBC, bacteria, casts, and other formed elements. Only those elements seen were reported. . . Kimberly Martin [facility] URINE AMBULATORY Final R esult Performing Organization Address City/[facility]/ZIP Co de Phone Number [employer] [address] [address], [employer] [address] [address] * RFLX - REFLEXIVE URINE CULTURE Routine (02/05/2025 2:39 PM EDT) REFLEXIVE URINE CULTURE SEE NOTE 02/06/2025 11:29 AM EDT [employer] [facility] 02/05/2025 2:39 PM EDT 02/06/2025 9:32 AM EDT [employer] [facility] - 02/06/2025 11:50 AM EDT SPECIMEN COLLECTED AT PROVIDER OFFICE. NO CULTURE INDICATED Kimberly Martin [facility] - MICROBIOLOGY AMBULATOR Y Final Result Performing Organization Address City/[facility]/ZIP Co de Phone Number [employer] [address] [address], [employer] [address] [address] * (ABNORMAL) MICROALBUMIN/CREATININE RATIO, URINE, RANDOM Routine (02/05/2025 2:39 PM EDT) CREATININE, RANDOM URINE 181 20 - 275 mg/dL 02/07/2025 5:45 PM EDT [employer] MICROALBUMIN 12.6 mg/dL 02/07/2025 5:45 PM EDT [employer] MICROALBUMIN/CRE ATININE RATIO, RANDOM URINE 70(H) <30 mg/g creat 02/07/2025 5:45 PM EDT [employer] 02/05/2025 2:39 PM EDT 02/06/2025 2:49 PM EDT [employer] - 02/07/2025 5:47 PM EDT SPECIMEN COLLECTED [...] patient to be within a diagnostic category. us Kimberly ROSENBER[facility] LAB URINE AMBULATORY Final R esult [employer] [address] [place] [address], [employer] [address] [place] [phone] * TSH W/RFLX FREE T4 Routine (02/05/2025 2:04 PM EDT) TSH W/REFLEX TO FT4 1.55 mIU/L 02/06/2025 4:03 PM EDT [employer] Blood Blood / Unknown 02/05/2025 2 :04 PM EDT 02/06/2025 2:29 PM EDT [employer] - 02/06/2025 4:26 PM EDT FASTING:UNKNOWN PATIENT UNABLE TO VOID; ADVISED TO RETURN FOR COLLECTION. Reference Range . > or = 20 Years 0.40-4.50 . Ranges First trimester 0.26-2.66 Second trimester 0.55-2.73 Third trimester 0.43-2.91 us Kimberly PATEL LAB - BLOOD DRAW Final Resul t [facility] [address] [address], [employer] [address] [place] [address] * BLOOD COUNT COMPLETE AUTO&AUTO DIFRNTL WBC Routine (02/05/2025 2:04 PM EDT) WHITE BLOOD CELL COUNT 10.2 3.8 - 10.8 Thousand/ uL 02/06/2025 8:37 AM EDT [facility] RED BLOOD CELL COUNT 4.74 3.80 - 5.10 Million/u L 02/06/2025 8:37 AM EDT [facility] HEMOGLOBIN 14.7 11.7 - 15.5 g/dL 02/06/2025 8:37 AM EDWally World Media[employer] [facility] HEMATOCRIT 45.0 35.0 - 45.0 % 02/06/2025 8:37 AM EDWally World [employer] [facility] MCV 94.9 80.0 - 100.0 fL 02/06/2025 8:37 AM EDW[employer] [facility] MCH 31.0 27.0 - 33.0 pg 02/06/2025 8:37 AM [employer] [facility] MCHC 32.7 32.0 - 36.0 g/dL 02/06/2025 8:37 AM [employer] [facility] RDW 12.8 11.0 - 15.0 % 02/06/2025 8:37 AM [employer] [facility] PLATELET COUNT 264 140 - 400 Thousand/ uL 02/06/2025 8:37 AM [employer] [facility] MPV 10.5 7.5 - 12.5 fL 02/06/2025 8:37 AM [employer] [facility] ABSOLUTE NEUTROPHILS 7,018 1,500 - 7,800 cells/uL 02/06/2025 8:37 AM EDT [facility] ABSOLUTE LYMPHOCYTES 2,346 850 - 3,900 cells/uL 02/06/2025 8:37 AM EDW[employer] [facility] ABSOLUTE MONOCYTES 571 200 - 950 cells/uL 02/06/2025 8:37 AM EDW[employer] [facility] ABSOLUTE EOSINOPHILS 235 15 - 500 cells/uL 02/06/2025 8:37 AM EDWally [employer] [facility] ABSOLUTE BASOPHILS 31 0 - 200 cells/uL 02/06/2025 8:37 AM EDT [facility] NEUTROPHILS PCT 68.8 % 8:37 AM EDT [facility] LYMPHOCYTES 23.0 % 02/06/2025 8:37 AM EDT [facility] MONOCYTES 5.6 % 02/06/2025 8:37 AM EDT [facility] EOSINOPHILS 2.3 % 02/06/2025 8:37 AM EDT [facility] BASOPHILS 0.3 % 02/06/2025 8:37 AM EDT [facility] Blood Blood / Unknown 02/05/2025 2 :04 PM EDT 02/06/2025 8:21 AM EDT [employer] - 02/06/2025 8:37 AM EDT FASTING:UNKNOWN PATIENT UNABLE TO VOID; ADVISED TO RETURN FOR COLLECTION. For adults, a slight decrease in the calculated MCHC value (in the range of 30 to 32 g/dL) is most likely not clinically significant; however, it should be interpreted with caution in correlation with other red cell parameters and the patient's clinical condition. us Kimberly Martin [employer] LAB - BLOOD DRAW Final Resul t [employer] [address] [place] [id number], [employer] [address] [address] * (ABNORMAL) HEMOGLOBIN GLYCOSYLATED A1C Routine (02/05/2025 2:04 PM EDT) HEMOGLOBIN A1C 6.4(H) <5.7 % 02/06/2025 10:06 AM EDT [facility] Blood Blood / Unknown 02/05/2025 2 :04 PM EDT 02/06/2025 8:21 AM EDT [employer] - 02/06/2025 10:30 AM EDT FASTING:UNKNOWN PATIENT [...] for diagnosis of diabetes for children. . Kimberly Martin [facility] - BLOOD DRAW Final Resul t [employer] [address] [address], [employer] [address] [address] * (ABNORMAL) LIPID PANEL Routine (02/05/2025 2:04 PM EDT) [facility] CHOLESTEROL, TOTAL 218(H) <200 mg/dL 02/06/2025 4:35 PM EDT [employer] [facility] HDL CHOLESTEROL 48(L) > OR = 50 mg/dL 02/06/2025 4:35 PM EDT [employer] [facility] TRIGLYCERIDES 235(H) <150 mg/dL 02/06/2025 4:35 PM EDT [employer] [facility] LDL-CHOLESTEROL 132(H) mg/dL (calc) 02/06/2025 4:35 PM EDT [employer] [facility] CHOL/HDLC RATIO 4.5 <5.0 (calc) 02/06/2025 4:35 PM EDT [employer] [facility] NON-HDL CHOLESTEROL 170(H) <130 mg/dL (calc) 02/06/2025 4:35 PM EDT [employer] [facility] Blood Blood / Unknown 02/05/2025 2 :04 PM EDT 02/06/2025 2:29 PM EDT Narrative [employer] [facility] - 02/06/2025 4:35 PM EDT FASTING:UNKNOWN PATIENT [...] . LDL-C is now calculated using the Varsha calculation, which is a validated novel method providing better accuracy than the Friedewald equation in the estimation of LDL-C. Brock LIN et al. NORMAN. 2013;310(19): 3935-0156 (http://education.YCL[employer]ENTS COMPANY.Lotame/faq/EHN661) For patients with diabetes plus 1 major ASCVD risk factor, treating to a non-HDL-C goal of <100 mg/dL (LDL-C of <70 mg/dL) is considered a therapeutic option. Kimberly Martin [facility] - BLOOD DRAW Final Resul t [employer] [address] [address], [facility] [address] [address] * (ABNORMAL) COMPREHENSIVE METABOLIC PANEL Routine (02/05/2025 2:04 PM EDT) [facility] GLUCOSE 100(H) 65 - 99 mg/dL 02/06/2025 4:35 PM EDT [facility] UREA NITROGEN (BUN) 15 7 - 25 mg/dL 02/06/2025 4:35 PM EDT [facility] CREATININE (blood) 0.85 0.50 - 0.97 mg/dL 02/06/2025 4:35 PM EDT [employer] [facility] EGFR 89 > OR = 60 mL/min/1. 73m2 02/06/2025 4:35 PM EDHightail [facility] BUN/CREATININE RATIO SEE NOTE: 6 - 22 (calc) 02/06/2025 4:35 PM EDT [employer] [facility] SODIUM 136 135 - 146 mmol/L 02/06/2025 4:35 PM EDT [employer] [facility] POTASSIUM 3.9 3.5 - 5.3 mmol/L 02/06/2025 4:35 PM EDT [facility] CHLORIDE 103 98 - 110 mmol/L 02/06/2025 4:35 PM EDT [employer] [facility] CARBON DIOXIDE 27 20 - 32 mmol/L 02/06/2025 4:35 PM EDHightail [facility] CALCIUM 9.2 8.6 - 10.2 mg/dL 02/06/2025 4:35 PM EDT [facility] PROTEIN, TOTAL 7.4 6.1 - 8.1 g/dL 02/06/2025 4:35 PM EDT [facility] ALBUMIN 4.2 3.6 - 5.1 g/dL 02/06/2025 4:35 PM EDT [facility] GLOBULIN 3.2 1.9 - 3.7 g/dL (calc) 02/06/2025 4:35 PM EDT [facility] ALBUMIN/GLOBULI N RATIO 1.3 1.0 - 2.5 (calc) 02/06/2025 4:35 PM EDT [facility] BILIRUBIN, TOTAL 0.3 0.2 - 1.2 mg/dL 02/06/2025 4:35 PM EDT [facility] ALKALINE PHOSPHATASE 113 31 - 125 U/L 02/06/2025 4:35 PM EDT [facility] AST 30 10 - 30 U/L 02/06/2025 4:35 PM EDT [facility] ALT 58(H) 6 - 29 U/L 02/06/2025 4:35 PM EDT [facility] Blood Blood / Unknown 02/05/2025 2 :04 PM EDT 02/06/2025 2:29 PM EDT Narrative [facility] - 02/06/2025 4:35 PM EDT FASTING:UNKNOWN PATIENT UNABLE TO VOID; ADVISED TO RETURN FOR COLLECTION. . Fasting reference interval . For someone without known diabetes, a glucose value between 100 and 125 mg/dL is consistent with prediabetes and should be confirmed with a follow-up test. . Not Reported: BUN and Creatinine are within reference range. . Kimberly Martin [employer] LAB - BLOOD DRAW Final Resul t [facility] [address] [address], [facility] [address] [address] * [facility]AG[facility] PAP, HPV MRNA E6/E7 RFLEX HPV 16,18/45 CT/NG (01/28/2024 2:19 PM EDT) CHLAMYDIA TRACHOMATIS RNA, TMA NOT DETECTED NOT DETECTED [employer] [facility] NEISSERIA GONORRHOEAE RNA, TMA NOT DETECTED NOT DETECTED [facility] COMMENT [facility] CLINICAL INFORMATION See Note [facility] Comment:None given LMP See Note [facility] Comment:11/28/23 PREV. PAP See Note [facility] Comment:NONE GIVEN PREV. BX See Note [facility] Comment:NONE GIVEN SOURCE See Note [facility] Comment:None given STATEMENT OF ADEQUACY See Note [facility] Comment: Satisfactory for evaluation. Endocervical/transformation zone component present. INTERPRETATION/RESU LT See Note [facility] Comment: Cytology Results: Negative for intraepithelial lesion or malignancy. INFECTION See Note [facility] Comment: Shift in vaginal maureen suggestive of bacterial vaginosis. COMMENT See Note [facility] Comment: This Pap test has been evaluated with computer assisted technology. EDGE SAWYER See Note [facility] [employer] [facility] Comment: MRC, CT(ASCP) CT screening location: [place] [address] REVIEW EDGE SAWYER See Note [facility] Comment: ALS, CT(ASCP) CT screening location: [place] [address] COMMENT [facility] HPV MRNA E6/E7 Not Detected Not Detected [employer] [facility] Comment: Methodology: Clinical Informatics Director-Mediated Amplification This assay detects E6/E7 viral messenger RNA (mRNA) from 14 high-risk HPV types (16,18,31,33,35,39,45,51,52,56,58,59,66,68). Cervical sources are required for HPV testing. If a vaginal source from a patient who has had a total hysterectomy with removal of cervix was submitted, please contact the testing laboratory for alternative testing options. For additional information, please refer to http://education.Ingenico/faq/PEL798e8 (This link if provided for information/ educational purposes only.) Swab Cervix uteri structure / Unknown 01/28/2024 2:19 PM EDT 01/29/2024 7:24 AM EDT Narrative [employer] [facility] - 01/31/2024 4:24 PM EDT EXPLANATORY NOTE: [...] test SurePath(TM) specimens have been determined by [employer]. The modifications have not been cleared or approved by the FDA. This assay has been validated pursuant to the CLIA regulations and is used for clinical purposes. For additional information, please refer to https://REPUCOM.Ingenico/faq/PMN023 (This link is being provided for information/ educational purposes only.) us Minor Laird MD LAB - PATHOLOGY AND CYTOLOGY AMB ULATORY Final Result [facility] [address] [address], [facility] [address] [address] * REFERRAL TO DIABETIC RETINAL EXAM (10/24/2023 3:00 AM EDT) 10/24/2023 3:00 AM EDT us Minor Laird MD REFERRAL Final Result * HIV 1/2 AG & AB W/RFLX (4TH GEN) (09/07/2023 9:32 AM EDT) HIV AG/AB, 4TH GEN NON-REAC TIVE NON-REAC TIVE [facility] Comment: HIV-1 antigen and HIV-1/HIV-2 antibodies were [...] purpose. For additional information please refer to http://education.Ingenico/faq/KFY231 (This link is being provided for informational/ educational purposes only.) The performance of this assay has not been clinically validated in patients less than 2 years old. Blood Blood / Unknown 09/07/2023 9 :32 AM EDT 09/07/2023 9:34 AM EDT Narrative [employer] - 09/09/2023 3:39 PM EDT FASTING:YES us Yanira Bennett PAHerreraC LAB - BLOOD DRAW Final Resul t [facility] [address] [address], [facility] [address] [address] * HEPATITIS PANEL W/RFLX (09/07/2023 9:32 AM EDT) HEPATITIS A IGM ANTIBODY NON-REACT TAMIR NON-REACT TAMIR [facility] COMMENT [facility] HEPATITIS B SURFACE ANTIGEN NON-REACT TAMIR NON-REACT TAMIR [facility] COMMENT [facility] HEPATITIS B CORE IGM ANTIBODY NON-REACT TAMIR NON-REACT TAMIR [facility] COMMENT [facility] HEPATITIS C ANTIBODY NON-REACT TAMIR NON-REACT TAMIR [employer] [facility] Comment: HCV antibody was non-reactive. There is no laboratory evidence of HCV infection. In most cases, no further action is required. However, if recent HCV exposure is suspected, a test for HCV RNA (test code 65877) is suggested. For additional information please refer to http://REPUCOM.Ingenico/faq/TUZ93q1 (This link is being provided for informational/ educational purposes only.) Blood Blood / Unknown 09/07/2023 9 :32 AM EDT 09/07/2023 9:34 AM EDT Narrative [facility] - 09/09/2023 3:39 PM EDT FASTING:YES For additional information, please refer to http://REPUCOM.Ingenico/faq/VCA317 (This link is being provided for informational/ educational purposes only.) For additional information, please refer to http://education.Ingenico/faq/GNX670 (This link is being provided for informational/ educational purposes only.) For additional information, please refer to [email or web address].Ingenico/faq/UEC989 (This link is being provided for informational/ educational purposes only.) Yanira Bennett PA-C LAB - BLOOD DRAW Final Resul t [facility] [address] [id number], [facility] [address] [place] [address] from Last 3 Months or Most Recently Relevant to Health Maintenance Insurance [employer] Care Teams Head Pastry Chef Relationship Specialty Start Date End Date Kimberly Martin FNP [address] [place] [address] PCP - General Family Medicine, [employer]CH[employer]IC 01/08/25
--- OUTSIDE RECORDS SUMMARY | 2025-02-26 10:06 | XMS_ITS | Encounter Summary ---
Author Organization [employer] Address [address] [facility] 7 [place] [address] Care Team Providers Care Tour Production Supervisor Name Role Phone Unavailable Primary Care Provider Unavailabl e Reason for Visit * Reason Comments Med Refill Encounter Details Date Type Department Care Team (Late st Contact Info) Description 10/05/2023 Refill [facility] [address] [place], [place] [phone] Addie Brar MD [address] [place], [place] [phone] Mild persistent asthma with acute exacerbation; Mild [...]
--- OUTSIDE RECORDS SUMMARY | 2025-02-26 10:06 | XMS_ITS | Clinical Summary ---
Author Organization [employer] Address [address] [place] [address] 7 [place] [address] Care Team Providers Care Adjunct Mathematics Instructor Name Role Phone Unavailable Primary Care Provider Unavailabl e Allergies No known active allergies Medications sodium chloride ([place] Nasal [place]) 0.65 % nasal sprayIndications: Viral URI 1-2 [...] pt visit, new pt labs Morbid obesity ([facility]) 12/18/2017 Immunizations Immunization Administration Dates Next Due [...] patient's age to complete this topic [place] [place] [address] C3
== END 2025-02-26 09:17 | disposition home or self-care (01) ==
LOC: HO.XRAY 09:16
PROVIDERS: Visit Provider Surgery
DX: E66.01 Morbid (severe) obesity due to excess calories (principal); K21.9 Gastro-esophageal reflux disease without esophagitis; J45.909 Unspecified asthma, uncomplicated; E11.9 Type 2 diabetes mellitus without complications
CPT/HCPCS: 74246

== ENCOUNTER → 2025-02-26 09:18 | Outpatient (BNV) | payer MEDICAID, SELFPAY | PROVIDERS: Visit Provider Radiology Diagnostic Radiology | DX: R10.9 Unspecified abdominal pain (principal) | CPT/HCPCS: 74246 ==

== ENCOUNTER 2025-03-28 11:09 | Emergency (ER) | payer MEDICAID, SELFPAY ==
[2025-03-28 11:22] VITALS: BP 117/55; PULSE 92; RESP 16; TEMP 36.7; O2SAT 98; BMI 36.6
--- NOTE | 2025-03-28 11:31 | ED.GENADULT ---
HPI - General Adult General Chief complaint: General Medical Stated complaint: Fever Body Aches Time Seen by Provider: 03/28/25 12:38 Source: patient, RN notes reviewed and old records reviewed Mode of arrival: ambulatory History of Present Illness ED Provider: Eunice Ramirez PA-C HPI narrative: 39-year-old female with a past medical history diabetes, asthma, GERD, presenting to the ED complaining of left-sided headache x few days with associated left ear pain, sore throat, subjective fever / chills. Also reports lump to left side of head x awhile that has been growing. Denies vision change / loss, vomiting, sick contacts, travel, difficulty or inability to swallow. Headache not maximal at onset. Related Data Home Medications ?Medication ?Instructions ?Recorded ?Confirmed albuterol sulfate 90 mcg/actuation 2 puff inhalation Q6H PRN 11/02/24 12/18/24 aerosol inhaler (Ventolin HFA) Shortness Of Breath Or Wheezing metformin 500 mg tablet 500 mg PO BID 11/02/24 12/18/24 Previous Rx's ?Medication ?Instructions ?Recorded omeprazole magnesium 20 mg 20 mg PO BID #60 tabs 02/20/20 tablet,delayed release (Prilosec OTC) epinephrine 0.3 mg/0.3 mL 0.3 mg (0.3 mL) IM Q4H PRN 10/09/23 injection, auto-injector (EpiPen anaphylaxis #2 ea 2-Daniele) tirzepatide 2.5 mg/0.5 mL 2.5 mg (0.5 mL) subcut QWEEK #2 mL 11/02/24 subcutaneous pen injector (Sunil) orzlwoexpv-sevenffcuutnp-szajgpuo 1 cap PO Q4-6H PRN headache #14 03/28/25 50 mg-300 mg-40 mg capsule caps (Fioricet) Allergies Allergy/AdvReac Type Severity Reaction Status Date / Time No Known Allergies (No Known Allergy Verified 03/28/25 11:23 Allergies*) Review of Systems Review of Systems: Yes all other systems are reviewed and are negative Constitutional: Constitutional: Reports as per HPI Neurologic: Denies Abnormal speech present PMFSH Past Medical History Attestation statement: The following information was validated with the patient. Source: old records reviewed Medical History Non-insulin dependent type 2 diabetes mellitus DJD (degenerative joint disease) GERD (gastroesophageal reflux disease) Asthma Morbid obesity Type 2 diabetes mellitus Kidney stones Surgical History History of lithotripsy History of laparoscopic cholecystectomy History of delivery Family History Family History Mother Hypertension Father Hypertension Social History Social History Are you a primary health care coordinator to a significant other at home: No Do you presently have visiting nurse or other home services: No Alcohol intake: never Patient Tobacco Use Status: Current everyday Tobacco user Cigarettes Per Day: 5 Advance Directives: No Advance Directives Information Provided: Yes Physical Exam ED Vital Signs: Vital Signs - 24 hr 03/28/25 11:22 03/28/25 14:13 03/28/25 14:39 Temperature 98.0 F 98.3 F 98.3 F Pulse Rate 92 86 86 Respiratory Rate 16 18 18 Blood Pressure 117/55 L 102/60 102/60 Pulse Oximetry 98 97 97 Oxygen Delivery Method Room Air Room Air Room Air BMI result Body Mass Index 36.6 Const General: cooperative, healthy appearing and no acute distress Orientation/consciousness: patient oriented x3 Limitations: no limitations HENMT Other: + Mobile soft tissue cyst/ lipoma to left temporal region. Nontender. No fluctuance or induration. No overlying erythema Head: Yes normal to inspection and Yes atraumatic Ears: hearing grossly normal bilaterally, TM's normal bilaterally, mastoids normal and Abnormal EAC present excessive cerumen on the left ( remove with curette without complication) General nose exam: Normal external nose present Face and sinus: Yes normal facial exam Mouth: Normal oral and palatal mucosa present Throat: Yes posterior oropharynx normal, Yes tonsils normal, Yes uvula midline, No uvula laterally displaced and No uvular edema Eyes General: appearance normal, both eyes and all related structures Pupils: Equal, round and reactive pupils present EOM: EOMs intact bilaterally Neck Neck: Yes normal visual inspection and Yes no meningeal signs Resp Effort & Inspection: normal respiratory effort and no respiratory distress Cardio Rate: regular rate Skin Rashes: no rashes Wounds: no wounds Neuro General: patient oriented x3, tone normal, moves all extremities, no meningeal signs, no focal motor deficits and CN's II-XI intact bilaterally Cranial nerves: Yes CN's II-XII intact bilaterally and Yes Equal, round and reactive pupils present Cognition (Neuro): normal cognition Speech: No Abnormal speech present Gait exam (Neuro): Normal gait present Motor exam (neuro): 5/5 motor strength present throughout and no tremor noted Extrem General: Yes normal to inspection Course Course Course Narrative: Rapid medical examination performed in triage by Chyna Ham PA-C: Patient is a 39 year old assigned female at presenting to the emergency department with a headache, lump on head, and sore throat. Detailed physical exam and review of systems are deferred to the counter checker. Labs and swabs ordered. Patient placed back in the waiting room pending room availability and results. - ESR slightly elevated to 32. CRP 1.66. Labs otherwise reassuring. Viral testing including rapid strep negative 2:30 PM 03/28/2025 (Eunice Ramirez PA-C): on re-evaluation reports symptomatic improvement after p.o. Fioricet given in the ED. Plan for discharge home with PCP follow-up Results discussed with patient including worrisome signs and symptoms and strict return precautions, and when to return to the emergency department. They verbalized understanding and feel safe for discharge at this time. Medications Administered Discontinued Medications Generic Name Dose Route Start Last Admin Trade Name Freq PRN Reason Stop Dose Admin Acetaminophen/Butalbital/Caffeine 1 tab 03/28/25 13:10 03/28/25 13:35 Butalb/Acetamin/Caff 50/325/40 Tablet PO 03/28/25 13:11 1 tab ONCE ONE Administration Medical Decision Making Medical Decision Making [facility] Narrative: 39-year-old female with a past medical history diabetes, asthma, GERD, presenting to the ED complaining of left-sided headache x few days with associated left ear pain, sore throat, subjective fever / chills. Also reports lump to left side of head x awhile that has been growing. on exam vital signs stable, NAD, nontoxic appearing, lipoma/ soft tissue cyst noted to left temporal region without overlying cellulitis. No fluctuance or induration. Oropharynx WNL. Uvula midline. No evidence of NEWS CONTENT SPECIALIST / retropharyngeal abscess. TMs WNL bilaterally. No focal neuro deficits. Concern for migraine headache. Lower suspicion for ICH, CVT, meningitis/ encephalitis. Lower suspicion for giant cell arteritis or trigeminal neuralgia Plan: Labs, viral testing, pain control Please refer to course for remaining clinical decision making, interpretation of labs/imaging results, and discussions with consultants and/or family members. Differential Diagnosis Differential Diagnoses: The differential diagnosis associated with the presentation includes As above Admission/Observation Consideration of admission/observation: Escalation of care including admission/observation considered Lab Data MDM Lab Attestation statement: I reviewed the patient's lab results. 03/28/25 11:47 03/28/25 11:47 Labs: Lab Results 03/28/25 Range/Units 11:47 WBC 10.4 (4.8-10.8) X10*3/uL RBC 4.50 (4.20-5.50) X10*6/uL Hgb 13.8 (12.0-16.0) g/dl Hct 41.5 (37.0-47.0) % MCV 92.2 (80.0-98.0) fL MCH 30.7 (27.0-33.0) pg MCHC 33.3 (31.0-35.0) g/dl RDW 12.9 (11.0-16.0) % Plt Count 233 (160-400) X10*3/uL MPV 10.1 (9.4-12.3) fL Immature Gran % (Auto) 0.7 H (0.0-0.4) % Neut % (Auto) 66.9 (45-73) % Lymph % (Auto) 25.9 (20-40) % Humphreys % (Auto) 5.0 (2-11) % Eos % (Auto) 1.3 (0-4) % Baso % (Auto) 0.2 (0-2) % Lymph # (Auto) 2.7 (1.2-4.9) X10*3/uL Humphreys # (Auto) 0.5 (0.1-1.2) X10*3/uL Eos # (Auto) 0.1 (0.0-0.4) X10*3/uL Baso # (Auto) 0.0 (0.0-0.2) X10*3/uL Abs Immat Gran (auto) 0.07 H (0.00-0.03) X10*3/uL Absolute Neuts (auto) 7.0 (2.0-8.3) x10*3/uL Absolute Nucleated RBC 0.000 (0.0-0.012) X10*3/uL Nucleated RBC % (auto) 0.0 (0.0-0.2) /100WBC ESR 32 H (0-20) MM/HR Sodium 138 (135-145) mmol/L Potassium 3.8 (3.3-5.1) mmol/L Chloride 106 (96-108) mmol/L Carbon Dioxide 24 (22-29) mmol/L Anion Gap 12 (12-20) BUN 13 (9-16) mg/dL Creatinine 0.73 (0.5-1.4) mg/dL Estim Creat Clear Calc 121.0 Estimated GFR > 60 Random Glucose 189 H (60-115) mg/dL Calcium 9.1 (8.4-10.2) mg/dL Total Bilirubin 0.5 (0.0-1.0) mg/dL AST 24 (5-31) U/L ALT 25 (0-31) U/L Alkaline Phosphatase 95 (39-117) U/L C-Reactive Protein 1.66 H (< or = 0.50) mg/dL Total Protein 7.4 (6.5-8.0) g/dL Albumin 4.0 (3.5-5.0) g/dL Hold Red Top See Note Influenza Type A (PCR) NEGATIVE (Negative) Influenza Type B (PCR) NEGATIVE (Negative) RSV RNA Qual (PCR) NEGATIVE (Negative) SARS-CoV-2 RNA (RT-PCR) NEGATIVE (Negative) S. pyogenes GrpA EDGAR Negative (Negative) Radiology Impression Discussion of test interpretation with radiology: I have reviewed the radiologist's reading. External Record Review External record reviewed: Inpatient record, Office record, Outpatient record, Prior outpatient labs, Prior outpatient radiology, Primary care record and Outside ED record Tests considered The following testing was considered but not selected: As above Prescription Management I considered prescription management with: Pain Medication and Antibiotic Chronic Conditions Patient?s care impacted by: Diabetes and Other Social Determinants Patient?s care significantly limited by Social Determinants of Health including: Other Social Determinant of Health Discharge Plan Discharge Clinical Impression: Headache Patient Disposition: Home, Self-Care Instructions: Acute Headache (DC) Additional Instructions: your blood work is reassuring You tested negative for COVID, flu, RSV and strep throat Fioricet is a combination medication for headache. Take as needed. Be aware this has Tylenol mixed in do not exceed 4 g of Tylenol in 1 day If her symptoms persist or worsen you constant worsening headache, nausea /vomiting, weakness please return to the emergency department please have close follow up with her primary care doctor Prescriptions: New dsvxpfdmcz-tjderszdkndmh-rsyb [Fioricet] 50-300-40 mg capsule 1 cap PO Q4-6H PRN (Reason: headache) Qty: 14 0RF No Action omeprazole magnesium [Prilosec OTC] 20 mg tablet,delayed release (DR/EC) 20 mg PO BID Qty: 60 0RF epinephrine [EpiPen 2-Daniele] 0.3 mg/0.3 mL auto-injector 0.3 mg IM Q4H PRN (Reason: anaphylaxis) Qty: 2 0RF albuterol sulfate [Ventolin HFA] 90 mcg/actuation HFA aerosol inhaler 2 puff inhalation Q6H PRN (Reason: Shortness Of Breath Or Wheezing) metformin 500 mg tablet 500 mg PO BID Mounjaro 2.5 mg/0.5 mL pen injector 2.5 mg subcut QWEEK Qty: 2 0RF Rx Instructions: for 4 weeks Referrals: Physician,Unknown J [Primary Care Provider, Medical] Interventions: ED Discharge Assessment Last Done: 03/28/25 14:39 Discharge Date/Time: 03/28/25 14:40 Print Language: Estonian
[2025-03-28 11:51] LABS: MANUAL DIFF FLAG NO
--- OUTSIDE RECORDS SUMMARY | 2025-03-28 11:52 | XMS_ITS | Encounter Summary ---
Author Organization [employer] Address [address] [place] [address] 7 [place] [address] Care Team Providers Care Business Proposal Rep Name Role Phone Unavailable Primary Care Provider Unavailabl e Reason for Visit * Reason Comments Med Refill Encounter Details Date Type Department Care Team (Late st Contact Info) Description 08/26/2023 Refill [facility] [address] [place], [place] [phone] Henrik Le MD [address] [place] [address] Social History Tobacco Use Types Packs/Day Years [...]
--- OUTSIDE RECORDS SUMMARY | 2025-03-28 11:52 | XMS_ITS | Encounter Summary ---
Author Organization [employer] Address [address] [facility] 7 [place] [address] Care Team Providers Care Instrumentation Controls Engineer Name Role Phone Unavailable Primary Care Provider Unavailabl e Reason for Visit * Reason Comments Med Refill Encounter Details Date Type Department Care Team (Late st Contact Info) Description 10/05/2023 Refill [facility] [address] [place], [place] [phone] Addie Brar MD [address] [place], [place] [phone] Mild persistent asthma with acute exacerbation; Mild [...]
--- OUTSIDE RECORDS SUMMARY | 2025-03-28 11:52 | XMS_ITS | Encounter Summary ---
Author Organization [employer] Address [address] [facility] 7t [place] [address] Care Team Providers Care Sales Record Clerk Name Role Phone Unavailable Primary Care Provider Unavailabl e Reason for Visit * Reason Comments Med Refill Encounter Details Date Type Department Care Team ([facility] st Contact Info) Description 10/23/2023 Refill [facility] [address] [place] [phone] Name, MD [facility] [address] [place] [address] Mild persistent asthma with acute exacerbation; Mild [...]
--- OUTSIDE RECORDS SUMMARY | 2025-03-28 11:52 | XMS_ITS | Encounter Summary ---
Author Organization [employer] Address [address] [facility] 7 [place] [address] Care Team Providers Care Knitting Machine Mechanic Name Role Phone Unavailable Primary Care Provider Unavailabl e Reason for Visit * Reason Comments Med Refill Encounter Details Date Type Department Care Team (Late st Contact Info) Description 11/13/2023 Refill [facility] [address] [place], [place] [phone] Henrik eL MD [address] [place] [address] Social History Tobacco Use Types Packs/Day Years [...]
--- OUTSIDE RECORDS SUMMARY | 2025-03-28 11:52 | XMS_ITS | Encounter Summary ---
Author Organization [employer] Address 75 [facility] 7t [place] [address] Care Team Providers Care Senior Qc Technician Name Role Phone Unavailable Primary Care Provider Unavailabl e Reason for Visit * Reason Comments Med Refill Encounter Details Date Type Department Care Team ([facility] st Contact Info) Description 11/13/2023 Refill [facility] 230 [place], [place] [phone] [facility] 230 [place], [place] [phone] Right acute otitis media Social History Tobacco [...]
--- OUTSIDE RECORDS SUMMARY | 2025-03-28 11:52 | XMS_ITS | Encounter Summary ---
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 EFFECTIVE SINCE 12/25/2022 documented in this encounter Plan of Treatment Not on file documented as of this encounter Visit Diagnoses Not on filedocumented in this encounter
--- OUTSIDE RECORDS SUMMARY | 2025-03-28 11:52 | XMS_ITS | Encounter Summary ---
Author Organization [email or web address] Address [address] [facility] 7 [place] [address] Care Team Providers Care Compliance Consultant Name Role Phone Unavailable Primary Care Provider Unavailabl e Reason for Visit * Reason Comments Med Refill Encounter Details Date Type Department Care Team (Late st Contact Info) Description 11/13/2023 Refill [facility] 230 [place], [place] [phone] Addie Brar MD [address] [place], [place] [phone] Mild persistent asthma with acute exacerbation; Mild [...]
--- OUTSIDE RECORDS SUMMARY | 2025-03-28 11:52 | XMS_ITS | Clinical Summary ---
Author Organization [employer] Address [address] [place] [address] 7 [place] [address] Care Team Providers Care Air Analyst Name Role Phone Unavailable Primary Care Provider Unavailabl e Allergies No known active allergies Medications sodium chloride ([place] Nasal [place]) 0.65 % nasal sprayIndications: Viral URI 1-2 [...] pt visit, new pt labs Morbid obesity ([facility]) 12/18/2017 Immunizations Immunization Administration Dates Next Due [...] Planning (PISQ) 2000 Hepatitis C Screening 10/12/2003 Hepatitis B Vaccines (1 of 3 - 19+ 3-dose series) 2004 Pap Smear 2006 Cervical Cancer Screening 10/12/2015 HPV/Cotest 10/12/2015 SDOH Screening 09/11/2024 09/12/2023 Diabetes: Urine Protein Screening 10/03/2024 10/04/2023 COVID-19 Vaccine (2024-2 6 season) 2025 HPV Vaccines (3 - 3-dose [...] patient's age to complete this topic [place] [place] [address] C3
--- OUTSIDE RECORDS SUMMARY | 2025-03-28 11:52 | XMS_ITS | Clinical Summary ---
Author Organization [facility] Address [address] [place] [address] Phone Care Team Providers Care Materials Specialist Name Role Phone Andrea Lorenzana MD Primary Care Provider [phone] Allergies No known active allergies Medications albuterol [...] Comments Kidney stones Migraine Asthma Diabetes mellitus ([facility] V24, [facility] V28) GERD (gastroesophageal reflux disease) Social History [...] 12/01/2024 12/02/2023, 11/23/2023 COVID-19 Vaccine (1 - 2024-2 6 season) 2025 Influenza Vaccine (#1) 2025 , [...] topic Insurance MEDICAID - [place] Care Teams Materials Specialist Relationship Specialty Start Date End Date Andrea Lorenzana MD [address] [place] [address] PCP - General 12/23/23
--- OUTSIDE RECORDS SUMMARY | 2025-03-28 11:52 | XMS_ITS | Encounter Summary ---
Author Organization [employer] Address 75 [facility] 7t [place] [address] Care Team Providers Care Media Librarian Name Role Phone Unavailable Primary Care Provider Unavailabl e Reason for Visit * Reason Comments Med Refill Encounter Details Date Type Department Care Team ([facility] st Contact Info) Description 11/13/[address] [facility] [address] [place] [phone] Name, MD [facility] [address] [place] [address] Mild persistent asthma with acute exacerbation; Mild [...]
--- OUTSIDE RECORDS SUMMARY | 2025-03-28 11:52 | XMS_ITS | Encounter Summary ---
Author Organization [employer] Address [address] [place] [address] 7t [place] [address] Care Team Providers Care Paper Box Maker Name Role Phone Unavailable Primary Care Provider Unavailabl e Reason for Visit * Reason Comments Med Refill Encounter Details Date Type Department Care Team (Late st Contact Info) Description 02/22/2023 Refill [facility] [address] [place] [phone] Kahlil Mondragon FNP Mild intermittent reactive airway [...]
[2025-03-28 11:57] LABS: Hematocrit 41.5 % (37.0-47.0); Hemoglobin 13.8 g/dl (12.0-16.0); Imm Gran Abs Auto 0.07 X10*3/uL (0.00-0.03); Imm Gran Pct Auto 0.7 % (0.0-0.4); Lymphocytes Absolute Auto 2.7 X10*3/uL (1.2-4.9); Mean Corpuscular HGB Conc 33.3 g/dl (31.0-35.0); Mean Corpuscular Hemoglobin 30.7 pg (27.0-33.0); Mean Corpuscular Volume 92.2 fL (80.0-98.0); NRBC Abs Auto 0.000 X10*3/uL (0.0-0.012); NRBC Pct Auto 0.0 /100WBC (0.0-0.2); Platelet Count 233 X10*3/uL (160-400); Red Blood Count 4.50 X10*6/uL (4.20-5.50); White Blood Count 10.4 X10*3/uL (4.8-10.8)
[2025-03-28 12:03] LABS: IDNOW Serial# 55D5AD1C; Strep A Nucleic Acid Negative (Negative)
[2025-03-28 12:09] LABS: Alanine Aminotransferase 25 U/L (0-31); Albumin Level 4.0 g/dL (3.5-5.0); Alkaline Phosphatase 95 U/L (39-117); Anion Gap 12 (12-20); Aspartate Amino Transferase 24 U/L (5-31); Blood Urea Nitrogen 13 mg/dL (9-16); Calcium 9.1 mg/dL (8.4-10.2); Carbon Dioxide 24 mmol/L (22-29); Chloride 106 mmol/L (96-108); Creatinine Clr Calc Pharmacy 121.0; Estimated Glomerular Filt Rate > 60; Potassium 3.8 mmol/L (3.3-5.1); Sodium 138 mmol/L (135-145); Total Protein 7.4 g/dL (6.5-8.0)
[2025-03-28 12:30] LABS: Erythrocyte Sedimentation Rate 32 MM/HR (0-20)
[2025-03-28 12:31] LABS: Resp Syncy Virus RNA Qual PCR NEGATIVE (Negative); SARS COV2 PCR INHOUSE NEGATIVE (Negative)
[2025-03-28] MEDS: Butalb/Acetamin/Caff 50/325/40 TABLET 1 TAB PO (13:35)
[2025-03-28 14:13] VITALS: BP 102/60; PULSE 86; RESP 18; TEMP 36.8; O2SAT 97
[2025-03-28 14:39] VITALS: BP 102/60; PULSE 86; RESP 18; TEMP 36.8; O2SAT 97
== END 2025-03-28 14:40 | disposition home or self-care (01) ==
PROVIDERS: Physician Assistant Medical; Emergency Provider Emergency Medicine Emergency Medical Services
DX: R51.9 Headache, unspecified (principal); R50.9 Fever, unspecified; M79.10 Myalgia, unspecified site; H92.02 Otalgia, left ear; J02.9 Acute pharyngitis, unspecified; Z79.899 Other long term (current) drug therapy; Z03.818 Encounter for observation for suspected exposure to other biological agents ruled out
CPT/HCPCS: 80053; 85025; 85652; 86140; 87637; 87651; 99283; 99284